=== PATIENT | male | born 1955 | race Caucasian/White ===

== ENCOUNTER 2019-08-28 19:52 | Inpatient (IN) | payer MEDICARE, SELFPAY ==
[2019-08-28 19:53] VITALS: BP 108/78; RESP 15; TEMP 35.4; O2SAT 97; BMI 15.0
--- NOTE | 2019-08-28 20:16 | CT_ITS ---
STUDY: CT BRAIN WITHOUT CONTRAST REASON FOR EXAM: Male, 64 years old. Confusion. Found on bathroom floor. History of lung and throat cancer. RADIATION DOSAGE (If Supplied By Facility): CTDIvol = ( 44.99 ) mGy, DLP = ( 846.73 ) mGycm TECHNIQUE: Transaxial CT imaging of the brain was performed without administration of intravenous contrast material. Individualized dose optimization techniques were used for this CT. COMPARISON: January 31, 2017. FINDINGS: Normal soft tissue structures. Normal calvarium. There is mild cerebral atrophy with widening of the extra-axial spaces and ventricular dilatation. Normal white matter tracts of the cerebral hemispheres. Normal basal ganglia and thalami. Normal brainstem. Normal cerebellum. There is no intracranial hemorrhage. There is increased density in the left MCA suggesting a dense MCA sign suggestive of impending infarct. Normal visualized paranasal sinuses. CT/Brain/Head without Contrast IMPRESSION: 1. Question left sided dense MCA sign. MRI is recommended. 2. No other major interval change from January 31, 2017. N.B. : The above information has been verbally conveyed by Jayy Rothman DO to Berry Rios MD, on 08/28/2019 21:21:38 (ET). Electronically Signed: Jayy Rothman DO at 21:22 EDT Tel [phone], Service support ,
--- NOTE | 2019-08-28 20:16 | EKG12_ITS ---
Test Reason : GENERAL ILLNESS Blood Pressure : / mmHG Vent. Rate : 099 BPM Atrial Rate : 099 BPM P-R Int : 120 ms QRS Dur : 068 ms QT Int : 376 ms P-R-T Axes : 068 079 124 degrees QTc Int : 482 ms Sinus rhythm with occasional Premature ventricular complexes Septal infarct , age undetermined Abnormal ECG Confirmed by ELENA GASPAR, DECLAN ([id number]), field map editor EDGARD JONES ([id number]) on 08/31/2019 3:17:08 PM Referred By: MENDEZ Confirmed By:DECLAN PARKER MD
--- NOTE | 2019-08-28 20:23 | ED.VISSUMM ---
- ER Visit Summary Date of Service: 08/28/19 Chief Complaint: Found down at home History of Present Illness: The patient is a 64 M 3 of the throat lung cancer. Patient is a limited informant and lives alone. Reportedly family and neighbors had not seen or talked him for several days. The police were called. They knocked several times he did not answer the door they broke into the home. Patient was found down in the bathroom. He denies complaints. But they state he was unable to stand on his own. They brought him in for evaluation. It is believed that he has been laying on the floor for some time. Per the community relations police lieutenant the home was very unkept. Physical Examination: Older male vital signs stable. Clinically looks dehydrated. He seems confused and is a poor informant. H EENT exam very dry mucous membranes. Poor dentition. No obvious facial or scalp trauma. No tenderness or hematomas. C-spine nontender. Lungs diminished breath sounds bilaterally. Heart regular rhythm no murmur. Chest wall nontender. No subcu air. Abdomen scaphoid. Thin. Nontender. Nondistended. No peritoneal signs. Pelvic girdle intact. No shortening or rotation. Both upper and lower extremities are very thin, cachectic and wasted. Neurologically is awake and alert. He does follow commands. But is confused. He is a very limited informant. There are no focal motor deficits. He is moving all 4 extremities. Test Results: Chest x-ray shows bilateral apical thickening which appears to be a chronic change. No obvious pneumonia. Portable 1 view film read both myself and the radiologist. CAT scan of the brain showed no obvious mass or bleed. There is a possible right middle cerebral artery sign which is questionable for possible stroke. This will need an MRI for further evaluation. Patient is not a TPA candidate. EKG shows a sinus rhythm rate of 99 with PVCs. There is artifact. His white count is 17,200. Hemoglobin 17. Hematocrit 56. His electrolytes are consistent with dehydration with a sodium of 157. Potassium of 3.4. Chloride of 116. BUN and creatinine are consistent with acute kidney injury and acute dehydration with a BUN of 73 and a creatinine of 1.76. Urinalysis is pending. We are unable to get urine nurses placed a coud? catheter but were still waiting for enough urine to send to the lab. Troponin is elevated 0.86. Emergency Department Course and Treatment: Older male with known cancer found down at home suspected lengthy downtime. Clinically appears dehydrated., Extensive work-up performed. He will need to be admitted. Patient is showing some improvement on repeat exam at 2300 p.m. He seems more alert with the first bag of IV fluids and a second is being hung. Blood cultures are pending. Treatment Plan: Spoke to the hospitalist about admission. Disposition: Admission Impression: Found down on the floor at his home Prolonged downtime Dehydration Acute confusion rule out CVA Electrolyte abnormalities. Acute kidney injury Acute on chronic hypothyroidism History of throat lung cancer This note was generated with [employer] dictation software. It may contain incorrect words, spelling, and punctuation that were not noted in review of the chart prior to signing ED Disposition - Plan for ED Patient: Referrals: Alexander Grover DO [Primary Care Provider] -
[2019-08-28] MEDS: 0.9% Normal Saline 1,000 ML 1000 ML IV (20:44)
[2019-08-28 21:02] LABS: Absolute Lymphocyte Count 0.91 X10^3/uL (0.83-4.51); Absolute Neutrophil Count 15.5 X10^3/uL (2.0-7.7); Basophil# 0.04 X10^3/uL; Basophil% 0.2 % (0-1); Hemoglobin 17.1 g/dL (13.0-16.5); Lymphocyte # 0.91 X10^3/ul (4.0); Lymphocyte % 5.3 % (19-41); Mean Corp Hgb Conc 30.4 g/dL (32-36); Mean Corpuscular Hgb 28.3 pg (27.0-32.0); Mean Corpuscular Volume 93.2 fL (80-94); Mean Platelet Vol. 10.1 fl (6.2-12.0); Monocyte# 0.66 X10^3/uL; Monocyte% 3.8 % (0-10); NRBC Flagged by Analyzer 0 % (0-5); Platelet Count 175 K/mm3 (150-450); RBC Distribution Width CV 14.2 % (11.6-14.6); RBC Distribution Width SD 46.7 fl (35.1-43.9); Red Blood Count 6.04 M/mm3 (4.6-6.2); White Blood Count 17.2 K/mm3 (4.4-11.0)
--- NOTE | 2019-08-28 21:07 | RAD_ITS ---
STUDY: X-RAY CHEST REASON FOR EXAM: Male, 64 years old. Found on floor. Confused and weak. History of lung cancer. TECHNIQUE: Single AP portable view of the chest. COMPARISON: February 01, 2017. FINDINGS: There is hyperinflation of the lungs consistent with chronic obstructive lung disease (COPD). There is no focal mass or infiltrate. There is scarring in the lung apices. This appears increased on the right. The lungs are otherwise clear. There is no demonstrated pleural abnormality. Normal size heart. Normal mediastinum and geeta. Normal visualized pulmonary arteries. Normal visualized aortic arch and descending thoracic aorta. The thoracic spine is obscured by the mediastinum. Normal visualized ribs, clavicles, and shoulders. There is no demonstrated abnormality of the visualized soft tissue structures of the upper abdomen. RAD/Chest 1 View (Portable) IMPRESSION: Bilateral apical thickening. This appears increased on the right and compared to prior study. Electronically Signed: Jayy Rothman DO at 21:26 EDT Tel [phone], Service support ,
[2019-08-28 21:26] LABS: ALB/GLOB Ratio 0.9 RATIO (0.9-2.4); AST(SGOT) 95 U/L (15-37); Alanine Aminotransfer ALT/SGPT 88 U/L (16-61); Albumin, Serum 3.3 g/dL (3.2-5.0); Alkaline Phosphatase 75 U/L (45-117); Anion Gap 14 (5-15); BUN 73 mg/dL (7-18); BUN/Creat Ratio 41.5 RATIO (10-20); Calcium,Total 9.7 mg/dL (8.5-10.1); Chloride 116 mmol/L (98-107); Creatinine, Serum 1.76 mg/dL (0.70-1.30); EST Glomerular Filtration Rate 41 mL/min (>60); Est Glom Filt Rate - Afr Amer 50 mL/min (>60); Globulin 3.8 g/dL (2.2-4.2); Glucose 143 mg/dL (74-106); Potassium 3.4 mmol/L (3.5-5.1); Protein, Total 7.1 g/dL (6.4-8.2); Sodium Level 157 mmol/L (136-145)
[2019-08-28 21:39] LABS: CPK Total, Creatine Kinase 621 U/L (39-308); Thyroid Stim Hormone (TSH) 8.07 uIU/mL (0.358-3.74)
[2019-08-28 22:10] VITALS: O2SAT 84
[2019-08-28 22:15] VITALS: BP 127/99; PULSE 109; RESP 16; TEMP 35.8; O2SAT 99
[2019-08-28 22:17] LABS: Bacteria 0 SEEN /hpf (None Seen); Mucous, Urine 0 SEEN /hpf (<or=2+); Red Blood Cells-Urine 0 SEEN /hpf (0-5); Squamous Epithelial Cells - UA 0 SEEN /hpf (0-5); White Blood Cells 0 SEEN /hpf (0-5)
[2019-08-28 22:38] LABS: Hematocrit 56.3 % (40-54)
[2019-08-28 22:54] LABS: Color, Urine Yellow (Yellow); Glucose, Dipstick Normal (Normal); Ketone-Dipstick 15 mg/dl (Negative); Leukocyte Esterase-Dipstick 25 /ul (Negative); Nitrite-Dipstick Negative (Negative); Occult Blood-Urine 10 /ul (Negative); Protein-Dipstick 30 mg/dl (Negative); Urine Bilirubin Dipstick Negative (Negative); Urine Clarity Clear (Clear); Urine Urobilinogen Normal (Normal)
[2019-08-28] MEDS: 0.9% Normal Saline 1,000 ML 999 ML IV (23:40)
--- NOTE | 2019-08-28 23:49 | PCM.HP.STD ---
Problem List (1) Confusion Status: Acute (2) Debility Status: Acute History of Present Illness Date of Admission: 08/28/19 Chief Complaint: confusion, found down at home, debility The patient is a 64 year old M who was seen in the emergency room at [facility] after being brought in by squad after being found down in his bathroom at home. It is unknown how long patient was on his bathroom floor, patient appeared mildly confused in the emergency room, he knew that he was in the hospital, he did not know what year it was, he did know his name. Patient denied any pain, he denied any shortness of breath. Review of systems was unreliable due to patient's mild confusion. The emergency room physician obtained medical information from the patient's sister-patient has a past history of lung and throat cancer, he lives alone. Patient had a CT of his brain performed, it showed a density in the left MCA that questioned an early infarction. Otherwise the CT of the brain was unremarkable. Patient's labs showed an elevated white blood cell count at 17.2, hemoglobin was 17.1, sodium was elevated at 157, potassium was 3.4, chloride was 116, and BUN was 73, creatinine was 1.76. Patient's troponin was elevated at point 866, CPK was elevated at 621, ALT was elevated at 88, and AST was elevated at 95. EKG showed a sinus rhythm with poor R wave progression. Patient was admitted to PCU for elevated troponins, dehydration, and possible CVA. Past Medical History Allergies No Known Allergies Allergy (Verified 01/31/17 16:57) Home Medications: Ambulatory Orders Medication Instructions Recorded Levothyroxine Sodium 25 mcg PO DAILY 01/31/17 Loratadine 10 mg PO DAILY 01/31/17 Losartan Potassium 25 mg PO DAILY 01/31/17 Multivitamin [Multiple Vitamins] 1 each PO DAILY 01/31/17 Tramadol HCl [Ultram] 50 mg PO Q8H PRN PRN 01/31/17 Surgical History: noncontributory Psychiatric History: - - Unknown Lives: Alone Smoking Status: Former smoker Tobacco Use: - - Unknown - *Family History Maternal History Items: No pertinent history Paternal History Items: No pertinent history Review of Systems Comment: Review of systems was unobtainable due to patient confusion, scant medical information was obtained from his sister by the emergency room physician. VTE Information - Inpt Only VTE Present on Admission: No VTE Mechan Device Prophylaxis: None VTE Pharm Prophylaxis ordered?: Yes Patient Problems: Active and Suspected Problems Confusion (Acute) Debility (Acute) - Physical Exam Vitals/I&O's: Vital Signs Temp Pulse Resp BP Pulse Ox 96.5 F L 109 H 16 127/99 H 99 08/28/19 22:15 08/28/19 22:15 08/28/19 22:15 08/28/19 22:15 08/28/19 22:15 Oxygen Flow Rate (L/min) 2 Oxygen Delivery Method Nasal Cannula Weight: 46.4 kg Body Mass Index (BMI) 15.0 Intake and Output for Last 24 Hours 08/26/19 08/27/19 08/28/19 23:59 23:59 23:59 Intake Total 1000 / 1000 Balance 1000 / 1000 General: Alert, Cooperative, No apparent distress, Confused, - - Patient has poor hygiene and appears cachectic and unwell HEENT: Atraumatic, PERRLA, EOMI, Normocephalic Oral: Dry Mucosa Neck: Supple, No JVD, Negative Carotid Bruits, Trachea Midline, Thyroid Normal Size and Texture Lungs: Clear to auscultation, Normal air movement, No rhonchi, No wheeze, No rales Cardiovascular: Regular rate, Regular Rhythm, Normal S1, Normal S2, No murmurs, PMI Normal, No rub noted, No Gallop Abdomen: Bowel Sounds Present, Soft, Non Tender, Non-Distended, No hernias noted Extremities: No clubbing, No cyanosis, No edema, Capillary Refill Less than 3 Seconds Skin: No rashes, No breakdown Musculoskeletal: No Tenderness to Palpation of Joints or Extremities, Cachexia, Muscle Wasting Neurological: Cranial nerves II-XII grossly intact, Neuro grossly intact, Sensory exam intact to light touch and pain Psych/Mental Status: - - Patient exhibits confusion, he is not agitated Laboratory Results 08/28/19 20:55: WBC 17.2 H, RBC 6.04, Hgb 17.1 H, Hct 56.3 H, MCV 93.2, MCH 28.3, MCHC 30.4 L, RDW Std Deviation 46.7 H, RDW Coeff of Abdullahi 14.2, Plt Count 175, MPV 10.1, Immature Gran % (Auto) 0.700, Neut % (Auto) 90.0 H, Lymph % (Auto) 5.3 L, [place] % (Auto) 3.8, Eos % (Auto) 0.0, Baso % (Auto) 0.2, Absolute Neuts (auto) 15.5 H, Absolute Lymphs (auto) 0.91, Nucleated RBC % 0 08/28/19 20:55: PT Cancelled, INR Cancelled 08/28/19 20:55: Sodium 157 H, Potassium 3.4 L, Chloride 116 H, Carbon Dioxide 27.0, Anion Gap 14, BUN 73 H, Creatinine 1.76 H, Estim Creat Clear Calc 27.10, Est GFR (MDRD) Af Amer 50 L, Est GFR (MDRD) Non-Af 41 L, BUN/Creatinine Ratio 41.5 H, Glucose 143 H, Calcium 9.7, Total Bilirubin 0.80, AST 95 H, ALT 88 H, Alkaline Phosphatase 75, Troponin I 0.866 H*, Total Protein 7.1, Albumin 3.3, Globulin 3.8, Albumin/Globulin Ratio 0.9 08/28/19 20:55: Total Creatine Kinase 621 H, TSH 8.07 H 08/28/19 22:05: Urine Color Yellow, Urine Clarity Clear, Urine pH 6.0, Ur Specific [place] 1.020, Urine Protein 30 H, Urine Glucose (UA) Normal, Urine Ketones 15 H, Urine Occult Blood 10 H, Urine Nitrite Negative, Urine Bilirubin Negative, Urine Urobilinogen Normal, Ur Leukocyte Esterase 25 H, Urine RBC 0 SEEN, Urine WBC 0 SEEN, Ur Squamous Epith Cells 0 SEEN, Urine Bacteria 0 SEEN, Urine Mucus 0 SEEN Current Medications Sodium Chloride () 1,000 mls @ 999 mls/hr IV .Q1H1M ONE Stop: 08/29/19 00:00 Assessment/Plan All Active Problems Confusion (Acute) Debility (Acute) #1 acute kidney injury with hypernatremia-etiology unknown, patient will be admitted to PCU, he will be given IV fluids, labs will be monitored. #2 encephalopathy-probably secondary to acute kidney injury, underlying cognitive impairment is not ruled out at this time #3 elevated troponin-etiology unclear, troponin will be cycled #4 leukocytosis-etiology unclear, CBC will be monitored #[address] of the brain indicating possible left-sided MCA early CVA-I do not believe patient will be able to undergo an MRI at this time, I will reorder the patient's CT tomorrow #6 [id number] will most probably need placement in a usp facility #7 severe protein and caloric malnutrition-patient will need to be seen by nutritional services #8 hypokalemia-this will be rechecked tomorrow with his BMP #9 hypothyroidism-I will order thyroid studies on the patient Inpatient E&M: [id number] Init Hosp L3
[2019-08-28 23:59] VITALS: BP 142/90; PULSE 85; RESP 18; TEMP 36.1; O2SAT 94
[2019-08-29] VITALS (14 sets, daily range): BP systolic 88–163; BP diastolic 49–114; PULSE 76–98; RESP 16–24; TEMP 36.3–37; O2SAT 92–97; BMI 14.3; BMI 14.4
[2019-08-29] MEDS: Dext 5%-0.45% NS 1,000 ML 125 ML IV ×2 (00:32→11:31)
[2019-08-29 03:50] LABS: Absolute Lymphocyte Count 0.82 X10^3/uL (0.83-4.51); Absolute Neutrophil Count 12.7 X10^3/uL (2.0-7.7); Basophil# 0.01 X10^3/uL; Basophil% 0.1 % (0-1); Hematocrit 49.1 % (40-54); Hemoglobin 15.1 g/dL (13.0-16.5); Lymphocyte # 0.82 X10^3/ul (4.0); Lymphocyte % 5.7 % (19-41); Mean Corp Hgb Conc 30.8 g/dL (32-36); Mean Corpuscular Hgb 28.7 pg (27.0-32.0); Mean Corpuscular Volume 93.3 fL (80-94); Mean Platelet Vol. 10.1 fl (6.2-12.0); Monocyte# 0.84 X10^3/uL; Monocyte% 5.8 % (0-10); NRBC Flagged by Analyzer 0 % (0-5); Neutrophil # 12.65 X10^3/uL (2.7-7.7); Neutrophil % 87.9 % (47-70); Platelet Count 137 K/mm3 (150-450); RBC Distribution Width CV 13.9 % (11.6-14.6); RBC Distribution Width SD 47.1 fl (35.1-43.9); Red Blood Count 5.26 M/mm3 (4.6-6.2); White Blood Count 14.4 K/mm3 (4.4-11.0)
[2019-08-29 04:21] LABS: Anion Gap 8 (5-15); BUN 79 mg/dL (7-18); BUN/Creat Ratio 46.5 RATIO (10-20); Calcium,Total 8.8 mg/dL (8.5-10.1); Chloride 120 mmol/L (98-107); EST Glomerular Filtration Rate 43 mL/min (>60); Est Glom Filt Rate - Afr Amer 52 mL/min (>60); Estimated Creatinine Clearance 26.66 ml/min; Free T3 1.4 pg/mL (2.18-3.98); Glucose 154 mg/dL (74-106); Potassium 3.3 mmol/L (3.5-5.1); Sodium Level 156 mmol/L (136-145); Thyroid Stim Hormone (TSH) 4.36 uIU/mL (0.358-3.74)
[2019-08-29] MEDS: Heparin Injection (Vial) 5,000 UNIT/ML VIAL 5000 UNIT SC (06:12)
--- NOTE | 2019-08-29 08:53 | ECHOD_ITS ---
Reason For Study: elevated troponins Procedure This was a 2D Doppler, Color Flow transthoracic echocardiogram. The study was technically difficult. Due to poor parasternal accoustic windows. Majority of imaging acquired from subcostal window. Exam performed portable in patient room. Left Ventricle Normal LV size. Large mass at the apex measuring 5.1 by 3.3 which appears to be pedunculated. The estimated ejection fraction is 45 %. [place] : Severely Hypokinetic. Mid-Lateral : Hypokinetic. Lateral [place] : Severely Hypokinetic. Right Ventricle Normal RV size. Normal systolic function. Atria Normal left atrium. Normal right atrium. Tricuspid Valve Normal tricuspid valve. Mild tricuspid valve insufficiency. Great Vessels Normal aortic root. The pulmonary artery is normal size. Pericardium/Pleural No pericardial effusion. MMode/2D Measurements & Calculations LVIDd: 3.7 cm IVSd: 0.75 cm LAV(MOD-sp4): 12.7 ml LVIDs: 3.2 cm LVPWd: 0.75 cm RVDd: 2.5 cm FS: 12.1 % LA A4 area: 7.1 cm2 Doppler Measurements & Calculations MV E max noni: 37.4 cm/sec Ao V2 max: 93.7 cm/sec LV V1 max: 61.5 cm/sec MV A max noni: 58.4 cm/sec Ao max P.5 mmHg LV V1 max P.5 mmHg MV E/A: 0.64 PA V2 max: 146.3 cm/sec TR max noni: 193.0 cm/sec TR max P.1 mmHg Interpretation Summary Large mass at the apex measuring 5.1 by 3.3 which appears to be pedunculated. Normal LV size. The estimated ejection fraction is 45 %. [place] : Severely Hypokinetic. Ordering Physician: Jessica Jones Referring Physician: Alexander Torres Performed By: Mariposa Díaz, MACIEJ, RVT
--- NOTE | 2019-08-29 10:27 | CT_ITS ---
STUDY: CTA CHEST REASON FOR EXAM: Male, 64 years old. r/o pe RADIATION DOSAGE (If Supplied By Facility): CTDIvol = ( 7.29 ) mGy, DLP = ( 157.39 ) mGycm TECHNIQUE: The examination was performed with the intravenous administration of 65 ml isovue 370. Post-processing of the angiographic images was performed, with multiplanar reformation and 3D reconstruction. Individualized dose optimization techniques were used for this CT. COMPARISON: None. FINDINGS: There is a small filling defect within the right proximal superior segment of the artery as seen on series 5 image 171 consistent with partially occlusive clot. Normal enhancement of the bilateral peripheral pulmonary arteries. There is no demonstrated pulmonary embolism. Normal thoracic aorta and visualized great vessels. There is no demonstrated aortic dissection. Normal heart and pericardium. Normal mediastinum. Normal hilar regions. Normal visualized trachea and bronchi. The lungs are well expanded. Right apical emphysematous and paraseptal bullous emphysematous changes are present with chronic interstitial thickening with underlying acute on chronic infectious etiology not excluded. Diffuse centrilobular emphysematous changes of the predominant upper lungs are present extending to the lung bases. There is an ill-defined pulmonary nodule overlying the right lower lobe posteriorly as seen on series 5 image 125 measuring 1 cm in diameter. Normal pleura. Normal chest wall structures. Normal osseous structures. Normal visualized upper abdomen. CT/CTA Chest W/WO Contrast IMPRESSION: 1. Findings consistent with partially obstructive pulmonary embolism within the right proximal pulmonary artery as seen on series 5 image 71. Otherwise no additional large pulmonary embolus. 2. Diffuse centrilobular emphysematous changes with right apical chronic changes and areas of interstitial prominence and mild pleural thickening with acute on chronic infectious etiology not completely excluded. 3. Right lower lung posterior segment ill-defined pulmonary nodule with differential including inflammatory nodule (series 5 image 125). Recommend follow-up imaging to document stability versus resolution at 3-4 months. Electronically Signed: Thien Barbour DO at 11:55 EDT , Service support ,
--- NOTE | 2019-08-29 10:41 | CASEMGMT ---
SW met w/pt in room to discuss prior level of care and discharge plan. Pt is still seems confused at present, though was able to answer some questions. PCP: Dr. Grover Insurance/prescription coverage: M[employer] Medicare Preferred Pharmacy: [facility] [place] Living Will/POA: Pt states he completed the forms in the past but they are not on file here. He does not remember who is POA. LNOK: PT has a sister Chastity who he states he does not get along with. Pt states has no other family. Living arrangements: Pt states lives alone, uses a cane. Pt is on O2 at present. SW inquired if pt is on O2 at home, states he uses it sometimes. Pt states does not drive. SW asked about getting to the store or to the doctor. Pt states he does not go to the store as he cannot eat. Pt denies that anybody helps him. Assessment: Though pt was able to answer some questions appropriately, he stated to SW he is at home, and thought it was September 08. SW did not complete PHQ-9 at present due to pt presenting with some confusion at present. SW did speak to pt about going somewhere for rehab, pt did say he would stay here. Pt's sister Chastity had called in and spoke w/the RN and wanted to speak w/SW. SW called sister Chastity. She is concerned about pt going back into the same situation, states she has peace of mind that pt is here. Pt's sister explained that she has not seen pt since May, but before that it was March. She states she does speak to him on the phone however and was unable to reach him. She called the police and APS. The police went to see him Saturday, he answered the door and said he was okay. APS said they would go out within 72 hours since they knew now it was not an emergency. Pt then did not answer the phone again and the police went to the pt's home on Saturday and found him down. She is concerned about him going back home. She states he has a history of throat cancer and he has said that if he gets cancer again he would just want to at home, so was worried about him when he did not answer the phone. Pt's sister explains that she and her daughter are pt's only family, she does have a paper from 1992 stating she and her daughter (pt's niece) can speak for pt. Pt's sister states pt is on disability, has a history of throat cancer, and only consumes [employer]. Pt's sister explains pt is normally very independent, and does not always let her know everything that is going on. She explained he lived with their mother until she in 2017. She states he had a breakdown and ended up in [facility], then came to her house for a week. After that he was managing on his own. Chastity also states she does not want pt to know she called the police as he will be upset with her. SW explained spoke w/pt and at present he is agreeable to go to TCU. SW explained a precert would be needed. SW explained that there is no guarantee that insurance will cover but that we can look into it. SW also explained if insurance does approve TCU or another facility, there will be a digital sales planner to assist when he is ready to leave--and see what is appropriate, possibly home health, intermediate placement, and/or a referral to [facility] to see what services he may need at home. LIUDMILA explained that pt still has the right, if he is alert and oriented, to refuse any referrals however. Sister Chastity states understanding, she states APS said the same thing. She states pt could come stay w/her also though does not think he would be agreeable. SW also mentioned palliative care as a possible option for pt, though pt is not quite alert and oriented enough to have this discussion at present. Pt's sister states understanding. Pt's sister asked to be updated as far as the plan for discharge from here, LIUDMILA explained will ask SW on PCU to follow up w/her, also let her know will call APS to let them know pt is here. Chastity thanked LIUDMILA for help and understanding. LIUDMILA called APS, left a message for Blanca letting her know pt is here and to follow up w/Breana on Saturday. Plan: LIUDMILA provided prison list to pt, pt is agreeable to go to TCU at discharge. SW called and left a message on TCU voicemail in regard to referral. SW to follow up Saturday in regard to referral, and in regard to PHQ-9 if necessary, and to speak w/pt about palliative care. LETICIA Samuel
--- NOTE | 2019-08-29 11:00 | CT_ITS ---
STUDY: CT BRAIN WITHOUT CONTRAST REASON FOR EXAM: Male, 64 years old. CVA? found on floor yesterday RADIATION DOSAGE (If Supplied By Facility): CTDIvol = ( 44.99 ) mGy, DLP = ( 829.85 ) mGycm TECHNIQUE: Transaxial CT imaging of the brain was performed without administration of intravenous contrast material. Individualized dose optimization techniques were used for this CT. COMPARISON: 31 January 2017 . FINDINGS: Normal soft tissue structures. Normal calvarium. Within the left occipital lobe is a region of cortical hypodensity as seen on series 2 image 20 concerning for acute versus subacute ischemia. There are areas of decreased attenuation within the white matter tracts of the supratentorial brain, consistent with microvascular disease changes. Normal basal ganglia and thalami. Normal brainstem. Normal cerebellum. There is no intracranial hemorrhage. There are no findings of an acute ischemic infarction. Normal visualized paranasal sinuses. CT/Brain/Head without Contrast IMPRESSION: 1. No evidence of large MCA territorial ischemia. No evidence of acute intracranial bleed. 2. Left occipital hypodensity (series 2 image 20) concerning for acute versus subacute ischemia, recommend MRI evaluation for further characterization. Electronically Signed: Thien Barbour DO at 11:43 EDT , Service support ,
--- NOTE | 2019-08-29 11:16 | PN_ITS ---
Patient Problems: Active and Suspected Problems Confusion (Acute) Debility (Acute) Subjective: Patient seen and examined. He was admitted with a complaint of weakness and mechanical fall. He was found down in his bathroom at home; it was unknown how long patient had been on the ground.It was noted that patient has a history of lung and throat cancer.CT of the brain showed left MCA density early infarction; CT of the brain was otherwise unremarkable and labs showed wbc of 7.2, with Hb of 7.1. initial troponin was 0.866, and CPK was 621. Liver enzymes were mildly elevated. Patient seen this morning. He is very lethargic; he tells me he has a history of lung cancer, and has been undergoing treatment at [facility]. He felt weak but denied any shortness of breath, palpitations, chest pain, abdominal pain, diarrhea or vomiting. He had what appeared to be coffee ground emesis coating his mouth and tongue, though he denied vomiting. Vitals/I&O's: Vital Signs Temp Pulse Resp BP Pulse Ox 97.3 F L 87 20 H 101/74 92 08/29/19 09:00 08/29/19 09:00 08/29/19 09:00 08/29/19 09:00 08/29/19 09:00 Oxygen Flow Rate (L/min) 4 Oxygen Delivery Method Nasal Cannula Weight: 97 lb 3.582 oz Body Mass Index (BMI) 14.3 Intake and Output for Last 24 Hours 08/27/19 08/28/19 08/29/19 23:59 23:59 23:59 Intake Total 1000 / 1000 1528.3 / 1528.3 Output Total 400 / 400 Balance 1000 / 1000 1128.3 / 1128.3 General: Alert, Cooperative, No apparent distress, Lethargic, - - very cachectic; BMI is 14 HEENT: Atraumatic, PERRLA, EOMI, Normocephalic Oral: Dry Mucosa, - - has coffee ground substance coating his tongue Neck: Supple, No JVD, Negative Carotid Bruits Lungs: - Cardiovascular: Regular rate, Regular Rhythm, Normal S1, Normal S2, No murmurs Abdomen: Bowel Sounds Present, Soft, Non Tender, Non-Distended, No Hepato- splenomegaly Extremities: No clubbing, No cyanosis, No edema, Capillary Refill Less than 3 Seconds Skin: No rashes, No breakdown Musculoskeletal: No Tenderness to Palpation of Joints or Extremities Lymphatic: No Cervical, Supraclavicular, or Inguinal Adenopathy Neurological: Cranial nerves II-XII grossly intact, Neuro grossly intact, Motor Exam 5/5 strength throughout Psych/Mental Status: Normal Affect, Appropriate Laboratory Results 08/28/19 20:55: WBC 17.2 H, RBC 6.04, Hgb 17.1 H, Hct 56.3 H, MCV 93.2, MCH 28.3, MCHC 30.4 L, RDW Std Deviation 46.7 H, RDW Coeff of Abdullahi 14.2, Plt Count 175, MPV 10.1, Immature Gran % (Auto) 0.700, Neut % (Auto) 90.0 H, Lymph % (Auto) 5.3 L, [place] % (Auto) 3.8, Eos % (Auto) 0.0, Baso % (Auto) 0.2, Absolute Neuts (auto) 15.5 H, Absolute Lymphs (auto) 0.91, Nucleated RBC % 0 08/28/19 20:55: PT Cancelled, INR Cancelled 08/28/19 20:55: Sodium 157 H, Potassium 3.4 L, Chloride 116 H, Carbon Dioxide 27.0, Anion Gap 14, BUN 73 H, Creatinine 1.76 H, Estim Creat Clear Calc 27.10, Est GFR (MDRD) Af Amer 50 L, Est GFR (MDRD) Non-Af 41 L, BUN/Creatinine Ratio 41.5 H, Glucose 143 H, Calcium 9.7, Total Bilirubin 0.80, AST 95 H, ALT 88 H, Alkaline Phosphatase 75, Troponin I 0.866 H*, Total Protein 7.1, Albumin 3.3, Globulin 3.8, Albumin/Globulin Ratio 0.9 08/28/19 20:55: Total Creatine Kinase 621 H, TSH 8.07 H 08/28/19 22:05: Urine Color Yellow, Urine Clarity Clear, Urine pH 6.0, Ur Specific [place] 1.020, Urine Protein 30 H, Urine Glucose (UA) Normal, Urine Ketones 15 H, Urine Occult Blood 10 H, Urine Nitrite Negative, Urine Bilirubin Negative, Urine Urobilinogen Normal, Ur Leukocyte Esterase 25 H, Urine RBC 0 SEEN, Urine WBC 0 SEEN, Ur Squamous Epith Cells 0 SEEN, Urine Bacteria 0 SEEN, Urine Mucus 0 SEEN 08/29/19 00:40: Troponin I 0.763 H* 08/29/19 03:40: WBC 14.4 H, RBC 5.26, Hgb 15.1, Hct 49.1, MCV 93.3, MCH 28.7, MCHC 30.8 L, RDW Std Deviation 47.1 H, RDW Coeff of Abdullahi 13.9, Plt Count 137 L, MPV 10.1, Immature Gran % (Auto) 0.500, Neut % (Auto) 87.9 H, Lymph % (Auto) 5.7 L, [place] % (Auto) 5.8, Eos % (Auto) 0.0, Baso % (Auto) 0.1, Absolute Neuts (auto) 12.7 H, Absolute Lymphs (auto) 0.82 L, Nucleated RBC % 0 08/29/19 03:40: Sodium 156 H, Potassium 3.3 L, Chloride 120 H, Carbon Dioxide 28.0, Anion Gap 8, BUN 79 H, Creatinine 1.70 H, Estim Creat Clear Calc 26.66, Est GFR (MDRD) Af Amer 52 L, Est GFR (MDRD) Non-Af 43 L, BUN/Creatinine Ratio 46.5 H, Glucose 154 H, Calcium 8.8, TSH 4.36 H, Thyroxine (T4) 6.0, Free T3 pg/dL 1.4 L 08/29/19 03:40: Troponin I 0.636 H* Diagnostic Data Chest X-Ray 08/28/19 21:07 IMPRESSION: Bilateral apical thickening. This appears increased on the right and compared to prior study. Electronically Signed: Jayy Rothman DO at 21:26 EDT Tel [phone], Service support , Brain CT 08/29/19 11:00 IMPRESSION: 1. No evidence of large MCA territorial ischemia. No evidence of acute intracranial bleed. 2. Left occipital hypodensity (series 2 image 20) concerning for acute versus subacute ischemia, recommend MRI evaluation for further characterization. Electronically Signed: Thien Barbour DO at 11:43 EDT , Service support , Current Medications Acetaminophen (Tylenol) 650 mg PO Q6H PRN PRN PRN Reason: Pain Score 1-10/Temp > 100.7 F Heparin Sodium (Porcine) (Heparin Na) 5,000 unit SC Q8 [facility] Last Admin: 08/29/19 06:12 Dose: 5,000 unit Documented by: Dextrose/Sodium Chloride () 1,000 mls @ 125 mls/hr IV .Q8H [facility] Last Infusion: 08/29/19 07:48 Dose: 125 mls/hr Documented by: Sodium Chloride () 250 mls @ 15 mls/hr IV .[id number] PRN PRN Reason: Saline Flush Sodium Chloride () 250 mls @ 15 mls/hr IV .[id number] PRN PRN Reason: Additional IVPB Infusion Nutritional Formula (Lactose Free) (Ensure Enlive) 120 ml PO 4X/DAY JUSTIN Ondansetron HCl (Zofran) 4 mg IV Q8H PRN PRN PRN Reason: NAUSEA/VOMITING Sodium Chloride () 10 - 40 ml IV UD PRN PRN Reason: SALINE FLUSH STROKE Vital Signs/Narrative: Vital Signs Temp Pulse Resp BP Pulse Ox 08/29/19 09:00 97.3 F L 87 20 H 101/74 92 08/29/19 07:28 95 Medical Necessity - Tobacco Use Smoking Status: Former smoker Tobacco Use: - - Unknown Assessment/Plan All Active Problems Confusion (Acute) Debility (Acute) 1. Hypernatremia * Likely due to dehydration. * being hydrated with IVF; NA is 156 this morning. * chloride level is also 120 * switch fluids to 1/2 normal saline * 2. Probable stroke * CT of the brain on admission showed possible left sided MCA vs early CVA * repeat CT brain showed no evidence of large MCA territorial ischemia, and left occipital hypodensity, concerning for acute vs subacute ischemia * will consult neurology * will do MRI 3. Pulmonary embolism * patient had mildly elevated troponins on admission. EKG showed no acute ST changes * CTA done of the chest showed findings consistent with partially obstructive pulmonary embolism within the right proximal pulmonary artery but no additional large PE and diffuse centrilobular emphysematous changes with right apical chronic changes and areas of interstitial prominence and right lower lung posterior segment ill-defined pulmonary nodule with differentials including inflammatory nodule. * 2D echo done: Large mass at the apex of the left ventricle measuring 5.1 x 3.3 cm which appears to be pedunculated, normal ventricular size and estimated EF of 45% with severely hypokinetic left ventricular apex * 4. Left apical mass: as per echo u nder 3. Discussed [facility] cardiology. Recommended patient being anticoagulated, which he is being o/a of PE. 5. DAFNE: Cr was 1.76 on admission, now 1.7 6. Hypokalemia: K is 3.3. Will replace per protocol and monitor 7. Failure to thrive: * likely due to cancer and poor nutrition * patient is unable to eat due to history of throat cancer and ?lung cancer * PT/OT on board * nutrition consulted * patient refused to consider PEG tube * 8. Severe protein calorie malnutrition * BMI is just 14. Patient is very cachectic. * likely due to throat cancer and ?lung cancer * nutrition consulted * Patient states he survives on [place] drink breakfast. He does not want to consider PEG tube. 9. Hypothyroidism: TSH is 4.36 and free T3 is 1.4. T4 level however was 6 we will continue to monitor. DVT Prophylaxis: On therapeutic Lovenox for PE. CODE STATUS: Full code * I had an extensive discussion with the patient about his CODE STATUS. Initially he told me that he did not want anything done and wanted to be left to . Later he however said that he would want everything done and would want every effort to be made for him. I counseled him that this was full code and in light of his history of throat cancer, intubation may be quite difficult. He did say that he had been through intubation before and it was a difficult process but he would want to try at this time again. To clarify patient's end-of-life wishes, I called his Sister Chastity Reynoso who is listed as his next contact. Sister stated that patient had always said he did not want any aggressive measures done especially after his mother in 2017. She was therefore surprised he was not seen he wanted everything done. Patient had a phone call with his sister which was witnessed by me on speaker phone in patient's room. Sister asked to clarify patient's end-of-life wishes and patient again stated that he would want everything done as he had stated area on. He was quite emphatic about this. CODE STATUS is therefore full code. * Total [id number] time- 25 minutes Inpatient E&M: 35467 Subs Hosp L3 Procedures: 01458 Advncd Care Plan 30 Min
--- NOTE | 2019-08-29 11:22 | EKG12_ITS ---
Test Reason : DYSPNEA Blood Pressure : / mmHG Vent. Rate : 082 BPM Atrial Rate : 082 BPM P-R Int : 140 ms QRS Dur : 072 ms QT Int : 380 ms P-R-T Axes : 082 080 224 degrees QTc Int : 443 ms Sinus rhythm with occasional Premature ventricular complexes Low voltage QRS T wave abnormality, consider inferior ischemia Abnormal ECG When compared with ECG of 01-FEB-2017 02:04, Significant changes have occurred Confirmed by ELENA GASPAR, DECLAN ([id number]), story editor EDGARD JONES ([id number]) on 09/02/2019 10:32:58 AM Referred By: NAILA Confirmed By:DECLAN PARKER MD
--- NOTE | 2019-08-29 11:22 | CASEMGMT ---
Pt confused at present so PHQ-9 not completed. LETICIA Samuel
--- NOTE | 2019-08-29 11:23 | CASEMGMT ---
Pt states has LW/POA, but does not remember who is his POA. Pt's sister states she has a paper at home stating she and pt's niece have permission to speak for pt, she is aware it is not on file here. LETICIA Samuel
[2019-08-29] MEDS: 0.9% Saline Lock 10 ML Syringe IV (11:32)
[2019-08-29] MEDS: Enoxaparin 30 MG/0.3 ML Syringe SC ×2 (13:21→22:55)
[2019-08-29] MEDS: 0.9% Normal Saline 1,000 ML 999 ML IV (13:35)
--- NOTE | 2019-08-29 14:56 | MRI_ITS ---
STUDY: MRA NECK WITH AND WITHOUT CONTRAST REASON FOR EXAM: Male, 64 years old. Found unresponsive, slurred speech TECHNIQUE: 3-D nldy-rk-thurhh (TOF) imaging was performed in an 1.5 T MRI scanner. 80 mL of IV DOTAREM was administered for the contrast enhanced images. COMPARISON: None. FINDINGS: RIGHT CAROTID ARTERIES: Normal right common carotid artery (CCA). Normal right internal carotid bulb. Normal origin of the right internal carotid (ICA) artery without a hemodynamically significant stenosis. Normal visualized cervical portion of the right internal carotid artery. Normal origin of the right external carotid artery (ECA). LEFT CAROTID ARTERIES: Normal left common carotid artery (CCA). Normal left internal carotid bulb. Normal origin of the left internal carotid (ICA) artery without a hemodynamically significant stenosis. Normal visualized cervical portion of the left internal carotid artery. Normal origin of the left external carotid artery (ECA). VERTEBRAL ARTERIES: Normal antegrade flow within the bilateral vertebral artery without a hemodynamically significant stenosis. AORTIC ARCH: Widely patent aortic arch and origins of the great vessels. MRI/MRA Neck WITH and W/O Contrast IMPRESSION: 1. Widely patent bilateral common carotid arteries, bilateral common carotid bifurcations, bilateral internal carotid arteries. 2. Widely patent aortic arch and origins of the great vessels. 3. Signal distortion artifacts across the common carotid arteries and across the of vertebral arteries. Electronically Signed: Taj Borjas MD at 16:08 EDT , Service support ,
--- NOTE | 2019-08-29 14:56 | MRI_ITS ---
STUDY: MRI BRAIN WITHOUT CONTRAST REASON FOR EXAM: Male, 64 years old. found unresponsive, slurred speech TECHNIQUE: Standardized multiplanar fat and water weighted pulse sequences were obtained. COMPARISON: September 09, 2019 CT head FINDINGS: Normal size of the ventricles and extra-axial spaces for the patient''s age. Normal white matter tracts of the supratentorial brain. There is a region of increased signal within the left occipital lobe corresponding to the hypodensity seen on previous CT scan consistent with acute to subacute infarct given high T2 signal on FLAIR and T2 imaging. Small punctate DWI signal is noted within the right mid posterior cerebellum consistent with focal acute infarct measuring 5 mm in diameter with bilobed appearance. Normal bilateral basal ganglia. Normal thalami. There is no extra-axial fluid accumulation. Normal flow voids within the major intracranial circulation suggesting patency by spin echo criteria. Normal sella turcica, pituitary gland, infundibular stalk, optic chiasm and hypothalamus. Normal tectal plate and pineal gland. Normal midbrain, cullen and medulla. Normal cerebellum. Normal basal cisterns. Normal bilateral temporal bones. Normal bilateral internal auditory canals. No demonstrated orbital abnormality, within the constraints of a routine brain study. Normal visualized paranasal sinuses. Normal calvarium and skull base. Normal visualized soft tissue structures. Normal visualized upper cervical spine. MRI/Brain without Contrast IMPRESSION: 1. Findings consistent with left occipital lobe acute to subacute infarct with no evidence of acute intracranial bleed. Mild senescent changes as above. 2. Focal acute infarct within the right mid cerebellum. Electronically Signed: Thien Barbour DO at 11:47 EDT , Service support ,
--- NOTE | 2019-08-29 14:56 | MRI_ITS ---
STUDY: MRA OF THE HEAD WITHOUT CONTRAST REASON FOR EXAM: Male, 64 years old. found unresponsive, slurred speech TECHNIQUE: 3-D iwgz-bz-comqac (TOF) imaging was performed with MIPs. The study was performed unenhanced. COMPARISON: None. FINDINGS: Normal bilateral petrous carotid arteries. Normal right cavernous carotid artery with a normal supraclinoid bifurcation. Normal left cavernous carotid artery with a normal supraclinoid bifurcation. There is non-visualization of the right A1 segment of the anterior cerebral arteries consistent with either aplastic development or an occlusion. Normal left A1 segments of the anterior cerebral artery. Normal intact anterior communicating artery (ACOM). Normal bilateral A2 segments of the anterior cerebral arteries. Normal right M1 and M2 segments of the middle cerebral arteries, with a normal M1 bifurcation. Normal left M1 and M2 segments of the middle cerebral arteries, with a normal M1 bifurcation. Normal right posterior communicating artery (PCOM). Normal left posterior communicating artery (PCOM). Diminutive appearance of the right V4 segment inspiration isn''t small appearance of the left V4 segment. Normal basilar artery with a normal basilar bifurcation. The visualized bilateral superior cerebellar (SCA) arteries are normal. Normal bilateral P1, P2 and visualized P3 segments of the posterior cerebral arteries. There is no demonstrated aneurysm of the [place]ark[place]. There is no major vessel occlusion or hemodynamically significant stenosis. There is no demonstrated abnormality of the visualized brain. MRI/MRA Head ONLY without Contrast IMPRESSION: 1. No evidence of significant steno-occlusive disease or aneurysm. 2. Diminutive right V4 segment and right A1 segment. Electronically Signed: Thien Barbour DO at 11:40 EDT , Service support ,
[2019-08-29] MEDS: 0.9% Normal Saline 1,000 ML 150 ML IV ×2 (14:58→21:34)
[2019-08-29] MEDS: Potassium Chloride 10mEq/100mL 10 MEQ/100 ML IV.SOLN. 100 MEQ IV BOLUS ×4 (16:00→22:11)
[2019-08-30] VITALS (14 sets, daily range): BP systolic 112–164; BP diastolic 55–110; PULSE 72–111; RESP 18–24; TEMP 36.6–37.3; O2SAT 86–97; BMI 14.3
[2019-08-30] MEDS: 0.9% Normal Saline 1,000 ML 150 ML IV (05:30)
[2019-08-30 06:31] LABS: Anion Gap 4 (5-15); BUN 54 mg/dL (7-18); BUN/Creat Ratio 66.2 RATIO (10-20); Calcium,Total 8.1 mg/dL (8.5-10.1); Chloride 127 mmol/L (98-107); Creatinine, Serum 0.82 mg/dL (0.70-1.30); EST Glomerular Filtration Rate 101 mL/min (>60); Est Glom Filt Rate - Afr Amer 122 mL/min (>60); Estimated Creatinine Clearance 55.27 ml/min; Glucose 93 mg/dL (74-106); Potassium 3.2 mmol/L (3.5-5.1); Sodium Level 158 mmol/L (136-145)
[2019-08-30] MEDS: Potassium Chloride 10mEq/100mL 10 MEQ/100 ML IV.SOLN. 100 MEQ IV BOLUS ×6 (08:51→23:35)
[2019-08-30] MEDS: Enoxaparin 30 MG/0.3 ML Syringe SC (08:53)
--- NOTE | 2019-08-30 09:10 | CON.PCM_ITS ---
Reason for Consult Date of Consultation: 08/30/19 Reason for Consultation: Evaluation of left ventricular mass History of Present Illness: The patient is a 64 year old M who was brought to the emergency room a few days ago after being found at home in his bathroom. He lives alone. He was mildly confused when he got to the emergency room. He denied any chest pain or shortness of breath or paroxysmal nocturnal dyspnea it looks like he had lost a fair amount of weight. According to the medical information he has recently been diagnosed with lung and throat cancer. He was evaluated in the emergency room was noted to have poor R wave progression on his EKG and minimally elevated troponins. CT of his brain demonstrated a possible infarct with no hemorrhage. His electrolytes were deranged with evidence of dehydration. His troponin was minimally elevated. He had an echocardiogram performed which demonstrated preserved left ventricular function with an nearly akinetic apex and a large thrombus measuring 5 x [address] scan of his chest was subsequently performed which also demonstrated evidence of a possible pulmonary embolism. Cardiology was called to give an opinion and assessment as to anticoagulation as well as management of the cardiac mass. [] Past Medical History Allergies/Adverse Reactions: Allergies No Known Allergies Allergy (Verified 01/31/17 16:57) Home Medications: Ambulatory Orders Medication Instructions Recorded Levothyroxine Sodium 25 mcg PO DAILY 01/31/17 Loratadine 10 mg PO DAILY 01/31/17 Losartan Potassium 25 mg PO DAILY 01/31/17 Multivitamin [Multiple Vitamins] 1 each PO DAILY 01/31/17 Tramadol HCl [Ultram] 50 mg PO Q8H PRN PRN 01/31/17 Surgical History: noncontributory Psychiatric History: - - Unknown - *Family History Maternal History Items: No pertinent history Paternal History Items: No pertinent history Lives: Alone Smoking Status: Former smoker Tobacco Use: - Alcohol: None Drugs: None Review of Systems - Review of Systems General: Reports: Fatigue, Weakness, Anorexia, Weight Loss. Denies: Fever, Night Sweats HEENT: Denies: Vision Change Cardiovascular: Denies: Chest Discomfort, Shortness of Breath, Orthopnea, PND, Peripheral Edema, Palpitations, Lightheadedness, Dizziness, Near Syncope, Syncope Respiratory: Denies: Cough, Sputum Production, Hemoptysis Gastrointestinal: Denies: Hematemesis, Hematochezia, Melena Genitourinary: Denies: Dysuria, Hematuria Muscoloskeletal: Reports: Muscle Weakness Skin: Denies: Rash Neurological: Reports: Weakness Psychiatric: Denies: Anxiety Endocrine: Denies: Excessive Sweating Hematologic/ Lymphatic: Reports: Anemia Subjectve: Cachectic man in no distress lying in bed Objective: Vital Signs Temp Pulse Resp BP Pulse Ox 97.8 F 72 18 119/82 H 95 08/30/19 05:46 08/30/19 07:00 08/30/19 05:46 08/30/19 05:46 08/30/19 07:37 Oxygen Flow Rate (L/min) 2 Oxygen Delivery Method Nasal Cannula Weight: 97 lb 3.582 oz Body Mass Index (BMI) 14.3 Intake and Output for Last 24 Hours 08/28/19 08/29/19 08/30/19 23:59 23:59 23:59 Intake Total 1000 / 1000 4765.8 / 4865.8 1130.0 / 1130.0 Output Total 900 / 900 200 / 200 Balance 1000 / 1000 3865.8 / 3965.8 930.0 / 930.0 General: Awake, Alert, Oriented x 3, Ill Appearing HEENT: PERRL, EOMI, Sclera Non Icteric Neck: Supple, Good ROM, No Lymph Node Enlargement Lungs: Clear to auscultation Cardiovascular: Regular Rhythm, Normal S1, Normal S2, No Murmurs, No Rubs, No Gallops Vascular: No Carotid Bruits, Normal Femoral Pulses, Normal Radial Pulses, Normal Dorsalis Pedal Pulse, Normal Posterior Tibial Pulses Abdomen: Bowel Sounds Present, Soft, Non Tender, No HSM, No Organomegaly Extremities: No Cyanosis, No Clubbing, No edema Musculoskeletal: No Erythema Skin: No Rashes Lymphatic: No Lymph Node Enlargement Neurological: No Focal Motor or Sensory Deficit 08/30/19 05:03: Sodium 158 H, Potassium 3.2 L, Chloride 127 H*, Carbon Dioxide 27.0, Anion Gap 4 L, BUN 54 H, Creatinine 0.82, Est GFR (MDRD) Af Amer 122, Est GFR (MDRD) Non-Af 101, BUN/Creatinine Ratio 66.2 H, Glucose 93, Calcium 8.1 L, Magnesium 2.0 Rhythm: EKG: Normal sinus rhythm with poor R wave progression ECHO: Low normal ejection fraction with evidence of nearly akinetic apex Assessment/Plan 1. Left ventricular mass * He does have evidence of poor R wave progression noted on his EKG and an echocardiogram with a nearly akinetic apical zone. This suggest that he likely has coronary artery disease with possible recent infarct. Though he has a history of lung carcinoma it is more likely that this is a thrombus versus a metastatic lung of throat lesion. * At this particular time he cannot take oral medication until fully assessed again by speech therapy. * Would recommend anticoagulation with Lovenox at this particular time 1 mg/kg twice daily * Afterwards will transition to 1 of the DOACs likely Eliquis. Though there are no randomized double blind controlled trials regarding the use of DOACS vrs warfarin, there is enough data to suggest the safety of use of these agents. The cardiology literature is replete with this information. In addition due to his malnourished state and his protein calorie malnutrition the use of Coumadin may be fraught with significant variations in his INR which may be more deleterious to his overall condition. * He also has evidence of pulmonary embolism and therefore likely needs to continue on anticoagulation long-term. 2. Left ventricular systolic dysfunction and abnormal cardiac enzymes * He likely has some underlying coronary artery disease however due to his other concomitant conditions I would not recommend further evaluation of the above at this particular time. * Will continue with supportive management. * Thank you for allowing me to participate in the care of this unfortunate gentleman.
--- NOTE | 2019-08-30 10:17 | PN_ITS ---
Patient Problems: Active and Suspected Problems Confusion (Acute) Debility (Acute) Subjective: Patient seen and examined. He complained of feeling cold. He has been made NPO o/a of risk of aspiration after being assessed by speech therapy. He is now agreeable to receiving a PEG tube o/a of risk of aspiration and for nutrition. Patient became hypotensive with BP going down to the 80s systolic. He had to receive Normal saline bolus, and was put on IV normal saline. BP is now in the 120s-140s. Labs and vitals reviewed. Sodium is up to 158, and sodium is 127. Potassium is 3.2. Patient is on 2L of oxygen and saturating well, but he says he feels like he needs more air. Oxygen was increased to 5L before patient said he was comfortable. Vitals/I&O's: Vital Signs Temp Pulse Resp BP Pulse Ox 97.8 F 87 18 127/96 H 97 08/30/19 09:45 08/30/19 09:45 08/30/19 09:45 08/30/19 09:45 08/30/19 09:45 Oxygen Flow Rate (L/min) 2 Oxygen Delivery Method Nasal Cannula Weight: 97 lb 3.582 oz Body Mass Index (BMI) 14.3 Intake and Output for Last 24 Hours 08/28/19 08/29/19 08/30/19 23:59 23:59 23:59 Intake Total 1000 / 1000 4765.8 / 4865.8 1457.08 / 1457.08 Output Total 900 / 900 200 / 200 Balance 1000 / 1000 3865.8 / 3965.8 1257.08 / 1257.08 General: Alert, Cooperative, No apparent distress, Lethargic, - - very cachectic; BMI is 14 HEENT: Atraumatic, PERRLA, EOMI, Normocephalic Oral: Dry Mucosa Neck: Supple, No JVD, Negative Carotid Bruits Lungs: -decreased breath sounds bibasally, on 2L of oxygen. Cardiovascular: Regular rate, Regular Rhythm, Normal S1, Normal S2, No murmurs Abdomen: Bowel Sounds Present, Soft, Non Tender, Non-Distended, No Hepato- splenomegaly Extremities: No clubbing, No cyanosis, No edema, Capillary Refill Less than 3 Seconds Skin: No rashes, No breakdown Musculoskeletal: No Tenderness to Palpation of Joints or Extremities Lymphatic: No Cervical, Supraclavicular, or Inguinal Adenopathy Neurological: Cranial nerves II-XII grossly intact, Neuro grossly intact, Motor Exam 5/5 strength throughout Psych/Mental Status: Normal Affect, Appropriate Laboratory Results 08/30/19 05:03: Sodium 158 H, Potassium 3.2 L, Chloride 127 H*, Carbon Dioxide 27.0, Anion Gap 4 L, BUN 54 H, Creatinine 0.82, Estim Creat Clear Calc 55.27, Est GFR (MDRD) Af Amer 122, Est GFR (MDRD) Non-Af 101, BUN/Creatinine Ratio 66.2 H, Glucose 93, Calcium 8.1 L, Magnesium 2.0 Diagnostic Data Chest X-Ray 08/28/19 21:07 IMPRESSION: Bilateral apical thickening. This appears increased on the right and compared to prior study. Electronically Signed: Jayy Rothman DO at 21:26 EDT Tel [phone], Service support , Chest CTA 08/29/19 10:27 IMPRESSION: 1. Findings consistent with partially obstructive pulmonary embolism within the right proximal pulmonary artery as seen on series 5 image 71. Otherwise no additional large pulmonary embolus. 2. Diffuse centrilobular emphysematous changes with right apical chronic changes and areas of interstitial prominence and mild pleural thickening with acute on chronic infectious etiology not completely excluded. 3. Right lower lung posterior segment ill-defined pulmonary nodule with differential including inflammatory nodule (series 5 image 125). Recommend follow-up imaging to document stability versus resolution at 3-4 months. Electronically Signed: Thien Barbour DO at 11:55 EDT , Service support , Brain CT 08/29/19 11:00 IMPRESSION: 1. No evidence of large MCA territorial ischemia. No evidence of acute intracranial bleed. 2. Left occipital hypodensity (series 2 image 20) concerning for acute versus subacute ischemia, recommend MRI evaluation for further characterization. Electronically Signed: Thien Barbour DO at 11:43 EDT , Service support , Current Medications Acetaminophen (Tylenol) 650 mg PO Q6H PRN PRN PRN Reason: Pain Score 1-10/Temp > 100.7 F Enoxaparin Sodium (Lovenox) 40 mg SC Q12@0600,1800 JUSTIN Sodium Chloride () 250 mls @ 15 mls/hr IV .[id number] PRN PRN Reason: Saline Flush Sodium Chloride () 250 mls @ 15 mls/hr IV .[id number] PRN PRN Reason: Additional IVPB Infusion Dextrose () 1,000 mls @ 125 mls/hr IV .Q8H JUSTIN Stop: 08/30/19 23:19 Last Infusion: 08/30/19 09:52 Dose: 0 mls/hr Documented by: Potassium Chloride () 10 meq in 100 mls @ 100 mls/hr IV BOLUS Q1H JUSTIN Stop: 08/30/19 11:59 Last Infusion: 08/30/19 09:52 Dose: Infused Documented by: Ondansetron HCl (Zofran) 4 mg IV Q8H PRN PRN PRN Reason: NAUSEA/VOMITING Sodium Chloride () 10 - 40 ml IV UD PRN PRN Reason: SALINE FLUSH Last Admin: 08/29/19 11:32 Dose: 10 ml Documented by: STROKE Vital Signs/Narrative: Vital Signs Temp Pulse Resp BP Pulse Ox 08/30/19 09:45 97.8 F 87 18 127/96 H 97 08/30/19 07:37 95 08/30/19 07:00 72 Medical Necessity - Tobacco Use Smoking Status: Former smoker Tobacco Use: - Assessment/Plan All Active Problems Confusion (Acute) Debility (Acute) 1. Hypernatremia * sodium is up to 158, with Cl of 127. * likely due to IVF normal saline administration. * will switch fluids to D5W * recheck BMP at 12 noon * 2. Left occipital stroke * CT of the brain on admission showed possible left sided MCA vs early CVA * repeat CT brain showed no evidence of large MCA territorial ischemia, and left occipital hypodensity, concerning for acute vs subacute ischemia * neurology on board: recommended anticoagulation. * MRI of brain and MRA of head and neck pending 3. Pulmonary embolism * patient had mildly elevated troponins on admission. EKG showed no acute ST changes * CTA done of the chest showed findings consistent with partially obstructive pulmonary embolism within the right proximal pulmonary artery but no additional large PE and diffuse centrilobular emphysematous changes with right apical chronic changes and areas of interstitial prominence and right lower lung posterior segment ill-defined pulmonary nodule with differentials including inflammatory nodule. 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 * 4. Left apical mass/thrombus: as per echo under 3. Cardiology on board. cu rrently on SC lovenox. 5. DAFNE: resolved. Cr is 0.82 6. Hypokalemia: K is 3.2. Will replace and monitor. 7. Failure to thrive: * likely due to cancer and poor nutrition * patient is unable to eat due to history of throat cancer and ?lung cancer * PT/OT on board * nutrition on board * patient now willing to have a PEG tube placed: general surgery consulted. WIll hold lovenox at 12 midnight, for PEG tube placement tomorrow. * 8. Severe protein calorie malnutrition * BMI is just 14. Patient is very cachectic. * likely due to throat cancer and ?lung cancer * nutrition on board * for PEG tube placement tomorrow * 9. Hypothyroidism: TSH is 4.36 and free T3 is 1.4. T4 level however was 6 we will continue to monitor. DVT Prophylaxis: On therapeutic Lovenox for PE. CODE STATUS: Full code * * Prognosis: * patient is very sick. * counseled about hospice or palliative care, but he refused and wants to be full code. * Patient counseled about severity of his sickness. Inpatient E&M: [id number] [facility] Hosp L3
[2019-08-30 15:57] LABS: Absolute Lymphocyte Count 0.59 X10^3/uL (0.83-4.51); Absolute Neutrophil Count 8.4 X10^3/uL (2.0-7.7); Basophil# 0.02 X10^3/uL; Basophil% 0.2 % (0-1); Hematocrit 41.1 % (40-54); Hemoglobin 12.5 g/dL (13.0-16.5); Lymphocyte # 0.59 X10^3/ul (4.0); Lymphocyte % 6.3 % (19-41); Mean Corp Hgb Conc 30.4 g/dL (32-36); Mean Corpuscular Hgb 28.7 pg (27.0-32.0); Mean Corpuscular Volume 94.5 fL (80-94); Mean Platelet Vol. 11.1 fl (6.2-12.0); Monocyte# 0.43 X10^3/uL; Monocyte% 4.6 % (0-10); NRBC Flagged by Analyzer 0 % (0-5); Neutrophil # 8.35 X10^3/uL (2.7-7.7); Neutrophil % 88.6 % (47-70); POSITIVE DIFFERENTIAL YES; POSITIVE MORPHOLOGY YES; Platelet Count 117 K/mm3 (150-450); RBC Distribution Width CV 14.2 % (11.6-14.6); RBC Distribution Width SD 48.2 fl (35.1-43.9); Red Blood Count 4.35 M/mm3 (4.6-6.2); White Blood Count 9.4 K/mm3 (4.4-11.0)
[2019-08-30 16:06] LABS: International Normalized Ratio 1.5; Prothrombin Time (Protime)PT. 17.3 SECONDS (11.7-14.9)
[2019-08-30 16:07] LABS: Partial Thromboplast Time 37.4 Seconds (24.1-36.2)
[2019-08-30 16:10] LABS: Differential Indicated SCAN CRITERIA MET
[2019-08-30 16:12] LABS: Anion Gap 6 (5-15); BUN 41 mg/dL (7-18); Calcium,Total 7.9 mg/dL (8.5-10.1); Chloride 125 mmol/L (98-107); Creatinine, Serum 0.84 mg/dL (0.70-1.30); EST Glomerular Filtration Rate 98 mL/min (>60); Est Glom Filt Rate - Afr Amer 118 mL/min (>60); Estimated Creatinine Clearance 53.96 ml/min; Glucose 146 mg/dL (74-106); Potassium 3.5 mmol/L (3.5-5.1); Sodium Level 157 mmol/L (136-145)
[2019-08-30 16:26] LABS: Differential Comment SCANNED
[2019-08-30] MEDS: Enoxaparin 40 MG/0.4 ML Syringe SC (17:32)
[2019-08-30 20:38] LABS: Anion Gap 4 (5-15); BUN 36 mg/dL (7-18); BUN/Creat Ratio 40.2 RATIO (10-20); Chloride 119 mmol/L (98-107); EST Glomerular Filtration Rate 90 mL/min (>60); Est Glom Filt Rate - Afr Amer 109 mL/min (>60); Estimated Creatinine Clearance 50.36 ml/min; Glucose 188 mg/dL (74-106); Potassium 3.1 mmol/L (3.5-5.1); Sodium Level 151 mmol/L (136-145)
[2019-08-31] VITALS (28 sets, daily range): BP systolic 89–153; BP diastolic 65–105; PULSE 84–133; RESP 16–93; TEMP 36.6–37.3; O2SAT 91–100; BMI 14.3; BMI 14.4
--- NOTE | 2019-08-31 01:28 | RAD_ITS ---
STUDY: X-RAY CHEST REASON FOR EXAM: Male, 64 years old. hypoxia TECHNIQUE: Single AP portable view of the chest. COMPARISON: 08/28/2019. FINDINGS: The lungs are well expanded with bilateral biapical scarring with pleural thickening. Sagittal and bilateral densities with groundglass pattern, more significant on the right compared to left suggestive pneumonia. Possible mild right perihilar bronchiectasis. There is no demonstrated pleural abnormality. Normal size heart. Normal mediastinum and geeta. Normal visualized pulmonary arteries. There is atherosclerotic calcification of the aortic arch with tortuosity. There are diffuse degenerative changes of the visualized thoracic spine. There is degenerative osteoarthritis of the bilateral shoulders. There is no demonstrated abnormality of the visualized soft tissue structures of the upper abdomen. RAD/Chest 1 View (Portable) IMPRESSION: Bilateral pneumonia more severe on the right compared to the left with possible mild right perihilar bronchiectasis. Scarring with pleural thickening at the lung apices as described and stable in the interval. Electronically Signed: Bree Wick MD at 1:44 EDT , Service support ,
[2019-08-31] MEDS: Potassium Chloride 10mEq/100mL 10 MEQ/100 ML IV.SOLN. 100 MEQ IV BOLUS ×6 (02:22→12:17)
--- NOTE | 2019-08-31 04:45 | PCM.HOSP.N ---
Hospitalist Note I received a call early this morning concerning the patient's increased O2 requirement, I ordered a chest x-ray on the patient which showed bilateral pneumonia more severe on the right compared to the left with possible med right perihilar bronchiectasis. I have decided to place the patient on Zosyn for possible aspiration pneumonia. Labs will be obtained this morning.
[2019-08-31 05:25] LABS: Absolute Lymphocyte Count 0.37 X10^3/uL (0.83-4.51); Absolute Neutrophil Count 5.6 X10^3/uL (2.0-7.7); Basophil# 0.03 X10^3/uL; Basophil% 0.5 % (0-1); Hematocrit 38.3 % (40-54); Hemoglobin 11.8 g/dL (13.0-16.5); Lymphocyte # 0.37 X10^3/ul (4.0); Lymphocyte % 5.8 % (19-41); Mean Corp Hgb Conc 30.8 g/dL (32-36); Mean Corpuscular Hgb 28.2 pg (27.0-32.0); Mean Corpuscular Volume 91.6 fL (80-94); Mean Platelet Vol. 11.2 fl (6.2-12.0); Monocyte# 0.29 X10^3/uL; Monocyte% 4.6 % (0-10); NRBC Flagged by Analyzer 0 % (0-5); Neutrophil # 5.61 X10^3/uL (2.7-7.7); Neutrophil % 88.5 % (47-70); POSITIVE DIFFERENTIAL YES; POSITIVE MORPHOLOGY YES; Platelet Count 110 K/mm3 (150-450); RBC Distribution Width CV 13.9 % (11.6-14.6); RBC Distribution Width SD 46.1 fl (35.1-43.9); Red Blood Count 4.18 M/mm3 (4.6-6.2); White Blood Count 6.3 K/mm3 (4.4-11.0)
[2019-08-31 05:28] LABS: Differential Indicated SCAN CRITERIA MET
[2019-08-31 05:37] LABS: Anion Gap 5 (5-15); BUN 27 mg/dL (7-18); BUN/Creat Ratio 35.2 RATIO (10-20); Calcium,Total 7.7 mg/dL (8.5-10.1); Chloride 113 mmol/L (98-107); Creatinine, Serum 0.77 mg/dL (0.70-1.30); EST Glomerular Filtration Rate 108 mL/min (>60); Est Glom Filt Rate - Afr Amer 131 mL/min (>60); Estimated Creatinine Clearance 45.33 ml/min; Glucose 126 mg/dL (74-106); Magnesium 1.7 mg/dL (1.6-2.6); Potassium 3.2 mmol/L (3.5-5.1); Sodium Level 145 mmol/L (136-145)
[2019-08-31 05:54] LABS: Differential Comment SCANNED
--- NOTE | 2019-08-31 09:06 | NURSING ---
REPORT CALLED TO [facility]
--- NOTE | 2019-08-31 09:52 | PN_ITS ---
Patient Problems: Active and Suspected Problems Confusion (Acute) Debility (Acute) Subjective: Patient seen and examined. He required increasing amounts of oxygen in the early hours of this morning requiring up to 4 to 5 L of oxygen. Chest x-ray done showed bilateral pneumonia worse on the right due to concerns of aspiration pneumonia, he was started on IV Zosyn. Patient complained of needing oxygen this morning. His nasal prongs were off but he refused to let me put it on. It was unclear whether patient was with flaring to the fine as keeps him complaining he feels hot and needs the fine which he also refers to as air and oxygen. Patient was not short of breath and was barely coughing. He denied any fever chills nausea vomiting or diarrhea. He is due to have PEG tube placement today. Vitals/I&O's: Vital Signs Temp Pulse Resp BP Pulse Ox 98.1 F 87 19 H 117/82 H 95 08/31/19 08:44 08/31/19 08:44 08/31/19 08:44 08/31/19 08:44 08/31/19 08:44 Oxygen Flow Rate (L/min) 2 Oxygen Delivery Method Nasal Cannula Weight: 97 lb 3.582 oz Body Mass Index (BMI) 14.3 Intake and Output for Last 24 Hours 08/29/19 08/30/19 08/31/19 23:59 23:59 23:59 Intake Total 4765.8 / 4865.8 3520.00 / 3520.00 1284.58 / 1284.58 Output Total 900 / 900 1150 / 1150 200 / 200 Balance 3865.8 / 3965.8 2370.00 / 2370.00 1084.58 / 1084.58 General: Alert, Cooperative, No apparent distress, Lethargic, - - very cachectic; BMI is 14 HEENT: Atraumatic, PERRLA, EOMI, Normocephalic Oral: Dry Mucosa Neck: Supple, No JVD, Negative Carotid Bruits Lungs: -decreased breath sounds bibasally, on 5L of oxygen, though prongs were out of his nostrils Cardiovascular: Regular rate, Regular Rhythm, Normal S1, Normal S2, No murmurs Abdomen: Bowel Sounds Present, Soft, Non Tender, Non-Distended, No Hepato- splenomegaly Extremities: No clubbing, No cyanosis, No edema, Capillary Refill Less than 3 Seconds Skin: No rashes, No breakdown Musculoskeletal: No Tenderness to Palpation of Joints or Extremities Lymphatic: No Cervical, Supraclavicular, or Inguinal Adenopathy Neurological: Cranial nerves II-XII grossly intact, Neuro grossly intact, Motor Exam 5/5 strength throughout Psych/Mental Status: lethargic Microbiology Past 72 Hours 08/28/19 23:00 Blood Culture (Wb) - Anticubital Right Blood Culture - Preliminary No growth in 48 hours. 08/28/19 20:55 Blood Culture (Wb) - Left Forearm Blood Culture - Preliminary No growth in 48 hours. Laboratory Results 08/30/19 15:38: Sodium 157 H, Potassium 3.5, Chloride 125 H, Carbon Dioxide 26.0, Anion Gap 6, BUN 41 H, Creatinine 0.84, Estim Creat Clear Calc 53.96, Est GFR (MDRD) Af Amer 118, Est GFR (MDRD) Non-Af 98, BUN/Creatinine Ratio 49.0 H, Glucose 146 H, Calcium 7.9 L 08/30/19 15:38: PT 17.3 H, INR 1.5, APTT 37.4 H 08/30/19 15:38: WBC 9.4, RBC 4.35 L, Hgb 12.5 L, Hct 41.1, MCV 94.5 H, MCH 28.7, MCHC 30.4 L, RDW Std Deviation 48.2 H, RDW Coeff of Abdullahi 14.2, Plt Count 117 L, MPV 11.1, Immature Gran % (Auto) 0.300, Neut % (Auto) 88.6 H, Lymph % (Auto) 6.3 L, Gordon % (Auto) 4.6, Eos % (Auto) 0.0, Baso % (Auto) 0.2, Absolute Neuts (auto) 8.4 H, Absolute Lymphs (auto) 0.59 L, Nucleated RBC % 0, Differential Comment SCANNED 08/30/19 20:13: Sodium 151 H, Potassium 3.1 L, Chloride 119 H, Carbon Dioxide 28.0, Anion Gap 4 L, BUN 36 H, Creatinine 0.90, Estim Creat Clear Calc 50.36, Est GFR (MDRD) Af Amer 109, Est GFR (MDRD) Non-Af 90, BUN/Creatinine Ratio 40.2 H, Glucose 188 H, Calcium 8.0 L 08/31/19 05:04: WBC 6.3, RBC 4.18 L, Hgb 11.8 L, Hct 38.3 L, MCV 91.6, MCH 28.2, MCHC 30.8 L, RDW Std Deviation 46.1 H, RDW Coeff of Abdullahi 13.9, Plt Count 110 L, MPV 11.2, Immature Gran % (Auto) 0.600, Neut % (Auto) 88.5 H, Lymph % (Auto) 5.8 L, Gordon % (Auto) 4.6, Eos % (Auto) 0.0, Baso % (Auto) 0.5, Absolute Neuts (auto) 5.6, Absolute Lymphs (auto) 0.37 L, Nucleated RBC % 0, Differential Comment SCANNED 08/31/19 05:04: Sodium 145, Potassium 3.2 L, Chloride 113 H, Carbon Dioxide 27 .0, Anion Gap 5, BUN 27 H, Creatinine 0.77, Estim Creat Clear Calc 45.33, Est GFR (MDRD) Af Amer 131, Est GFR (MDRD) Non-Af 108, BUN/Creatinine Ratio 35.2 H, Glucose 126 H, Calcium 7.7 L, Magnesium 1.7 Diagnostic Data Chest CTA 08/29/19 10:27 IMPRESSION: 1. Findings consistent with partially obstructive pulmonary embolism within the right proximal pulmonary artery as seen on series 5 image 71. Otherwise no additional large pulmonary embolus. 2. Diffuse centrilobular emphysematous changes with right apical chronic changes and areas of interstitial prominence and mild pleural thickening with acute on chronic infectious etiology not completely excluded. 3. Right lower lung posterior segment ill-defined pulmonary nodule with differential including inflammatory nodule (series 5 image 125). Recommend follow-up imaging to document stability versus resolution at 3-4 months. Electronically Signed: Thien Barbour DO at 11:55 EDT , Service support , Brain CT 08/29/19 11:00 IMPRESSION: 1. No evidence of large MCA territorial ischemia. No evidence of acute intracranial bleed. 2. Left occipital hypodensity (series 2 image 20) concerning for acute versus subacute ischemia, recommend MRI evaluation for further characterization. Electronically Signed: Thien Barbour DO at 11:43 EDT , Service support , Brain MRI 08/29/19 14:56 IMPRESSION: 1. Findings consistent with left occipital lobe acute to subacute infarct with no evidence of acute intracranial bleed. Mild senescent changes as above. 2. Focal acute infarct within the right mid cerebellum. Electronically Signed: Thien Barbour DO at 11:47 EDT , Service support , Head MRA 08/29/19 14:56 IMPRESSION: 1. No evidence of significant steno-occlusive disease or aneurysm. 2. Diminutive right V4 segment and right A1 segment. Electronically Signed: Thien Barbour DO at 11:40 EDT , Service support , Neck MRA 08/29/19 14:56 IMPRESSION: 1. Widely patent bilateral common carotid arteries, bilateral common carotid bifurcations, bilateral internal carotid arteries. 2. Widely patent aortic arch and origins of the great vessels. 3. Signal distortion artifacts across the common carotid arteries and across the of vertebral arteries. Electronically Signed: Taj Borjas MD at 16:08 EDT , Service support , Chest X-Ray 08/31/19 01:28 IMPRESSION: Bilateral pneumonia more severe on the right compared to the left with possible mild right perihilar bronchiectasis. Scarring with pleural thickening at the lung apices as described and stable in the interval. Electronically Signed: Bree Wick MD at 1:44 EDT , Service support , Current Medications Acetaminophen (Tylenol) 650 mg PO Q6H PRN PRN PRN Reason: Pain Score 1-10/Temp > 100.7 F Enoxaparin Sodium (Lovenox) 40 mg SC Q12@0600,1800 [facility] Last Admin: 08/30/19 18:55 Dose: Not Given Documented by: Sodium Chloride () 250 mls @ 15 mls/hr IV .[id number] PRN PRN Reason: Saline Flush Last Infusion: 08/31/19 02:45 Dose: 0 mls/hr Documented by: Sodium Chloride () 250 mls @ 15 mls/hr IV .[id number] PRN PRN Reason: Additional IVPB Infusion Dextrose () 1,000 mls @ 100 mls/hr IV .Q10H [facility] Last Infusion: 08/31/19 08:38 Dose: 15 mls/hr Documented by: Piperacillin Sod/Tazobactam (Sod 3.375 gm/ Sodium Chloride) 50 mls @ 12.5 mls/hr IV Q8 [facility] Last Infusion: 08/31/19 06:35 Dose: Infused Documented by: Potassium Chloride () 10 meq in 100 mls @ 100 mls/hr IV BOLUS Q1H [facility] Stop: 08/31/19 11:59 Last Admin: 08/31/19 09:35 Dose: 100 mls/hr Documented by: Ondansetron HCl (Zofran) 4 mg IV Q8H PRN PRN PRN Reason: NAUSEA/VOMITING Sodium Chloride () 10 - 40 ml IV UD PRN PRN Reason: SALINE FLUSH Last Admin: 08/29/19 11:32 Dose: 10 ml Documented by: STROKE Vital Signs/Narrative: Vital Signs Temp Pulse Resp BP Pulse Ox 08/31/19 08:44 98.1 F 87 19 H 117/82 H 95 08/31/19 08:40 98 F 87 19 H 97/66 95 08/31/19 07:46 88 08/31/19 07:05 97 08/31/19 06:26 98.5 F 92 24 H 94/68 93 Medical Necessity - Tobacco Use Smoking Status: Former smoker Tobacco Use: - Assessment/Plan All Active Problems Confusion (Acute) Debility (Acute) 1. Hypernatremia * sodium is down to 145 today * on IV D5W at 100cc/hr * * 2. Left occipital stroke * CT of the brain on admission showed possible left sided MCA vs early CVA * repeat CT brain showed no evidence of large MCA territorial ischemia, and left occipital hypodensity, concerning for acute vs subacute ischemia * neurology on board: recommended anticoagulation. Pateint currently on SC lovenox 40mg bid o/a of patient being NPO * MRI showed left occipital lobe acute to subacute infarct with no evidence of acute intracranial bleed and focal infarct in the right mid cerebellum * on lovenox, per neurology, as thinking is it may be an embolic stroke from left ventricular mass/thrombus * 3. Acute hypoxic respiratory insufficiency due to aspiration pneumonia. * Patient had increasing oxygen requirements this parminder, requiring up to 5L of oxygen * was not on oxygen this morning as nasal prongs had fallen out of his nostrils; he was however comfortable and not short of breath. * CXR this morning showed bilateral pneumonia more secvere on the right than left * on IV zosyn; will continue * titrate oxygen to maintain sats >90%. * breathing treatments with duonebs. 3. Pulmonary embolism * CTA done of the chest showed findings consistent with partially obstructive pulmonary embolism within the right proximal pulmonary artery but no additional large PE and diffuse centrilobular emphysematous changes with right apical chronic changes and areas of interstitial prominence and right lower lung posterior segment ill-defined pulmonary nodule with differentials including inflammatory nodule. * 2D echo done: Large mass/ thrombus at the apex of the left ventricle measuring 5.1 x 3.3 cm which appears to be pedunculated, normal ventricular size and estimated EF of 45% with severely hypokinetic left ventricular apex * on SC lovenox 40mg bid; patient unable to take PO o/a of aspiration concerns. * 4. Left apical mass/thrombus: as per echo under 3. Cardiology on board. currently on SC lovenox. Will switch to eliquis once PEG tube is inserted 5. DAFNE: resolved. 6. Hypokalemia: K is 3.2. Will replace and monitor. 7. Failure to thrive: * likely due to cancer and poor nutrition * patient is unable to eat due to history of throat cancer and ?lung cancer * PT/OT on board * nutrition on board * for PEG tube placement today * 8. Severe protein calorie malnutrition * BMI is just 14. Patient is very cachectic. * likely due to throat cancer and ?lung cancer * nutrition on board * for PEG tube placement today * 9. Hypothyroidism: TSH is 4.36 and free T3 is 1.4. T4 level however was 6 we will continue to monitor. DVT Prophylaxis: On therapeutic Lovenox for PE. CODE STATUS: Full code * * Prognosis: * patient is very sick. * counseled about hospice or palliative care, but he refused and wants to be full code. * Patient counseled about severity of his sickness. Inpatient E&M: 19599 [facility]s Hosp L3
[2019-08-31] MEDS: Lactated Ringers 1,000 ML 100 ML IV (09:54)
--- NOTE | 2019-08-31 10:34 | OP.EGD_ITS ---
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 Refer to note in patient chart for documentation of history and physical. Complications: No immediate complications. Procedure: Pre-Anesthesia Assessment: - Prior to the procedure, a History and Physical was performed, and patient medications and allergies were reviewed. The patient's tolerance of previous anesthesia was also reviewed. The risks and benefits of the procedure and the sedation options and risks were discussed with the patient. All questions were answered, and informed consent was obtained. Prior Anticoagulants: The patient has taken Lovenox (enoxaparin), last dose was day of procedure. ASA Grade Assessment: IV - A patient with severe systemic disease that is a constant threat to life. After reviewing the risks and benefits, the patient was deemed in satisfactory condition to undergo the procedure. After obtaining informed consent, the endoscope was passed under direct vision. Throughout the procedure, the patient's blood pressure, pulse, and oxygen saturations were monitored continuously. The gastroscope was introduced through the mouth, and advanced to the duodenal bulb. The upper GI endoscopy was accomplished without difficulty. The patient tolerated the procedure well. Scope In: 10:22:51 AM Scope Out: 10:28:15 AM Total Procedure Duration Time 0 hours 5 minutes 24 seconds Findings: The examined esophagus was normal. The entire examined stomach was normal. Placement of an externally removable PEG with 1 T-fastener was successfully completed. The external bumper was at the 1.5 cm marking on the tube. Estimated blood loss was minimal. The duodenal bulb was normal. No biopsies or other specimens were collected for this exam. Impression: - Normal esophagus. - Normal stomach. - Normal duodenal bulb. No specimens collected. - An externally removable PEG placement was successfully completed. Recommendation: - Return patient to [facility] for [facility] care. - Resume previous diet. - Continue present medications. - Repeat upper endoscopy (date not yet determined) for surveillance. 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 All rights reserved. The codes documented in this report are preliminary and upon shoe packer review may be revised to meet current compliance requirements. MD Nicanor Cha MD 08/31/2019 10:33:45 AM This report has been signed electronically. Number of Addenda: 0 Note Initiated On: 08/31/2019 10:00 AM
--- NOTE | 2019-08-31 10:34 | OP.CCLET_ITS ---
08/31/2019 Alexander Grover [address] [id number] Re : Upper GI endoscopy procedure for Konrad Maki Dear Dr. Grover This procedure was performed on Saturday, August 31, 2019. My impressions and recommendations are as follows: Impressions : - Normal esophagus. - Normal stomach. - Normal duodenal bulb. No specimens collected. - An externally removable PEG placement was successfully completed. Recommendations : - [facility]. - Resume previous diet. - Continue present medications. - Repeat upper endoscopy (date not yet determined) for surveillance. My findings are described in the full procedure note, which is enclosed. If I can be of further assistance, please feel free to contact me at Doctor phone number(s): , Fax: [phone], Work: . Sincerely, MD Nicanor Cha MD 08/31/2019 10:33:45 AM This report has been signed electronically.
--- NOTE | 2019-08-31 10:53 | CASEMGMT ---
SW received a call from Courtney at [facility]. SW let her know SW has not talked with him yet today as he has been in surgery. SW told her that he was in agreement with TCU. SW told her SW will let the TCU SW know to notify her when patient is ready to leave TCU. Breana JOHNSON MSW
--- NOTE | 2019-08-31 11:13 | PCM.NTREPORT ---
Nutrition Therapy Report - History Nutrition Services has been consulted to:: Manage enteral nutrition Current diet / nutrition support order:: NPO - peg being placed today - Anthropometric Measurements Height:: 5 ft 9 in Weight:: 44.1 kg Body Mass Index (BMI):: 14.3 - Relevant Labs Relevant Labs:: WBC 14.4 K/mm3 (4.4-11.0) H 08/29/19 03:40 RBC 4.18 M/mm3 (4.6-6.2) L 08/31/19 05:04 Hgb 11.8 g/dL (13.0-16.5) L 08/31/19 05:04 Hct 38.3 % (40-54) L 08/31/19 05:04 MCV 94.5 fL (80-94) H 08/30/19 15:38 MCHC 30.8 g/dL (32-36) L 08/31/19 05:04 RDW Std Deviation 46.1 fl (35.1-43.9) H 08/31/19 05:04 Plt Count 110 K/mm3 (150-450) L 08/31/19 05:04 Neut % (Auto) 88.5 % (47-70) H 08/31/19 05:04 Lymph % (Auto) 5.8 % (19-41) L 08/31/19 05:04 Absolute Neuts (auto) 8.4 X10^3/uL (2.0-7.7) H 08/30/19 15:38 Absolute Lymphs (auto) 0.37 X10^3/uL (0.83-4.51) L 08/31/19 05:04 PT 17.3 SECONDS (11.7-14.9) H 08/30/19 15:38 APTT 37.4 Seconds (24.1-36.2) H 08/30/19 15:38 Sodium 151 mmol/L (136-145) H 08/30/19 20:13 Potassium 3.2 mmol/L (3.5-5.1) L 08/31/19 05:04 Chloride 113 mmol/L (98-107) H 08/31/19 05:04 Anion Gap 4 (5-15) L 08/30/19 20:13 BUN 27 mg/dL (7-18) H 08/31/19 05:04 Creatinine 1.70 mg/dL (0.70-1.30) H 08/29/19 03:40 Est GFR (MDRD) Af Amer 52 mL/min (>60) L 08/29/19 03:40 Est GFR (MDRD) Non-Af 43 mL/min (>60) L 08/29/19 03:40 BUN/Creatinine Ratio 35.2 RATIO (10-20) H 08/31/19 05:04 Glucose 126 mg/dL (74-106) H 08/31/19 05:04 Calcium 7.7 mg/dL (8.5-10.1) L 08/31/19 05:04 AST 95 U/L (15-37) H 08/28/19 20:55 ALT 88 U/L (16-61) H 08/28/19 20:55 Total Creatine Kinase 621 U/L (39-308) H 08/28/19 20:55 Troponin I 0.636 ng/mL (<0.045) H* 08/29/19 03:40 TSH 4.36 uIU/mL (0.358-3.74) H 08/29/19 03:40 Free T3 pg/dL 1.4 pg/mL (2.18-3.98) L 08/29/19 03:40 - Assessment Food / Nutrition-Related History:: Pt w/ s/s of malnutrition from self neglect. Currently NPO w/ PEG placement today. - Nutrition Diagnosis Problem / Etiology / Signs & Symptoms (PES):: Pt with inadequate po intake r/t s/s of malnutrition AEB need for more aggressive nutrition support - PEG being placed today. [ End ] Evidence of Malnutrition Exists:: Yes Severe PCM:: Chronic Illness - Nutrition Intervention Nutrition Prescription:: [id number] americo / 45-50 gm pro /day - Food / Nutrient Delivery Interventions Summary of nutrition intervention:: When medically able to use PEG, rec Jevity 1.5 at goal rate 45 cc/hr with 130 cc H2O flush every 4 hours to provide ~ 1620 americo / 69 gm pro/ 1580 cc total free water. Would start tf at 15 cc/hr and increase by 15 cc every 8-12 hrs as pt tolerates until goal rate achieved. D/t s/s of malnutrition - would monitor for refeeding syndrome. [ End ] Nutrition support ordered as / adjusted to:: When medically able to use PEG, rec Jevity 1.5 at goal rate 45 cc/hr with 130 cc H2O flush every 4 hours to provide ~ 1620 americo / 69 gm pro/ 1580 cc total free water. Would start tf at 15 cc/hr and increase by 15 cc every 8-12 hrs as pt tolerates until goal rate achieved. Nutrition education provided?: No - MNT Monitoring Further MNT monitoring and evaluation required?: Yes MNT Follow-up in:: 1-2 days - if questions please call RD/LD at ext [phone]
--- NOTE | 2019-08-31 13:23 | CASEMGMT ---
LIUDMILA spoke with [facility] and TCU would have availability for patient. LIUDMILA faxed information to [employer] requesting permission to proceed with obtaining insurance authorization for TCU. LIUDMILA went to talk with patient to complete PHQ9 however he was sleeping. LIUDMILA will check back later. Breana JOHNSON MSW
--- NOTE | 2019-08-31 14:59 | CASEMGMT ---
LIUDMILA received a call from Chastity with [facility] and she agrees with SNF for patient at d/c. She said TCU can submit for pre-cert. This approval is good until Saturday and if patient is not discharged by then, then updates therapy notes will need to be reviewed. LIUDMILA will ask [facility] to start pre-cert tomorrow. Breana JOHNSON MSW
--- NOTE | 2019-08-31 18:16 | PN.CARD_ITS ---
Subjectve: Patient seen and evaluated. Appears to be stable. Objective: Vital Signs Temp Pulse Resp BP Pulse Ox 99.2 F H 98 18 153/105 H 100 08/31/19 17:24 08/31/19 17:24 08/31/19 17:24 08/31/19 17:24 08/31/19 17:24 Oxygen Flow Rate (L/min) 4 Oxygen Delivery Method Nasal Cannula Weight: 97 lb 3.582 oz Body Mass Index (BMI) 14.3 Intake and Output for Last 24 Hours 08/29/19 08/30/19 08/31/19 23:59 23:59 23:59 Intake Total 4765.8 / 4865.8 3520.00 / 3520.00 2359.75 / 2359.75 Output Total 900 / 900 1150 / 1150 450 / 450 Balance 3865.8 / 3965.8 2370.00 / 2370.00 1909.75 / 1909.75 General: Awake, Alert, Ill Appearing HEENT: PERRL, EOMI, Sclera Non Icteric Neck: Supple, Good ROM, No Lymph Node Enlargement Lungs: Clear to auscultation Cardiovascular: Regular Rhythm, Normal S1, Normal S2, No Murmurs, No Rubs, No Gallops Vascular: No Carotid Bruits, Normal Femoral Pulses, Normal Radial Pulses, Normal Dorsalis Pedal Pulse, Normal Posterior Tibial Pulses Abdomen: Bowel Sounds Present, Soft, Non Tender, No HSM, No Organomegaly Extremities: No Cyanosis, No Clubbing, No edema Musculoskeletal: No Erythema Skin: No Rashes Neurological: No Focal Motor or Sensory Deficit 08/30/19 20:13: Sodium 151 H, Potassium 3.1 L, Chloride 119 H, Carbon Dioxide 28.0, Anion Gap 4 L, BUN 36 H, Creatinine 0.90, Est GFR (MDRD) Af Amer 109, Est GFR (MDRD) Non-Af 90, BUN/Creatinine Ratio 40.2 H, Glucose 188 H, Calcium 8.0 L 08/31/19 05:04: WBC 6.3, RBC 4.18 L, Hgb 11.8 L, Hct 38.3 L, MCV 91.6, MCH 28.2, MCHC 30.8 L, Plt Count 110 L, MPV 11.2, Immature Gran % (Auto) 0.600, Neut % (Auto) 88.5 H, Lymph % (Auto) 5.8 L, Clark % (Auto) 4.6, Eos % (Auto) 0.0, Baso % (Auto) 0.5, Absolute Neuts (auto) 5.6, Nucleated RBC % 0 08/31/19 05:04: Sodium 145, Potassium 3.2 L, Chloride 113 H, Carbon Dioxide 27.0, Anion Gap 5, BUN 27 H, Creatinine 0.77, Est GFR (MDRD) Af Amer 131, Est GFR (MDRD) Non-Af 108, BUN/Creatinine Ratio 35.2 H, Glucose 126 H, Calcium 7.7 L , Magnesium 1.7 Rhythm: EKG: ECHO: Stress Test: Cardiac Cath: PCI: CT Surgery: Holter monitor: EPS: PPM: CXR: Chest CT Scan: Medical Necessity - Tobacco Use Smoking Status: Former smoker Tobacco Use: - Assessment/Plan 1. Left ventricular mass * He does have evidence of poor R wave progression noted on his EKG and an echocardiogram with a nearly akinetic apical zone. This suggest that he likely has coronary artery disease with possible recent infarct. Though he has a history of lung carcinoma it is more likely that this is a thrombus versus a metastatic lung of throat lesion. * At this particular time he cannot take oral medication, and a PEG tube has been placed and he will receive his anticoagulation through this tube. * He also has evidence of pulmonary embolism and therefore likely needs to continue on anticoagulation long-term. 2. Left ventricular systolic dysfunction and abnormal cardiac enzymes * He likely has some underlying coronary artery disease however due to his other concomitant conditions I would not recommend further evaluation of the above at this particular time. * Will continue with supportive management. * Thank you for allowing me to participate in the care of this unfortunate gentleman.
[2019-08-31] MEDS: Jevity 1.5 1,000 ML 15 ML GT (19:01)
[2019-08-31] MEDS: APIXABAN 5 MG TABLET 10 MG GT (21:21)
[2019-09-01] VITALS (16 sets, daily range): BP systolic 98–149; BP diastolic 62–106; PULSE 83–109; RESP 17–24; TEMP 36.1–37.1; O2SAT 90–100; BMI 14.4; BMI 14.3
[2019-09-01] MEDS: 0.9% Saline Lock 10 ML Syringe IV ×2 (05:31→23:31)
[2019-09-01 07:29] LABS: Absolute Lymphocyte Count 0.45 X10^3/uL (0.83-4.51); Absolute Neutrophil Count 7.9 X10^3/uL (2.0-7.7); Basophil# 0.03 X10^3/uL; Basophil% 0.3 % (0-1); Eosinophil# 0.02 X10^3/uL; Eosinophils% 0.2 % (0-5); Hematocrit 36.7 % (40-54); Hemoglobin 11.7 g/dL (13.0-16.5); Lymphocyte # 0.45 X10^3/ul (4.0); Lymphocyte % 5.2 % (19-41); Mean Corp Hgb Conc 31.9 g/dL (32-36); Mean Corpuscular Hgb 28.7 pg (27.0-32.0); Mean Platelet Vol. 11.6 fl (6.2-12.0); Monocyte# 0.21 X10^3/uL; Monocyte% 2.4 % (0-10); NRBC Flagged by Analyzer 0 % (0-5); Neutrophil % 91.6 % (47-70); POSITIVE DIFFERENTIAL YES; POSITIVE MORPHOLOGY YES; Platelet Count 115 K/mm3 (150-450); RBC Distribution Width CV 13.8 % (11.6-14.6); RBC Distribution Width SD 44.2 fl (35.1-43.9); Red Blood Count 4.08 M/mm3 (4.6-6.2); White Blood Count 8.6 K/mm3 (4.4-11.0)
[2019-09-01 07:32] LABS: Differential Indicated SCAN CRITERIA MET
[2019-09-01 07:48] LABS: Differential Comment SCANNED; Hypochromasia RARE; Platelet Estimate SLT DEC (ADEQ)
[2019-09-01 07:50] LABS: Anion Gap 7 (5-15); BUN 20 mg/dL (7-18); BUN/Creat Ratio 24.5 RATIO (10-20); Calcium,Total 7.8 mg/dL (8.5-10.1); Chloride 103 mmol/L (98-107); Creatinine, Serum 0.82 mg/dL (0.70-1.30); EST Glomerular Filtration Rate 101 mL/min (>60); Est Glom Filt Rate - Afr Amer 122 mL/min (>60); Estimated Creatinine Clearance 55.27 ml/min; Glucose 175 mg/dL (74-106); Potassium 2.8 mmol/L (3.5-5.1); Sodium Level 138 mmol/L (136-145)
[2019-09-01 09:15] LABS: Magnesium 1.5 mg/dL (1.6-2.6); Phosphorus 1.1 mg/dL (2.5-4.9)
[2019-09-01] MEDS: Potassium Chloride 10mEq/100mL 10 MEQ/100 ML IV.SOLN. 100 MEQ IV BOLUS ×4 (09:23→13:10)
--- NOTE | 2019-09-01 09:30 | PN.SURG_ITS ---
Patient Problems: Active and Suspected Problems Confusion (Acute) Debility (Acute) Subjective: Patient tolerating PEG tube feeds at this time. Dressing is dry Objective: Skin is dry abdomen is soft apparently tolerating the tube feeds at this time. - Physical Exam Vitals/I&O's: Vital Signs Temp Pulse Resp BP Pulse Ox 97.8 F 99 17 99/62 92 09/01/19 08:36 09/01/19 08:36 09/01/19 08:36 09/01/19 08:36 09/01/19 08:36 Oxygen Flow Rate (L/min) 4 Oxygen Delivery Method Nasal Cannula Weight: 97 lb 3.582 oz Body Mass Index (BMI) 14.3 Intake and Output for Last 24 Hours 08/30/19 08/31/19 09/01/19 23:59 23:59 23:59 Intake Total 3520.00 / 3520.00 3424.21 / 3424.21 1273.96 / 1273.96 Output Total 1150 / 1150 925 / 925 200 / 200 Balance 2370.00 / 2370.00 2499.21 / 2499.21 1073.96 / 1073.96 Microbiology Past 72 Hours 08/28/19 23:00 Blood Culture (Wb) - Anticubital Right Blood Culture - Preliminary No growth in 48 hours. 08/28/19 20:55 Blood Culture (Wb) - Left Forearm Blood Culture - Preliminary No growth in 48 hours. Laboratory Results 09/01/19 07:04: WBC 8.6, RBC 4.08 L, Hgb 11.7 L, Hct 36.7 L, MCV 90.0, MCH 28.7, MCHC 31.9 L, RDW Std Deviation 44.2 H, RDW Coeff of Abdullahi 13.8, Plt Count 115 L, MPV 11.6, Immature Gran % (Auto) 0.300, Neut % (Auto) 91.6 H, Lymph % (Auto) 5.2 L, [place] % (Auto) 2.4, Eos % (Auto) 0.2, Baso % (Auto) 0.3, Absolute Neuts (auto) 7.9 H, Absolute Lymphs (auto) 0.45 L, Nucleated RBC % 0, Differential Comment SCANNED, Platelet Estimate SLT DEC, Hypochromasia RARE 09/01/19 07:04: Sodium 138, Potassium 2.8 L, Chloride 103, Carbon Dioxide 28.0, Anion Gap 7, BUN 20 H, Creatinine 0.82, Estim Creat Clear Calc 55.27, Est GFR (MDRD) Af Amer 122, Est GFR (MDRD) Non-Af 101, BUN/Creatinine Ratio 24.5 H, Glucose 175 H, Calcium 7.8 L 09/01/19 07:04: Phosphorus 1.1 L*, Magnesium 1.5 L Current Medications Acetaminophen (Tylenol) 650 mg PO Q6H PRN PRN PRN Reason: Pain Score 1-10/Temp > 100.7 F Apixaban (Eliquis) 10 mg GT BID [facility] Last Admin: 08/31/19 21:21 Dose: 10 mg Documented by: Sodium Chloride () 250 mls @ 15 mls/hr IV .[id number] PRN PRN Reason: Saline Flush Last Infusion: 09/01/19 05:40 Dose: 0 mls/hr Documented by: Sodium Chloride () 250 mls @ 15 mls/hr IV .[id number] PRN PRN Reason: Additional IVPB Infusion Piperacillin Sod/Tazobactam (Sod 3.375 gm/ Sodium Chloride) 50 mls @ 12.5 mls/hr IV Q8 [facility] Last Admin: 09/01/19 05:29 Dose: 12.5 mls/hr Documented by: Enteral Nutritional Formula (Jevity 1.5) 1,000 mls @ 15 mls/hr GT .Q48H [facility] Last Admin: 08/31/19 19:01 Dose: 15 mls/hr Documented by: Potassium Chloride () 10 meq in 100 mls @ 100 mls/hr IV BOLUS Q1H [facility] Stop: 09/01/19 12:59 Last Admin: 09/01/19 09:23 Dose: 100 mls/hr Documented by: Magnesium Sulfate () 4 gm in 100 mls @ 25 mls/hr IV X1 ONE Stop: 09/01/19 13:44 Ondansetron HCl (Zofran) 4 mg IV Q8H PRN PRN PRN Reason: NAUSEA/VOMITING Potassium Phos/Sodium Phos (Neutra-Phos Packet) 1 packet GT 4X/DAY [facility] Sodium Chloride () 10 - 40 ml IV UD PRN PRN Reason: SALINE FLUSH Last Admin: 09/01/19 05:31 Dose: 10 ml Documented by: Medical Necessity - Tobacco Use Smoking Status: Former smoker Tobacco Use: - Assessment/Plan All Active Problems Confusion (Acute) Debility (Acute) Okay to start anticoagulate. Advance tube feeds per nutritional notes
--- NOTE | 2019-09-01 09:40 | CASEMGMT ---
Patient will require COVID19 testing before he can go to TCU. Physician was notified. He qualifies for in house testing. SW also spoke with [facility] and asked her to please start the pre-cert. SW attempted to see patient for PHQ9, but he again was sleeping. SW to follow up. Breana JOHNSON MSW
[2019-09-01] MEDS: APIXABAN 5 MG TABLET 10 MG GT ×2 (09:57→22:52)
[2019-09-01] MEDS: Magnesium Sulfate 4gm/100mL 4 GM/100 ML IV.SOLN. IV (09:57)
[2019-09-01] MEDS: Na Biphos/Potassium Phosphate PACKET 1 PACKET GT ×4 (09:57→22:53)
[2019-09-01 10:40] LABS: Vitamin B12 1459 pg/mL (211-911)
--- NOTE | 2019-09-01 10:56 | PN_ITS ---
Patient Problems: Active and Suspected Problems Confusion (Acute) Debility (Acute) Subjective: Patient seen and examined. He has no new complaints today and states he feels the same as previously. He is on 4 L of oxygen. He denies any cough or shortness of breath, any chest pain, any nausea vomiting or diarrhea. He had PEG tube put in yesterday and he was started on tube feeding. He is now up to 20 cc/h of Jevity 1.5. Labs and vitals reviewed. He has remained hemodynamically stable. Sodium is 138 but potassium is 2.8 today. Phosphorus is 1.1 and magnesium is 1.5. Cell count is 8.6 and hemoglobin is 11.7 with platelets down to 115. Vitals/I&O's: Vital Signs Temp Pulse Resp BP Pulse Ox 97.8 F 98 18 100/69 98 09/01/19 09:45 09/01/19 09:45 09/01/19 09:45 09/01/19 09:45 09/01/19 09:45 Oxygen Flow Rate (L/min) 4 Oxygen Delivery Method Nasal Cannula Weight: 97 lb 3.582 oz Body Mass Index (BMI) 14.3 Intake and Output for Last 24 Hours 08/30/19 08/31/19 09/01/19 23:59 23:59 23:59 Intake Total 3520.00 / 3520.00 3424.21 / 3424.21 1423.96 / 1423.96 Output Total 1150 / 1150 925 / 925 200 / 200 Balance 2370.00 / 2370.00 2499.21 / 2499.21 1223.96 / 1223.96 General: Alert, Cooperative, No apparent distress, Lethargic, - - very cachectic; HEENT: Atraumatic, PERRLA, EOMI, Normocephalic Oral: Dry Mucosa Neck: Supple, No JVD, Negative Carotid Bruits Lungs: -decreased breath sounds bibasally, on 4L of oxygen Cardiovascular: Regular rate, Regular Rhythm, Normal S1, Normal S2, No murmurs Abdomen: Bowel Sounds Present, Soft, Non Tender, Non-Distended, No Hepato- splenomegaly Extremities: No clubbing, No cyanosis, No edema, Capillary Refill Less than 3 Seconds Skin: No rashes, No breakdown Musculoskeletal: No Tenderness to Palpation of Joints or Extremities Lymphatic: No Cervical, Supraclavicular, or Inguinal Adenopathy Neurological: Cranial nerves II-XII grossly intact, Neuro grossly intact, Motor Exam 5/5 strength throughout Psych/Mental Status: lethargic Microbiology Past 72 Hours 08/28/19 23:00 Blood Culture (Wb) - Anticubital Right Blood Culture - Preliminary No growth in 48 hours. 08/28/19 20:55 Blood Culture (Wb) - Left Forearm Blood Culture - Preliminary No growth in 48 hours. Laboratory Results 09/01/19 07:04: WBC 8.6, RBC 4.08 L, Hgb 11.7 L, Hct 36.7 L, MCV 90.0, MCH 28.7, MCHC 31.9 L, RDW Std Deviation 44.2 H, RDW Coeff of Abdullahi 13.8, Plt Count 115 L, MPV 11.6, Immature Gran % (Auto) 0.300, Neut % (Auto) 91.6 H, Lymph % (Auto) 5.2 L, [place] % (Auto) 2.4, Eos % (Auto) 0.2, Baso % (Auto) 0.3, Absolute Neuts (auto) 7.9 H, Absolute Lymphs (auto) 0.45 L, Nucleated RBC % 0, Differential Comment SCANNED, Platelet Estimate SLT DEC, Hypochromasia RARE 09/01/19 07:04: Sodium 138, Potassium 2.8 L, Chloride 103, Carbon Dioxide 28.0, Anion Gap 7, BUN 20 H, Creatinine 0.82, Estim Creat Clear Calc 55.27, Est GFR (MDRD) Af Amer 122, Est GFR (MDRD) Non-Af 101, BUN/Creatinine Ratio 24.5 H, Glucose 175 H, Calcium 7.8 L 09/01/19 07:04: Phosphorus 1.1 L*, Magnesium 1.5 L 09/01/19 09:55: Vitamin B12 1459 H 09/01/19 09:55: Whole Bld Vitamin B1 Pending Current Medications Acetaminophen (Tylenol) 650 mg PO Q6H PRN PRN PRN Reason: Pain Score 1-10/Temp > 100.7 F Apixaban (Eliquis) 10 mg GT BID [facility] Last Admin: 09/01/19 09:57 Dose: 10 mg Documented by: Sodium Chloride () 250 mls @ 15 mls/hr IV .[id number] PRN PRN Reason: Saline Flush Last Infusion: 09/01/19 05:40 Dose: 0 mls/hr Documented by: Sodium Chloride () 250 mls @ 15 mls/hr IV .[id number] PRN PRN Reason: Additional IVPB Infusion Piperacillin Sod/Tazobactam (Sod 3.375 gm/ Sodium Chloride) 50 mls @ 12.5 mls/hr IV Q8 [facility] Last Infusion: 09/01/19 09:30 Dose: Infused Documented by: Enteral Nutritional Formula (Jevity 1.5) 1,000 mls @ 15 mls/hr GT .Q48H [facility] Last Admin: 08/31/19 19:01 Dose: 15 mls/hr Documented by: Potassium Chloride () 10 meq in 100 mls @ 100 mls/hr IV BOLUS Q1H [facility] Stop: 09/01/19 12:59 Last Admin: 09/01/19 10:32 Dose: 100 mls/hr Documented by: Magnesium Sulfate () 4 gm in 100 mls @ 25 mls/hr IV X1 ONE Stop: 09/01/19 13:44 Last Admin: 09/01/19 09:57 Dose: 25 mls/hr Documented by: Ondansetron HCl (Zofran) 4 mg IV Q8H PRN PRN PRN Reason: NAUSEA/VOMITING Potassium Phos/Sodium Phos (Neutra-Phos Packet) 1 packet GT 4X/DAY [facility] Last Admin: 09/01/19 09:57 Dose: 1 packet Documented by: Sodium Chloride () 10 - 40 ml IV UD PRN PRN Reason: SALINE FLUSH Last Admin: 09/01/19 05:31 Dose: 10 ml Documented by: STROKE Vital Signs/Narrative: Vital Signs Temp Pulse Resp BP Pulse Ox 09/01/19 09:45 97.8 F 98 18 100/69 98 09/01/19 08:36 97.8 F 99 17 99/62 92 09/01/19 08:00 90 09/01/19 07:04 100 Medical Necessity - Tobacco Use Smoking Status: Former smoker Tobacco Use: - Assessment/Plan All Active Problems Confusion (Acute) Debility (Acute) 1. Hypernatremia * resolved. * 2. Left occipital stroke * CT of the brain on admission showed possible left sided MCA vs early CVA * repeat CT brain showed no evidence of large MCA territorial ischemia, and left occipital hypodensity, concerning for acute vs subacute ischemia * neurology on board: could be an embolic stroke from LV mass/ thrombus * MRI showed left occipital lobe acute to subacute infarct with no evidence of acute intracranial bleed and focal infarct in the right mid cerebellum * on eliquis 10mg bid * 3. Acute hypoxic respiratory insufficiency due to aspiration pneumonia. * now on 4L of oxygen * on IV zosyn; * titrate oxygen to maintain sats >90%. * breathing treatments with duonebs. 3. Pulmonary embolism * CTA done of the chest showed findings consistent with partially obstructive pulmonary embolism within the right proximal pulmonary artery but no additional large PE and diffuse centrilobular emphysematous changes with right apical chronic changes and areas of interstitial prominence and right lower lung posterior segment ill-defined pulmonary nodule with differentials including inflammatory nodule. * 2D echo: Large mass/ thrombus at the apex of the left ventricle measuring 5.1 x 3.3 cm which appears to be pedunculated, normal ventricular size and estimated EF of 45% with severely hypokinetic left ventricular apex * now eliquis 10mg bid via the PEG tube * 4. Left apical mass/thrombus: as per echo under 3. Cardiology on board. on eliquis via PG tube 5. Electrolyte abnormalities * Patient is hypokalemic, hypomagnesemic and has hypophosphatemia as well. This could all be due to refeeding syndrome. * Potassium is 2.8 with phosphorus of 1.1 and magnesium of 1.5. Phosphorus be replaced aggressively as well as magnesium and potassium. * We will continue to monitor. 6. Failure to thrive: * likely due to cancer and poor nutrition * patient is unable to eat due to history of throat cancer and ?lung cancer * PT/OT on board * nutrition on board * on enteral feed via PEG tube; on Jevity 1.5, currently on 20cc/hr. goal is 45cc/hr * 7. Severe protein calorie malnutrition * as under 6. * 8. Hypothyroidism: TSH is 4.36 and free T3 is 1.4. T4 level however was 6 . stable. Will monitor DVT Prophylaxis: on eliquis CODE STATUS: Full code * * Prognosis: * poor. * patient is very frail and sick. He refuses to consider hospice or palliative care, and he has been counseled about the severity of his sickness and prognosis. Position: Plan is to go to a intermediate when stable. Will need negative COVID test before he can be discharged to the intermediate. COVID test ordered. Inpatient E&M: [id number] [facility]
--- NOTE | 2019-09-01 11:05 | NT.THERAPY_ITS ---
Nutrition Therapy Report - History Nutrition Services has been consulted to:: Manage enteral nutrition Current diet / nutrition support order:: NPO; PEG TF support - Anthropometric Measurements Height:: 5 ft 9 in Weight:: 44.1 kg Body Mass Index (BMI):: 14.3 - Relevant Labs Relevant Labs:: WBC 14.4 K/mm3 (4.4-11.0) H 08/29/19 03:40 RBC 4.08 M/mm3 (4.6-6.2) L 09/01/19 07:04 Hgb 11.7 g/dL (13.0-16.5) L 09/01/19 07:04 Hct 36.7 % (40-54) L 09/01/19 07:04 MCV 94.5 fL (80-94) H 08/30/19 15:38 MCHC 31.9 g/dL (32-36) L 09/01/19 07:04 RDW Std Deviation 44.2 fl (35.1-43.9) H 09/01/19 07:04 Plt Count 115 K/mm3 (150-450) L 09/01/19 07:04 Neut % (Auto) 91.6 % (47-70) H 09/01/19 07:04 Lymph % (Auto) 5.2 % (19-41) L 09/01/19 07:04 Absolute Neuts (auto) 7.9 X10^3/uL (2.0-7.7) H 09/01/19 07:04 Absolute Lymphs (auto) 0.45 X10^3/uL (0.83-4.51) L 09/01/19 07:04 PT 17.3 SECONDS (11.7-14.9) H 08/30/19 15:38 APTT 37.4 Seconds (24.1-36.2) H 08/30/19 15:38 Sodium 151 mmol/L (136-145) H 08/30/19 20:13 Potassium 2.8 mmol/L (3.5-5.1) L 09/01/19 07:04 Chloride 113 mmol/L (98-107) H 08/31/19 05:04 Anion Gap 4 (5-15) L 08/30/19 20:13 BUN 20 mg/dL (7-18) H 09/01/19 07:04 Creatinine 1.70 mg/dL (0.70-1.30) H 08/29/19 03:40 Est GFR (MDRD) Af Amer 52 mL/min (>60) L 08/29/19 03:40 Est GFR (MDRD) Non-Af 43 mL/min (>60) L 08/29/19 03:40 BUN/Creatinine Ratio 24.5 RATIO (10-20) H 09/01/19 07:04 Glucose 175 mg/dL (74-106) H 09/01/19 07:04 Calcium 7.8 mg/dL (8.5-10.1) L 09/01/19 07:04 Phosphorus 1.1 mg/dL (2.5-4.9) L* 09/01/19 07:04 Magnesium 1.5 mg/dL (1.6-2.6) L 09/01/19 07:04 AST 95 U/L (15-37) H 08/28/19 20:55 ALT 88 U/L (16-61) H 08/28/19 20:55 Total Creatine Kinase 621 U/L (39-308) H 08/28/19 20:55 Troponin I 0.636 ng/mL (<0.045) H* 08/29/19 03:40 Vitamin B12 1459 pg/mL (211-911) H 09/01/19 09:55 TSH 4.36 uIU/mL (0.358-3.74) H 08/29/19 03:40 Free T3 pg/dL 1.4 pg/mL (2.18-3.98) L 08/29/19 03:40 - Assessment Food / Nutrition-Related History:: Pt with signs/sx of severe malnutrition rel ated to chronic disease; NPO & TF support to meet ~100% estimated nutrition needs. - Nutrition Diagnosis Problem / Etiology / Signs & Symptoms (PES):: Severe pro-americo malnutrition related to chronic disease; dysphagia as evidenced by BMI 14.4, NPO/PEG placement and severe muscle/fat wasting/+NFPE. Evidence of Malnutrition Exists:: Yes Severe PCM:: Chronic Illness - Nutrition Intervention Nutrition Prescription:: When medically able to use PEG, rec Jevity 1.5 at goal rate 45 cc/hr with 130 cc H2O flush every 4 hours to provide ~ 1620 americo / 69 gm pro/ 1580 cc total free water. Would start tf at 15 cc/hr and increase by 15 cc every 8-12 hrs as pt tolerates until goal rate achieved. D/t s/s of malnutrition - would monitor for refeeding syndrome. Ordered daily weights. Estimated nutrition needsd~5643-6590 kcal & ~50-60 gm protein/day - Food / Nutrient Delivery Interventions Summary of nutrition intervention:: TF of Jevity 1.5 to goal rate 45 cc/hr with 130 cc H2O flush every 4 hours to provide ~ 1620 americo / 69 gm pro/ 1580 cc total free water. D/t s/s of malnutrition - would monitor for refeeding syndrome. Daily Weights. Nutrition support ordered as / adjusted to:: Continue same---NPO and PEG, rec Jevity 1.5 at goal rate 45 cc/hr with 130 cc H2O flush every 4 hours to provide ~ 1620 americo / 69 gm pro/ 1580 cc total free water. Would start tf at 15 cc/hr and increase by 15 cc every 8-12 hrs as pt tolerates until goal rate achieved. Nutrition education provided?: No - MNT Monitoring Further MNT monitoring and evaluation required?: Yes MNT Follow-up in:: 3-5 days
--- NOTE | 2019-09-01 13:17 | CASEMGMT ---
SW spoke with patient to verify he is in agreement with TCU. He was upset about something, but SW could not understand what he was saying. He would then get agitated because SW could not understand him. SW did introduce self and that the SW spoke with him on Saturday about staying at [facility] for his rehab and he agreed. He did remember this and agrees. Awaiting pre-cert and COVID test. Breana JOHNSON MSW
[2019-09-02] VITALS (7 sets, daily range): BP systolic 103–130; BP diastolic 70–97; PULSE 85–95; RESP 18; TEMP 36.2–37.1; O2SAT 95–98; BMI 14.3
[2019-09-02] MEDS: 0.9% Saline Lock 10 ML Syringe IV (05:15)
[2019-09-02 05:52] LABS: Absolute Lymphocyte Count 0.35 X10^3/uL (0.83-4.51); Absolute Neutrophil Count 6.8 X10^3/uL (2.0-7.7); Basophil# 0.01 X10^3/uL; Basophil% 0.1 % (0-1); Eosinophil# 0.11 X10^3/uL; Eosinophils% 1.5 % (0-5); Hematocrit 34.8 % (40-54); Hemoglobin 11.2 g/dL (13.0-16.5); Lymphocyte # 0.35 X10^3/ul (4.0); Lymphocyte % 4.7 % (19-41); Mean Corp Hgb Conc 32.2 g/dL (32-36); Mean Corpuscular Hgb 28.5 pg (27.0-32.0); Mean Corpuscular Volume 88.5 fL (80-94); Monocyte# 0.24 X10^3/uL; Monocyte% 3.2 % (0-10); NRBC Flagged by Analyzer 0 % (0-5); Neutrophil # 6.76 X10^3/uL (2.7-7.7); Neutrophil % 90.1 % (47-70); POSITIVE DIFFERENTIAL YES; POSITIVE MORPHOLOGY YES; Platelet Count 119 K/mm3 (150-450); RBC Distribution Width CV 13.7 % (11.6-14.6); RBC Distribution Width SD 43.7 fl (35.1-43.9); Red Blood Count 3.93 M/mm3 (4.6-6.2); White Blood Count 7.5 K/mm3 (4.4-11.0)
[2019-09-02 05:55] LABS: Differential Indicated SCAN CRITERIA MET
[2019-09-02 06:23] LABS: Anion Gap 5 (5-15); BUN 19 mg/dL (7-18); BUN/Creat Ratio 27.2 RATIO (10-20); Calcium,Total 7.5 mg/dL (8.5-10.1); Chloride 106 mmol/L (98-107); EST Glomerular Filtration Rate 120 mL/min (>60); Est Glom Filt Rate - Afr Amer 146 mL/min (>60); Estimated Creatinine Clearance 56.53 ml/min; Glucose 145 mg/dL (74-106); Magnesium 1.9 mg/dL (1.6-2.6); Phosphorus 3.4 mg/dL (2.5-4.9); Potassium 4.1 mmol/L (3.5-5.1); Sodium Level 139 mmol/L (136-145)
[2019-09-02] MEDS: Jevity 1.5 1,000 ML 15 ML GT (07:10)
[2019-09-02] MEDS: APIXABAN 5 MG TABLET 10 MG GT (09:19)
[2019-09-02] MEDS: Na Biphos/Potassium Phosphate PACKET 1 PACKET GT (09:19)
--- NOTE | 2019-09-02 09:20 | CASEMGMT ---
LIUDMILA received a call from [facility] and patient was approved to go to TCU. Patient also had his COVID test and it was negative. LIUDMILA will notify physician. Plan: [facility] T[facility] Breana RODRÍGUEZ
--- NOTE | 2019-09-02 12:56 | PCM.TXEXTCAR ---
- Diet 08/29/19 12:27 NPO [Diet: Nothing Per Oral] Is pt able to select menu?: No - Routine Orders/Code Status Enema Type: Fleetz Enema Frequency: Daily PRN Suppository Type: Dulcolax 10mg Suppository Frequency: Daily PRN O2 Frequency: PRN Keep PO Greater than or Equal to (%): 90 Routine Lab Work: BMP - and magnesium to follow up on electrolyte levels (potassium, magnesium and phosphorous) - Wound(s) abd Wound Type: Puncture - Therapies Weight Bearing: Weight bearing as tolerated Physical Therapy: Eval and Treat Occupational Therapy: Eval and Treat Speech Therapy: Eval and Treat - Allergies/Procedures Done in Hospital Allergies/Adverse Reactions: Allergies No Known Allergies Allergy (Verified 01/31/17 16:57) Procedures: 2-D Echocardiogram, Peg tube placement - Type of Care/Length of Stay Estimated LOS: Convalescent Care Less Than 30 days Type of Care Needed: Skilled Rehab Potential: Poor Prognosis: Poor - Additional Orders/Day of Discharge Day of Discharge: 09/02/19 - Dietary and Speech Recommendations Dietitian Recommendations/Changes: Continue Jevity 1.5 @ 30 ml/hr until able to advance to goal rate 45 cc/hr with 130 cc H2O flush every 4 hours to provide ~ 1620 americo / 69 gm pro/ 1580 cc total free water. Would start TF @ 15 cc/hr and increase by 15 cc every 8-12 hrs as pt tolerates until goal rate achieved. Daily weights--plans for TCU tomorrow. D/t s/s of malnutrition - would monitor for refeeding syndrome. Speech Linguistic Eval Summary: Pt oriented to name, , and location. Pt stated I'm not repeating myself when asked about why he presented to [facility]. Pt able to follow single step directions with encouragement. Pt able to recall 2/3 words with 5 minute delay. Pt's speech difficult to understand. Pt edentulous with slurred, imprecise articulation. Very limited ROM of oral musculature. - Follow Up Care Primary Care Physician: Alexander Grover DO [Primary Care Provider] - Please follow up with your Primary Care Physician in: 1-2 weeks Please Follow Up With: Ramon Quan MD When: 1-2 weeks Please Follow Up With: Nicanor Mackay MD When: 1-2 weeks
--- NOTE | 2019-09-02 13:08 | CASEMGMT ---
Patient is ready for discharge to TCU. Orders copied. SW called patient's sister and let her know patient is going to TCU today. Breana JOHNSON MSW
--- NOTE | 2019-09-02 13:18 | NURSING ---
This RN called report to KARLA Rushing on TCU.
--- NOTE | 2019-09-02 16:01 | PCM.DC.SUM ---
Discharge Date and Diagnosis Date of Admission: 08/28/19 Date of Discharge: 09/02/19 - Primary Discharge Diagnosis hypernatremia left occipital stroke acute hypoxic respiratory insufficiency pulmonary embolism left apical thrombus hypokalemia hypomagnesemia hypophosphatemia failure to thrive severe protein calorie malnutrition Hospital Course and Treatment Imaging Results: Diagnostic Data Chest CTA 08/29/19 10:27 IMPRESSION: 1. Findings consistent with partially obstructive pulmonary embolism within the right proximal pulmonary artery as seen on series 5 image 71. Otherwise no additional large pulmonary embolus. 2. Diffuse centrilobular emphysematous changes with right apical chronic changes and areas of interstitial prominence and mild pleural thickening with acute on chronic infectious etiology not completely excluded. 3. Right lower lung posterior segment ill-defined pulmonary nodule with differential including inflammatory nodule (series 5 image 125). Recommend follow-up imaging to document stability versus resolution at 3-4 months. Electronically Signed: Thien Barbour DO at 11:55 EDT , Service support , Brain CT 08/29/19 11:00 IMPRESSION: 1. No evidence of large MCA territorial ischemia. No evidence of acute intracranial bleed. 2. Left occipital hypodensity (series 2 image 20) concerning for acute versus subacute ischemia, recommend MRI evaluation for further characterization. Electronically Signed: Thien Barbour DO at 11:43 EDT , Service support , Brain MRI 08/29/19 14:56 IMPRESSION: 1. Findings consistent with left occipital lobe acute to subacute infarct with no evidence of acute intracranial bleed. Mild senescent changes as above. 2. Focal acute infarct within the right mid cerebellum. Electronically Signed: Thien Barbour DO at 11:47 EDT , Service support , Head MRA 08/29/19 14:56 IMPRESSION: 1. No evidence of significant steno-occlusive disease or aneurysm. 2. Diminutive right V4 segment and right A1 segment. Electronically Signed: Thien Barbour DO at 11:40 EDT , Service support , Neck MRA 08/29/19 14:56 IMPRESSION: 1. Widely patent bilateral common carotid arteries, bilateral common carotid bifurcations, bilateral internal carotid arteries. 2. Widely patent aortic arch and origins of the great vessels. 3. Signal distortion artifacts across the common carotid arteries and across the of vertebral arteries. Electronically Signed: Taj Borjas MD at 16:08 EDT , Service support , Chest X-Ray 08/31/19 01:28 IMPRESSION: Bilateral pneumonia more severe on the right compared to the left with possible mild right perihilar bronchiectasis. Scarring with pleural thickening at the lung apices as described and stable in the interval. Electronically Signed: Bree Wick MD at 1:44 EDT , Service support , neurology- SOC teleneurology cardiology- Dr Quan [facility] surgery- Dr Mackay Operations: None Procedures: 2-D Echocardiogram, Peg tube placement Summary of Care Provided: The patient is a 64 year old M with a PMH which includes a history of throat cancer who was admitted via the ED on 08/28/2019 with a complaint of mechanical fall. Patient was found by the squad whilst on the floor at home. It was not known how long he had been on the bathroom floor. On admission he appeared to be mildly confused and so complete review of systems was not done. Medical information obtained from patient's sister so that patient had a history of lung and throat cancer and lived alone. CT of the brain done in the ED on admission showed a possible early infarct in the left MCA region. Labs showed white cell count of 17.2 with hemoglobin of 17.1 and sodium of 157 with potassium of 3.4 and BUN of 73 as well as creatinine of 1.76. Initial troponin was 0.866 and CPK was elevated at 61. EKG showed sinus rhythm with poor R wave progression. He was admitted and managed for possible CVA with dehydration and hyponatremia as well as elevated troponins and acute kidney injury as well as acute metabolic encephalopathy likely due to DAFNE and underlying medical conditions. Patient was started on IV fluids for hydration. Troponins were cycled. He also had hypokalemia and this was replaced. Was also noted to have severe protein calorie malnutrition and nutrition was consulted. Repeat CT of the brain done showed no evidence of large MCA territorial ischemia,a nd left occipital hypodensity, concerning for acute vs subacute ischemia. 2D echo done showed EF of 45%, with severely hypokinetic left ventricular apex, and left ventricular mass/thrombus measuring 5.1 x 3.3 cm which appears to be pedunculated. CT of the chest done showed partially obstructive PE in the right proximal pulmonary artery. Patient was therefore started on Lovenox therapeutic dose. Patient was evaluated by nutrition and was made n.p.o. due to concerns of aspiration. Cardiology was also consulted on account of left apical mass. Patient was noted to be very cachectic with BMI of just 14 and he said he had not been eating well at home and just taking [place] fluids. CODE STATUS was extensively discussed with patient and his sister and patient wanted his code statuts to be full code. Patient was hydrated with IV fluids on account of hypernatremia and fluids were later switched to D5 water. Hyponatremia subsequently trended down and normalized. DAFNE also resolved with IV fluid administration. Patient eventually consented to PEG tube placement for administration of medication as well as tube feeding. Patient had a PEG tube placed on 08/31/2019. He was subsequently switched to Eliquis for treatment of the PE and also the left ventricular thrombus. He was started on tube feeding. Patient became short of breath requiring oxygen and was also managed for acute hypoxic respiratory insufficiency. Chest x-ray done showed evidence of bilateral pneumonia and due to concerns of aspiration, he was treated for aspiration pneumonia and started on IV Zosyn. Patient subsequently improved and did not require oxygen and was transitioned off of oxygen onto room air on day of discharge. Stay was further complicated by hypomagnesemia, hypokalemia and hypophosphatemia which were all replaced and normalized. Patient was evaluated by physical therapy. He was skilled for long-term facility and was discharged to the transitional care unit on 09/02/2019. He was discharged with a prescription for Augmentin 875/125 mg twice daily via PEG tube for 7 days to treat for aspiration pneumonia. He was also discharged with Eliquis via PEG tube, to take 10mg bid till , and to continue with 5mg bid on 09/07/2019 to treat for PE. He is to follow up with his PCP, cardiology and general surgery. Patient seen and examined prior to discharge. He still remains very frail and weak and cachectic. However he had no complaints. Review of systems otherwise negative. Labs and vitals reviewed. Home medication reviewed and reconciled. o/e: Vital Signs Temp Pulse Resp BP Pulse Ox 97.1 F L 89 18 130/97 H 95 09/02/19 13:09 09/02/19 13:09/02/19 13:09/02/19 13:09/02/19 13:09 General: Alert, Cooperative, No apparent distress, - - very cachectic; HEENT: Atraumatic, PERRLA, EOMI, Normocephalic Oral: Dry Mucosa Neck: Supple, No JVD, Negative Carotid Bruits Lungs: -decreased breath sounds bibasally, on 4L of oxygen Cardiovascular: Regular rate, Regular Rhythm, Normal S1, Normal S2, No murmurs Abdomen: Bowel Sounds Present, Soft, Non Tender, Non-Distended, No Hepato-splenomegaly Extremities: No clubbing, No cyanosis, No edema, Capillary Refill Less than 3 Seconds Skin: No rashes, No breakdown Musculoskeletal: No Tenderness to Palpation of Joints or Extremities Lymphatic: No Cervical, Supraclavicular, or Inguinal Adenopathy Neurological: Cranial nerves II-XII grossly intact, Neuro grossly intact, Motor Exam 5/5 strength throughout Psych/Mental Status: lethargic Plan is for dc to TCU today. - Physical Exam Vitals/I&O's: Vital Signs Temp Pulse Resp BP Pulse Ox 97.1 F L 89 18 130/97 H 95 09/02/19 13:09/02/19 13:09/02/19 13:09/02/19 13:09/02/19 13:09 Oxygen Flow Rate (L/min) 2 Oxygen Delivery Method Nasal Cannula Weight: 121 lb 4.068 oz Body Mass Index (BMI) 14.3 Intake and Output for Last 24 Hours 08/31/19 09/01/19 09/02/19 23:59 23:59 23:59 Intake Total 3424.21 / 3424.21 3377.92 / 3377.92 1195.7033 / 1195.7033 Output Total 925 / 925 775 / 775 275 / 275 Balance 2499.21 / 2499.21 2602.92 / 2602.92 920.7033 / 920.7033 Microbiology Past 72 Hours 09/01/19 13:35 Mucosa - Nasopharyngeal Coronavirus COVID-19 PCR - Final 08/28/19 23:00 Blood Culture (Wb) - Anticubital Right Blood Culture - Preliminary No growth in 48 hours. 08/28/19 20:55 Blood Culture (Wb) - Left Forearm Blood Culture - Preliminary No growth in 48 hours. Laboratory Results 09/02/19 05:30: WBC 7.5, RBC 3.93 L, Hgb 11.2 L, Hct 34.8 L, MCV 88.5, MCH 28.5, MCHC 32.2, RDW Std Deviation 43.7, RDW Coeff of Abdullahi 13.7, Plt Count 119 L, MPV 12.0, Immature Gran % (Auto) 0.400, Neut % (Auto) 90.1 H, Lymph % (Auto) 4.7 L, Kerr % (Auto) 3.2, Eos % (Auto) 1.5, Baso % (Auto) 0.1, Absolute Neuts (auto) 6.8, Absolute Lymphs (auto) 0.35 L, Nucleated RBC % 0, Differential Comment COMMENT 09/02/19 05:30: Sodium 139, Potassium 4.1, Chloride 106, Carbon Dioxide 28.0, Anion Gap 5, BUN 19 H, Creatinine 0.70, Estim Creat Clear Calc 56.53, Est GFR (MDRD) Af Amer 146, Est GFR (MDRD) Non-Af 120, BUN/Creatinine Ratio 27.2 H, Glucose 145 H, Calcium 7.5 L, Phosphorus 3.4, Magnesium 1.9 Discharge Diet: - - tube feeding via PEG tube Home Medications: Medications to take at Discharge Levothyroxine Sodium 75 mcg PO DAILY 01/31/17 Loratadine 10 mg PO DAILY 01/31/17 Losartan Potassium 25 mg PO DAILY 01/31/17 Multivitamin [Multiple Vitamins] 1 each PO DAILY 01/31/17 Mirtazapine [Remeron] 15 mg PO QHS 08/30/19 Olanzapine [Zyprexa] 1 tab PO QHS 08/30/19 Amoxicillin/Potassium Clav [Augmentin 875-125 Tablet] 1 ea GT BID 09/02/19 Apixaban [Eliquis] 5 mg GT UD 09/02/19 Jevity 1.5 1 bottle GT UD 09/02/19 Na Biphos/Potassium Phosphate [Neutra-Phos Packet] 1 packet GT 4X/DAY 09/02/19 Primary Care Physician: Alexander Grover DO [Primary Care Provider] - Please follow up with your Primary Care Physician in: 1-2 weeks Please Follow Up With: Ramon Quan MD When: 1-2 weeks Please Follow Up With: Nicanor Mackay MD When: 1-2 weeks Disposition: Jail facility Minutes spent on discharge:: 50 Patient Condition:: Poor Medical Necessity - Tobacco Use Smoking Status: Former smoker Tobacco Use: - Meaningful Use Info Meaningful Use Diagnoses (Choose all that apply): Ischemic CVA, VTE - CVA Therapy Assessed for PT,OT and/or ST?: Yes - Ischemic Stroke Antithrombotic order at d/c?: No Reason antithrombotic not ordered: Treatment not Indicated Dx of Atrial fib/flutter?: No Anticoagulant at discharge?: Yes Statins at discharge?: No Reason Statin not ordered: Treatment not Indicated Primary Dx Acute Ischemic CVA?: Yes IV tPA ordered during stay?: No Reason IV t-PA not ordered: Treatment not Indicated - VTE Anticoag overlap given w/in hospital stay or rx'd at dc?: Yes Pt receive overlap for 5 days?: No Reason overlap not ordered, prescribed, or given for 5 days: Treatment Not Indicated Inpatient E&M: 17906 Disch Hosp
--- OUTSIDE RECORDS SUMMARY | 2020-02-02 07:55 | XMS RPT_ITS | CCD ---
:1955 External Reference #:[id number] Author Organization [facility] Care Team Providers Name Role Phone Unavailable Unavailable Unavailable Results Result Name Value Range Unit Interpretation Flag Date Location [facility] on 2019-09-15 [facility] (F[facility]) Normal 09-15-2019 [facility] [facility] BETTY RICHARD ([id number]) 1955 [facility] Time Provider Department ([id number]) 09/15/19 ALEXANDER HERNANDEZ FAMWS During your visit today, we recorded the following informati on about you: Navya Barbour RN 09/15/2019 8:19 AM Signed Anne from [facility] called, verified pt by name and birthdate. Pt at his home on 09-14-2019 at 1:01am. Navya Hernandez DO 09/15/2019 8:22 AM Signed Noted, condolences to the family Alexander Hernandez DO Allergies As of Date: 09/15/2019 (No Known Allergies) Date Reviewed: 04/03/2019 Reviewed by: Sona Rios LPN - Fully Assessed Reason for Visit: [Other] Prescriptions as of 09/15/2019 Sig: MIRTAZAPINE 15 MG DISINTEGRAT* Take 1 tablet by mouth daily * OLANZAPINE 2.5 MG TABLET Take 1 tablet by mouth daily * LEVOTHYROXINE 75 MCG TABLET Take 1 tablet by mouth once d* LORATADINE 10 MG TABLET Take 1 tablet by mouth once d* LOSARTAN 25 MG TABLET Take 1 tablet by mouth once d* CHILDREN'S MULTI VITAMINS ORAL Take 2 tablets by mouth once * Problem List As Of Date 09/15/2019 Noted Resolved Elevated Blood Pressure [QDI9169] 02/21/2009 10/04/2009 Weight Loss [R63.4] 02/21/2009 06/10/2009 COPD (Chronic Obstructive Pulmonary Disease) [J*02/21/2009 Smoker [F17.200] 02/21/2009 Hyperlipidemia [E78.5] 06/10/2009 Contact dermatitis due to poison filiberto [L23.7] 10/04/200902/20 HBP (High Blood Pressure) [I10] 10/04/2009 Eczema [L30.9] 03/08/2010 Chronic left shoulder pain [M25.512, G89.29] 04/10/2011 Malignant neoplasm of oropharynx, unspecified s*05/17/2011 0 05/31/2014 Hypomagnesemia [E83.42] 08/31/2011 History of malignant neoplasm of oropharynx [Z8*03/18/2012 Controlled substance agreement signed [Z79.899] 01/15/2014 Chronic pain [G89.29] 02/21/2015 Chronic obstructive pulmonary disease (HCC) [J4*02/21/2015 Mixed hyperlipidemia [E78.2] 02/21/2015 Essential hypertension [I10] 02/21/2015 Hypothyroidism [E03.9] 09/13/2015 COPD with chronic bronchitis (HCC) [J44.9] 06/21/2017 Chronic seasonal allergic rhinitis due to polle*06/21/2017 Severe single current episode of major depressi*06/21/2017 RALEIGH (generalized anxiety disorder) [F41.1] 06/21/2017 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.9] 06/21/2017 Hypothyroidism, acquired [E03.9] 06/21/2017 Screening for colon cancer [Z12.11] 03/26/2018 Finger laceration, initial encounter [S61.219A] 09/16/2018 Encounter Status:Closed by KRISTIE ESPAÑA LPN on 09/15/19 obsolete on 2019-07 OBSOLETE Refill (FAMPWS) Normal 08-14-2019 [facility] BETTY RICHARD ([id number]) 1955 [facility] Date Time Provider Department ([id number]) 08/14/19 ALEXANDER HERNANDEZ During your visit today, we recorded the following informati on about you: Mell Bach Pss 08/14/2019 10:09 AM Signed Patient has been identified by name and date of : Yes Last office visit in this department: 04/03/2019 RX INSTRUCTIONS: Patient aware RX will be sent to pharmacy. No need to notify patient. Patient phones requesting refills as follows: Pending Prescriptions Disp Refills MIRTAZAPINE 15 MG DISINTEGRATING TABLET 90 tablet 1 Sig: Take 1 tablet by mouth daily at bedtime. GOLDY: No OLANZAPINE 2.5 MG TABLET 90 tablet 1 Sig: Take 1 tablet by mouth daily at bedtime. GOLDY: No Please review and advise. Mell Bach Pss Allergies As of Date: 08/14/2019 (No Known Allergies) Date Reviewed: 04/03/2019 Reviewed by: Sona Rios LPN - Fully Assessed Reason for Visit: Refill Request [94] Visit Diagnoses:Severe single current episode of major dep ressive disorder, without psychotic features (HCC) [F32.2] RALEIGH (generalized anxiety disorder) [F41.1] Order(s):mirtazapine orally disintegrating (REMERON SOLTAB) 15 mg disintegrating tabletTake 1 tablet by mouth daily at bedtime .Disp: 90 tabletRfl: 0 OLANZapine (ZYPREXA) 2.5 mg tabletTake 1 tablet by mouth ebenezer ly at bedtime.Disp: 90 tabletRfl: 0 Prescriptions as of 08/14/2019 Sig: MIRTAZAPINE 15 MG DISINTEGRAT* Take 1 tablet by mouth daily * OLANZAPINE 2.5 MG TABLET Take 1 tablet by mouth daily * LEVOTHYROXINE 75 MCG TABLET Take 1 tablet by mouth once d* LORATADINE 10 MG TABLET Take 1 tablet by mouth once d* LOSARTAN 25 MG TABLET Take 1 tablet by mouth once d* CHILDREN'S MULTI VITAMINS ORAL Take 2 tablets by mouth once * Problem List As Of Date 08/14/2019 Noted Resolved Elevated Blood Pressure [ILI6675] 02/21/2009 10/04/2009 Weight Loss [R63.4] 02/21/2009 06/10/2009 COPD (Chronic Obstructive Pulmonary Disease) [J*02/21/2009 Smoker [F17.200] 02/21/2009 Hyperlipidemia [E78.5] 06/10/2009 Contact dermatitis due to poison filiberto [L23.7] 10/04/200902/20 HBP (High Blood Pressure) [I10] 10/04/2009 Eczema [L30.9] 03/08/2010 Chronic left shoulder pain [M25.512, G89.29] 04/10/2011 Malignant neoplasm of oropharynx, unspecified s*05/17/2011 0 05/31/2014 Hypomagnesemia [E83.42] 08/31/2011 History of malignant neoplasm of oropharynx [Z8*03/18/2012 Controlled substance agreement signed [Z79.899] 01/15/2014 Chronic pain [G89.29] 02/21/2015 Chronic obstructive pulmonary disease (HCC) [J4*02/21/2015 Mixed hyperlipidemia [E78.2] 02/21/2015 Essential hypertension [I10] 02/21/2015 Hypothyroidism [E03.9] 09/13/2015 COPD with chronic bronchitis (HCC) [J44.9] 06/21/2017 Chronic seasonal allergic rhinitis due to polle*06/21/2017 Severe single current episode of major depressi*06/21/2017 RALEIGH (generalized anxiety disorder) [F41.1] 06/21/2017 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.9] 06/21/2017 Hypothyroidism, acquired [E03.9] 06/21/2017 Screening for colon cancer [Z12.11] 03/26/2018 Finger laceration, initial encounter [S61.219A] 09/16/2018 Prescriptions ordered this encounter Disp Refills Start End MIRTAZAPINE 15 MG DISINTEGRATING TAB* 90 t* 0 08/14/2019 Route: ORAL Sig: Take 1 tablet by mouth daily at bedtime. OLANZAPINE 2.5 MG TABLET 90 t* 0 08/14/2019 Route: ORAL Sig: Take 1 tablet by mouth daily at bedtime. Medications Discontinued During This Encounter mirtazapine orally disintegrating (R* 90 t* 1 02/09/201907/22 Route: ORAL Sig: Take 1 tablet by mouth daily at bedtime. Disc: Reason for discontinue is not on file. OLANZapine (ZYPREXA) 2.5 mg tablet 90 t* 1 02/09/2019 020 Route: ORAL Sig: Take 1 tablet by mouth daily at bedtime. Disc: Reason for discontinue is not on file. Encounter Status:Closed by ROGELIO CRUZ MD on 0 xr chest 2v frontal/lat on 2019-06-29 XR CHEST 2V * * *Final Report* * * Normal 06-28 [facility] FRONTAL/LAT DATE OF EXAM: Jun 29 2019 2:11PM [place] WRX [id number] - XR CHEST 2V FRONTAL/LAT / ([id number]) PROCEDURE REASON: History of malignant neoplasm of oropharyn x * * * * Physician Interpretation * * * * EXAMINATION: CHEST RADIOGRAPH (2 VIEW FRONTAL and LATERAL) CLINICAL HISTORY: History of malignant neoplasm of oropharyn x MQ: XC2_6 EXAM DATE/TIME: 06/29/2019 2:11 PM COMPARISON: Chest x-ray on 07/07/2018. RESULT: Lines, tubes, and devices: None. Lungs and pleura: The lungs are somewhat overexpanded. There are right greater than left bilateral upper lung fibrotic changes with questionable traction bronchiectasis and biapical capping; overall findin gs similar to prior study. No mass lesion seen. No pleural effusions or pn eumothorax. Cardiomediastinal silhouette: Stable cardiac silhouette and mediastinal contour, with upward traction of the right hilum. Bones and soft tissues: There are degenerative changes in th e spine. IMPRESSION: Overall findings unchanged. Computer System Validation Specialist: MOLLY Transcribe Date/Time: Jun 29 2019 2:19P Dictated by : ERICA AHMADI MD This examination was interpreted and the report reviewed and electronically signed by: ERICA AHMADI MD on Jun 29 2019 2:22PM EST [id number] progress on 2019-06 PROGRESS HNO ID: [id number] Normal 06-29-2019 [facility] Author: Janet Dan (Rt) Galina Borrero [place] ([id number]) Service: ? Author Type: Route Sales Driver Type: Progress Notes Filed: 06/29/2019 2:11 PM Note Text: Radiology Service Progress Note PATIENT NAME: Betty Richard DATE OF SERVICE: June 29, 2019 TIME: 2:03 PM PATIENT IDENTITY VERIFICATION COMPLETED USING TWO (2) IDENTI FIERS: Name and Date of confirmed by patient verbally. PATIENT GENDER DATA: Male PATIENT RELEVANT IMPLANT DATA REVIEWED: Not Applicable RADIOLOGY DEPARTMENT: General X-ray: Exam(s) Completed: Ches t X-Ray PERIPHERAL IV DATA: Not applicable SIGNED BY: RT Francesca June 29, 2019 2:03 PM darvinn on 2019-06-29 DARVINN Telephone (PRESLEY) Normal 06-29-2019 [place] [facility] BETTY RICHARD ([id number]) 1955 [facility] Time Provider Department () 06/29/19 TANYA RODRÍGUEZ During your visit today, we recorded the following informati on about you: Lesa Machado Pss 06/29/2019 10:47 AM Signed Patient called and said he n ormally gets an x-ray same day as he yearly OV with Tanya and is asking if this will change or when he is to hav e this done. Tanya Rodríguez APRN.CNP 06/29/2019 12:46 PM Signed CXR order in. It was on the AVS. THAD Parisi Pss 06/29/2019 12:57 PM Signed Patient notified. Allergies As of Date: 06/29/2019 (No Known Allergies) Date Reviewed: 04/03/2019 Reviewed by: Sona Rios LPN - Fully Assessed Reason for Visit: chest x-ray order [Other] Primary Visit Diagnosis:History of malignant jenny plasm of oropharynx [Z85.819] Order(s):XR CHEST 2V FRONTAL/LAT [[id number]] Order #: [id number] FUTURE Prescriptions as of 06/29/2019 Sig: LEVOTHYROXINE 75 MCG TABLET Take 1 tablet by mouth once d* MIRTAZAPINE 15 MG DISINTEGRAT* Take 1 tablet by mouth daily * OLANZAPINE 2.5 MG TABLET Take 1 tablet by mouth daily * LORATADINE 10 MG TABLET Take 1 tablet by mouth once d* LOSARTAN 25 MG TABLET Take 1 tablet by mouth once d* CHILDREN'S MULTI VITAMINS ORAL Take 2 tablets by mouth once * Problem List As Of Date 06/29/2019 Noted Resolved Elevated Blood Pressure [STI0708] 02/21/2009 10/04/2009 Weight Loss [R63.4] 02/21/2009 06/10/2009 COPD (Chronic Obstructive Pulmonary Disease) [J*02/21/2009 Smoker [F17.200] 02/21/2009 Hyperlipidemia [E78.5] 06/10/2009 Contact dermatitis due to poison filiberto [L23.7] 10/04/200902/20 HBP (High Blood Pressure) [I10] 10/04/2009 Eczema [L30.9] 03/08/2010 Chronic left shoulder pain [M25.512, G89.29] 04/10/2011 Malignant neoplasm of oropharynx, unspecified s*05/17/2011 0 05/31/2014 Hypomagnesemia [E83.42] 08/31/2011 History of malignant neoplasm of oropharynx [Z8*03/18/2012 Controlled substance agreement signed [Z79.899] 01/15/2014 Chronic pain [G89.29] 02/21/2015 Chronic obstructive pulmonary disease (HCC) [J4*02/21/2015 Mixed hyperlipidemia [E78.2] 02/21/2015 Essential hypertension [I10] 02/21/2015 Hypothyroidism [E03.9] 09/13/2015 COPD with chronic bronchitis (HCC) [J44.9] 06/21/2017 Chronic seasonal allergic rhinitis due to polle*06/21/2017 Severe single current episode of major depressi*06/21/2017 RALEIGH (generalized anxiety disorder) [F41.1] 06/21/2017 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.9] 06/21/2017 Hypothyroidism, acquired [E03.9] 06/21/2017 Screening for colon cancer [Z12.11] 03/26/2018 Finger laceration, initial encounter [S61.219A] 09/16/2018 Encounter Status:Closed by BENCHOFF SUKHJINDER NOVAK on 06/29/19 MARLON Telephone (PRESLEY) Normal 06-29-2019 [place] [facility] BETTY RICHARD ([id number]) 1955 M [place] Date Time Provider Department ([id number]) 06/29/19 TANYA RODRÍGUEZ During your visit today, we recorded the following informati on about you: Tanya Rodríguez APRN.DARVIN 06/29/2019 2:58 PM Signed Please inform pt. that his CXR looks good. Follow up as scheduled. THAD Parisi LPN, LPN 06/29/2019 3:04 PM Signed Pt. Notified of x-ray results, voiced understanding. Jeannie Vieyra LPN Allergies As of Date: 06/29/2019 (No Known Allergies) Date Reviewed: 04/03/2019 Reviewed by: Sona Rios LPN - Fully Assessed Reason for Visit: Results [95] Prescriptions as of 06/29/2019 Sig: LEVOTHYROXINE 75 MCG TABLET Take 1 tablet by mouth once d* MIRTAZAPINE 15 MG DISINTEGRAT* Take 1 tablet by mouth daily * OLANZAPINE 2.5 MG TABLET Take 1 tablet by mouth daily * LORATADINE 10 MG TABLET Take 1 tablet by mouth once d* LOSARTAN 25 MG TABLET Take 1 tablet by mouth once d* CHILDREN'S MULTI VITAMINS ORAL Take 2 tablets by mouth once * Problem List As Of Date 06/29/2019 Noted Resolved Elevated Blood Pressure [TUL6821] 02/21/2009 10/04/2009 Weight Loss [R63.4] 02/21/2009 06/10/2009 COPD (Chronic Obstructive Pulmonary Disease) [J*02/21/2009 Smoker [F17.200] 02/21/2009 Hyperlipidemia [E78.5] 06/10/2009 Contact dermatitis due to poison filiberto [L23.7] 10/04/200902/20 HBP (High Blood Pressure) [I10] 10/04/2009 Eczema [L30.9] 03/08/2010 Chronic left shoulder pain [M25.512, G89.29] 04/10/2011 Malignant neoplasm of oropharynx, unspecified s*05/17/2011 0 05/31/2014 Hypomagnesemia [E83.42] 08/31/2011 History of malignant neoplasm of oropharynx [Z8*03/18/2012 Controlled substance agreement signed [Z79.899] 01/15/2014 Chronic pain [G89.29] 02/21/2015 Chronic obstructive pulmonary disease (HCC) [J4*02/21/2015 Mixed hyperlipidemia [E78.2] 02/21/2015 Essential hypertension [I10] 02/21/2015 Hypothyroidism [E03.9] 09/13/2015 COPD with chronic bronchitis (HCC) [J44.9] 06/21/2017 Chronic seasonal allergic rhinitis due to polle*06/21/2017 Severe single current episode of major depressi*06/21/2017 RALEIGH (generalized anxiety disorder) [F41.1] 06/21/2017 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.9] 06/21/2017 Hypothyroidism, acquired [E03.9] 06/21/2017 Screening for colon cancer [Z12.11] 03/26/2018 Finger laceration, initial encounter [S61.219A] 09/16/2018 Encounter Status:Closed by JEANNIE VIEYRA on 06/29/19 cnco on 2019-04-06 CNCO Letter Text Normal 04-06-2019 [facility] ([id number]) progress on 2019-03 PROGRESS HNO ID: [id number] Normal 04-03-2019 [facility] Author: Alexander Hernandez [place] ([id number]) Service: ? Author Type: Physician Type: Progress Notes Filed: 04/03/2019 11:28 AM Note Text: CC: Betty Richard is a 63 year old male who presents to the office for 6 months follow up HPI: HPL, diet controlled Cholesterol, Total Date Value Ref Range Status 03/30/2019 159 <200 mg/dL Final Comment: <200 mg/dL, Desirable 200-239 mg/dL, Borderline high >239 mg/dL, High HDL Cholesterol Date Value Ref Range Status 03/30/2019 53 >39 mg/dL Final Comment: 40-59 mg/dL, Acceptable >59 mg/dL, High: Negative risk factor for coronary heart dis ease <40 mg/dL, Low: Positive risk factor for coronary heart dise ase LDL Cholesterol Date Value Ref Range Status 03/30/2019 93 <100 mg/dL Final Comment: <100 mg/dL, Optimal 100-129 mg/dL, Near optimal/above optimal 130-159 mg/dL, Borderline high 160-189 mg/dL, High >189 mg/dL, Very high Secondary prevention optimal LDL Cholesterol levels are bong mmended to be < 70 mg/dL Triglyceride Date Value Ref Range Status 03/30/2019 65 <150 mg/dL Final Comment: <150 mg/dL, Normal 150-199 mg/dL, Borderline high 200-499 mg/dL, High >499 mg/dL, Very high Glucose (mg/dL) Date Value 03/30/2019 70 Potassium (mmol/L) Date Value 03/30/2019 4.8 Sodium (mmol/L) Date Value 03/30/2019 124 Chloride (mmol/L) Date Value 03/30/2019 87 CO2 (mmol/L) Date Value 03/30/2019 24 Creatinine (mg/dL) Date Value 03/30/2019 0.71 BUN (mg/dL) Date Value 03/30/2019 18 Anion Gap (mmol/L) Date Value 03/30/2019 13 Calcium (mg/dL) Date Value 03/30/2019 9.6 Protein, Total (g/dL) Date Value 03/20/2017 7.7 Albumin (g/dL) Date Value 03/20/2017 3.9 Bilirubin, Total (mg/dL) Date Value 03/20/2017 <0.2 Alkaline Phosphatase (U/L) Date Value 03/20/2017 65 AST (U/L) Date Value 03/20/2017 24 ALT (U/L) Date Value 03/20/2017 13 Hx of oral cancer and radiation and chronic pain, only use o f tylenol liquid as needed, Only able to tolerate [place] instant br eakfast, no other foods/supplements. Hypothyroidism, taking levothyroxine 75 mcg daily TSH Date Value Ref Range Status 03/30/2019 1.470 0.270 - 4.200 uU/mL Final PAST MEDICAL HISTORY Diagnosis Date - Cigar smoker in past - COPD (chronic obstructive pulmonary disease) (HCC) 02/22/[address] 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 Moeller Oncology, Dr. Deidre shahid ENT, Dr. Butts Radiation - Shoulder pain, bilateral 1993 PAST SURGICAL HISTORY Procedure Laterality Date - PAST SURGICAL HISTORY OF 05/25/11 Peg tube placement, removed 02/26/2012 - [place] ANEST[facility],NOSE,SINUS SURGERY - RADIATION THERAPY Pharyngeal cancer Current Outpatient Medications Medication Sig - levothyroxine (SYNTHROID) 75 mcg tablet Take 1 tablet by m outh once daily. Take on empty stomach. For Thyroid - mirtazapine orally disintegrating (REMERON SOLTAB) 15 mg d isintegrating tablet Take 1 tablet by mouth daily at bedtime. - OLANZapine (ZYPREXA) 2.5 mg tablet Take 1 tablet by mouth daily at bedtime. - loratadine (CLARITIN) 10 mg tablet Take 1 tablet by mouth once daily. - losartan (COZAAR) 25 mg tablet Take 1 tablet by mouth once daily. - CHILDREN'S MULTI VITAMINS ORAL Take 2 tablets by mouth onc e daily. No current facility-administered medications for this visit. ALLERGIES No Known Allergies Social History Tobacco Use - Smoking status: Former Smoker Packs/day: 3.00 Years: 40.00 Pack years: 120.00 Types: Cigarettes, Cigars Last attempt to quit: 06/26/2011 Years since quittin.7 - Smokeless tobacco: Never Used Substance Use Topics - Alcohol use: No - Drug use: No ROS: See HPI PE: BP 130/80 Pulse 84 Temp (Src) 98 (Right Tympanic) Resp 20 Wt 131 lb (59.4kg) Gen: AANDOX3, NAD, non-toxic appearing, cooperative, pleasan t, HEENT: PERRLA, EOMs intact b/l, wearing glasses, nares witho ut drainage, pharynx without erythema, exudate, lesions, or drainage. Uvu la midline. MMM, edentulous, EAC and TM normal Neck: No LAD, no thyromegaly, no meningismus. Sclerosus and tightening of all the skin post radiation CV: RRR, no murmur, normal s1s2? Lungs: scattered end expiratory intermittent wheezing, no di stress or cough No edema, normal pulses Skin: No rashes, lesions, or wounds on exposed skin. ?tardive dyskinesia of tongue which is mild ? ASSESSMENT/PLAN: 1. Essential hypertension - ICD9: 401.9, ICD10: I10 (primary diagnosis) - good control - Continue current medication(s) - Encouraged dietary sodium restriction/DASH diet - Recommended regular aerobic exercise. - Recommend home blood pressure monitoring, to bring results in on next visit - Goal of BP <130/80 - ECG COMPLETE 3. Screening for colon cancer - ICD9: V76.51, ICD10: Z12.11 - FECAL OCCULT BLOOD TEST 4. Medication monitoring encounter - ICD9: V58.83, ICD10: Z5 1.81 - ECG COMPLETE 5. Mixed hyperlipidemia - ICD9: 272.2, ICD10: E78.2 - good control - Encouraged following a low fat, low cholesterol diet. 6. Hypothyroidism, acquired - ICD9: 244.9, ICD10: E03.9 - Instructed patient on importance of taking on an empty sto mach either first thing in the morning or at bedtime. Stable - Continue current medications 7. 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 Follow up with Alexander Hernandez DO. To ER if develops chest pain, shortness of breath Discussed risks, benefits, alternatives, and potential side effects of medications. Patient/Guardian expressed understanding and agreed with the plan. See patient instructions. Alexander Hernandez DO [address] [place] [address] fecal occult bld tst on 2019-04-03 Immuno FOB Negative Negative Normal 04-03-2019 Senia solis [facility] ([id number]) Comment: Result Comment: This test wa s developed and its performance characteristics determined by [facility]'s [facility] [place] ( [place]). It has not been cleared or a pproved by the FDA. [facility] is regulated under CLIA as qualified to perform high complexity testing. This test is used for clinic al purposes. It should not be regarded as investigational or for research. Performed By: #### IFOBT ### #[facility] [id number] [place], [place] [phone] [email or web address] on 2019-04-03 EKG1 NAME : CHANTELBETTY TREVINO Normal 2018 [facility] PID : [id number] Gerry ceballos ([id number]) : 1955 Gender : Male Race : ORD : Procedure Date : Apr 03 2019 10:54:29 Edit Date : Apr 30 2019 14:16:22 Diagnosis:NORMAL SINUS RHYTHM POSSIBLE LEFT ATRIAL ENLARGEMENT BORDERLINE ECG Confirmed by FAMILIA BATES D.O. ([id number]) on 04/30/2019 2:16 :20 PM Ventricular Rate : 87 BPM Atrial Rate : 87 BPM P-R Interval : 160 ms QRS Duration : 80 ms Q-T Interval : 348 ms QTC Calculation(Bazett) : 418 ms P [place] : 81 degrees R [place] : 65 degrees T [place] : 75 degrees Test Reason : Location : 185 : [facility] Overread By : FAMILIA BATES D.O. Edited By : FAMILIA BATES D.O. Referred By : ALEXANDER HERNANDEZ Acquired by : lorenzo DOSS on 2019-04-03 CNOV Office Visit (FAMPWS) Normal 04-03-20 19 [place] [facility] BESSBETTY Manley ([id number]) 1955 [facility] Time Provider Department ([id number]) 04/03/19 10:20 AM ALEXANDER HERNANDEZ FAMPWS During your visit today, we recorded the following informati on about you: Temperature Pulse Respiration Blood pressure 98 degrees 84/minute 20/minute 130/80 Weight 59.4 kg Alexander Dan HernandezDO 04/03/2019 10:46 AM Signed Sat - Saturday lab hours- 730 am until 530 pm Saturday lab hours 730 am until 12 noon Closed sundays Alexander Hao DO [place] 04/03/2019 11:28 AM Signed CC: Betty Richard is a 63 year old male who presents to the office for 6 months follow up HPI: HPL, diet controlled Cholesterol, Total Date Value Ref Range Status 03/30/2019 159 <200 mg/dL Final Comment: <200 mg/dL, Desirable 200-239 mg/dL, Borderline high >239 mg/dL, High HDL Cholesterol Date Value Ref Range Status 03/30/2019 53 >39 mg/dL Final Comment: 40-59 mg/dL, Acceptable >59 mg/dL, High: Negative risk factor for coronary heart dis ease <40 mg/dL, Low: Positive risk factor for coronary heart dise ase LDL Cholesterol Date Value Ref Range Status 03/30/2019 93 <100 mg/dL Final Comment: <100 mg/dL, Optimal 100-129 mg/dL, Near optimal/above optimal 130-159 mg/dL, Borderline high 160-189 mg/dL, High >189 mg/dL, Very high Secondary prevention optimal LDL Cholest romel levels are recommended to be < 70 mg/dL Triglyceride Date Value Ref Range Status 03/30/2019 65 <150 mg/dL Final Comment: <150 mg/dL, Normal 150-199 mg/dL, Borderline high 200-499 mg/dL, High >499 mg/dL, Very high Glucose (mg/dL) Date Value 03/30/2019 70 Potassium (mmol/L) Date Value 03/30/2019 4.8 Sodium (mmol/L) Date Value 03/30/2019 124 Chloride (mmol/L) Date Value 03/30/2019 87 CO2 (mmol/L) Date Value 03/30/2019 24 Creatinine (mg/dL) Date Value 03/30/2019 0.71 BUN (mg/dL) Date Value 03/30/2019 18 Anion Gap (mmol/L) Date Value 03/30/2019 13 Calcium (mg/dL) Date Value 03/30/2019 9.6 Protein, Total (g/dL) Date Value 03/20/2017 7.7 Albumin (g/dL) Date Value 03/20/2017 3.9 Bilirubin, Total (mg/dL) Date Value 03/20/2017 <0.2 Alkaline Phosphatase (U/L) Date Value 03/20/2017 65 AST (U/L) Date Value 03/20/2017 24 ALT (U/L) Date Value 03/20/2017 13 Hx of oral cancer and radiat ion and chronic pain, only use of tylenol liquid as needed, Only able to tolerate [place] instant breakfast, n o other foods/supplements. Hypothyroidism, taking levothyroxine 75 mcg daily TSH Date Value Ref Range Status 03/30/2019 1.470 0.270 - 4.200 uU/mL Final PAST MEDICAL HISTORY Diagnosis Date - Cigar smoker in past - COPD (chronic obstructive pulmonary disease) (HCC) 02/22/[address] 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 Moeller Oncology, Dr. Gasca ENT, Dr. Butts Radiation - Shoulder pain, bilateral 1993 PAST SURGICAL HISTORY Procedure Laterality Date - PAST SURGICAL HISTORY OF 05/25/11 Peg tube placement, removed 02/26/2012 - [place] ANESTH,NOSE,SINUS SURGERY - RADIATION THERAPY Pharyngeal cancer Current Outpatient Medications Medication Sig - levothyroxine (SYNTHROID) 75 mcg tablet Take 1 table t by mouth once daily. Take on empty stomach. For Thyroid - mirtazapine orally disintegrating (REMERON SOLTAB) 15 mg d isintegrating tablet Take 1 tablet by mouth daily at bedtime. - OLANZapine (ZYPREXA) 2.5 mg tablet Take 1 tabl et by mouth daily at bedtime. - loratadine (CLARITIN) 10 mg tablet Take 1 tablet by mouth once daily. - losartan (COZAAR) 25 mg tablet Take 1 tablet by mouth once daily. - CHILDREN'S MULTI VITAMINS ORAL Take 2 tablets by mouth onc e daily. No current facility-administered medications for this visit. ALLERGIES No Known Allergies Social History Tobacco Use - Smoking status: Former Smoker Packs/day: 3.00 Years: 40.00 Pack years: 120.00 Types: Cigarettes, Cigars Last attempt to quit: 06/26/2011 Years since quittin.7 - Smokeless tobacco: Never Used Substance Use Topics - Alcohol use: No - Drug use: No ROS: See HPI PE: BP 130/80 Pulse 84 Temp (Src) 98 (Right Tympanic) Re sp 20 Wt 131 lb (59.4kg) Gen: AANDOX3, NAD, non-toxic appearing, cooperative, pleasan t, HEENT: PERRLA, EOMs intact b/l, wearing glasses, nares witho ut drainage, pharynx without erythema, exudate, lesions, or drainag e. Uvula midline. MMM, edentulous, EAC and TM normal Neck: No LAD, no thyromegaly, no meningismus. Sc lerosus and tightening of all the skin post radiation CV: RRR, no murmur, normal s1s2? Lungs: scattered end expiratory intermittent wheezing, no distress or cough No edema, normal pulses Skin: No rashes, lesions, or wounds on exposed skin. ?tardive dyskinesia of tongue which is mild ? ASSESSMENT/PLAN: 1. Essential hypertension - ICD9: 401.9, ICD10: I10 (primary diagnosis) - good control - Continue current medication(s) - Encouraged dietary sodium restriction/DASH diet - Recommended regular aerobic exercise. - Recommend home blood pressure monitoring, to b ring results in on next visit - Goal of BP <130/80 - ECG COMPLETE 3. Screening for colon cancer - ICD9: V76.51, ICD10: Z12.11 - FECAL OCCULT BLOOD TEST 4. Medication monitoring encounter - ICD9: V58.83, ICD10: Z5 1.81 - ECG COMPLETE 5. Mixed hyperlipidemia - ICD9: 272.2, ICD10: E78.2 - good control - Encouraged following a low fat, low cholesterol diet. 6. Hypothyroidism, acquired - ICD9: 244.9, ICD10: E03.9 - Instructed patient on importance of taking on an empty stomach either first thing in the morning or at bedtime. Stable - Continue current medications 7. 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 Follow up with Alexander Hernandez DO. To ER if develops chest pain, shortness of breath Discussed risks, benefits, alternatives, and potential side effects of medications. Patient/Guardian expressed understanding and agreed with the plan. See patient instructions. Alexander Hernandez DO [address] [facility] [place] [address] Referring Provider: SELF [200] Allergies As of Date: 04/03/2019 (No Known Allergies) Date Reviewed: 04/03/2019 Reviewed by: Sona Rios LPN - Fully Assessed Reason for Visit: Follow Up [171] Cmt: 6 months Primary Visit Diagnosis:Essential hypertension [I10] Other Visit Diagnoses:Screening for colon cancer [Z12.11] Medication monitoring encounter [Z51.81] Mixed hyperlipidemia [E78.2] Hypothyroidism, acquired [E03.9] Severe single current episode of major depressive disorder, without psychotic features (HCC) [F32.2] Order(s):FECAL OCCULT BLOOD TEST [SQIFOBT] Order #: [id number] FUTURE ECG COMPLETE [ECG01] Order #: [id number] FUTURE Prescriptions as of 04/03/2019 Sig: LEVOTHYROXINE 75 MCG TABLET Take 1 tablet by mouth once d* MIRTAZAPINE 15 MG DISINTEGRAT* Take 1 tablet by mouth daily * OLANZAPINE 2.5 MG TABLET Take 1 tablet by mouth daily * LORATADINE 10 MG TABLET Take 1 tablet by mouth once d* LOSARTAN 25 MG TABLET Take 1 tablet by mouth once d* CHILDREN'S MULTI VITAMINS ORAL Take 2 tablets by mouth once * Problem List As Of Date 04/03/2019 Noted Resolved Elevated Blood Pressure [R03.0] 02/21/2009 10/04/2009 Weight Loss [R63.4] 02/21/2009 06/10/2009 COPD (Chronic Obstructive Pulmonary Disease) [J*02/21/2009 Smoker [F17.200] 02/21/2009 Hyperlipidemia [E78.5] 06/10/2009 Contact dermatitis due to poison filiberto [L23.7] 10/04/200902/20 HBP (High Blood Pressure) [I10] 10/04/2009 Eczema [L30.9] 03/08/2010 Chronic left shoulder pain [M25.512, G89.29] 04/10/2011 Malignant neoplasm of oropharynx, unspecified s*05/17/2011 0 05/31/2014 Hypomagnesemia [E83.42] 08/31/2011 History of malignant neoplasm of oropharynx [Z8*03/18/2012 Controlled substance agreement signed [Z79.899] 01/15/2014 Chronic pain [G89.29] 02/21/2015 Chronic obstructive pulmonary disease (HCC) [J4*02/21/2015 Mixed hyperlipidemia [E78.2] 02/21/2015 Essential hypertension [I10] 02/21/2015 Hypothyroidism [E03.9] 09/13/2015 COPD with chronic bronchitis (HCC) [J44.9] 06/21/2017 Chronic seasonal allergic rhinitis due to polle*06/21/2017 Severe single current episode of major depressi*06/21/2017 RALEIGH (generalized anxiety disorder) [F41.1] 06/21/2017 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.9] 06/21/2017 Hypothyroidism, acquired [E03.9] 06/21/2017 Screening for colon cancer [Z12.11] 03/26/2018 Finger laceration, initial encounter [S61.219A] 09/16/2018 Other instructions from your clinician: Sat - Saturday lab hours- 730 am until 530 pm Saturday lab hours 730 am until 12 noon Closed sundays Encounter Status:Closed by ALEXANDER HERNANDEZ DO on 04/03/19 tsh on 2019-03-30 TSH Qn 1.470 0.270-4.200 uU/mL Normal 03-30-2019 [facility] ([id number]) Comment: Performed By: #### BMP, LIPB , TSH ####[facility] [address] [place] [address] [phone] lipid panel, basic on 2019-03-30 Cholesterol [Mass/Vol] 159 <200 mg/dL Normal 019 [facility] ([address]) Comment: Result Comment: <200 mg/dL, Desirable 200-239 mg/dL, Borderline hi gh >239 mg/dL, High Performed By: #### BMP, LIPB , TSH ####[facility] [address] [phone] Cholesterol in HDL 53 >39 mg/dL Normal 03-30-2019 [facility] [Mass/Vol] ([address]) Comment: Result Comment: 40-59 mg/dL, Acceptable >59 mg/dL, High: Negative ri sk factor for coronary heart disease <40 mg/dL, Low: Positive ris k factor for coronary heart disease Performed By: #### BMP, LIPB , TSH ####[place] [address] [place] [address] [phone] Cholesterol in LDL 93 <100 mg/dL Normal 03-30-2019 [facility] [Mass/Vol] [place] ([address]) Comment: Result Comment: <100 mg/dL, Optimal 100-129 mg/dL, Near optimal/ above optimal 130-159 mg/dL, Borderline hi gh 160-189 mg/dL, High >189 mg/dL, Very high Secondary prevention optimal LDL Cholesterol levels are recommended to be < 70 mg/dL Performed By: #### BMP, LIPB , TSH ####[address] [place] [address] [phone] Fasting Time 5 hrs Normal 03-30-2019 [facility] ([address]) Comment: Performed By: #### BMP, LIPB , TSH ####[address] [place] [address] [phone] LDL:HDL Ratio 1.75 <2.54 Normal 03-30-2019 [facility] ([address]) Comment: Result Comment: Reference: 1. National Cholesterol Educ ation Program ATP III Guideline At-A-Glance Quick Desk Reference: National Heart, Lung, and Blood [place]. National Institutes of Health. 2001: NIH Publication No. 01-3305. 2. An International Atherosc lerosis Society position paper: global recommendations for the management of dyslipidemia: executive summary, Atherosclerosis. 2014: 232(2):410-413. Performed By: #### BMP, LIPB , TSH ####[place] [id number] [place] [address] [phone] Non HDL Cholesterol 106 <130 mg/dL Normal 03-30-2019 [facility] ([address]) Comment: Result Comment: <130 mg/dL, Optimal 130-159 mg/dL, Near optimal/ above optimal 160-189 mg/dL, Borderline hi gh 190-219 mg/dL, High >219 mg/dL, Very high Secondary prevention optimal non HDL Cholesterol levels are recommended to be < 100 mg/dL Performed By: #### BMP, LIPB , TSH ####[place] [address] [phone] TC:HDL Ratio 3.00 <5.10 Normal 03-30-2019 [facility] ([address]) Comment: Performed By: #### BMP, LIPB , TSH ####[place] [address] [phone] Triglyceride [Mass/Vol] 65 <150 mg/dL Normal 2018 [facility] ([address]) Comment: Result Comment: <150 mg/dL, Normal 150-199 mg/dL, Borderline hi gh 200-499 mg/dL, High >499 mg/dL, Very high Performed By: #### BMP, LIPB , TSH ####[place] [address] [phone] VLDL Cholesterol 13 <30 mg/dL Normal 03-30-2019 [facility] ([address]) Comment: Performed By: #### BMP, LIPB , TSH ####[place] [address] [phone] basic metabolic panl on 2019-03-30 Anion gap [Moles/Vol] 13 9-18 mmol/L Normal 03-30-20 19 [facility] ([address]) Comment: Performed By: #### BMP, LIPB , TSH ####[place] [address] [phone] Calcium [Mass/Vol] 9.6 8.5-10.2 mg/dL Normal 03-30-2019 [facility] ([address]) Comment: Performed By: #### BMP, LIPB , TSH ####[facility] [address] [place] [address] [phone] Chloride [Moles/Vol] 87 97-105 mmol/L Low 9 [facility] ([address]) Comment: Performed By: #### BMP, LIPB , TSH ####[facility] [place] [address] [phone] CO2 [Moles/Vol] 24 22-30 mmol/L Normal 03-30-2019 [facility] ([address]) Comment: Performed By: #### BMP, LIPB , TSH ####[facility] [place] [address] [phone] Creatinine [Mass/Vol] 0.71 0.73-1.22 mg/dL Low 03-30-20 19 [facility] ([address]) Comment: Performed By: #### BMP, LIPB , TSH ####[facility] [place] [address] [phone] eGFR- Amer. >60 Normal 03-30-2019 [facility] ([address]) Comment: Performed By: #### BMP, LIPB , TSH ####[facility] [place] [address] [phone] GFR/1.73 sq M predicted >60 mL/min/{1.73_m2} Normal 03-30-2019 [facility] among non-blacks MDRD [place] ([address]) (S/P/Bld) [Vol rate/Area] Comment: Result Comment: eGFR (Estima darleen GFR) Units of measure: mL/min/1.73 meters squared eGFR is derived from the ree xpressed MDRD Study equation using the following parameters: serum creatinine, age, gender and race. The creatinine assay has been calibrated to be traceable to IDMS. An eGFR <60 mL/min/1.73m2 fo r >3 months is consistent with chronic kidney disease. Refer to KDOQI guidelines for clinical interpretation. In patients with unstable re nal function, e.g. those with acute kidney injury, the eGFR may not accurately reflect actual GFR. Performed By: #### ABBE ROCA TSH ####[facility] [place] [address] [phone] Glucose [Mass/Vol] 70 74-99 mg/dL Low 03-30-2019 [facility] ([address]) Comment: Result Comment: The [place] Diabetes Association (ADA) provides guidance for cutoff values for fasting glucose and random glucose. The ADA defines fasting as no caloric intake for at least 8 hours. Fas ting plasma glucose results between 100 to 125 mg/dL indicate increased risk for diabetes (prediabetes). Fasting plasma glucose resul ts greater than or equal to 126 mg/dL meet the criteria for diagnosis of diabetes. In the absence of unequivocal hyperglycemia, results should be confirmed by repeat testing. In a patient with classic s ymptoms of hyperglycemia or hyperglycemic crisis, random plasma glucose results greater than or equal to 200 mg/dL meet the criteria for diagnosis of diabetes. Reference: Standards of [facility] Care in Diabetes 2016, [place] Diabetes Association. Diabetes Care. 2016.39(Suppl 1). Performed By: #### ABBE ROCA TSH ####[facility] [place] [address] [phone] Potassium [Moles/Vol] 4.8 3.7-5.1 mmol/L Normal 03-30-20 [facility] ([address]) Comment: Performed By: #### ABBE ROCA , TSH ####[facility] [place] [address] [phone] Sodium [Moles/Vol] 124 136-144 mmol/L Low 03-30-2019 [facility] (32[address]) Comment: Performed By: #### ABBE ROCA , TSH ####[facility] [place] [address] [phone] Urea nitrogen [Mass/Vol] 18 9-24 mg/dL Normal 03-30 [facility] ([address]) Comment: Performed By: #### BMP, LIPB , TSH ####[facility] [address] [place] [address] [phone] cnptoutreach on 201 12-31-25 CNPTOUTREACH Patient Outreach (FAMPST) Normal 1 05-17-2018 [place] [facility] BETTY RICHARD ([id number]) 1955 [facility] Date Time Provider Department (09593) 03/17/19 ALEXANDER HERNANDEZ FAMPST During your visit today, we recorded the following informati on about you: Allergies As of Date: 03/17/2019 (No Known Allergies) Date Reviewed: 10/29/2018 Reviewed by: Lary Murdock Ma - Fully Assessed Visit Diagnoses:Essential hypertension [I10] Mixed hyperlipidemia [E78.2] Hypothyroidism, acquired [E03.9] Order(s):BASIC METABOLIC PNL [SQBMP] Order #: [id number] FUT URE LIPID PANEL BASIC [SQLIPB] Order #: [id number] FUTURE TSH BLD [SQTSH] Order #: [id number] FUTURE Prescriptions as of 03/17/2019 Sig: LEVOTHYROXINE 75 MCG TABLET Take 1 tablet by mouth once d* MIRTAZAPINE 15 MG DISINTEGRAT* Take 1 tablet by mouth daily * OLANZAPINE 2.5 MG TABLET Take 1 tablet by mouth daily * LORATADINE 10 MG TABLET Take 1 tablet by mouth once d* LOSARTAN 25 MG TABLET Take 1 tablet by mouth once d* CHILDREN'S MULTI VITAMINS ORAL Take 2 tablets by mouth once * Problem List As Of Date 03/17/2019 Noted Resolved Elevated Blood Pressure [R03.0] 02/21/2009 10/04/2009 Weight Loss [R63.4] 02/21/2009 06/10/2009 COPD (Chronic Obstructive Pulmonary Disease) [J*02/21/2009 Smoker [F17.200] 02/21/2009 Hyperlipidemia [E78.5] 06/10/2009 Contact dermatitis due to poison filiberto [L23.7] 10/04/200902/20 HBP (High Blood Pressure) [I10] 10/04/2009 Eczema [L30.9] 03/08/2010 Chronic left shoulder pain [M25.512, G89.29] 04/10/2011 Malignant neoplasm of oropharynx, unspecified s*05/17/2011 0 05/31/2014 Hypomagnesemia [E83.42] 08/31/2011 History of malignant neoplasm of oropharynx [Z8*03/18/2012 Controlled substance agreement signed [Z79.899] 01/15/2014 Chronic pain [G89.29] 02/21/2015 Chronic obstructive pulmonary disease (HCC) [J4*02/21/2015 Mixed hyperlipidemia [E78.2] 02/21/2015 Essential hypertension [I10] 02/21/2015 Hypothyroidism [E03.9] 09/13/2015 COPD with chronic bronchitis (HCC) [J44.9] 06/21/2017 Chronic seasonal allergic rhinitis due to polle*06/21/2017 Severe single current episode of major depressi*06/21/2017 RALEIGH (generalized anxiety disorder) [F41.1] 06/21/2017 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.9] 06/21/2017 Hypothyroidism, acquired [E03.9] 06/21/2017 Screening for colon cancer [Z12.11] 03/26/2018 Finger laceration, initial encounter [S61.219A] 09/16/2018 Encounter Status:Closed by DESTINI, PRODUSER on 04/01/19 obsolete on 2019-02 OBSOLETE Refill (FAMPWS) Normal 03-05-2019 Kyle allen BETTY Vincent ([id number]) 1955 [facility] Date Time Provider Department ([id number]) 03/05/19 ALEXANDER HERNANDEZ During your visit today, we recorded the following informati on about you: Isabel Jenkinse 03/05/2019 9:35 AM Signed Patient has been identified by name and date of : Yes Pending Prescriptions Disp Refills LEVOTHYROXINE 75 MCG TABLET 90 tablet 3 Sig: Take 1 tablet by mouth once daily. Take on empty stomac h. For Thyroid GOLDY: No RX INSTRUCTIONS: Patient aware RX will be sent to pharmacy. No need to notify patient. Isabel Herrmann Columba Hanna LPN 03/05/2019 9:47 AM Signed Patient has been identified by name and date of : Yes Patient phones for refill(s): Pending Prescriptions Disp Refills LEVOTHYROXINE 75 MCG TABLET 90 tablet 3 Sig: Take 1 tablet by mouth once daily. Take on empty stomac h. For Thyroid GOLDY: No Date of last office visit in primary care: 09/23/18 [address] 1 06/04/18 Last 2 Encounter Wt Readings: Date: Wt: 10/01/2018 61.2 kg (135 lb) 09/24/2018 61.1 kg (134 lb 11.2 oz) Previous labs/tests for medication: Thyroid: TSH (uU/mL) Date Value 03/24/2018 6.910 Please advise. Thank you. Columba Mendoza APRN.CNP 03/05/2019 3:51 PM Signed Script sent. Jessica Mendoza APRN.CNP Allergies As of Date: 03/05/2019 (No Known Allergies) Date Reviewed: 10/29/2018 Reviewed by: Lary Murdock Ma - Fully Assessed Reason for Visit: Refill Request [94] Visit Diagnosis:Hypothyroidism, unspecified type [E03.9] Order(s):levothyroxine (SYNTHROID) 75 mcg tabletTake 1 tab let by mouth once daily. Take on empty stomach. For ThyroidDisp: 90 tabletRfl: 3 Prescriptions as of 03/05/2019 Sig: LEVOTHYROXINE 75 MCG TABLET Take 1 tablet by mouth once d* MIRTAZAPINE 15 MG DISINTEGRAT* Take 1 tablet by mouth daily * OLANZAPINE 2.5 MG TABLET Take 1 tablet by mouth daily * LORATADINE 10 MG TABLET Take 1 tablet by mouth once d* LOSARTAN 25 MG TABLET Take 1 tablet by mouth once d* CHILDREN'S MULTI VITAMINS ORAL Take 2 tablets by mouth once * Problem List As Of Date 03/05/2019 Noted Resolved Elevated Blood Pressure [R03.0] 02/21/2009 10/04/2009 Weight Loss [R63.4] 02/21/2009 06/10/2009 COPD (Chronic Obstructive Pulmonary Disease) [J*02/21/2009 Smoker [F17.200] 02/21/2009 Hyperlipidemia [E78.5] 06/10/2009 Contact dermatitis due to poison filiberto [L23.7] 10/04/200902/20 HBP (High Blood Pressure) [I10] 10/04/2009 Eczema [L30.9] 03/08/2010 Chronic left shoulder pain [M25.512, G89.29] 04/10/2011 Malignant neoplasm of oropharynx, unspecified s*05/17/2011 0 05/31/2014 Hypomagnesemia [E83.42] 08/31/2011 History of malignant neoplasm of oropharynx [Z8*03/18/2012 Controlled substance agreement signed [Z79.899] 01/15/2014 Chronic pain [G89.29] 02/21/2015 Chronic obstructive pulmonary disease (HCC) [J4*02/21/2015 Mixed hyperlipidemia [E78.2] 02/21/2015 Essential hypertension [I10] 02/21/2015 Hypothyroidism [E03.9] 09/13/2015 COPD with chronic bronchitis (HCC) [J44.9] 06/21/2017 Chronic seasonal allergic rhinitis due to polle*06/21/2017 Severe single current episode of major depressi*06/21/2017 RALEIGH (generalized anxiety disorder) [F41.1] 06/21/2017 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.9] 06/21/2017 Hypothyroidism, acquired [E03.9] 06/21/2017 Screening for colon cancer [Z12.11] 03/26/2018 Finger laceration, initial encounter [S61.219A] 09/16/2018 Prescriptions ordered this encounter Disp Refills Start End LEVOTHYROXINE 75 MCG TABLET 90 t* 3 03/05/2019 Route: ORAL Sig: Take 1 tablet by mouth once daily. Take on empty stomac h. For Thyroid Medications Discontinued During This Encounter levothyroxine (SYNTHROID) 75 mcg tab* 90 t* 3 03/26/201802/20 Class: Print RX Route: ORAL Sig: Take 1 tablet by mouth once daily. Take on empty stomac h. For Thyroid Disc: Reason for discontinue is not on file. Encounter Status:Closed by JESSICA MENDOZA CNP on 03/05/19 obsolete on 2019-01 OBSOLETE Refill (FAMPWS) Normal 02-09-2019 [facility] BETTY RICHARD ([id number]) 1955 [facility] Time Provider Department ([address]651) 02/09/19 ALEXANDER HERNANDEZ FAMPWS During your visit today, we recorded the following informati on about you: Isabel Novak 02/09/2019 9:15 AM Signed Patient has been identified by name and date of : Yes Pending Prescriptions Disp Refills OLANZAPINE 2.5 MG TABLET 90 tablet 1 Sig: Take 1 tablet by mouth daily at bedtime. GOLDY: No RX INSTRUCTIONS: Patient aware RX will be sent to pharmacy. No need to notify patient. Isabel Mendoza APRN.CNP 02/09/2019 4:40 PM Signed Script sent. Jessica Mendoza APRN.CNP Allergies As of Date: 02/09/2019 (No Known Allergies) Date Reviewed: 10/29/2018 Reviewed by: Lary Murdock Ma - Fully Assessed Reason for Visit: Refill Request [94] Visit Diagnoses:Severe single current episode of major dep ressive disorder, without psychotic features (HCC) [F32.2] RALEIGH (generalized anxiety disorder) [F41.1] Order(s):OLANZapine (ZYPREXA) 2.5 mg tabletTake 1 tablet by mouth daily at bedtime.Disp: 90 tabletRfl: 1 Prescriptions as of 02/09/2019 Sig: MIRTAZAPINE 15 MG DISINTEGRAT* Take 1 tablet by mouth daily * OLANZAPINE 2.5 MG TABLET Take 1 tablet by mouth daily * LORATADINE 10 MG TABLET Take 1 tablet by mouth once d* LOSARTAN 25 MG TABLET Take 1 tablet by mouth once d* X MIRTAZAPINE 15 MG DISINTEGRAT* Take 1 tablet by mouth roger y * LEVOTHYROXINE 75 MCG TABLET Take 1 tablet by mouth once d* CHILDREN'S MULTI VITAMINS ORAL Take 2 tablets by mouth once * Problem List As Of Date 02/09/2019 Noted Resolved Elevated Blood Pressure [R03.0] INVALID FOR*10/04/2009 Weight Loss [R63.4] INVALID FOR*06/10/2009 COPD (Chronic Obstructive Pulmonary Disease) [J*INVALID FOR* Smoker [F17.200] INVALID FOR* Hyperlipidemia [E78.5] INVALID FOR* Contact dermatitis due to poison filiberto [L23.7] INVALID FOR* HBP (High Blood Pressure) [I10] INVALID FOR* Eczema [L30.9] INVALID FOR* Chronic left shoulder pain [M25.512, G89.29] INVALID FOR* Malignant neoplasm of oropharynx, unspecified s*INVALID FOR* 05/31/2014 Hypomagnesemia [E83.42] INVALID FOR* History of malignant neoplasm of oropharynx [Z8*INVALID FOR* Controlled substance agreement signed [Z79.899] INVALID FOR* Chronic pain [G89.29] INVALID FOR* Chronic obstructive pulmonary disease (HCC) [J4*INVALID FOR* Mixed hyperlipidemia [E78.2] INVALID FOR* Essential hypertension [I10] INVALID FOR* Hypothyroidism [E03.9] INVALID FOR* COPD with chronic bronchitis (HCC) [J44.9] INVALID FOR* Chronic seasonal allergic rhinitis due to polle*INVALID FOR* Severe single current episode of major depressi*INVALID FOR* RALEIGH (generalized anxiety disorder) [F41.1] INVALID FOR* 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.9] INVALID FOR* Hypothyroidism, acquired [E03.9] INVALID FOR* Screening for colon cancer [Z12.11] INVALID FOR* Finger laceration, initial encounter [Y62.399P] INVALID FOR* Prescriptions ordered this encounter Disp Refills Start End OLANZAPINE 2.5 MG TABLET 90 t* 1 02/09/2019 Route: ORAL Sig: Take 1 tablet by mouth daily at bedtime. Medications Discontinued During This Encounter OLANZapine (ZYPREXA) 2.5 mg tablet 90 t* 1 08/15/2018 019 Route: ORAL Sig: Take 1 tablet by mouth daily at bedtime. Disc: Reason for discontinue is not on file. Encounter Status:Closed by JESSICA MENDOZA CNP on 02/09/19 obsolete on 2019-01 OBSOLETE Refill (FAMPWS) Normal 02-06-2019 [facility] BETTY RICHARD ([id number]) 1955 [facility] Time Provider Department ([id number]) 02/06/19 ALEXANDER HERNANDEZ FAMPWS During your visit today, we recorded the following informati on about you: Sona Novak 02/06/2019 4:49 PM Signed Patient has been identified by name and date of : Yes Pending Prescriptions Disp Refills MIRTAZAPINE 15 MG DISINTEGRATING TABLET 90 tablet 1 Sig: Take 1 tablet by mouth daily at bedtime. GOLDY: No RX INSTRUCTIONS: Patient aware RX will be sent to pharmacy. No need to notify patient. Sona España LPN 02/09/2019 10:21 AM Signed Patient phones requesting refills as follows: Pending Prescriptions Disp Refills MIRTAZAPINE 15 MG DISINTEGRATING TABLET 90 tablet 1 Sig: Take 1 tablet by mouth daily at bedtime. GOLDY: No Please review and advise. Kristie Mendoza APRN.CNP 02/09/2019 4:39 PM Signed Script sent. Jessica Mendoza APRN.CNP Allergies As of Date: 02/06/2019 (No Known Allergies) Date Reviewed: 10/29/2018 Reviewed by: Lary Murdock Ma - Fully Assessed Reason for Visit: Refill Request [94] Visit Diagnoses:Severe single current episode of major dep ressive disorder, without psychotic features (HCC) [F32.2] RALEIGH (generalized anxiety disorder) [F41.1] Order(s):mirtazapine orally disintegrating (REMERON SOLTAB) 15 mg disintegrating tabletTake 1 tablet by mouth daily at bedtime .Disp: 90 tabletRfl: 1 Prescriptions as of 02/06/2019 Sig: MIRTAZAPINE 15 MG DISINTEGRAT* Take 1 tablet by mouth daily * LORATADINE 10 MG TABLET Take 1 tablet by mouth once d* LOSARTAN 25 MG TABLET Take 1 tablet by mouth once d* OLANZAPINE 2.5 MG TABLET Take 1 tablet by mouth daily * LEVOTHYROXINE 75 MCG TABLET Take 1 tablet by mouth once d* CHILDREN'S MULTI VITAMINS ORAL Take 2 tablets by mouth once * Problem List As Of Date 02/06/2019 Noted Resolved Elevated Blood Pressure [R03.0] INVALID FOR*10/04/2009 Weight Loss [R63.4] INVALID FOR*06/10/2009 COPD (Chronic Obstructive Pulmonary Disease) [J*INVALID FOR* Smoker [F17.200] INVALID FOR* Hyperlipidemia [E78.5] INVALID FOR* Contact dermatitis due to poison filiberto [L23.7] INVALID FOR* HBP (High Blood Pressure) [I10] INVALID FOR* Eczema [L30.9] INVALID FOR* Chronic left shoulder pain [M25.512, G89.29] INVALID FOR* Malignant neoplasm of oropharynx, unspecified s*INVALID FOR* 05/31/2014 Hypomagnesemia [E83.42] INVALID FOR* History of malignant neoplasm of oropharynx [Z8*INVALID FOR* Controlled substance agreement signed [Z79.899] INVALID FOR* Chronic pain [G89.29] INVALID FOR* Chronic obstructive pulmonary disease (HCC) [J4*INVALID FOR* Mixed hyperlipidemia [E78.2] INVALID FOR* Essential hypertension [I10] INVALID FOR* Hypothyroidism [E03.9] INVALID FOR* COPD with chronic bronchitis (HCC) [J44.9] INVALID FOR* Chronic seasonal allergic rhinitis due to polle*INVALID FOR* Severe single current episode of major depressi*INVALID FOR* RALEIGH (generalized anxiety disorder) [F41.1] INVALID FOR* 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.9] INVALID FOR* Hypothyroidism, acquired [E03.9] INVALID FOR* Screening for colon cancer [Z12.11] INVALID FOR* Finger laceration, initial encounter [S61.219A] INVALID FOR* Prescriptions ordered this encounter Disp Refills Start End MIRTAZAPINE 15 MG DISINTEGRATING TAB* 90 t* 1 02/09/2019 Route: ORAL Sig: Take 1 tablet by mouth daily at bedtime. Medications Discontinued During This Encounter mirtazapine orally disintegrating (R* 90 t* 1 09/05/201801/21 Route: ORAL Sig: Take 1 tablet by mouth daily at bedtime. Disc: Reason for discontinue is not on file. Encounter Status:Closed by JESSICA MENDOZA CNP on 02/09/19 progress on 2018-11 PROGRESS HNO ID: [id number] Normal 11-21-2018 [facility] Author: Beverly Flynn ([id number]) Service: ? Author Type: Pig Machine Crane Operator Type: Progress Notes Filed: 11/21/2018 11:46 AM Note Text: [facility] ELECTRONIC WARFARE TECHNICIAN QUICKNOTE Provider Action/FYI: Bp was 100/80 on 09-23-18. No nurse visit needed. Patient identified by name and . Beverly Flynn MA progress on 2018-10 PROGRESS HNO ID: [id number] Normal 11-14-2018 [facility] Author: Beverly Flynn Farias ([id number]) Service: ? Author Type: Pig Machine Crane Operator Type: Progress Notes Filed: 11/21/2018 11:46 AM Note Text: PHMA TEAMLET DOCUMENTATION Provider Action/FYI: Nurse visit PSR Action/FYI: schedule nurse Teamlet has identified patient by name and date of . Team: Alexander Hernandez DO, ELADIO Gilman, RACHANA Gomez LPN Kathy Schlabach, PHMA ? Last Office Visit:10/01/2018 ? Next Office Visit: 04/03/2019 ? Last BP/Labs: Blood Pressure: Last 3 Encounter BP Readings: Date: BP: 10/17/2018 146/99 10/01/2018 99/68 09/24/2018 113/81 Lipids: Cholesterol, Total (mg/dL) Date Value 03/24/2018 193 08/21/2016 189 HDL Cholesterol (mg/dL) Date Value 03/24/2018 54 08/21/2016 65 LDL Cholesterol (mg/dL) Date Value 03/24/2018 124 08/21/2016 112 Triglyceride (mg/dL) Date Value 03/24/2018 77 08/21/2016 58 HGB A1C: No results found for: HBA1C TSH: TSH (uU/mL) Date Value 03/24/2018 6.910 03/20/2017 4.770 ) Care Gap: HTN - Last BP NOT under 140/90 Plan: ? Confirm PCP / Status ? Type of appointment needed: Nurse BP ? Consultation Appointments: No patient outreach needed at t his time ? Labs, HM and Immunization: Beverly Flynn MA [email or web address] on 201 12-27-25 CNPTOUTREACH Patient Outreach (FAMPWS) Normal 0 11-14-2018 [place] [facility] BETTY RICHARD ([id number]) 1955 [facility] Time Provider Department ([id number]) 11/14/18 BEVERLY FLYNN (GURU) FAMPWS During your visit today, we recorded the following informati on about you: Beverly Flynn MA 11/21/2018 11:46 AM Signed PHMA TEAMLET DOCUMENTATION Provider Action/FYI: Nurse visit PSR Action/FYI: schedule nurse Teamlet has identified patient by name and date of . Team: Alexander Hernandez DO, ELADIO Gilman, RACHANA Gomez LPN Kathy Schlabach, PHMA ? Last Office Visit:10/01/2018 ? Next Office Visit: 04/03/2019 ? Last BP/Labs: Blood Pressure: Last 3 Encounter BP Readings: Date: BP: 10/17/2018 146/99 10/01/2018 99/68 09/24/2018 113/81 Lipids: Cholesterol, Total (mg/dL) Date Value 03/24/2018 193 08/21/2016 189 HDL Cholesterol (mg/dL) Date Value 03/24/2018 54 08/21/2016 65 LDL Cholesterol (mg/dL) Date Value 03/24/2018 124 08/21/2016 112 Triglyceride (mg/dL) Date Value 03/24/2018 77 08/21/2016 58 HGB A1C: No results found for: HBA1C TSH: TSH (uU/mL) Date Value 03/24/2018 6.910 03/20/2017 4.770 ) Care Gap: HTN - Last BP NOT under 140/90 Plan: ? Confirm PCP / Status ? Type of appointment needed: Nurse BP ? Consultation Appointments: No patient outreach needed at t his time ? Labs, HM and Immunization: GURU Salazar MA 11/21/2018 11:46 AM Signed [facility] ELECTRONIC WARFARE TECHNICIAN QUICKNOTE Provider Action/FYI: Bp was 100/80 on 09-23-18. No nurse visit needed. Patient identified by name and . Beverly Flynn MA Allergies As of Date: 11/14/2018 (No Known Allergies) Date Reviewed: 10/29/2018 Reviewed by: Lary Murdock Ma - Fully Assessed Reason for Visit: PHMA/Care Gap Outreach [[id number]] Prescriptions as of 11/14/2018 Sig: LORATADINE 10 MG TABLET Take 1 tablet by mouth once d* LOSARTAN 25 MG TABLET Take 1 tablet by mouth once d* MIRTAZAPINE 15 MG DISINTEGRAT* Take 1 tablet by mouth daily * OLANZAPINE 2.5 MG TABLET Take 1 tablet by mouth daily * LEVOTHYROXINE 75 MCG TABLET Take 1 tablet by mouth once d* CHILDREN'S MULTI VITAMINS ORAL Take 2 tablets by mouth once * Problem List As Of Date 11/14/2018 Noted Resolved Elevated Blood Pressure [R03.0] INVALID FOR*10/04/2009 Weight Loss [R63.4] INVALID FOR*06/10/2009 COPD (Chronic Obstructive Pulmonary Disease) [J*INVALID FOR* Smoker [F17.200] INVALID FOR* Hyperlipidemia [E78.5] INVALID FOR* Contact dermatitis due to poison filiberto [L23.7] INVALID FOR* HBP (High Blood Pressure) [I10] INVALID FOR* Eczema [L30.9] INVALID FOR* Chronic left shoulder pain [M25.512, G89.29] INVALID FOR* Malignant neoplasm of oropharynx, unspecified s*INVALID FOR* 05/31/2014 Hypomagnesemia [E83.42] INVALID FOR* History of malignant neoplasm of oropharynx [Z8*INVALID FOR* Controlled substance agreement signed [Z79.899] INVALID FOR* Chronic pain [G89.29] INVALID FOR* Chronic obstructive pulmonary disease (HCC) [J4*INVALID FOR* Mixed hyperlipidemia [E78.2] INVALID FOR* Essential hypertension [I10] INVALID FOR* Hypothyroidism [E03.9] INVALID FOR* COPD with chronic bronchitis (HCC) [J44.9] INVALID FOR* Chronic seasonal allergic rhinitis due to polle*INVALID FOR* Severe single current episode of major depressi*INVALID FOR* RALEIGH (generalized anxiety disorder) [F41.1] INVALID FOR* 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.9] INVALID FOR* Hypothyroidism, acquired [E03.9] INVALID FOR* Screening for colon cancer [Z12.11] INVALID FOR* Finger laceration, initial encounter [S61.219A] INVALID FOR* Encounter Status:Closed by BEVERLY FLYNN on 11/21/18 progress on 2018-10 PROGRESS HNO ID: [id number] Normal 10-29-2018 [place] Author: Taisha Whitman [facility] Service: ? [place] Author Type: Nurse Practitioner ([id number]) Type: Progress Notes Filed: 11/04/2018 7:25 AM Note Text: VASCULAR SURGERY WOUND OSTOMY CONTINENCE CONSULTATION CHIEF COMPLAINT: Wound check and evaluation HISTORY OF PRESENT ILLNESS: right 4th finger PAST MEDICAL HISTORY Diagnosis Date - Cigar smoker in past - COPD (chronic obstructive pulmonary disease) (HCC) 02/22/20 Dr. 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 Moeller Oncology, Dr. Deidre shahid ENT, Dr. Butts Radiation - Shoulder pain, bilateral 1993 PAST SURGICAL HISTORY Procedure Laterality Date - PAST SURGICAL HISTORY OF 05/25/11 Peg tube placement, removed 02/26/2012 - [place] ANESTH,NOSE,SINUS SURGERY - RADIATION THERAPY Pharyngeal cancer ALLERGIES No Known Allergies Social History Tobacco Use - Smoking status: Former Smoker Packs/day: 3.00 Years: 40.00 Pack years: 120.00 Types: Cigarettes, Cigars Last attempt to quit: 06/26/2011 Years since quittin.3 - Smokeless tobacco: Never Used Substance Use Topics - Alcohol use: No - Drug use: No FAMILY HISTORY Problem Relation Age of Onset - Cancer Paternal Grandfather type? - Hypertension Mother - Diabetes Mother MEDICATIONS: loratadine (CLARITIN) 10 mg tablet Take 1 tablet by mouth on ce daily. losartan (COZAAR) 25 mg tablet Take 1 tablet by mouth once d aily. mirtazapine orally disintegrating (REMERON SOLTAB) 15 mg dis integrating tablet Take 1 tablet by mouth daily at bedtime. OLANZapine (ZYPREXA) 2.5 mg tablet Take 1 tablet by mouth da nancy at bedtime. levothyroxine (SYNTHROID) 75 mcg tablet Take 1 tablet by laura th once daily. Take on empty stomach. For Thyroid CHILDREN'S MULTI VITAMINS ORAL Take 2 tablets by mouth once daily. REVIEW OF SYSTEMS 12 organ system review was performed with these findings: No change from prior assessment Exceptions: Integumentary: See below Nutritional Status Appetite: good Diet: Regular Albumin/Prealbumin levels: Lab Results Component Value Date ALB 3.9 03/20/2017 PHYSICAL EXAMINATION Constitutional: Appears about stated age, no weight loss, no fevers and no chills. Psych: Alert and oriented to person, place and time. Intact memory. Normal limit affect, judgement and insight. Respiratory: Symmetrical expansion and effort. No cough, no shortness of breath. Cardiovascular: No chest pain. Neuro: Normal limit cranial nerves. Musculoskeletal: Normal limit gait. Normal limit symmetry. N ormal limit range of motion. Normal limit muscle strength. Normal limit tone of all extremities. Integumentary: Normal skin color, texture and turgor. No dry , scaly or cracked skin. No ecchymotic areas. No friable skin. No rash, lesions, excoriations or gonzales. No diaphoresis. No jaundice, no ruddi ness, no skin pallor. Eyes: Pupils are equal, round and reactive to light. Ears: Hearing aids. Nose/Mouth/Throat: Not assessed. Neck: Normal limit appearance and movements. Trachea midline . Breast: Not assessed. Lymphatic: Not assessed. Abdominal: Not assessed. WOUND PAIN: No pain or discomfort DATA REVIEWED: Chart reviewed. WOUND ASSESSMENT Type of wound: Traumatic: Full thickness Location: Right and 4th Site: Finger Present on admission: Yes Healed ? loose dry scab lifted ? 100% scar tissue Loose nail trimmed with scissors to a smooth edge ASSESSMENT/PLAN/TREATMENT RECOMMENDATIONS No dressing needed; may cover with gauze and tape for protec tion when working in the yard. Education provided Treatment demonstrated Questions answered I have spent 15 minutes with the patient for physical and wo und assessment, wound cleaning, dressing demonstration and answe ring questions. More than 50% of the time spent with the patient included education/counselling/coordination of care. Taisha Whitman, PhD, WOCN, DIRECTOR GLOBAL DEVELOPMENT cnov on 2018-10-29 CNOV Office Visit (VASSWS) Normal 10-30-19 [place] [facility] BETTY RICHARD ([id number]) 1955 M [facility] Time Provider Department ([id number]) 10/29/18 2:30 PM TAISHA WHITMAN VASSWS During your visit today, we recorded the following informati on about you: Taisha Whitman, PhD, CRYSTAL CUTTER.DIRECTOR GLOBAL DEVELOPMENT 11/04/2018 7:25 AM Signed VASCULAR SURGERY WOUND OSTOMY CONTINENCE CONSULTATION CHIEF COMPLAINT: Wound check and evaluation HISTORY OF PRESENT ILLNESS: right 4th finger PAST MEDICAL HISTORY Diagnosis Date - Cigar smoker in past - COPD (chronic obstructive pulmonary disease) ([facility]) 02/22/[address] 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 Moeller Oncology, Dr. Gasca ENT, Dr. Butts Radiation - Shoulder pain, bilateral 1993 PAST SURGICAL HISTORY Procedure Laterality Date - PAST SURGICAL HISTORY OF 05/25/11 Peg tube placement, removed 02/26/2012 - [place] ANESTH,NOSE,SINUS SURGERY - RADIATION THERAPY Pharyngeal cancer ALLERGIES No Known Allergies Social History Tobacco Use - Smoking status: Former Smoker Packs/day: 3.00 Years: 40.00 Pack years: 120.00 Types: Cigarettes, Cigars Last attempt to quit: 06/26/2011 Years since quittin.3 - Smokeless tobacco: Never Used Substance Use Topics - Alcohol use: No - Drug use: No FAMILY HISTORY Problem Relation Age of Onset - Cancer Paternal Grandfather type? - Hypertension Mother - Diabetes Mother MEDICATIONS: loratadine (CLARITIN) 10 mg tablet Take 1 tablet by mouth on ce daily. losartan (COZAAR) 25 mg tablet Take 1 tablet by mouth once d aily. mirtazapine orally disintegrating (REMER ON SOLTAB) 15 mg disintegrating tablet Take 1 tablet by mouth daily at bedtime. OLANZapine (ZYPREXA) 2.5 mg tablet Take 1 tablet by mouth daily at bedtime. levothyroxine (SYNTHROID) 75 mcg tablet Take 1 tablet by mouth once daily. Take on empty stomach. For Thyroid CHILDREN'S MULTI VITAMINS ORAL Take 2 tablets by mouth once daily. REVIEW OF SYSTEMS 12 organ system review was performed with these findings: No change from prior assessment Exceptions: Integumentary: See below Nutritional Status Appetite: good Diet: Regular Albumin/Prealbumin levels: Lab Results Component Value Date ALB 3.9 03/20/2017 PHYSICAL EXAMINATION Constitutional: Appears about stated age, no weight loss, no fevers and no chills. Psych: Alert and oriented to person, place and time. Intact memory. Normal limit affect, judgement and insight. Respiratory: Symmetrical exp ansion and effort. No cough, no shortness of breath. Cardiovascular: No chest pain. Neuro: Normal limit cranial nerves. Musculoskeletal: Normal limit gait. Normal limit symmetry. Normal limit range of motion. Normal limit muscle strength. Normal limit tone of all extremities. Integumentary: Normal skin color, textur e and turgor. No dry, scaly or cracked skin. No ecchymotic areas. No friable skin. No r bebe, lesions, excoriations or gonzales. No diaphoresis. No jaundice, no ruddiness, no skin pa llor. Eyes: Pupils are equal, round and reactive to light. Ears: Hearing aids. Nose/Mouth/Throat: Not assessed. Neck: Normal limit appearance and movements. Trachea midline . Breast: Not assessed. Lymphatic: Not assessed. Abdominal: Not assessed. WOUND PAIN: No pain or discomfort DATA REVIEWED: Chart reviewed. WOUND ASSESSMENT Type of wound: Traumatic: Full thickness Location: Right and 4th Site: Finger Present on admission: Yes Healed ? loose dry scab lifted ? 100% scar tissue Loose nail trimmed with scissors to a smooth edge ASSESSMENT/PLAN/TREATMENT RECOMMENDATIONS No dressing needed; may cover with gauze and tap e for protection when working in the yard. Education provided Treatment demonstrated Questions answered I have spent 15 minutes with the patient for physical and wound assessment, wound cleaning, dressing demonstration and answe ring questions. More than 50% of the time spent with the patient inclu ded education/counselling/coordination of care. Taisha Whitman, PhD, WOCN, DIRECTOR GLOBAL DEVELOPMENT Referring Provider: ALEXANDER HERNANDEZ [[id number]] Allergies As of Date: 10/29/2018 (No Known Allergies) Date Reviewed: 10/29/2018 Reviewed by: Lary Murdock Ma - Fully Assessed Reason for Visit: Follow Up [171] Primary Visit Diagnosis:Avul anthony of finger tip, subsequent encounter [S60.174D] Prescriptions as of 10/29/2018 Sig: LORATADINE 10 MG TABLET Take 1 tablet by mouth once d* LOSARTAN 25 MG TABLET Take 1 tablet by mouth once d* MIRTAZAPINE 15 MG DISINTEGRAT* Take 1 tablet by mouth daily * OLANZAPINE 2.5 MG TABLET Take 1 tablet by mouth daily * LEVOTHYROXINE 75 MCG TABLET Take 1 tablet by mouth once d* CHILDREN'S MULTI VITAMINS ORAL Take 2 tablets by mouth once * Problem List As Of Date 10/29/2018 Noted Resolved Elevated Blood Pressure [R03.0] INVALID FOR*10/04/2009 Weight Loss [R63.4] INVALID FOR*06/10/2009 COPD (Chronic Obstructive Pulmonary Disease) [J*INVALID FOR* Smoker [F17.200] INVALID FOR* Hyperlipidemia [E78.5] INVALID FOR* Contact dermatitis due to poison filiberto [L23.7] INVALID FOR* HBP (High Blood Pressure) [I10] INVALID FOR* Eczema [L30.9] INVALID FOR* Chronic left shoulder pain [M25.512, G89.29] INVALID FOR* Malignant neoplasm of oropharynx, unspecified s*INVALID FOR* 05/31/2014 Hypomagnesemia [E83.42] INVALID FOR* History of malignant neoplasm of oropharynx [Z8*INVALID FOR* Controlled substance agreement signed [Z79.899] INVALID FOR* Chronic pain [G89.29] INVALID FOR* Chronic obstructive pulmonary disease (HCC) [J4*INVALID FOR* Mixed hyperlipidemia [E78.2] INVALID FOR* Essential hypertension [I10] INVALID FOR* Hypothyroidism [E03.9] INVALID FOR* COPD with chronic bronchitis (HCC) [J44.9] INVALID FOR* Chronic seasonal allergic rhinitis due to polle*INVALID FOR* Severe single current episode of major depressi*INVALID FOR* RALEIGH (generalized anxiety disorder) [F41.1] INVALID FOR* 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.9] INVALID FOR* Hypothyroidism, acquired [E03.9] INVALID FOR* Screening for colon cancer [Z12.11] INVALID FOR* Finger laceration, initial encounter [S61.219A] INVALID FOR* Encounter Status:Closed by TAISHA WHITMAN CNP on 11/04/18 obsolete on 2018-10 OBSOLETE Refill (FAMPWS) Normal 10-24-2018 [facility] BETTY RICHARD ([id number]) 1955 [facility] Date Time Provider Department ([id number]) 10/24/18 ALEXANDER HERNANDEZ FAMPWS During your visit today, we recorded the following informati on about you: Mckenna Julien, RN, RN 10/24/2018 3:48 PM Signed Patient has been identified by name and date of : Yes Patient phones for refill(s): Pending Prescriptions Disp Refills LORATADINE 10 MG TABLET 90 tablet 3 Sig: Take 1 tablet by mouth once daily. GOLDY: No Date of last office visit in primary care: 09/23/18 DIRECTOR GLOBAL DEVELOPMENT, PCP, next 04/03/19 Last 2 Encounter Wt Readings: Date: Wt: 10/01/2018 61.2 kg (135 lb) 09/24/2018 61.1 kg (134 lb 11.2 oz) Previous labs/tests for medication: Not applicable Please advise. Thank you. Mckenna Julien RN Allergies As of Date: 10/24/2018 (No Known Allergies) Date Reviewed: 10/17/2018 Reviewed by: Sandeep Weaver) Rosalind - Fully Assessed Reason for Visit: Refill Request [94] Visit Diagnosis:Chronic seasonal allergic rhinitis due to po llen [J30.1] Order(s):loratadine (CLARITIN) 10 mg tabletTake 1 tablet by mouth once daily.Disp: 90 tabletRfl: 3 Prescriptions as of 10/24/2018 Sig: LORATADINE 10 MG TABLET Take 1 tablet by mouth once d* LOSARTAN 25 MG TABLET Take 1 tablet by mouth once d* MIRTAZAPINE 15 MG DISINTEGRAT* Take 1 tablet by mouth daily * OLANZAPINE 2.5 MG TABLET Take 1 tablet by mouth daily * LEVOTHYROXINE 75 MCG TABLET Take 1 tablet by mouth once d* CHILDREN'S MULTI VITAMINS ORAL Take 2 tablets by mouth once * Problem List As Of Date 10/24/2018 Noted Resolved Elevated Blood Pressure [R03.0] INVALID FOR*10/04/2009 Weight Loss [R63.4] INVALID FOR*06/10/2009 COPD (Chronic Obstructive Pulmonary Disease) [J*INVALID FOR* Smoker [F17.200] INVALID FOR* Hyperlipidemia [E78.5] INVALID FOR* Contact dermatitis due to poison filiberto [L23.7] INVALID FOR* HBP (High Blood Pressure) [I10] INVALID FOR* Eczema [L30.9] INVALID FOR* Chronic left shoulder pain [M25.512, G89.29] INVALID FOR* Malignant neoplasm of oropharynx, unspecified s*INVALID FOR* 05/31/2014 Hypomagnesemia [E83.42] INVALID FOR* History of malignant neoplasm of oropharynx [Z8*INVALID FOR* Controlled substance agreement signed [Z79.899] INVALID FOR* Chronic pain [G89.29] INVALID FOR* Chronic obstructive pulmonary disease (HCC) [J4*INVALID FOR* Mixed hyperlipidemia [E78.2] INVALID FOR* Essential hypertension [I10] INVALID FOR* Hypothyroidism [E03.9] INVALID FOR* COPD with chronic bronchitis (HCC) [J44.9] INVALID FOR* Chronic seasonal allergic rhinitis due to polle*INVALID FOR* Severe single current episode of major depressi*INVALID FOR* RALEIGH (generalized anxiety disorder) [F41.1] INVALID FOR* 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.9] INVALID FOR* Hypothyroidism, acquired [E03.9] INVALID FOR* Screening for colon cancer [Z12.11] INVALID FOR* Finger laceration, initial encounter [S61.219A] INVALID FOR* Prescriptions ordered this encounter Disp Refills Start End LORATADINE 10 MG TABLET 90 t* 3 10/24/2018 Route: ORAL Sig: Take 1 tablet by mouth once daily. Medications Discontinued During This Encounter loratadine (CLARITIN) 10 mg tablet 90 t* 1 05/07/2018 9 Route: ORAL Sig: Take 1 tablet by mouth once daily. Disc: Reason for discontinue is not on file. Encounter Status:Closed by ALEXANDER HERNANDEZ DO on 10/24/18 progress on 2018-09 PROGRESS HNO ID: [id number] Normal 10-17-2018 [place] Author: Taisha Whitman [facility] Service: ? [place] Author Type: Nurse Practitioner ([id number]) Type: Progress Notes Filed: 10/26/2018 9:27 PM Note Text: VASCULAR SURGERY WOUND OSTOMY CONTINENCE CONSULTATION CHIEF COMPLAINT: Wound check and evaluation HISTORY OF PRESENT ILLNESS: right 4th finger wound PAST MEDICAL HISTORY Diagnosis Date - Cigar smoker in past - COPD (chronic obstructive pulmonary disease) (HCC) 02/22/20 Dr. 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 Moeller Oncology, Dr. Deidre shahid ENT, Dr. Butts Radiation - Shoulder pain, bilateral 1993 PAST SURGICAL HISTORY Procedure Laterality Date - PAST SURGICAL HISTORY OF 05/25/11 Peg tube placement, removed 02/26/2012 - [place] ANESTH,NOSE,SINUS SURGERY - RADIATION THERAPY Pharyngeal cancer ALLERGIES No Known Allergies Social History Tobacco Use - Smoking status: Former Smoker Packs/day: 3.00 Years: 40.00 Pack years: 120.00 Types: Cigarettes, Cigars Last attempt to quit: 06/26/2011 Years since quittin.3 - Smokeless tobacco: Never Used Substance Use Topics - Alcohol use: No - Drug use: No FAMILY HISTORY Problem Relation Age of Onset - Cancer Paternal Grandfather type? - Hypertension Mother - Diabetes Mother MEDICATIONS: losartan (COZAAR) 25 mg tablet Take 1 tablet by mouth once d aily. mirtazapine orally disintegrating (REMERON SOLTAB) 15 mg dis integrating tablet Take 1 tablet by mouth daily at bedtime. OLANZapine (ZYPREXA) 2.5 mg tablet Take 1 tablet by mouth da nancy at bedtime. levothyroxine (SYNTHROID) 75 mcg tablet Take 1 tablet by laura th once daily. Take on empty stomach. For Thyroid CHILDREN'S MULTI VITAMINS ORAL Take 2 tablets by mouth once daily. loratadine (CLARITIN) 10 mg tablet Take 1 tablet by mouth on ce daily. REVIEW OF SYSTEMS 12 organ system review was performed with these findings: No change from prior assessment Exceptions: Integumentary: See below Nutritional Status Appetite: good Diet: Regular Albumin/Prealbumin levels: Lab Results Component Value Date ALB 3.9 03/20/2017 PHYSICAL EXAMINATION Constitutional: Appears about stated age, no weight loss, no fevers and no chills. Psych: Alert and oriented to person, place and time. Intact memory. Normal limit affect, judgement and insight. Respiratory: Symmetrical expansion and effort. No cough, no shortness of breath. Cardiovascular: No chest pain. Neuro: Normal limit cranial nerves. Musculoskeletal: Normal limit gait. Normal limit symmetry. N ormal limit range of motion. Normal limit muscle strength. Normal limit tone of all extremities. Integumentary: Normal skin color, texture and turgor. No dry , scaly or cracked skin. No ecchymotic areas. No friable skin. No rash, lesions, excoriations or gonzales. No diaphoresis. No jaundice, no ruddi ness, no skin pallor. Eyes: Pupils are equal, round and reactive to light. Ears: Hearing aids. Nose/Mouth/Throat: Not assessed. Neck: Normal limit appearance and movements. Trachea midline . Breast: Not assessed. Lymphatic: Not assessed. Abdominal: Not assessed. WOUND PAIN: No pain or discomfort DATA REVIEWED: Chart reviewed. WOUND ASSESSMENT Type of wound: Traumatic: Full thickness Location: Right and 4th Site: Finger Present on admission: Yes Wound margins: no tunneling present and no undermining prese nt Edges: pink Odor: none Edema: none Exudate: none Tissue color: red Tissue type: red granulation and 75% pink scar tissue Tatyana wound tissue: no induration, erythema, warmth or macera tion Tatyana wound tissue color: pink ASSESSMENT/PLAN/TREATMENT RECOMMENDATIONS Apply ABX ointment to wound base. Cover with gauze 2x2. Secu re with fredy one inch and paper tape. Change daily and as needed for soil age or dislodgement Education provided Treatment demonstrated Questions answered I have spent 15 minutes with the patient for physical and wo und assessment, wound cleaning, dressing demonstration and answe ring questions. More than 50% of the time spent with the patient included education/counselling/coordination of care. Taisha Whitman, PhD, WOCN, DIRECTOR GLOBAL DEVELOPMENT cnov on 2018-10-17 CNOV Office Visit (VASSWS) Normal 10-18-19 [place] [facility] BETTY RICHARD ([id number]) 1955 M [place] Date Time Provider Department ([id number]) 10/17/18 11:30 AM TAISHA WHITMAN VASSWS During your visit today, we recorded the following informati on about you: Temperature Blood pressure 98.3 degrees 146/99 Taisha Whitman, PhD, CRYSTAL CUTTER.DIRECTOR GLOBAL DEVELOPMENT 10/26/2018 9:27 PM Signed VASCULAR SURGERY WOUND OSTOMY CONTINENCE CONSULTATION CHIEF COMPLAINT: Wound check and evaluation HISTORY OF PRESENT ILLNESS: right 4th finger wound 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 Moeller Oncology, Dr. Gasca ENT, Dr. Butts Radiation - Shoulder pain, bilateral 1993 PAST SURGICAL HISTORY Procedure Laterality Date - PAST SURGICAL HISTORY OF 05/25/11 Peg tube placement, removed 02/26/2012 - [place]EST[place],NOSE,SINUS SURGERY - RADIATION THERAPY Pharyngeal cancer ALLERGIES No Known Allergies Social History Tobacco Use - Smoking status: Former Smoker Packs/day: 3.00 Years: 40.00 Pack years: 120.00 Types: Cigarettes, Cigars Last attempt to quit: 06/26/2011 Years since quittin.3 - Smokeless tobacco: Never Used Substance Use Topics - Alcohol use: No - Drug use: No FAMILY HISTORY Problem Relation Age of Onset - Cancer Paternal Grandfather type? - Hypertension Mother - Diabetes Mother MEDICATIONS: losartan (COZAAR) 25 mg tablet Take 1 tablet by mouth once d aily. mirtazapine orally disintegrating (REMER ON SOLTAB) 15 mg disintegrating tablet Take 1 tablet by mouth daily at bedtime. OLANZapine (ZYPREXA) 2.5 mg tablet Take 1 tablet by mouth daily at bedtime. levothyroxine (SYNTHROID) 75 mcg tablet Take 1 tablet by mouth once daily. Take on empty stomach. For Thyroid CHILDREN'S MULTI VITAMINS ORAL Take 2 tablets by mouth once daily. loratadine (CLARITIN) 10 mg tablet Take 1 tablet by mouth on ce daily. REVIEW OF SYSTEMS 12 organ system review was performed with these findings: No change from prior assessment Exceptions: Integumentary: See below Nutritional Status Appetite: good Diet: Regular Albumin/Prealbumin levels: Lab Results Component Value Date ALB 3.9 03/20/2017 PHYSICAL EXAMINATION Constitutional: Appears about stated age, no weight loss, no fevers and no chills. Psych: Alert and oriented to person, place and time. Intact memory. Normal limit affect, judgement and insight. Respiratory: Symmetrical exp ansion and effort. No cough, no shortness of breath. Cardiovascular: No chest pain. Neuro: Normal limit cranial nerves. Musculoskeletal: Normal limit gait. Normal limit symmetry. Normal limit range of motion. Normal limit muscle strength. Normal limit tone of all extremities. Integumentary: Normal skin color, textur e and turgor. No dry, scaly or cracked skin. No ecchymotic areas. No friable skin. No r bebe, lesions, excoriations or gonzales. No diaphoresis. No jaundice, no ruddiness, no skin pa llor. Eyes: Pupils are equal, round and reactive to light. Ears: Hearing aids. Nose/Mouth/Throat: Not assessed. Neck: Normal limit appearance and movements. Trachea midline . Breast: Not assessed. Lymphatic: Not assessed. Abdominal: Not assessed. WOUND PAIN: No pain or discomfort DATA REVIEWED: Chart reviewed. WOUND ASSESSMENT Type of wound: Traumatic: Full thickness Location: Right and 4th Site: Finger Present on admission: Yes Wound margins: no tunneling present and no undermining prese nt Edges: pink Odor: none Edema: none Exudate: none Tissue color: red Tissue type: red granulation and 75% pink scar tissue Tatyana wound tissue: no induration, erythema, warmth or macera tion Tatyana wound tissue color: pink ASSESSMENT/PLAN/TREATMENT RECOMMENDATIONS Apply ABX ointment to wound base. Cover with gau ze 2x2. Secure with fredy one inch and paper tape. Change daily and as needed for soilag e or dislodgement Education provided Treatment demonstrated Questions answered I have spent 15 minutes with the patient for physical and wound assessment, wound cleaning, dressing demonstration and answe ring questions. More than 50% of the time spent with the patient inclu ded education/counselling/coordination of care. Taisha Whitman, PhD, WOCN, DIRECTOR GLOBAL DEVELOPMENT Referring Provider: ALEXANDER HERNANDEZ [[id number]] Allergies As of Date: 10/17/2018 (No Known Allergies) Date Reviewed: 10/17/2018 Reviewed by: Sandeep (Rn) Rosalind - Fully Assessed Reason for Visit: Established Patient [175] Cmt: follow-up right 4th finger Primary Visit Diagnosis:Avul anthony of finger tip, subsequent encounter [S68.209D] Prescriptions as of 10/17/2018 Sig: LOSARTAN 25 MG TABLET Take 1 tablet by mouth once d* MIRTAZAPINE 15 MG DISINTEGRAT* Take 1 tablet by mouth daily * OLANZAPINE 2.5 MG TABLET Take 1 tablet by mouth daily * X LORATADINE 10 MG TABLET Take 1 tablet by mouth once d* LEVOTHYROXINE 75 MCG TABLET Take 1 tablet by mouth once d* CHILDREN'S MULTI VITAMINS ORAL Take 2 tablets by mouth once * Problem List As Of Date 10/17/2018 Noted Resolved Elevated Blood Pressure [R03.0] INVALID FOR*10/04/2009 Weight Loss [R63.4] INVALID FOR*06/10/2009 COPD (Chronic Obstructive Pulmonary Disease) [J*INVALID FOR* Smoker [F17.200] INVALID FOR* Hyperlipidemia [E78.5] INVALID FOR* Contact dermatitis due to poison filiberto [L23.7] INVALID FOR* HBP (High Blood Pressure) [I10] INVALID FOR* Eczema [L30.9] INVALID FOR* Chronic left shoulder pain [M25.512, G89.29] INVALID FOR* Malignant neoplasm of oropharynx, unspecified s*INVALID FOR* 05/31/2014 Hypomagnesemia [E83.42] INVALID FOR* History of malignant neoplasm of oropharynx [Z8*INVALID FOR* Controlled substance agreement signed [Z79.899] INVALID FOR* Chronic pain [G89.29] INVALID FOR* Chronic obstructive pulmonary disease (HCC) [J4*INVALID FOR* Mixed hyperlipidemia [E78.2] INVALID FOR* Essential hypertension [I10] INVALID FOR* Hypothyroidism [E03.9] INVALID FOR* COPD with chronic bronchitis (HCC) [J44.9] INVALID FOR* Chronic seasonal allergic rhinitis due to polle*INVALID FOR* Severe single current episode of major depressi*INVALID FOR* RALEIGH (generalized anxiety disorder) [F41.1] INVALID FOR* 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.9] INVALID FOR* Hypothyroidism, acquired [E03.9] INVALID FOR* Screening for colon cancer [Z12.11] INVALID FOR* Finger laceration, initial encounter [S69.219A] INVALID FOR* Encounter Status:Closed by TAISHA WHITMAN CNP on 10/26/18 obsolete on 2018-09 OBSOLETE Refill (FAMPWS) Normal 10-15-2018 [place] BETTY Vincent ([id number]) 1955 [facility] Date Time Provider Department ([id number]) 10/15/18 ALEXANDER HERNANDEZ During your visit today, we recorded the following informati on about you: Isabel Houserchrissie Novak 10/15/2018 4:14 PM Signed Patient has been identified by name and date of : Yes Pending Prescriptions Disp Refills LOSARTAN 25 MG TABLET 90 tablet 3 Sig: Take 1 tablet by mouth once daily. GOLDY: No RX INSTRUCTIONS: Patient aware RX will be sent to pharmacy. No need to notify patient. Isabel Houserchrissie Acevedo MA 10/15/2018 4:20 PM Signed Patient has been identified by name and date of : Yes Pending Prescriptions Disp Refills LOSARTAN 25 MG TABLET 90 tablet 3 Sig: Take 1 tablet by mouth once daily. GOLDY: No RX INSTRUCTIONS: Patient aware RX will be sent to pharmacy. No need to notify patient. ION: 09/23/2018 NOV: 04/03/2019 Last Refill: 11/13/2017 90 tabs with 3 refills Mahi Mendoza APRN.CNP 10/15/2018 5:00 PM Signed Script sent. Jessica Mendoza APRN.CNP Allergies As of Date: 10/15/2018 (No Known Allergies) Date Reviewed: 10/10/2018 Reviewed by: Lary Murdock Ma - Fully Assessed Reason for Visit: Refill Request [94] Visit Diagnosis:Essential hypertension [I10] Order(s):losartan (COZAAR) 25 mg tabletTake 1 tablet by mout h once daily.Disp: 90 tabletRfl: 3 Prescriptions as of 10/15/2018 Sig: LOSARTAN 25 MG TABLET Take 1 tablet by mouth once d* MIRTAZAPINE 15 MG DISINTEGRAT* Take 1 tablet by mouth daily * OLANZAPINE 2.5 MG TABLET Take 1 tablet by mouth daily * LORATADINE 10 MG TABLET Take 1 tablet by mouth once d* LEVOTHYROXINE 75 MCG TABLET Take 1 tablet by mouth once d* CHILDREN'S MULTI VITAMINS ORAL Take 2 tablets by mouth once * Problem List As Of Date 10/15/2018 Noted Resolved Elevated Blood Pressure [R03.0] INVALID FOR*10/04/2009 Weight Loss [R63.4] INVALID FOR*06/10/2009 COPD (Chronic Obstructive Pulmonary Disease) [J*INVALID FOR* Smoker [F17.200] INVALID FOR* Hyperlipidemia [E78.5] INVALID FOR* Contact dermatitis due to poison filiberto [L23.7] INVALID FOR* HBP (High Blood Pressure) [I10] INVALID FOR* Eczema [L30.9] INVALID FOR* Chronic left shoulder pain [M25.512, G89.29] INVALID FOR* Malignant neoplasm of oropharynx, unspecified s*INVALID FOR* 05/31/2014 Hypomagnesemia [E83.42] INVALID FOR* History of malignant neoplasm of oropharynx [Z8*INVALID FOR* Controlled substance agreement signed [Z79.899] INVALID FOR* Chronic pain [G89.29] INVALID FOR* Chronic obstructive pulmonary disease (HCC) [J4*INVALID FOR* Mixed hyperlipidemia [E78.2] INVALID FOR* Essential hypertension [I10] INVALID FOR* Hypothyroidism [E03.9] INVALID FOR* COPD with chronic bronchitis (HCC) [J44.9] INVALID FOR* Chronic seasonal allergic rhinitis due to polle*INVALID FOR* Severe single current episode of major depressi*INVALID FOR* RALEIGH (generalized anxiety disorder) [F41.1] INVALID FOR* 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.9] INVALID FOR* Hypothyroidism, acquired [E03.9] INVALID FOR* Screening for colon cancer [Z12.11] INVALID FOR* Finger laceration, initial encounter [K78.109A] INVALID FOR* Prescriptions ordered this encounter Disp Refills Start End LOSARTAN 25 MG TABLET 90 t* 3 10/15/2018 Route: ORAL Sig: Take 1 tablet by mouth once daily. Medications Discontinued During This Encounter losartan (COZAAR) 25 mg tablet 90 t* 3 11/13/2017 10/15/2018 Route: ORAL Sig: Take 1 tablet by mouth once daily. Disc: Reason for discontinue is not on file. Encounter Status:Closed by JESSICA MENDOZA CNP on 10/15/18 progress on 2018-09 PROGRESS HNO ID: [id number] Normal 10-10-2018 [place] Author: Taisha Whitman [facility] Service: ? [place] Author Type: Nurse Practitioner ([id number]) Type: Progress Notes Filed: 10/12/2018 5:55 PM Note Text: VASCULAR SURGERY WOUND OSTOMY CONTINENCE CONSULTATION CHIEF COMPLAINT: Wound check and evaluation HISTORY OF PRESENT ILLNESS: right 4th finger injury PAST MEDICAL HISTORY Diagnosis Date - Cigar smoker in past - COPD (chronic obstructive pulmonary disease) (FORM[facility]LY [facility] [place]) 02/22/[address] 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 Moeller Oncology, Dr. Deidre shahid ENT, Dr. Butts Radiation - Shoulder pain, bilateral 1993 PAST SURGICAL HISTORY Procedure Laterality Date - PAST SURGICAL HISTORY OF 05/25/11 Peg tube placement, removed 02/26/2012 - [place]EST[facility],NOSE,SINUS SURGERY - RADIATION THERAPY Pharyngeal cancer ALLERGIES No Known Allergies Social History Tobacco Use - Smoking status: Former Smoker Packs/day: 3.00 Years: 40.00 Pack years: 120.00 Types: Cigarettes, Cigars Last attempt to quit: 06/26/2011 Years since quittin.3 - Smokeless tobacco: Never Used Substance Use Topics - Alcohol use: No - Drug use: No FAMILY HISTORY Problem Relation Age of Onset - Cancer Paternal Grandfather type? - Hypertension Mother - Diabetes Mother MEDICATIONS: mirtazapine orally disintegrating (REMERON SOLTAB) 15 mg dis integrating tablet Take 1 tablet by mouth daily at bedtime. OLANZapine (ZYPREXA) 2.5 mg tablet Take 1 tablet by mouth da nancy at bedtime. loratadine (CLARITIN) 10 mg tablet Take 1 tablet by mouth on ce daily. levothyroxine (SYNTHROID) 75 mcg tablet Take 1 tablet by laura th once daily. Take on empty stomach. For Thyroid losartan (COZAAR) 25 mg tablet Take 1 tablet by mouth once d aily. CHILDREN'S MULTI VITAMINS ORAL Take 2 tablets by mouth once daily. REVIEW OF SYSTEMS 12 organ system review was performed with these findings: No change from prior assessment Exceptions: Integumentary: See below Nutritional Status Appetite: good Diet: Regular Albumin/Prealbumin levels: Lab Results Component Value Date ALB 3.9 03/20/2017 PHYSICAL EXAMINATION Constitutional: Appears about stated age, no weight loss, no fevers and no chills. Psych: Alert and oriented to person, place and time. Intact memory. Normal limit affect, judgement and insight. Respiratory: Symmetrical expansion and effort. No cough, no shortness of breath. Cardiovascular: No chest pain. Neuro: Normal limit cranial nerves. Musculoskeletal: Normal limit gait. Normal limit symmetry. N ormal limit range of motion. Normal limit muscle strength. Normal limit tone of all extremities. Integumentary: Normal skin color, texture and turgor. No dry , scaly or cracked skin. No ecchymotic areas. No friable skin. No rash, lesions, excoriations or gonzales. No diaphoresis. No jaundice, no ruddi ness, no skin pallor. Eyes: Pupils are equal, round and reactive to light. Ears: Hearing aids. Nose/Mouth/Throat: Not assessed. Neck: Normal limit appearance and movements. Trachea midline . Breast: Not assessed. Lymphatic: Not assessed. Abdominal: Not assessed. WOUND PAIN: No pain or discomfort DATA REVIEWED: Chart reviewed. WOUND ASSESSMENT Type of wound: Traumatic: Full thickness Location: Right and 4th Site: Finger Present on admission: Yes Wound margins: no tunneling present and no undermining prese nt Edges: pink Odor: none Edema: none Exudate: none Tissue color: red Tissue type: red healthy tissue Tatyana wound tissue: no induration, erythema or warmth; macera darleen ? dressing was wet and he did not change it ? left dressing off in offi ce to allow tissue to dry then dressing placed Tatyana wound tissue color: pink ASSESSMENT/PLAN/TREATMENT RECOMMENDATIONS Apply ABX ointment to wound base. Cover with gauze 2x2. Secu re with fredy one inch and paper tape. Change daily and as needed for soil age or dislodgement Education provided Treatment demonstrated Questions answered I have spent 15 minutes with the patient for physical and wo und assessment, wound cleaning, dressing demonstration and answe ring questions. More than 50% of the time spent with the patient included education/counselling/coordination of care. Taisha Whitman, PhD, WOCN, DIRECTOR GLOBAL DEVELOPMENT cnov on 2018-10-10 CNOV Office Visit (VASSWS) Normal 10-11-19 19 [place] BETTY Vincent ([id number]) 1955 M [place] Date Time Provider Department ([id number]) 10/10/18 10:30 AM TAISHA WHITMAN During your visit today, we recorded the following informati on about you: Taisha Whitman, PhD, CRYSTAL CUTTER.DIRECTOR GLOBAL DEVELOPMENT 10/12/2018 5:55 PM Signed VASCULAR SURGERY WOUND OSTOMY CONTINENCE CONSULTATION CHIEF COMPLAINT: Wound check and evaluation HISTORY OF PRESENT ILLNESS: right 4th finger injury PAST MEDICAL HISTORY Diagnosis Date - Cigar smoker in past - COPD (chronic obstructive pulmonary disease) (HCC) 02/22/[address] 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 Moeller Oncology, Dr. Gasca ENT, Dr. Butts Radiation - Shoulder pain, bilateral 1993 PAST SURGICAL HISTORY Procedure Laterality Date - PAST SURGICAL HISTORY OF 05/25/11 Peg tube placement, removed 02/26/2012 - [place]EST[facility],NOSE,SINUS SURGERY - RADIATION THERAPY Pharyngeal cancer ALLERGIES No Known Allergies Social History Tobacco Use - Smoking status: Former Smoker Packs/day: 3.00 Years: 40.00 Pack years: 120.00 Types: Cigarettes, Cigars Last attempt to quit: 06/26/2011 Years since quittin.3 - Smokeless tobacco: Never Used Substance Use Topics - Alcohol use: No - Drug use: No FAMILY HISTORY Problem Relation Age of Onset - Cancer Paternal Grandfather type? - Hypertension Mother - Diabetes Mother MEDICATIONS: mirtazapine orally disintegrating (REMER ON SOLTAB) 15 mg disintegrating tablet Take 1 tablet by mouth daily at bedtime. OLANZapine (ZYPREXA) 2.5 mg tablet Take 1 tablet by mouth daily at bedtime. loratadine (CLARITIN) 10 mg tablet Take 1 tablet by mouth on ce daily. levothyroxine (SYNTHROID) 75 mcg tablet Take 1 tablet by mouth once daily. Take on empty stomach. For Thyroid losartan (COZAAR) 25 mg tablet Take 1 tablet by mouth once d aily. CHILDREN'S MULTI VITAMINS ORAL Take 2 tablets by mouth once daily. REVIEW OF SYSTEMS 12 organ system review was performed with these findings: No change from prior assessment Exceptions: Integumentary: See below Nutritional Status Appetite: good Diet: Regular Albumin/Prealbumin levels: Lab Results Component Value Date ALB 3.9 03/20/2017 PHYSICAL EXAMINATION Constitutional: Appears about stated age, no weight loss, no fevers and no chills. Psych: Alert and oriented to person, place and time. Intact memory. Normal limit affect, judgement and insight. Respiratory: Symmetrical exp ansion and effort. No cough, no shortness of breath. Cardiovascular: No chest pain. Neuro: Normal limit cranial nerves. Musculoskeletal: Normal limit gait. Normal limit symmetry. Normal limit range of motion. Normal limit muscle strength. Normal limit tone of all extremities. Integumentary: Normal skin color, textur e and turgor. No dry, scaly or cracked skin. No ecchymotic areas. No friable skin. No r bebe, lesions, excoriations or gonzales. No diaphoresis. No jaundice, no ruddiness, no skin pa llor. Eyes: Pupils are equal, round and reactive to light. Ears: Hearing aids. Nose/Mouth/Throat: Not assessed. Neck: Normal limit appearance and movements. Trachea midline . Breast: Not assessed. Lymphatic: Not assessed. Abdominal: Not assessed. WOUND PAIN: No pain or discomfort DATA REVIEWED: Chart reviewed. WOUND ASSESSMENT Type of wound: Traumatic: Full thickness Location: Right and 4th Site: Finger Present on admission: Yes Wound margins: no tunneling present and no undermining prese nt Edges: pink Odor: none Edema: none Exudate: none Tissue color: red Tissue type: red healthy tissue Tatyana wound tissue: no induration, erythe ma or warmth; macerated ? dressing was wet and he did not change it ? left dressing off in office to allow tissue to dry then dressing placed Tatyana wound tissue color: pink ASSESSMENT/PLAN/TREATMENT RECOMMENDATIONS Apply ABX ointment to wound base. Cover with gau ze 2x2. Secure with fredy one inch and paper tape. Change daily and as needed for soilag e or dislodgement Education provided Treatment demonstrated Questions answered I have spent 15 minutes with the patient for physical and wound assessment, wound cleaning, dressing demonstration and answe ring questions. More than 50% of the time spent with the patient inclu ded education/counselling/coordination of care. Taisha Whitman, PhD, WOCN, DIRECTOR GLOBAL DEVELOPMENT Referring Provider: ALEXANDER HERNANDEZ [[id number]] Allergies As of Date: 10/10/2018 (No Known Allergies) Date Reviewed: 10/10/2018 Reviewed by: Lary Murdock Ma - Fully Assessed Reason for Visit: Wound Care [485] Primary Visit Diagnosis:Avulsion of finger tip, nikhil dan encounter [O86.500O] Prescriptions as of 10/10/2018 Sig: MIRTAZAPINE 15 MG DISINTEGRAT* Take 1 tablet by mouth daily * OLANZAPINE 2.5 MG TABLET Take 1 tablet by mouth daily * LORATADINE 10 MG TABLET Take 1 tablet by mouth once d* LEVOTHYROXINE 75 MCG TABLET Take 1 tablet by mouth once d* LOSARTAN 25 MG TABLET Take 1 tablet by mouth once d* CHILDREN'S MULTI VITAMINS ORAL Take 2 tablets by mouth once * Problem List As Of Date 10/10/2018 Noted Resolved Elevated Blood Pressure [R03.0] INVALID FOR*10/04/2009 Weight Loss [R63.4] INVALID FOR*06/10/2009 COPD (Chronic Obstructive Pulmonary Disease) [J*INVALID FOR* Smoker [F17.200] INVALID FOR* Hyperlipidemia [E78.5] INVALID FOR* Contact dermatitis due to poison filiberto [L23.7] INVALID FOR* HBP (High Blood Pressure) [I10] INVALID FOR* Eczema [L30.9] INVALID FOR* Chronic left shoulder pain [M25.512, G89.29] INVALID FOR* Malignant neoplasm of oropharynx, unspecified s*INVALID FOR* 05/31/2014 Hypomagnesemia [E83.42] INVALID FOR* History of malignant neoplasm of oropharynx [Z8*INVALID FOR* Controlled substance agreement signed [Z79.899] INVALID FOR* Chronic pain [G89.29] INVALID FOR* Chronic obstructive pulmonary disease (HCC) [J4*INVALID FOR* Mixed hyperlipidemia [E78.2] INVALID FOR* Essential hypertension [I10] INVALID FOR* Hypothyroidism [E03.9] INVALID FOR* COPD with chronic bronchitis (HCC) [J44.9] INVALID FOR* Chronic seasonal allergic rhinitis due to polle*INVALID FOR* Severe single current episode of major depressi*INVALID FOR* RALEIGH (generalized anxiety disorder) [F41.1] INVALID FOR* 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 [place] Author Type: Nurse Practitioner ([id number]) Type: Progress Notes Filed: 10/05/2018 4:52 PM Note Text: VASCULAR SURGERY WOUND OSTOMY CONTINENCE CONSULTATION CHIEF COMPLAINT: Wound check and evaluation HISTORY OF PRESENT ILLNESS: right 4th finger evulsion 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 Moeller Oncology, Dr. Deidre shahid ENT, Dr. Butts Radiation - Shoulder pain, bilateral 1993 PAST SURGICAL HISTORY Procedure Laterality Date - PAST SURGICAL HISTORY OF 05/25/11 Peg tube placement, removed 02/26/2012 - [place]EST[place],NOSE,SINUS SURGERY - RADIATION THERAPY Pharyngeal cancer ALLERGIES No Known Allergies Social History Tobacco Use - Smoking status: Former Smoker Packs/day: 3.00 Years: 40.00 Pack years: 120.00 Types: Cigarettes, Cigars Last attempt to quit: 06/26/2011 Years since quittin.2 - Smokeless tobacco: Never Used Substance Use Topics - Alcohol use: No - Drug use: No FAMILY HISTORY Problem Relation Age of Onset - Cancer Paternal Grandfather type? - Hypertension Mother - Diabetes Mother MEDICATIONS: mirtazapine orally disintegrating (REMERON SOLTAB) 15 mg dis integrating tablet Take 1 tablet by mouth daily at bedtime. OLANZapine (ZYPREXA) 2.5 mg tablet Take 1 tablet by mouth da nancy at bedtime. loratadine (CLARITIN) 10 mg tablet Take 1 tablet by mouth on ce daily. levothyroxine (SYNTHROID) 75 mcg tablet Take 1 tablet by laura th once daily. Take on empty stomach. For Thyroid losartan (COZAAR) 25 mg tablet Take 1 tablet by mouth once d aily. CHILDREN'S MULTI VITAMINS ORAL Take 2 tablets by mouth once daily. REVIEW OF SYSTEMS 12 organ system review was performed with these findings: No change from prior assessment Exceptions: Integumentary: See below Nutritional Status Appetite: good Diet: Regular Albumin/Prealbumin levels: Lab Results Component Value Date ALB 3.9 03/20/2017 PHYSICAL EXAMINATION Constitutional: Appears about stated age, no weight loss, no fevers and no chills. Psych: Alert and oriented to person, place and time. Intact memory. Normal limit affect, judgement and insight. Respiratory: Symmetrical expansion and effort. No cough, no shortness of breath. Cardiovascular: No chest pain. Neuro: Normal limit cranial nerves. Musculoskeletal: Normal limit gait. Normal limit symmetry. N ormal limit range of motion. Normal limit muscle strength. Normal limit tone of all extremities. Integumentary: Normal skin color, texture and turgor. No dry , scaly or cracked skin. No ecchymotic areas. No friable skin. No rash, lesions, excoriations or gonzales. No diaphoresis. No jaundice, no ruddi ness, no skin pallor. Eyes: Pupils are equal, round and reactive to light. Ears: Hearing aids. Nose/Mouth/Throat: Not assessed. Neck: Normal limit appearance and movements. Trachea midline . Breast: Not assessed. Lymphatic: Not assessed. Abdominal: Not assessed. WOUND PAIN: No pain or discomfort DATA REVIEWED: Chart reviewed. WOUND ASSESSMENT Type of wound: Traumatic: Full thickness Location: Right and 4th Site: Finger Present on admission: Yes Wound margins: no tunneling present and no undermining prese nt Edges: pink Odor: none Edema: none Exudate: none Tissue color: [place] Tissue type: dry old blood washed off ? pink tissue noted; n o bone present Tatyana wound tissue: no indurated or macerated tissue, erythem a or warmth; scar tissue present Tatyana wound tissue color: pink ASSESSMENT/PLAN/TREATMENT RECOMMENDATIONS Apply Venelex ointment to wound base. Cover with gauze 2x2. Secure with fredy one inch and paper tape. Change daily and as needed fo r soilage or dislodgement Education provided Treatment demonstrated Questions answered I have spent 15 minutes with the patient for physical and wo und assessment, wound cleaning, dressing demonstration and answe ring questions. More than 50% of the time spent with the patient included education/counselling/coordination of care. Taisha Whitman, PhD, WOCN, DIRECTOR GLOBAL DEVELOPMENT cnov on 2018-10-01 CNOV Office Visit (VASSWS) Normal 10-02-19 [place] [facility] AMINTAANGELICABETTY Manley ([id number]) 1955 [place] Date Time Provider Department ([id number]) 10/01/18 3:30 PM TAISHA WHITMAN VASSWS During your visit today, we recorded the following informati on about you: Temperature Pulse Blood pressure Weight 98.6 degrees 61/minute 99/68 61.2 kg Taisha Whitman, PhD, CRYSTAL CUTTER.DIRECTOR GLOBAL DEVELOPMENT 10/05/2018 4:52 PM Signed VASCULAR SURGERY WOUND OSTOMY CONTINENCE CONSULTATION CHIEF COMPLAINT: Wound check and evaluation HISTORY OF PRESENT ILLNESS: right 4th finger evulsion PAST MEDICAL HISTORY Diagnosis Date - Cigar smoker in past - COPD (chronic obstructive pulmonary disease) (FORMERLY [facility] [place]) 02/22/20 Dr. 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 Moeller Oncology, Dr. Gasca ENT, Dr. Butts Radiation - Shoulder pain, bilateral 1993 PAST SURGICAL HISTORY Procedure Laterality Date - PAST SURGICAL HISTORY OF 05/25/11 Peg tube placement, removed 02/26/2012 - [place] ANEST[facility],NOSE,SINUS SURGERY - RADIATION THERAPY Pharyngeal cancer ALLERGIES No Known Allergies Social History Tobacco Use - Smoking status: Former Smoker Packs/day: 3.00 Years: 40.00 Pack years: 120.00 Types: Cigarettes, Cigars Last attempt to quit: 06/26/2011 Years since quittin.2 - Smokeless tobacco: Never Used Substance Use Topics - Alcohol use: No - Drug use: No FAMILY HISTORY Problem Relation Age of Onset - Cancer Paternal Grandfather type? - Hypertension Mother - Diabetes Mother MEDICATIONS: mirtazapine orally disintegrating (REMER ON SOLTAB) 15 mg disintegrating tablet Take 1 tablet by mouth daily at bedtime. OLANZapine (ZYPREXA) 2.5 mg tablet Take 1 tablet by mouth daily at bedtime. loratadine (CLARITIN) 10 mg tablet Take 1 tablet by mouth on ce daily. levothyroxine (SYNTHROID) 75 mcg tablet Take 1 tablet by mouth once daily. Take on empty stomach. For Thyroid losartan (COZAAR) 25 mg tablet Take 1 tablet by mouth once d aily. CHILDREN'S MULTI VITAMINS ORAL Take 2 tablets by mouth once daily. REVIEW OF SYSTEMS 12 organ system review was performed with these findings: No change from prior assessment Exceptions: Integumentary: See below Nutritional Status Appetite: good Diet: Regular Albumin/Prealbumin levels: Lab Results Component Value Date ALB 3.9 03/20/2017 PHYSICAL EXAMINATION Constitutional: Appears about stated age, no weight loss, no fevers and no chills. Psych: Alert and oriented to person, place and time. Intact memory. Normal limit affect, judgement and insight. Respiratory: Symmetrical exp ansion and effort. No cough, no shortness of breath. Cardiovascular: No chest pain. Neuro: Normal limit cranial nerves. Musculoskeletal: Normal limit gait. Normal limit symmetry. Normal limit range of motion. Normal limit muscle strength. Normal limit tone of all extremities. Integumentary: Normal skin color, textur e and turgor. No dry, scaly or cracked skin. No ecchymotic areas. No friable skin. No r bebe, lesions, excoriations or gonzales. No diaphoresis. No jaundice, no ruddiness, no skin pa llor. Eyes: Pupils are equal, round and reactive to light. Ears: Hearing aids. Nose/Mouth/Throat: Not assessed. Neck: Normal limit appearance and movements. Trachea midline . Breast: Not assessed. Lymphatic: Not assessed. Abdominal: Not assessed. WOUND PAIN: No pain or discomfort DATA REVIEWED: Chart reviewed. WOUND ASSESSMENT Type of wound: Traumatic: Full thickness Location: Right and 4th Site: Finger Present on admission: Yes Wound margins: no tunneling present and no undermining prese nt Edges: pink Odor: none Edema: none Exudate: none Tissue color: [place] Tissue type: dry old blood washed off ? pink tissue noted; n o bone present Tatyana wound tissue: no indurated or macerated tis cheryl, erythema or warmth; scar tissue present Tatyana wound tissue color: pink ASSESSMENT/PLAN/TREATMENT RECOMMENDATIONS Apply Venelex ointment to wound base. Cover with gauze 2x2. Secure with fredy one inch and paper tape. Sully nge daily and as needed for soilage or dislodgement Education provided Treatment demonstrated Questions answered I have spent 15 minutes with the patient for physical and wound assessment, wound cleaning, dressing demonstration and answe ring questions. More than 50% of the time spent with the patient inclu ded education/counselling/coordination of care. Taisha Whitman, PhD, WOCN, DIRECTOR GLOBAL DEVELOPMENT Referring Provider: TAISHA WHITMAN [[id number]] Allergies As of Date: 10/01/2018 (No Known Allergies) Date Reviewed: 10/01/2018 Reviewed by: Lary Murdock Ma - Fully Assessed Reason for Visit: Follow Up [171] Primary Visit Diagnosis:Avulsion of finger tip, initia l encounter [Y83.157C] Prescriptions as of 10/01/2018 Sig: MIRTAZAPINE 15 MG DISINTEGRAT* Take 1 tablet by mouth daily * OLANZAPINE 2.5 MG TABLET Take 1 tablet by mouth daily * LORATADINE 10 MG TABLET Take 1 tablet by mouth once d* LEVOTHYROXINE 75 MCG TABLET Take 1 tablet by mouth once d* LOSARTAN 25 MG TABLET Take 1 tablet by mouth once d* CHILDREN'S MULTI VITAMINS ORAL Take 2 tablets by mouth once * Problem List As Of Date 10/01/2018 Noted Resolved Elevated Blood Pressure [R03.0] INVALID FOR*10/04/2009 Weight Loss [R63.4] INVALID FOR*06/10/2009 COPD (Chronic Obstructive Pulmonary Disease) [J*INVALID FOR* Smoker [F17.200] INVALID FOR* Hyperlipidemia [E78.5] INVALID FOR* Contact dermatitis due to poison filiberto [L23.7] INVALID FOR* HBP (High Blood Pressure) [I10] INVALID FOR* Eczema [L30.9] INVALID FOR* Chronic left shoulder pain [M25.512, G89.29] INVALID FOR* Malignant neoplasm of oropharynx, unspecified s*INVALID FOR* 05/31/2014 Hypomagnesemia [E83.42] INVALID FOR* History of malignant neoplasm of oropharynx [Z8*INVALID FOR* Controlled substance agreement signed [Z79.899] INVALID FOR* Chronic pain [G89.29] INVALID FOR* Chronic obstructive pulmonary disease (HCC) [J4*INVALID FOR* Mixed hyperlipidemia [E78.2] INVALID FOR* Essential hypertension [I10] INVALID FOR* Hypothyroidism [E03.9] INVALID FOR* COPD with chronic bronchitis (HCC) [J44.9] INVALID FOR* Chronic seasonal allergic rhinitis due to polle*INVALID FOR* Severe single current episode of major depressi*INVALID FOR* RALEIGH (generalized anxiety disorder) [F41.1] INVALID FOR* 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.9] INVALID FOR* Hypothyroidism, acquired [E03.9] INVALID FOR* Screening for colon cancer [Z12.11] INVALID FOR* Finger laceration, initial encounter [S61.219A] INVALID FOR* Encounter Status:Closed by TAISHA WHITMAN CNP on 10/05/18 progress on 2018-09 PROGRESS HNO ID: [id number] Normal 09-24-2018 [place] Author: Taisha (Phd) ([employer]) [facility] Service: ? [place] Author Type: Nurse Practitioner ([id number]) Type: Progress Notes Filed: 09/28/2018 3:50 PM Note Text: VASCULAR SURGERY WOUND OSTOMY CONTINENCE CONSULTATION CHIEF COMPLAINT: Wound check and evaluation HISTORY OF PRESENT ILLNESS: right 4th finger traumatic injur y by a mower blade on 09/15/2018. On PO ABX as per PCP PAST MEDICAL HISTORY Diagnosis Date - Cigar smoker in past - COPD (chronic obstructive pulmonary disease) (HCC) 02/22/[address] 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 Moeller Oncology, Dr. Deidre shahid ENT, Dr. Butts Radiation - Shoulder pain, bilateral 1993 PAST SURGICAL HISTORY Procedure Laterality Date - PAST SURGICAL HISTORY OF 05/25/11 Peg tube placement, removed 02/26/2012 - [place]EST[facility],NOSE,SINUS SURGERY - RADIATION THERAPY Pharyngeal cancer ALLERGIES No Known Allergies Social History Tobacco Use - Smoking status: Former Smoker Packs/day: 3.00 Years: 40.00 Pack years: 120.00 Types: Cigarettes, Cigars Last attempt to quit: 06/26/2011 Years since quittin.2 - Smokeless tobacco: Never Used Substance Use Topics - Alcohol use: No - Drug use: No FAMILY HISTORY Problem Relation Age of Onset - Cancer Paternal Grandfather type? - Hypertension Mother - Diabetes Mother MEDICATIONS: mirtazapine orally disintegrating (REMERON SOLTAB) 15 mg dis integrating tablet Take 1 tablet by mouth daily at bedtime. OLANZapine (ZYPREXA) 2.5 mg tablet Take 1 tablet by mouth da nancy at bedtime. loratadine (CLARITIN) 10 mg tablet Take 1 tablet by mouth on ce daily. levothyroxine (SYNTHROID) 75 mcg tablet Take 1 tablet by laura th once daily. Take on empty stomach. For Thyroid losartan (COZAAR) 25 mg tablet Take 1 tablet by mouth once d aily. CHILDREN'S MULTI VITAMINS ORAL Take 2 tablets by mouth once daily. REVIEW OF SYSTEMS 12 organ system review was performed with these findings: Constitutional: Within Normal Limits Eyes: Within Normal Limits Ears/Nose/Mouth/Throat: H/O oral Ca Respiratory: Within Normal Limits Cardiovascular: Within Normal Limits Gastrointestinal: Within Normal Limits Genitourinary: Within Normal Limits Musculoskeletal: Within Normal Limits Neurologic: Within Normal Limits Psychiatric: Within Normal Limits Endocrinological: Within Normal Limits Hematologic: Within Normal Limits Immunologic: Within Normal Limits Integumentary: See below Nutritional Status Appetite: good Diet: Regular Albumin/Prealbumin levels: Lab Results Component Value Date ALB 3.9 03/20/2017 PHYSICAL EXAMINATION Constitutional: Appears about stated age, no weight loss, no fevers and no chills. Psych: Alert and oriented to person, place and time. Intact memory. Normal limit affect, judgement and insight. Respiratory: Symmetrical expansion and effort. No cough, no shortness of breath. Cardiovascular: No chest pain. Neuro: Normal limit cranial nerves. Musculoskeletal: Normal limit gait. Normal limit symmetry. N ormal limit range of motion. Normal limit muscle strength. Normal limit tone of all extremities. Integumentary: Normal skin color, texture and turgor. No dry , scaly or cracked skin. No ecchymotic areas. No friable skin. No rash, lesions, excoriations or gonzales. No diaphoresis. No jaundice, no ruddi ness, no skin pallor. Eyes: Pupils are equal, round and reactive to light. Ears: Hearing aids. Nose/Mouth/Throat: Not assessed. Neck: Normal limit appearance and movements. Trachea midline . Breast: Not assessed. Lymphatic: Not assessed. Abdominal: Not assessed. WOUND PAIN: No pain or discomfort with wound assessment DATA REVIEWED: Chart reviewed. WOUND ASSESSMENT Type of wound: Traumatic: Full thickness Location: Right and 4th Site: Finger Present on admission: Yes Wound margins: no tunneling present and no undermining prese nt Edges: pink Odor: none Edema: present of finger distal end Exudate: none Tissue color: Black, dark Red and [place] Tissue type: muscle and necrotic v dry old blood Tatyana wound tissue: indurated Tatyana wound tissue color: darker skin tone ASSESSMENT/PLAN/TREATMENT RECOMMENDATIONS Apply Xeroform gauze to wound base. Cover with gauze 4x4. Se cure with paper tape. Change daily and as needed for soilage or dislod gement Education provided Treatment demonstrated Questions answered I have spent 30 minutes with the patient for physical and wo und assessment, wound cleaning, dressing demonstration and answe ring questions. More than 50% of the time spent with the patient included education/counselling/coordination of care. Taisha Whitman, PhD, WOCN, DIRECTOR GLOBAL DEVELOPMENT cnov on 2018-09-24 CNOV Office Visit (VASSWS) Normal 09-25-19 19 [place] [facility] BETTY RICHARD ([id number]) 1955 [facility] Date Time Provider Department ([id number]) 09/24/18 2:30 PM TAISHA WHITMAN (PHD) (DIRECTOR GLOBAL DEVELOPMENT) VASSWS During your visit today, we recorded the following informati on about you: Temperature Pulse Respiration Blood pressure 99.3 degrees 95/minute 16/minute 113/81 Weight Height 61.1 kg 1.727 m Taisha Whitman, PhD, CRYSTAL CUTTER.DIRECTOR GLOBAL DEVELOPMENT 09/28/2018 3:50 PM Signed VASCULAR SURGERY WOUND OSTOMY CONTINENCE CONSULTATION CHIEF COMPLAINT: Wound check and evaluation HISTORY OF PRESENT ILLNESS: right 4th fi nger traumatic injury by a mower blade on 09/15/2018. On PO ABX as per PCP 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 Moeller Oncology, Dr. Gasca ENT, Dr. Butts Radiation - Shoulder pain, bilateral 1993 PAST SURGICAL HISTORY Procedure Laterality Date - PAST SURGICAL HISTORY OF 05/25/11 Peg tube placement, removed 02/26/2012 - [place]EST[facility],NOSE,SINUS SURGERY - RADIATION THERAPY Pharyngeal cancer ALLERGIES No Known Allergies Social History Tobacco Use - Smoking status: Former Smoker Packs/day: 3.00 Years: 40.00 Pack years: 120.00 Types: Cigarettes, Cigars Last attempt to quit: 06/26/2011 Years since quittin.2 - Smokeless tobacco: Never Used Substance Use Topics - Alcohol use: No - Drug use: No FAMILY HISTORY Problem Relation Age of Onset - Cancer Paternal Grandfather type? - Hypertension Mother - Diabetes Mother MEDICATIONS: mirtazapine orally disintegrating (REMER ON SOLTAB) 15 mg disintegrating tablet Take 1 tablet by mouth daily at bedtime. OLANZapine (ZYPREXA) 2.5 mg tablet Take 1 tablet by mouth daily at bedtime. loratadine (CLARITIN) 10 mg tablet Take 1 tablet by mouth on ce daily. levothyroxine (SYNTHROID) 75 mcg tablet Take 1 tablet by mouth once daily. Take on empty stomach. For Thyroid losartan (COZAAR) 25 mg tablet Take 1 tablet by mouth once d aily. CHILDREN'S MULTI VITAMINS ORAL Take 2 tablets by mouth once daily. REVIEW OF SYSTEMS 12 organ system review was performed with these findings: Constitutional: Within Normal Limits Eyes: Within Normal Limits Ears/Nose/Mouth/Throat: H/O oral Ca Respiratory: Within Normal Limits Cardiovascular: Within Normal Limits Gastrointestinal: Within Normal Limits Genitourinary: Within Normal Limits Musculoskeletal: Within Normal Limits Neurologic: Within Normal Limits Psychiatric: Within Normal Limits Endocrinological: Within Normal Limits Hematologic: Within Normal Limits Immunologic: Within Normal Limits Integumentary: See below Nutritional Status Appetite: good Diet: Regular Albumin/Prealbumin levels: Lab Results Component Value Date ALB 3.9 03/20/2017 PHYSICAL EXAMINATION Constitutional: Appears about stated age, no weight loss, no fevers and no chills. Psych: Alert and oriented to person, place and time. Intact memory. Normal limit affect, judgement and insight. Respiratory: Symmetrical exp ansion and effort. No cough, no shortness of breath. Cardiovascular: No chest pain. Neuro: Normal limit cranial nerves. Musculoskeletal: Normal limit gait. Normal limit symmetry. Normal limit range of motion. Normal limit muscle strength. Normal limit tone of all extremities. Integumentary: Normal skin color, textur e and turgor. No dry, scaly or cracked skin. No ecchymotic areas. No friable skin. No r bebe, lesions, excoriations or gonzales. No diaphoresis. No jaundice, no ruddiness, no skin pa llor. Eyes: Pupils are equal, round and reactive to light. Ears: Hearing aids. Nose/Mouth/Throat: Not assessed. Neck: Normal limit appearance and movements. Trachea midline . Breast: Not assessed. Lymphatic: Not assessed. Abdominal: Not assessed. WOUND PAIN: No pain or discomfort with wound assessment DATA REVIEWED: Chart reviewed. WOUND ASSESSMENT Type of wound: Traumatic: Full thickness Location: Right and 4th Site: Finger Present on admission: Yes Wound margins: no tunneling present and no undermining prese nt Edges: pink Odor: none Edema: present of finger distal end Exudate: none Tissue color: Black, dark Red and [place] Tissue type: muscle and necrotic v dry old blood Tatyana wound tissue: indurated Tatyana wound tissue color: darker skin tone ASSESSMENT/PLAN/TREATMENT RECOMMENDATIONS Apply Xeroform gauze to wound base. Cover with gauze 4x4. Secure with paper tape. Change daily and as needed for soilage or dislodgement Education provided Treatment demonstrated Questions answered I have spent 30 minutes with the patient for physical and wound assessment, wound cleaning, dressing demonstration and answe ring questions. More than 50% of the time spent with the patient inclu ded education/counselling/coordination of care. Taisha Whitman, PhD, WOCN, DIRECTOR GLOBAL DEVELOPMENT Referring Provider: JESSICA MENDOZA ([facility]) [[id number]] Allergies As of Date: 09/24/2018 (No Known Allergies) Date Reviewed: 09/24/2018 Reviewed by: Lary Murdock Ma - Fully Assessed Reason for Visit: Laceration [[id number]] Primary Visit Diagnosis:Avulsion of finger tip, initia l encounter [S61.209A] Prescriptions as of 09/24/2018 Sig: CEPHALEXIN 500 MG CAPSULE Take 1 capsule by mouth four * CEPHALEXIN 250 MG/5 ML ORAL S* Take 10 mL by mouth four time * MIRTAZAPINE 15 MG DISINTEGRAT* Take 1 tablet by mouth daily * OLANZAPINE 2.5 MG TABLET Take 1 tablet by mouth daily * LORATADINE 10 MG TABLET Take 1 tablet by mouth once d* LEVOTHYROXINE 75 MCG TABLET Take 1 tablet by mouth once d* LOSARTAN 25 MG TABLET Take 1 tablet by mouth once d* CHILDREN'S MULTI VITAMINS ORAL Take 2 tablets by mouth once * Problem List As Of Date 09/24/2018 Noted Resolved Elevated Blood Pressure [R03.0] INVALID FOR*10/04/2009 Weight Loss [R63.4] INVALID FOR*06/10/2009 COPD (Chronic Obstructive Pulmonary Disease) [J*INVALID FOR* Smoker [F17.200] INVALID FOR* Hyperlipidemia [E78.5] INVALID FOR* Contact dermatitis due to poison filiberto [L23.7] INVALID FOR* HBP (High Blood Pressure) [I10] INVALID FOR* Eczema [L30.9] INVALID FOR* Chronic left shoulder pain [M25.512, G89.29] INVALID FOR* Malignant neoplasm of oropharynx, unspecified s*INVALID FOR* 05/31/2014 Hypomagnesemia [E83.42] INVALID FOR* History of malignant neoplasm of oropharynx [Z8*INVALID FOR* Controlled substance agreement signed [Z79.899] INVALID FOR* Chronic pain [G89.29] INVALID FOR* Chronic obstructive pulmonary disease (HCC) [J4*INVALID FOR* Mixed hyperlipidemia [E78.2] INVALID FOR* Essential hypertension [I10] INVALID FOR* Hypothyroidism [E03.9] INVALID FOR* COPD with chronic bronchitis (HCC) [J44.9] INVALID FOR* Chronic seasonal allergic rhinitis due to polle*INVALID FOR* Severe single current episode of major depressi*INVALID FOR* RALEIGH (generalized anxiety disorder) [F41.1] INVALID FOR* 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.9] INVALID FOR* Hypothyroidism, acquired [E03.9] INVALID FOR* Screening for colon cancer [Z12.11] INVALID FOR* Finger laceration, initial encounter [S61.219A] INVALID FOR* Encounter Status:Closed by TAISHA WHITMAN CNP on 09/28/18 progress on 2018-09 PROGRESS HNO ID: [id number] Normal 09-23-2018 [facility] Author: Jessica Camarillo) Reji Farias ([id number]) Service: ? Author Type: Nurse Practitioner Type: Progress Notes Filed: 09/23/2018 2:48 PM Note Text: This is a 63 year old male who presents today with: Patient presents with: Recheck HISTORY OF PRESENT ILLNESS: Betty Richard is a 63 year old male. Patient presents w ith: Recheck Recheck of the right finger wound. Feels okay, unless he bumps it. Throbs once and awhile. Applying a new dressing daily. Still taking the antibiotic. PAST MEDICAL HISTORY: PAST MEDICAL HISTORY Diagnosis Date - Cigar smoker in past - COPD (chronic obstructive pulmonary disease) ([facility] [place]) 02/22/20 Dr. 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 Moeller Oncology, Dr. Deidre shahid ENT, Dr. Butts Radiation - Shoulder pain, bilateral 1993 PAST SURGICAL HISTORY Procedure Laterality Date - PAST SURGICAL HISTORY OF 05/25/11 Peg tube placement, removed 02/26/2012 - [place],NOSE,SINUS SURGERY - RADIATION THERAPY Pharyngeal cancer ALLERGIES Patient has no known allergies. MEDICATIONS Current Outpatient Medications: cephALEXin (KEFLEX) 500 mg capsule Take 1 capsule by mouth f our times daily for 10 days. cephALEXin (KEFLEX) 250 mg/5 mL suspension Take 10 mL by laura th four times daily for 10 days. mirtazapine orally disintegrating (REMERON SOLTAB) 15 mg dis integrating tablet Take 1 tablet by mouth daily at bedtime. OLANZapine (ZYPREXA) 2.5 mg tablet Take 1 tablet by mouth da nancy at bedtime. loratadine (CLARITIN) 10 mg tablet Take 1 tablet by mouth on ce daily. levothyroxine (SYNTHROID) 75 mcg tablet Take 1 tablet by laura th once daily. Take on empty stomach. For Thyroid losartan (COZAAR) 25 mg tablet Take 1 tablet by mouth once d aily. CHILDREN'S MULTI VITAMINS ORAL Take 2 tablets by mouth once daily. No current facility-administered medications for this visit. FAMILY HISTORY Problem Relation Age of Onset - Cancer Paternal Grandfather type? - Hypertension Mother - Diabetes Mother Social History Socioeconomic History Marital status: Spouse name: Not on file Number of children: Not on file Years of education: Not on file Highest education level: Not on file Social Needs Financial resource strain: Not on file Food insecurity - worry: Not on file Food insecurity - inability: Not on file Transportation needs - medical: Not on file Transportation needs - non-medical: Not on file Occupational History Not on file Tobacco Use Smoking status: Former Smoker Packs/day: 3.00 Years: 40.00 Pack years: 120 Types: Cigarettes, Cigars Quit date: 06/26/2011 Years since quittin.2 Smokeless tobacco: Never Used Substance and Sexual Activity Alcohol use: No Drug use: No Sexual activity: Not on file Other Topics Concerns: Service: No Blood Transfusions: No Caffeine Concern: No Occupational Exposure: No Hobby Hazards: No Sleep Concern: Yes Stress Concern: No Weight Concern: No Special Diet: No Back Care: No Exercise: No Bike Helmet: No Seat Belt: Yes Self-Exams: No Social History Narrative Not on file EXAM: BP 100/80 Pulse 92 Temp 37.2 ?C (99 ?F) (Temporal) Res p 20 PHYSICAL EXAM: General Appearance: Well appearing, alert, in no acute distr ess, well-hydrated, well nourished.. Skin: Skin color, texture, turgor normal, no suspicious rash es or lesions. Mostly healthy tissue. Does have appx 0.7cm area of eschar t issue on the tip of the finger. Head: Normocephalic, no masses, lesions, tenderness or abnor malities. Eyes: Anicteric sclera. Extraocular movements are intact. . Neurologic: Gait normal. ASSESSMENT/PLAN: 1. Avulsion of finger tip, subsequent encounter - ICD9: V58. 89, 883.0, ICD10: S61.209D Finger cleansed, aquaphor and dry dressing applied. Update tdap, as last one was 2009. Consult wound -- appt scheduled for tomorrow. Will have pt back in 2 weeks for recheck, unless wound care would like us to see him back sooner, will certainly accommodate. - TDAP VACCINE AGE 7+ IM - CONSULT TO SKIN CARE TEAM Discussed treatment plan and patient voices understanding. Patient's questions answered appropriately. Medications and potential side effects were discussed and eladio neff voices understanding. Return to the office as scheduled or as needed for worsening /no improvement. THAD Gilman on 2018-09-23 CNOV Office Visit (FAMPWS) Normal 09-24-19 [place] [facility] BETTY RICHARD ([id number]) 1955 [place] Date Time Provider Department ([id number]) 09/23/18 1:40 PM JESSICA MENDOZA (DARVIN) [facility] During your visit today, we recorded the following informati on about you: Temperature Pulse Respiration Blood pressure 99 degrees 92/minute 20/minute 100/80 Jessica Mendoza APRN.CNP 09/23/2018 2:48 PM Signed This is a 63 year old male who presents today with: Patient presents with: Recheck HISTORY OF PRESENT ILLNESS: Betty Richard is a 63 year old male. Patient presents w ith: Recheck Recheck of the right finger wound. Feels okay, unless he bumps it. Throbs once and awhile. Applying a new dressing daily. Still taking the antibiotic. PAST MEDICAL HISTORY: PAST MEDICAL HISTORY Diagnosis Date - Cigar smoker in past - COPD (chronic obstructive pulmonary disease) ([facility]LY [facility] [place]) 02/22/[address] 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 Moeller Oncology, Dr. Gasca ENT, Dr. Butts Radiation - Shoulder pain, bilateral 1993 PAST SURGICAL HISTORY Procedure Laterality Date - PAST SURGICAL HISTORY OF 05/25/11 Peg tube placement, removed 02/26/2012 - [place] ANESTH,NOSE,SINUS SURGERY - RADIATION THERAPY Pharyngeal cancer ALLERGIES Patient has no known allergies. MEDICATIONS Current Outpatient Medications: cephALEXin (KEFLEX) 500 mg c apsule Take 1 capsule by mouth four times daily for 10 days. cephALEXin (KEFLEX) 250 mg/5 mL suspension Take 10 mL by mouth four times daily for 10 days. mirtazapine orally disintegrating (REMER ON SOLTAB) 15 mg disintegrating tablet Take 1 tablet by mouth daily at bedtime. OLANZapine (ZYPREXA) 2.5 mg tablet Take 1 tablet by mouth daily at bedtime. loratadine (CLARITIN) 10 mg tablet Take 1 tablet by mouth on ce daily. levothyroxine (SYNTHROID) 75 mcg tablet Take 1 tablet by mouth once daily. Take on empty stomach. For Thyroid losartan (COZAAR) 25 mg tablet Take 1 tablet by mouth once d aily. CHILDREN'S MULTI VITAMINS ORAL Take 2 tablets by mouth once daily. No current facility-administered medications for this visit. FAMILY HISTORY Problem Relation Age of Onset - Cancer Paternal Grandfather type? - Hypertension Mother - Diabetes Mother Social History Socioeconomic History Marital status: Spouse name: Not on file Number of children: Not on file Years of education: Not on file Highest education level: Not on file Social Needs Financial resource strain: Not on file Food insecurity - worry: Not on file Food insecurity - inability: Not on file Transportation needs - medical: Not on file Transportation needs - non-medical: Not on file Occupational History Not on file Tobacco Use Smoking status: Former Smoker Packs/day: 3.00 Years: 40.00 Pack years: 120 Types: Cigarettes, Cigars Quit date: 06/26/2011 Years since quittin.2 Smokeless tobacco: Never Used Substance and Sexual Activity Alcohol use: No Drug use: No Sexual activity: Not on file Other Topics Concerns: Service: No Blood Transfusions: No Caffeine Concern: No Occupational Exposure: No Hobby Hazards: No Sleep Concern: Yes Stress Concern: No Weight Concern: No Special Diet: No Back Care: No Exercise: No Bike Helmet: No Seat Belt: Yes Self-Exams: No Social History Narrative Not on file EXAM: BP 100/80 Pulse 92 Temp 37.2 ?C (99 ?F) (Temporal) Res p 20 PHYSICAL EXAM: General Appearance: Well richie earing, alert, in no acute distress, well-hydrated, well nourished.. Skin: Skin color, texture, turgor normal, no suspicious rash es or lesions. Mostly healthy tissue. Does have appx 0.7cm area of eschar tissue on the tip of the finger. Head: Normocephalic, no masses, lesions, tenderness or abnor malities. Eyes: Anicteric sclera. Extraocular movements are intact. . Neurologic: Gait normal. ASSESSMENT/PLAN: 1. Avulsion of finger tip, subsequent encounter - ICD9: V58.89, 883.0, ICD10: S61.209D Finger cleansed, aquaphor and dry dressing applied. Update tdap, as last one was 2009. Consult wound -- appt scheduled for tomorrow. Will have pt back in 2 weeks for recheck, unless wound care would like us to see him back sooner, will certainly accommodate. - TDAP VACCINE AGE 7+ IM - CONSULT TO SKIN CARE TEAM Discussed treatment plan and patient voices understanding. Patient's questions answered appropriately. Medications and potential side effects were discussed and pa tient voices understanding. Return to the office as scheduled or as needed for wor sening/no improvement. Jessica Mendoza APRN.DARVIN Mendoza APRN.DARVIN 09/23/2018 2:21 PM Addendum 1. Please see wound care tomorrow. 2. Recheck here in 2 weeks. Referring Provider: SELF [[id number]] Allergies As of Date: 09/23/2018 (No Known Allergies) Date Reviewed: 09/23/2018 Reviewed by: Rebekah Holt LPN - Fully Assessed Reason for Visit: Recheck [92] Primary Visit Diagnosis:Avul anthony of finger tip, subsequent encounter [S61.209D] Order(s):TDAP VACCINE AGE 7+ IM [[id number]] Order #: [id number] CONSULT TO SKIN CARE TEAM [[id number]] Order #: [id number]: 1 Prescriptions as of 09/23/2018 Sig: CEPHALEXIN 500 MG CAPSULE Take 1 capsule by mouth four * CEPHALEXIN 250 MG/5 ML ORAL S* Take 10 mL by mouth four time * MIRTAZAPINE 15 MG DISINTEGRAT* Take 1 tablet by mouth daily * OLANZAPINE 2.5 MG TABLET Take 1 tablet by mouth daily * LORATADINE 10 MG TABLET Take 1 tablet by mouth once d* LEVOTHYROXINE 75 MCG TABLET Take 1 tablet by mouth once d* LOSARTAN 25 MG TABLET Take 1 tablet by mouth once d* CHILDREN'S MULTI VITAMINS ORAL Take 2 tablets by mouth once * Problem List As Of Date 09/23/2018 Noted Resolved Elevated Blood Pressure [R03.0] INVALID FOR*10/04/2009 Weight Loss [R63.4] INVALID FOR*06/10/2009 COPD (Chronic Obstructive Pulmonary Disease) [J*INVALID FOR* Smoker [F17.200] INVALID FOR* Hyperlipidemia [E78.5] INVALID FOR* Contact dermatitis due to poison filiberto [L23.7] INVALID FOR* HBP (High Blood Pressure) [I10] INVALID FOR* Eczema [L30.9] INVALID FOR* Chronic left shoulder pain [M25.512, G89.29] INVALID FOR* Malignant neoplasm of oropharynx, unspecified s*INVALID FOR* 05/31/2014 Hypomagnesemia [E83.42] INVALID FOR* History of malignant neoplasm of oropharynx [Z8*INVALID FOR* Controlled substance agreement signed [Z79.899] INVALID FOR* Chronic pain [G89.29] INVALID FOR* Chronic obstructive pulmonary disease (HCC) [J4*INVALID FOR* Mixed hyperlipidemia [E78.2] INVALID FOR* Essential hypertension [I10] INVALID FOR* Hypothyroidism [E03.9] INVALID FOR* COPD with chronic bronchitis (HCC) [J44.9] INVALID FOR* Chronic seasonal allergic rhinitis due to polle*INVALID FOR* Severe single current episode of major depressi*INVALID FOR* RALEIGH (generalized anxiety disorder) [F41.1] INVALID FOR* 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.9] INVALID FOR* Hypothyroidism, acquired [E03.9] INVALID FOR* Screening for colon cancer [Z12.11] INVALID FOR* Finger laceration, initial encounter [S68.758A] INVALID FOR* Other instructions from your clinician: 1. Please see wound care tomorrow. 2. Recheck here in 2 weeks. Encounter Status:Closed by JESSICA MENDOZA CNP on 09/23/18 progress on 2018-08 PROGRESS HNO ID: [id number] Normal 09-19-2018 [facility] Author: Jessica (Darvin) Reji Farias ([id number]) Service: ? Author Type: Nurse Practitioner Type: Progress Notes Filed: 09/19/2018 2:01 PM Note Text: This is a 63 year old male who presents today with: Patient presents with: Recheck: follow up finger laceration HISTORY OF PRESENT ILLNESS: Betty Richard is a 63 year old male. Patient presents w ith: Recheck: follow up finger laceration Pt presents today for recheck of finger laceration/avulsion. Pt was in on 09/16 for initial evaluation. He had an avulsion/laceration affecting the tip of the 4th f abi of the right hand after coming into contact with manager specialty blade. The area was dressed. Pt was started on keflex. He has been changing dressings daily. He reports that he hasn't needed anything for pain. Sometime s throbs, but tolerable. PAST MEDICAL HISTORY: PAST MEDICAL HISTORY Diagnosis Date - Cigar smoker in past - COPD (chronic obstructive pulmonary disease) ([facility] [place]) 02/22/20 Dr. 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 Moeller Oncology, Dr. Deidre shahid ENT, Dr. Butts Radiation - Shoulder pain, bilateral 1993 PAST SURGICAL HISTORY Procedure Laterality Date - PAST SURGICAL HISTORY OF 05/25/11 Peg tube placement, removed 02/26/2012 - [place]EST[facility],NOSE,SINUS SURGERY - RADIATION THERAPY Pharyngeal cancer ALLERGIES Patient has no known allergies. MEDICATIONS Current Outpatient Medications: cephALEXin (KEFLEX) 500 mg capsule Take 1 capsule by mouth f our times daily for 10 days. cephALEXin (KEFLEX) 250 mg/5 mL suspension Take 10 mL by laura th four times daily for 10 days. mirtazapine orally disintegrating (REMERON SOLTAB) 15 mg dis integrating tablet Take 1 tablet by mouth daily at bedtime. OLANZapine (ZYPREXA) 2.5 mg tablet Take 1 tablet by mouth da nancy at bedtime. loratadine (CLARITIN) 10 mg tablet Take 1 tablet by mouth on ce daily. levothyroxine (SYNTHROID) 75 mcg tablet Take 1 tablet by laura th once daily. Take on empty stomach. For Thyroid losartan (COZAAR) 25 mg tablet Take 1 tablet by mouth once d aily. CHILDREN'S MULTI VITAMINS ORAL Take 2 tablets by mouth once daily. No current facility-administered medications for this visit. FAMILY HISTORY Problem Relation Age of Onset - Cancer Paternal Grandfather type? - Hypertension Mother - Diabetes Mother Social History Socioeconomic History Marital status: Spouse name: Not on file Number of children: Not on file Years of education: Not on file Highest education level: Not on file Social Needs Financial resource strain: Not on file Food insecurity - worry: Not on file Food insecurity - inability: Not on file Transportation needs - medical: Not on file Transportation needs - non-medical: Not on file Occupational History Not on file Tobacco Use Smoking status: Former Smoker Packs/day: 3.00 Years: 40.00 Pack years: 120 Types: Cigarettes, Cigars Quit date: 06/26/2011 Years since quittin.2 Smokeless tobacco: Never Used Substance and Sexual Activity Alcohol use: No Drug use: No Sexual activity: Not on file Other Topics Concerns: Service: No Blood Transfusions: No Caffeine Concern: No Occupational Exposure: No Hobby Hazards: No Sleep Concern: Yes Stress Concern: No Weight Concern: No Special Diet: No Back Care: No Exercise: No Bike Helmet: No Seat Belt: Yes Self-Exams: No Social History Narrative Not on file EXAM: BP 174/108 Pulse 116 Resp 14 Wt 61.2 kg (135 lb) BMI 19.94 kg/m? PHYSICAL EXAM: General Appearance: Well appearing, alert, in no acute distr ess, well-hydrated, well nourished.. Skin: Skin color, texture, turgor normal, no suspicious rash es or lesions. Avulsion injury involving the tip of right 4th finger. Tissu e appears healthy. No s/s of infection. Head: Normocephalic, no masses, lesions, tenderness or abnor malities. Eyes: Anicteric sclera. Extraocular movements are intact. . Lungs: lungs clear to auscultation. No wheezing, rhonchi, ra les. Heart: RRR without murmur, gallop, or rubs. No ectopy. Neurologic: Gait normal. ASSESSMENT/PLAN: 1. Avulsion of finger, subsequent encounter - ICD9: V58.89, 883.0, ICD10: S61.209D (primary diagnosis) Tissue appear healthy without s/s of infection. Aquaphor, telpha, and dry sterile dressing applied after kyle ansing. Continue antibiotic therapy. Recheck early next week. 2. Essential hypertension - ICD9: 401.9, ICD10: I10 BP up today, however, usually at goal. Recheck early next week. Discussed treatment plan and patient voices understanding. Patient's questions answered appropriately. Medications and potential side effects were discussed and pa tawanda voices understanding. Return to the office as scheduled or as needed for worsening /no improvement. THAD Gilman on 2018-09-19 CNOV Office Visit (FAMPWS) Normal 09-20-19 [place] [facility] BETTY RICHARD ([id number]) 1955 [facility] Date Time Provider Department ([id number]) 09/19/18 10:20 AM JESSICA MENDOZA (DARVIN) [facility] During your visit today, we recorded the following informati on about you: Pulse Respiration Blood pressure Weight 116/minute 14/minute 174/108 61.2 kg Jessica Mendoza APRN.CNP 09/19/2018 2:01 PM Signed This is a 63 year old male who presents today with: Patient presents with: Recheck: follow up finger laceration HISTORY OF PRESENT ILLNESS: Betty Richard is a 63 year old male. Patient presents w ith: Recheck: follow up finger laceration Pt presents today for recheck of finger laceration/avulsion. Pt was in on 09/16 for initial evaluation. He had an avulsion/laceration affecting the tip of the 4th finger of the right hand after coming into contact with manager specialty blade. The area was dressed. Pt was started on keflex. He has been changing dressings daily. He reports that he hasn't needed anything for pain. Sometime s throbs, but tolerable. PAST MEDICAL HISTORY: PAST MEDICAL HISTORY Diagnosis Date - Cigar smoker in past - COPD (chronic obstructive pulmonary disease) ([facility] [place]) 02/22/20 Dr. 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 Moeller Oncology, Dr. Gasca ENT, Dr. Butts Radiation - Shoulder pain, bilateral 1993 PAST SURGICAL HISTORY Procedure Laterality Date - PAST SURGICAL HISTORY OF 05/25/11 Peg tube placement, removed 02/26/2012 - [place]ESTH,NOSE,SINUS SURGERY - RADIATION THERAPY Pharyngeal cancer ALLERGIES Patient has no known allergies. MEDICATIONS Current Outpatient Medications: cephALEXin (KEFLEX) 500 mg c apsule Take 1 capsule by mouth four times daily for 10 days. cephALEXin (KEFLEX) 250 mg/5 mL suspension Take 10 mL by mouth four times daily for 10 days. mirtazapine orally disintegrating (REMER ON SOLTAB) 15 mg disintegrating tablet Take 1 tablet by mouth daily at bedtime. OLANZapine (ZYPREXA) 2.5 mg tablet Take 1 tablet by mouth daily at bedtime. loratadine (CLARITIN) 10 mg tablet Take 1 tablet by mouth on ce daily. levothyroxine (SYNTHROID) 75 mcg tablet Take 1 tablet by mouth once daily. Take on empty stomach. For Thyroid losartan (COZAAR) 25 mg tablet Take 1 tablet by mouth once d aily. CHILDREN'S MULTI VITAMINS ORAL Take 2 tablets by mouth once daily. No current facility-administered medications for this visit. FAMILY HISTORY Problem Relation Age of Onset - Cancer Paternal Grandfather type? - Hypertension Mother - Diabetes Mother Social History Socioeconomic History Marital status: Spouse name: Not on file Number of children: Not on file Years of education: Not on file Highest education level: Not on file Social Needs Financial resource strain: Not on file Food insecurity - worry: Not on file Food insecurity - inability: Not on file Transportation needs - medical: Not on file Transportation needs - non-medical: Not on file Occupational History Not on file Tobacco Use Smoking status: Former Smoker Packs/day: 3.00 Years: 40.00 Pack years: 120 Types: Cigarettes, Cigars Quit date: 06/26/2011 Years since quittin.2 Smokeless tobacco: Never Used Substance and Sexual Activity Alcohol use: No Drug use: No Sexual activity: Not on file Other Topics Concerns: Service: No Blood Transfusions: No Caffeine Concern: No Occupational Exposure: No Hobby Hazards: No Sleep Concern: Yes Stress Concern: No Weight Concern: No Special Diet: No Back Care: No Exercise: No Bike Helmet: No Seat Belt: Yes Self-Exams: No Social History Narrative Not on file EXAM: BP 174/108 Pulse 116 Resp 14 Wt 61.2 kg (135 lb) BMI 19.94 kg/m? PHYSICAL EXAM: General Appearance: Well richie earing, alert, in no acute distress, well-hydrated, well nourished.. Skin: Skin color, texture, turgor normal, no suspicious rash es or lesions. Avulsion injury involving the tip of rig ht 4th finger. Tissue appears healthy. No s/s of infection. Head: Normocephalic, no masses, lesions, tenderness or abnor malities. Eyes: Anicteric sclera. Extraocular movements are intact. . Lungs: lungs clear to auscultation. No wheezing, rhonchi, ra les. Heart: RRR without murmur, gallop, or rubs. No ectopy. Neurologic: Gait normal. ASSESSMENT/PLAN: 1. Avulsion of finger, subsequent encounter - ICD9: V58.89, 883.0, ICD10: S61.209D (primary diagnosis) Tissue appear healthy without s/s of infection. Aquaphor, telpha, and dry sterile dressing applied after kyle ansing. Continue antibiotic therapy. Recheck early next week. 2. Essential hypertension - ICD9: 401.9, ICD10: I10 BP up today, however, usually at goal. Recheck early next week. Discussed treatment plan and patient voices understanding. Patient's questions answered appropriately. Medications and potential side effects were discussed and pa tient voices understanding. Return to the office as scheduled or as needed for wor sening/no improvement. Jessica Mendoza APRN.DIRECTOR GLOBAL DEVELOPMENT Referring Provider: ALEXANDER HERNANDEZ [[id number]] Allergies As of Date: 09/19/2018 (No Known Allergies) Date Reviewed: 09/19/2018 Reviewed by: Kristie España LPN - Fully Assessed Reason for Visit: Recheck [92] Cmt: follow up finger laceration Primary Visit Diagnosis:Avulsion of finger, subsequent enc ounter [S61.209D] Other Visit Diagnosis:Essential hypertension [I10] Prescriptions as of 09/19/2018 Sig: CEPHALEXIN 500 MG CAPSULE Take 1 capsule by mouth four * CEPHALEXIN 250 MG/5 ML ORAL S* Take 10 mL by mouth four time * MIRTAZAPINE 15 MG DISINTEGRAT* Take 1 tablet by mouth daily * OLANZAPINE 2.5 MG TABLET Take 1 tablet by mouth daily * LORATADINE 10 MG TABLET Take 1 tablet by mouth once d* LEVOTHYROXINE 75 MCG TABLET Take 1 tablet by mouth once d* LOSARTAN 25 MG TABLET Take 1 tablet by mouth once d* CHILDREN'S MULTI VITAMINS ORAL Take 2 tablets by mouth once * Problem List As Of Date 09/19/2018 Noted Resolved Elevated Blood Pressure [R03.0] INVALID FOR*10/04/2009 Weight Loss [R63.4] INVALID FOR*06/10/2009 COPD (Chronic Obstructive Pulmonary Disease) [J*INVALID FOR* Smoker [F17.200] INVALID FOR* Hyperlipidemia [E78.5] INVALID FOR* Contact dermatitis due to poison filiberto [L23.7] INVALID FOR* HBP (High Blood Pressure) [I10] INVALID FOR* Eczema [L30.9] INVALID FOR* Chronic left shoulder pain [M25.512, G89.29] INVALID FOR* Malignant neoplasm of oropharynx, unspecified s*INVALID FOR* 05/31/2014 Hypomagnesemia [E83.42] INVALID FOR* History of malignant neoplasm of oropharynx [Z8*INVALID FOR* Controlled substance agreement signed [Z79.899] INVALID FOR* Chronic pain [G89.29] INVALID FOR* Chronic obstructive pulmonary disease (HCC) [J4*INVALID FOR* Mixed hyperlipidemia [E78.2] INVALID FOR* Essential hypertension [I10] INVALID FOR* Hypothyroidism [E03.9] INVALID FOR* COPD with chronic bronchitis (HCC) [J44.9] INVALID FOR* Chronic seasonal allergic rhinitis due to polle*INVALID FOR* Severe single current episode of major depressi*INVALID FOR* RALEIGH (generalized anxiety disorder) [F41.1] INVALID FOR* 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.9] INVALID FOR* Hypothyroidism, acquired [E03.9] INVALID FOR* Screening for colon cancer [Z12.11] INVALID FOR* Finger laceration, initial encounter [S67.219A] INVALID FOR* Encounter Status:Closed by JESSICA MENDOZA CNP on 09/19/18 progress on 2018-08 PROGRESS HNO ID: [id number] Normal 09-16-2018 [facility] Author: Alexander Hernandez Farias ([id number]) Service: ? Author Type: Physician Type: Progress Notes Filed: 09/16/2018 5:23 PM Note Text: CC: Betty Richard is a 63 year old male who presents to the office for finger injury HPI: Finger injury, occurred about 24 hours ago, was mowing lawn with push mower, The grass was slightly wet, the mower slid down a sma ll hill into the fence and the 1 tire was stuck under the fence. Instead of turning the mower off 1st, he went to go look to see what was stuck and slid on the small hill and landed against right arm/shoulder and fin timbo hit the blade of the mower under the blade deck, opened up the end o f the 4th finger on right hand and cut part of the nail off, Bled for a while, didn't seek emergency room care, bleeding controlled and fin timbo bandaged up with neosporin and gauze per patient. No other symptoms, hasn't changed the dressing yet. PAST MEDICAL HISTORY Diagnosis Date - Cigar smoker in past - COPD (chronic obstructive pulmonary disease) (HCC) 02/22/20 Dr. 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 Moeller Oncology, Dr. Deidre shahid ENT, Dr. Butts Radiation - Shoulder pain, bilateral 1993 PAST SURGICAL HISTORY Procedure Laterality Date - PAST SURGICAL HISTORY OF 05/25/11 Peg tube placement, removed 02/26/2012 - [place]ESTH,NOSE,SINUS SURGERY - RADIATION THERAPY Pharyngeal cancer Current Outpatient Medications: mirtazapine orally disintegrating (REMERON SOLTAB) 15 mg dis integrating tablet Take 1 tablet by mouth daily at bedtime. OLANZapine (ZYPREXA) 2.5 mg tablet Take 1 tablet by mouth da nancy at bedtime. loratadine (CLARITIN) 10 mg tablet Take 1 tablet by mouth on ce daily. levothyroxine (SYNTHROID) 75 mcg tablet Take 1 tablet by laura th once daily. Take on empty stomach. For Thyroid losartan (COZAAR) 25 mg tablet Take 1 tablet by mouth once d aily. CHILDREN'S MULTI VITAMINS ORAL Take 2 tablets by mouth once daily. cephALEXin (KEFLEX) 500 mg capsule Take 1 capsule by mouth f our times daily for 10 days. cephALEXin (KEFLEX) 250 mg/5 mL suspension Take 10 mL by laura th four times daily for 10 days. No current facility-administered medications for this visit. ALLERGIES No Known Allergies .soc ROS: Gen: Negative fevers or chills. HEENT: Negative for rhinorrhea, eye drainage, sore throat, e ar pain, cough, Headache. CV: Negative for chest pain or edema of LEs. Lungs: Negative for SOB, wheezing, cough. Skin: Negative for lesions, rashes, wounds Neuro: Negative for numbness or tingling, change in vision. PE: BP 138/82 Pulse 80 Temp (Src) 96.3 (Left Tympanic) Res p 20 Wt 134 lb (60.8kg) Gen: AANDOX3, NAD, non-toxic appearing Skin: avulsion of distal soft tissue area of right hand 4th finger without any ligaments/bone or tendons exposed, part of distal nailbe d exposed/injured as well, no signs of infection, no active bl eeding ASSESSMENT/PLAN: 1. Finger laceration, initial encounter - ICD9: 883.0, ICD10 : S61.219A - finger was cleaned, dressed with ointment / gauze and band age, rx as below sent into pharmacy to start today, No ability to repai r/stitch due to >24 hours since injury, referral to orthopedics or wound care if not healing appropriately, will follow up in office in 2-3 days. - CEPHALEXIN 500 MG CAPSULE Alexander Hernandez DO Return if no improvement. Follow up with Alexander Hernandez DO. To ER if develops chest pain, shortness of breath. Discussed risks, benefits, alternatives, and potential side effects of medications. Patient/Guardian expressed understanding and agreed with the plan. See patient instructions. Alexander Hernandez DO [address] [place] [address] cnov on 2018-09-16 CNOV Office Visit (FAMPWS) Normal 09-17-19 [place] [facility] BETTY RICHARD ([id number]) 1955 [facility] Date Time Provider Department ([id number]) 09/16/18 2:20 PM ALEXANDER HERNANDEZ [facility] During your visit today, we recorded the following informati on about you: Temperature Pulse Respiration Blood pressure 96.3 degrees 80/minute 20/minute 138/82 Weight 60.8 kg Alexander Hernandez DO 09/16/2018 5:23 PM Signed CC: Betty Richard is a 63 year old male who presents to the office for finger injury HPI: Finger injury, occurred about 24 hours ago, was mowing lawn with push mower, The grass was slightly wet, the mower slid down a small hill into the fence and the 1 tire was stuck under the fence. In stead of turning the mower off 1st, he went to go look to see what was stuck and slid on the smal l hill and landed against right arm/shoulder and finger hit the blade of the m ower under the blade deck, opened up the end of the 4th finger on right hand and cut part of the nail off, Bled for a while, didn't seek emergency room c are, bleeding controlled and finger bandaged up with neosporin and gauze p er patient. No other symptoms, hasn't changed the dressing yet. 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 Moeller Oncology, Dr. Gasca ENT, Dr. Butts Radiation - Shoulder pain, bilateral 1994 PAST SURGICAL HISTORY Procedure Laterality Date - PAST SURGICAL HISTORY OF 05/25/11 Peg tube placement, removed 02/26/2012 - [place] [facility],NOSE,SINUS SURGERY - RADIATION THERAPY Pharyngeal cancer Current Outpatient Medications: mirtazapine orally disintegrating (REMER ON SOLTAB) 15 mg disintegrating tablet Take 1 tablet by mouth daily at bedtime. OLANZapine (ZYPREXA) 2.5 mg tablet Take 1 tablet by mouth daily at bedtime. loratadine (CLARITIN) 10 mg tablet Take 1 tablet by mouth on ce daily. levothyroxine (SYNTHROID) 75 mcg tablet Take 1 tablet by mouth once daily. Take on empty stomach. For Thyroid losartan (COZAAR) 25 mg tablet Take 1 tablet by mouth once d aily. CHILDREN'S MULTI VITAMINS ORAL Take 2 tablets by mouth once daily. cephALEXin (KEFLEX) 500 mg c apsule Take 1 capsule by mouth four times daily for 10 days. cephALEXin (KEFLEX) 250 mg/5 mL suspension Take 10 mL by mouth four times daily for 10 days. No current facility-administered medications for this visit. ALLERGIES No Known Allergies .soc ROS: Gen: Negative fevers or chills. HEENT: Negative for rhinorrhea, eye drainage, sore throat, ear pain, cough, Headache. CV: Negative for chest pain or edema of LEs. Lungs: Negative for SOB, wheezing, cough. Skin: Negative for lesions, rashes, wounds Neuro: Negative for numbness or tingling, change in vision. PE: BP 138/82 Pulse 80 Temp (Src) 96.3 (Left Tympanic) Resp 20 Wt 134 lb (60.8kg) Gen: AANDOX3, NAD, non-toxic appearing Skin: avulsion of distal soft tissue are a of right hand 4th finger without any ligaments/bone or tendons exposed, part of distal nail bed exposed/injured as well, no signs of infection, no active bleeding ASSESSMENT/PLAN: 1. Finger laceration, initial encounter - ICD9: 883.0, ICD10 : S61.219A - finger was cleaned, dressed with ointment / gauze an d bandage, rx as below sent into pharmacy to start today, No ability to repair/stit ch due to >24 hours since injury, referral to orthopedics or wound care if not healing appropriately, will follow up in office in 2-3 days. - CEPHALEXIN 500 MG CAPSULE Alexander Hernandez DO Return if no improvement. Follow up with Alexander Hernandez DO. To ER if develops chest pain, shortness of breath. Discussed risks, benefits, alternatives, and potential side effects of medications. Patient/Guardian expressed understanding and agreed with the plan. See patient instructions. Alexander Hernandez DO [address] [place] [address] Referring Provider: SELF [[id number]] Allergies As of Date: 09/16/2018 (No Known Allergies) Date Reviewed: 09/16/2018 Reviewed by: Sona Rios LPN - Fully Assessed Reason for Visit: Laceration [611] Cmt: right ring finger lacerat ion from manager specialty yesterday Primary Visit Diagnosis:Finger laceration, initial encounter [S61.219A] Order(s):cephALEXin (KEFLEX) 500 mg capsuleTake 1 capsule by mouth four times daily for 10 days.Disp: 40 capsuleRfl: 0 cephALEXin (KEFLEX) 250 mg/5 mL suspensionTake 10 mL by mout h four times daily for 10 days.Disp: 400 mLRfl: 0 Prescriptions as of 09/16/2018 Sig: MIRTAZAPINE 15 MG DISINTEGRAT* Take 1 tablet by mouth daily * OLANZAPINE 2.5 MG TABLET Take 1 tablet by mouth daily * LORATADINE 10 MG TABLET Take 1 tablet by mouth once d* LEVOTHYROXINE 75 MCG TABLET Take 1 tablet by mouth once d* LOSARTAN 25 MG TABLET Take 1 tablet by mouth once d* CHILDREN'S MULTI VITAMINS ORAL Take 2 tablets by mouth once * CEPHALEXIN 500 MG CAPSULE Take 1 capsule by mouth four * CEPHALEXIN 250 MG/5 ML ORAL S* Take 10 mL by mouth four time * Problem List As Of Date 09/16/2018 Noted Resolved Elevated Blood Pressure [R03.0] INVALID FOR*10/04/2009 Weight Loss [R63.4] INVALID FOR*06/10/2009 COPD (Chronic Obstructive Pulmonary Disease) [J*INVALID FOR* Smoker [F17.200] INVALID FOR* Hyperlipidemia [E78.5] INVALID FOR* Contact dermatitis due to poison filiberto [L23.7] INVALID FOR* HBP (High Blood Pressure) [I10] INVALID FOR* Eczema [L30.9] INVALID FOR* Chronic left shoulder pain [M25.512, G89.29] INVALID FOR* Malignant neoplasm of oropharynx, unspecified s*INVALID FOR* 05/31/2014 Hypomagnesemia [E83.42] INVALID FOR* History of malignant neoplasm of oropharynx [Z8*INVALID FOR* Controlled substance agreement signed [Z79.899] INVALID FOR* Chronic pain [G89.29] INVALID FOR* Chronic obstructive pulmonary disease (HCC) [J4*INVALID FOR* Mixed hyperlipidemia [E78.2] INVALID FOR* Essential hypertension [I10] INVALID FOR* Hypothyroidism [E03.9] INVALID FOR* COPD with chronic bronchitis (HCC) [J44.9] INVALID FOR* Chronic seasonal allergic rhinitis due to polle*INVALID FOR* Severe single current episode of major depressi*INVALID FOR* [place] (generalized anxiety disorder) [F41.1] INVALID FOR* 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 CEPHALEXIN 250 MG/5 ML ORAL SUSPENSI* 400 * 0 09/16/201810/2018 Class: Print RX Route: ORAL Sig: Take 10 mL by mouth four times daily for 10 days. Encounter Status:Closed by ALEXANDER HERNANDEZ DO on 09/16/18 Summary Purpose Family History No Family History Records Found Advance Directives No Advanced Directives Records Found Additional Source Comments FOR RECORDS PERTAINING TO PATIENTS WHO ARE OR HAVE BEEN ENROLLED IN A CHEMICAL DEPENDENCY/SUBSTANCE ABUSE PROGRAM, SOME INFORMATION MAY BE OMITTED. This clinical summary was aggregated from multiple sources. Caution should be exercised in using it in the provision of clinical care. This summary normalizes information from multiple sources, and as a consequence, information in this document may materially changethe coding, format and clinical context of patient data. In addition, data may be omittedin some cases. CLINICAL DECISIONS SHOULD BE BASED ON THE PRIMARY CLINICAL RECORDS. [employer] provides no warranty or guarantee of the accuracy or completeness of information in this document. UNRECOGNIZED CONTENT PROVIDED BELOW FOR UNRECOGNIZED SECTION No Status Records Found UNRECOGNIZED CONTENT PROVIDED BELOW FOR UNRECOGNIZED SECTION INFORMATION SOURCE DATE CREATED AUTHOR AUTHOR'S ORGANIZATIO N 09/15/[address] [facility]
--- OUTSIDE RECORDS SUMMARY | 2020-02-02 07:55 | XMS RPT_ITS | CCD ---
:1955 External Reference #:[id number] Author Organization [facility] Care Team Providers Name Role Phone Unavailable Unavailable Unavailable Results Result Name Value Range Unit Interpretation Flag Date [facility]) Normal 09-15-2019 [facility] BETTY RICHARD ([id number]) 1955 [facility] Time Provider Department ([id number]) 09/15/19 ALEXANDER HERNANDEZ FAMWS During your visit [...] Date 09/15/2019 Noted Resolved Elevated Blood Pressure [[id number]] 02/21/2009 10/04/2009 Weight Loss [R63.4] 02/21/2009 06/10/2009 [...] OBSOLETE Refill (FAMPWS) Normal 08-14-2019 Kyle allen [facility] BETTY RICHARD ([id number]) 1955 [facility] Date Time Provider Department ([id number]) 08/14/19 ALEXANDER HERNANDEZ During your visit today, [...] Date 08/14/2019 Noted Resolved Elevated Blood Pressure [[id number]] 02/21/2009 10/04/2009 Weight Loss [R63.4] 02/21/2009 06/10/2009 [...] * *Final Report* * * Normal 06-28 [facility] FRONTAL/LAT DATE OF EXAM: Jun 29 2019 2:11PM [facility] WRX 5291 - XR CHEST 2V FRONTAL/LAT / (84213) PROCEDURE REASON: History of malignant neoplasm of [...] th e spine. IMPRESSION: Overall findings unchanged. [employer]: MOLLY Transcribe Date/Time: Jun 29 2019 2:19P Dictated by : ERICA AHMADI MD This examination was interpreted and the report reviewed and electronically signed by: ERICA AHMADI MD on Jun 29 2019 2:22PM EST [id number] progress on 2019-06 PROGRESS HNO ID: [id number] Normal 06-29-2019 [facility] Author: Janet Dan (Rt) Galina Borrero [facility] ([id number]) Service: ? Author Type: Turkey Pinner Type: Progress Notes Filed: 06/29/2019 2:11 PM [...] on 2019-06-29 DARVINN Telephone (PRESLEY) Normal 06-29-2019 [facility] BETTY RICHARD ([id number]) 1955 [facility] Time Provider Department () 06/29/19 TANYA [...] of oropharynx [Z85.819] Order(s):XR CHEST 2V FRONTAL/LAT [[id number]] Order #: [id number] FUTURE Prescriptions as of 06/29/2019 Sig: [...] Date 06/29/2019 Noted Resolved Elevated Blood Pressure [XXL5168] 02/21/2009 10/04/2009 Weight Loss [R63.4] 02/21/2009 06/10/2009 [...] on 06/29/19 MARLON Telephone (PRESLEY) Normal 06-29-2019 [facility] BETTY RICHARD ([id number]) 1955 M [facility] Date Time Provider Department ([id number]) 06/29/19 TANYA RODRÍGUEZ During your visit today, [...] Date 06/29/2019 Noted Resolved Elevated Blood Pressure [ELH4703] 02/21/2009 10/04/2009 Weight Loss [R63.4] 02/21/2009 06/10/2009 [...] on 2019-04-06 CNCO Letter Text Normal 04-06-2019 [facility] ([id number]) progress on 2019-03 PROGRESS HNO ID: [id number] Normal 04-03-2019 [facility] Author: Alexander Hernandez [facility] ([id number]) Service: ? Author Type: Physician Type: Progress [...] liquid as needed, Only able to tolerate Hope instant br eakfast, no other foods/supplements. Hypothyroidism, taking levothyroxine 75 mcg daily TSH Date Value Ref Range Status 03/30/2019 1.470 0.270 - 4.200 uU/mL Final PAST MEDICAL HISTORY Diagnosis Date - Cigar smoker in past - COPD (chronic obstructive pulmonary disease) (HCC) 02/22/[address] 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 Moeller Oncology, Dr. Deidre shahid ENT, Dr. Butts Radiation - Shoulder pain, bilateral 1993 PAST SURGICAL HISTORY Procedure Laterality Date - PAST SURGICAL HISTORY OF 05/25/11 Peg tube placement, removed 02/26/2012 - [place] ANESTH,NOSE,SINUS SURGERY - RADIATION THERAPY Pharyngeal cancer [...] See patient instructions. Alexander Hernandez DO [address] [place] [address] fecal occult bld tst on 2019-04-03 Immuno FOB Negative Negative Normal 04-03-2019 Senia solis [facility] ([id number]) Comment: Result Comment: This test wa s developed and its performance characteristics determined by [facility]'s [facility] [place] ( PLOR). It has not been cleared or a pproved by the FDA. [facility] is regulated under CLIA as qualified to perform high complexity testing. This test is used for clinic al purposes. It should not be regarded as investigational or for research. Performed By: #### IFOBT ### #[facility] [address] [place], [place] [phone] ekg1 on 2019-04-03 EKG1 NAME : CHANTELBETTY TREVINO Normal 2018 [facility] PID : [id number] Gerry ceballos ([id number]) : 1955 Gender : Male Race : [...] ms QTC Calculation(Bazett) : 418 ms P [place] : 81 degrees R [place] : 65 degrees T [place] : 75 degrees Test Reason : Location : 185 : [facility] Overread By : FAMILIA BATES D.O. Edited By : FAMILIA BATES D.O. Referred By : ALEXANDER HERNANDEZ Acquired by : lorenzo DOSS on 2019-04-03 CNOV Office Visit (FAMPWS) Normal 04-03-20 19 [facility] BESSBETTY Manley ([id number]) 1955 [facility] Time Provider Department ([id number]) 04/03/19 10:20 AM ALEXANDER HERNANDEZ FAMPWS During [...] liquid as needed, Only able to tolerate Hope instant breakfast, n o other foods/supplements. Hypothyroidism, taking levothyroxine 75 mcg daily TSH Date Value Ref Range Status 03/30/2019 1.470 0.270 - 4.200 uU/mL Final PAST MEDICAL HISTORY Diagnosis Date - Cigar smoker in past - COPD (chronic obstructive pulmonary disease) (HCC) 02/22/[address] 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 Moeller Oncology, Dr. Gasca ENT, Dr. Butts Radiation - Shoulder pain, bilateral 1993 PAST SURGICAL HISTORY Procedure Laterality Date - PAST SURGICAL HISTORY OF 05/25/11 Peg tube placement, removed 02/26/2012 - [place] ANESTH,NOSE,SINUS SURGERY - RADIATION THERAPY Pharyngeal cancer [...] plan. See patient instructions. Alexander Hernandez DO [address] [facility] [place] [address] Referring Provider: SELF [200] Allergies As of [...] Order(s):FECAL OCCULT BLOOD TEST [SQIFOBT] Order #: [id number] FUTURE ECG COMPLETE [ECG01] Order #: [id number] FUTURE Prescriptions as of 04/03/2019 Sig: LEVOTHYROXINE [...] TSH Qn 1.470 0.270-4.200 uU/mL Normal 03-30-2019 [facility] ([id number]) Comment: Performed By: #### BMP, LIPB , TSH ####[facility] [address] [place] [address] [phone] lipid panel, basic on 2019-03-30 Cholesterol [Mass/Vol] 159 <200 mg/dL Normal 019 [facility] (24105) Comment: Result Comment: <200 mg/dL, Desirable 200-239 mg/dL, Borderline hi gh >239 mg/dL, High Performed By: #### BMP, LIPB , TSH ####[facility] [place] [address] [phone] Cholesterol in HDL 53 >39 mg/dL Normal 03-30-2019 [facility] [Mass/Vol] (31646) Comment: Result Comment: 40-59 mg/dL, Acceptable >59 mg/dL, High: Negative ri sk factor for coronary heart disease <40 mg/dL, Low: Positive ris k factor for coronary heart disease Performed By: #### BMP, LIPB , TSH ####[place] [address] [address] [place] [address] [phone] Cholesterol in LDL 93 <100 mg/dL Normal 03-30-2019 [facility] [Mass/Vol] [facility] ([id number]) Comment: Result Comment: <100 mg/dL, Optimal 100-129 mg/dL, Near optimal/ above optimal 130-159 mg/dL, Borderline hi gh 160-189 mg/dL, High >189 mg/dL, Very high Secondary prevention optimal LDL Cholesterol levels are recommended to be < 70 mg/dL Performed By: #### BMP, LIPB , TSH ####[address] [address] [phone] Fasting Time 5 hrs Normal 03-30-2019 [facility] (89956) Comment: Performed By: #### BMP, LIPB , TSH ####[address] [place] [address] [phone] LDL:HDL Ratio 1.75 <2.54 Normal 03-30-2019 [facility] (92886) Comment: Result Comment: Reference: 1. National Cholesterol Educ ation Program ATP III Guideline At-A-Glance Quick Desk Reference: National Heart, Lung, and Blood [place]. National Institutes of Health. 2001: NIH Publication No. 01-3305. 2. An International Atherosc lerosis Society position paper: global recommendations for the management of dyslipidemia: executive summary, Atherosclerosis. 2014: 232(2):410-413. Performed By: #### BMP, LIPB , TSH ####[place] [id number] [place] [address] [phone] Non HDL Cholesterol 106 <130 mg/dL Normal 03-30-2019 [facility] (43381) Comment: Result Comment: <130 mg/dL, Optimal 130-159 mg/dL, Near optimal/ above optimal 160-189 mg/dL, Borderline hi gh 190-219 mg/dL, High >219 mg/dL, Very high Secondary prevention optimal non HDL Cholesterol levels are recommended to be < 100 mg/dL Performed By: #### BMP, LIPB , TSH ####[place] [address] [phone] TC:HDL Ratio 3.00 <5.10 Normal 03-30-2019 [facility] (81544) Comment: Performed By: #### BMP, LIPB , TSH ####[place] [address] [phone] Triglyceride [Mass/Vol] 65 <150 mg/dL Normal 2018 [facility] (79009) Comment: Result Comment: <150 mg/dL, Normal 150-199 mg/dL, Borderline hi gh 200-499 mg/dL, High >499 mg/dL, Very high Performed By: #### BMP, LIPB , TSH ####[place] [address] [phone] VLDL Cholesterol 13 <30 mg/dL Normal 03-30-2019 [facility] (13638) Comment: Performed By: #### BMP, LIPB , TSH ####[place] [address] [phone] basic metabolic panl on 2019-03-30 Anion gap [Moles/Vol] 13 9-18 mmol/L Normal 03-30-20 19 [facility] (42234) Comment: Performed By: #### BMP, LIPB , TSH ####[place] [address] [phone] Calcium [Mass/Vol] 9.6 8.5-10.2 mg/dL Normal 03-30-2019 [facility] (83855) Comment: Performed By: #### BMP, LIPB , TSH ####[facility] [address] [place] [address] [phone] Chloride [Moles/Vol] 87 97-105 mmol/L Low 9 [facility] (09926) Comment: Performed By: #### BMP, LIPB , TSH ####[facility] [place] [address] [phone] CO2 [Moles/Vol] 24 22-30 mmol/L Normal 03-30-2019 [facility] (92229) Comment: Performed By: #### BMP, LIPB , TSH ####[facility] [place] [address] [phone] Creatinine [Mass/Vol] 0.71 0.73-1.22 mg/dL Low 03-30-20 19 [facility] (09123) Comment: Performed By: #### BMP, LIPB , TSH ####[facility] [place] [address] [phone] eGFR- Amer. >60 Normal 03-30-2019 [facility] (41096) Comment: Performed By: #### BMP, LIPB , TSH ####[facility] [place] [address] [phone] GFR/1.73 sq M predicted >60 mL/min/{1.73_m2} Normal 03-30-2019 [facility] among non-blacks MDRD [facility] (84510) (S/P/Bld) [Vol rate/Area] Comment: Result Comment: eGFR [...] GFR. Performed By: #### ABBE ROCA TSH ####[facility] [place] [address] [phone] Glucose [Mass/Vol] 70 74-99 mg/dL Low 03-30-2019 [facility] (68296) Comment: Result Comment: The [place] Diabetes Association (ADA) provides guidance for cutoff [...] diabetes. Reference: Standards of [facility] Care in Diabetes 2016, [place] Diabetes Association. Diabetes Care. 2016.39(Suppl 1). Performed By: #### ABBE ROCA TSH ####[facility] [place] [address] [phone] Potassium [Moles/Vol] 4.8 3.7-5.1 mmol/L Normal 03-30-20 [facility] (49401) Comment: Performed By: #### ABBE ROCA , TSH ####[facility] [place] [address] [phone] Sodium [Moles/Vol] 124 136-144 mmol/L Low 03-30-2019 [facility] (35389) Comment: Performed By: #### ABBE ROCA , TSH ####[facility] [place] [address] [phone] Urea nitrogen [Mass/Vol] 18 9-24 mg/dL Normal 03-30 [facility] (97509) Comment: Performed By: #### BMP, LIPB , TSH ####[facility] [address] [place] [address] [phone] cnptoutreach on 201 12-31-25 CNPTOUTREACH Patient Outreach (FAMPST) Normal 1 05-17-2018 [facility] BETTY RICHARD ([id number]) 1955 [facility] Date Time Provider Department ([id number]) 03/17/19 ALEXANDER HERNANDEZ FAMPST During your visit today, we recorded the following informati on about you: Allergies As of Date: 03/17/2019 (No Known Allergies) Date Reviewed: 10/29/2018 Reviewed by: Lary Murdock Ma - Fully Assessed Visit Diagnoses:Essential hypertension [I10] Mixed hyperlipidemia [E78.2] Hypothyroidism, acquired [E03.9] Order(s):BASIC METABOLIC PNL [SQBMP] Order #: [id number] FUT URE LIPID PANEL BASIC [SQLIPB] Order #: [id number] FUTURE TSH BLD [SQTSH] Order #: [id number] FUTURE Prescriptions as of 03/17/2019 Sig: LEVOTHYROXINE [...] (FAMPWS) Normal 03-05-2019 Kyle allen BETTY Vincent ([id number]) 1955 [facility] Date Time Provider Department ([id number]) 03/05/19 ALEXANDER HERNANDEZ During your visit today, [...] on 2019-01 OBSOLETE Refill (FAMPWS) Normal 02-09-2019 [facility] BETTY RICHARD ([id number]) 1955 [facility] Time Provider Department ([id number]) 02/09/19 ALEXANDER HERNANDEZ FAMPWS During your visit [...] [Z12.11] INVALID FOR* Finger laceration, initial encounter [E91.787D] INVALID FOR* Prescriptions ordered this encounter Disp [...] on 2019-01 OBSOLETE Refill (FAMPWS) Normal 02-06-2019 [facility] BETTY RICHARD ([id number]) 1955 [facility] Time Provider Department ([id number]) 02/06/19 ALEXANDER HERNANDEZ FAMPWS During your visit [...] 02/09/19 progress on 2018-11 PROGRESS HNO ID: [id number] Normal 11-21-2018 [facility] Author: Beverly Flynn ([id number]) Service: ? Author Type: Chief Sustainability Officer Type: Progress Notes Filed: 11/21/2018 11:46 AM Note Text: [facility] [employer] WORKER QUICKNOTE Provider Action/FYI: Bp was 100/80 on 09-23-18. No nurse visit needed. Patient identified by name and . Beverly Flynn MA progress on 2018-10 PROGRESS HNO ID: [id number] Normal 11-14-2018 [facility] Author: Beverly Flynn [facility] ([id number]) Service: ? Author Type: Chief Sustainability Officer Type: Progress Notes Filed: 11/21/2018 11:46 AM Note Text: PHMA TEAMLET DOCUMENTATION Provider Action/FYI: Nurse visit PSR Action/FYI: schedule nurse Teamlet has identified patient by name and date of . Team: Alexander Hernandze DO, ELADIO Gilman, RACHANA Gomez LPN Kathy [...] CNPTOUTREACH Patient Outreach (FAMPWS) Normal 0 11-14-2018 [facility] BETTY RICHARD ([id number]) 1955 [facility] Time Provider Department ([id number]) 11/14/18 [facility] FLYNN (GURU) FAMPWS During your [...] GURU Salazar MA 11/21/2018 11:46 AM Signed [facility] [place] [employer] WORKER QUICKNOTE Provider Action/FYI: Bp was 100/80 on [...] 11/21/18 progress on 2018-10 PROGRESS HNO ID: [id number] Normal 10-29-2018 [facility] Author: Taisha Whitman [facility] Service: ? [facility] Author Type: Nurse Practitioner ([id number]) Type: Progress Notes Filed: 11/04/2018 7:25 AM Note Text: VASCULAR SURGERY WOUND OSTOMY CONTINENCE CONSULTATION CHIEF COMPLAINT: Wound check and evaluation HISTORY OF PRESENT ILLNESS: right 4th finger PAST MEDICAL HISTORY Diagnosis Date - Cigar smoker in past - COPD (chronic obstructive pulmonary disease) (HCC) 02/22/20 Dr. 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 Moeller Oncology, Dr. Deidre shahid ENT, Dr. Butts Radiation - Shoulder pain, bilateral 1993 PAST SURGICAL HISTORY Procedure Laterality Date - PAST SURGICAL HISTORY OF 05/25/11 Peg tube placement, removed 02/26/2012 - [place] ANESTH,NOSE,SINUS SURGERY - RADIATION THERAPY Pharyngeal cancer [...] education/counselling/coordination of care. Taisha Whitman, PhD, WOCN, CASER UP cnov on 2018-10-29 CNOV Office Visit (VASSWS) Normal 10-30-19 [facility] BETTY RICHARD ([id number]) 1955 M [facility] Time Provider Department ([id number]) 10/29/18 2:30 PM TAISHA WHITMAN VASSWS During your visit today, we recorded the following informati on about you: Taisha Whitman, PhD, BRANCH CUSTOMER SERVICE REPRESENTATIVE.CASER UP 11/04/2018 7:25 AM Signed VASCULAR SURGERY WOUND OSTOMY CONTINENCE CONSULTATION CHIEF COMPLAINT: Wound check and evaluation HISTORY OF PRESENT ILLNESS: right 4th finger PAST MEDICAL HISTORY Diagnosis Date - Cigar smoker in past - COPD (chronic obstructive pulmonary disease) ([facility]) 02/22/[address] 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 Moeller Oncology, Dr. Gasca ENT, Dr. Butts Radiation - Shoulder pain, bilateral 1993 PAST SURGICAL HISTORY Procedure Laterality Date - PAST SURGICAL HISTORY OF 05/25/11 Peg tube placement, removed 02/26/2012 - [place] ANESTH,NOSE,SINUS SURGERY - RADIATION THERAPY Pharyngeal cancer [...] education/counselling/coordination of care. Taisha Whitman, PhD, WOCN, CASER UP Referring Provider: ALEXANDER HERNANDEZ [[id number]] Allergies As of Date: 10/29/2018 (No Known Allergies) Date Reviewed: 10/29/2018 Reviewed by: Lary Murdock Ma - Fully Assessed Reason for Visit: Follow Up [171] Primary Visit Diagnosis:Avul anthony of finger tip, subsequent encounter [S64.738D] Prescriptions as of 10/29/2018 Sig: LORATADINE 10 [...] on 2018-10 OBSOLETE Refill (FAMPWS) Normal 10-24-2018 [facility] BETTY RICHARD ([id number]) 1955 [facility] Date Time Provider Department ([id number]) 10/24/18 ALEXANDER HERNANDEZ FAMPWS During your visit [...] last office visit in primary care: 09/23/18 CASER UP, PCP, next 04/03/19 Last 2 Encounter Wt [...] 10/24/18 progress on 2018-09 PROGRESS HNO ID: [id number] Normal 10-17-2018 [facility] Author: Taisha Whitman [facility] Service: ? [facility] Author Type: Nurse Practitioner ([id number]) Type: Progress Notes Filed: 10/26/2018 9:27 PM Note Text: VASCULAR SURGERY WOUND OSTOMY CONTINENCE CONSULTATION CHIEF COMPLAINT: Wound check and evaluation HISTORY OF PRESENT ILLNESS: right 4th finger wound PAST MEDICAL HISTORY Diagnosis Date - Cigar smoker in past - COPD (chronic obstructive pulmonary disease) (HCC) 02/22/20 Dr. 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 Moeller Oncology, Dr. Deidre shahid ENT, Dr. Butts Radiation - Shoulder pain, bilateral 1993 PAST SURGICAL HISTORY Procedure Laterality Date - PAST SURGICAL HISTORY OF 05/25/11 Peg tube placement, removed 02/26/2012 - [place] ANESTH,NOSE,SINUS SURGERY - RADIATION THERAPY Pharyngeal cancer [...] education/counselling/coordination of care. Taisha Whitman, PhD, WOCN, CASER UP cnov on 2018-10-17 CNOV Office Visit (VASSWS) Normal 10-18-19 [facility] BETTY RICHARD ([id number]) 1955 M [facility] Date Time Provider Department ([id number]) 10/17/18 11:30 AM TAISHA WHITMAN VASSWS During your visit today, we recorded the following informati on about you: Temperature Blood pressure 98.3 degrees 146/99 Taisha Whitman, PhD, BRANCH CUSTOMER SERVICE REPRESENTATIVE.CASER UP 10/26/2018 9:27 PM Signed VASCULAR SURGERY WOUND OSTOMY CONTINENCE CONSULTATION CHIEF COMPLAINT: Wound check and evaluation HISTORY OF PRESENT ILLNESS: right 4th finger wound PAST MEDICAL HISTORY Diagnosis Date - Cigar smoker in past - COPD (chronic obstructive pulmonary disease) (HCC) 02/22/20 Dr. 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 Moeller Oncology, Dr. Gasca ENT, Dr. Butts Radiation - Shoulder pain, bilateral 1993 PAST SURGICAL HISTORY Procedure Laterality Date - PAST SURGICAL HISTORY OF 05/25/11 Peg tube placement, removed 02/26/2012 - [place] ANESTH,NOSE,SINUS SURGERY - RADIATION THERAPY Pharyngeal cancer [...] education/counselling/coordination of care. Taisha Whitman, PhD, WOCN, CASER UP Referring Provider: ALEXANDER HERNANDEZ [[id number]] Allergies As of Date: 10/17/2018 (No Known [...] [Z12.11] INVALID FOR* Finger laceration, initial encounter [S68.219A] INVALID FOR* Encounter Status:Closed by TAISHA WHITMAN CNP on 10/26/18 obsolete on 2018-09 OBSOLETE Refill (FAMPWS) Normal 10-15-2018 Kyle allen BETTY Vincent ([id number]) 1955 [facility] Date Time Provider Department ([id number]) 10/15/18 ALEXANDER HERNANDEZ During your visit today, [...] [Z12.11] INVALID FOR* Finger laceration, initial encounter [V43.452A] INVALID FOR* Prescriptions ordered this encounter Disp [...] 10/15/18 progress on 2018-09 PROGRESS HNO ID: [id number] Normal 10-10-2018 [facility] Author: Taisha Whitman [facility] Service: ? [facility] Author Type: Nurse Practitioner ([id number]) Type: Progress Notes Filed: 10/12/2018 5:55 PM Note Text: VASCULAR SURGERY WOUND OSTOMY CONTINENCE CONSULTATION CHIEF COMPLAINT: Wound check and evaluation HISTORY OF PRESENT ILLNESS: right 4th finger injury PAST MEDICAL HISTORY Diagnosis Date - Cigar smoker in past - COPD (chronic obstructive pulmonary disease) ([facility]) 02/22/[address] 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 Moeller Oncology, Dr. Deidre shahid ENT, Dr. Butts Radiation - Shoulder pain, bilateral 1993 PAST SURGICAL HISTORY Procedure Laterality Date - PAST SURGICAL HISTORY OF 05/25/11 Peg tube placement, removed 02/26/2012 - [place] ANESTH,NOSE,SINUS SURGERY - RADIATION THERAPY Pharyngeal cancer [...] education/counselling/coordination of care. Taisha Whitman, PhD, WOCN, CASER UP cnov on 2018-10-10 CNOV Office Visit (VASSWS) Normal 10-11-19 19 [facility] BETTY Vincent ([id number]) 1955 M [facility] Date Time Provider Department ([id number]) 10/10/18 10:30 AM TAISHA WHITMAN During your visit today, we recorded the following informati on about you: Taisha Whitman, PhD, BRANCH CUSTOMER SERVICE REPRESENTATIVE.CASER UP 10/12/2018 5:55 PM Signed VASCULAR SURGERY WOUND OSTOMY CONTINENCE CONSULTATION CHIEF COMPLAINT: Wound check and evaluation HISTORY OF PRESENT ILLNESS: right 4th finger injury PAST MEDICAL HISTORY Diagnosis Date - Cigar smoker in past - COPD (chronic obstructive pulmonary disease) (HCC) 02/22/[address] 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 Moeller Oncology, Dr. Gasca ENT, Dr. Butts Radiation - Shoulder pain, bilateral 1993 PAST SURGICAL HISTORY Procedure Laterality Date - PAST SURGICAL HISTORY OF 05/25/11 Peg tube placement, removed 02/26/2012 - [place] ANESTH,NOSE,SINUS SURGERY - RADIATION THERAPY Pharyngeal cancer [...] education/counselling/coordination of care. Taisha Whitman, PhD, WOCN, CASER UP Referring Provider: ALEXANDER HERNANDEZ [[id number]] Allergies As of Date: 10/10/2018 (No Known Allergies) Date Reviewed: 10/10/2018 Reviewed by: Lary Murdock Ma - Fully Assessed Reason for Visit: Wound Care [485] Primary Visit Diagnosis:Avulsion of finger tip, nikhil dan encounter [X70.491Q] Prescriptions as of 10/10/2018 Sig: MIRTAZAPINE 15 [...] 10/12/18 progress on 2018-09 PROGRESS HNO ID: [id number] Normal 10-01-2018 [place] Author: Taisha Whitman [facility] Service: ? [place] Author Type: Nurse Practitioner ([id number]) Type: Progress Notes Filed: 10/05/2018 4:52 PM Note Text: VASCULAR SURGERY WOUND OSTOMY CONTINENCE CONSULTATION CHIEF COMPLAINT: Wound check and evaluation HISTORY OF PRESENT ILLNESS: right 4th finger evulsion PAST MEDICAL HISTORY Diagnosis Date - Cigar smoker in past - COPD (chronic obstructive pulmonary disease) (HCC) 02/22/20 Dr. 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 Moeller Oncology, Dr. Deidre shahid ENT, Dr. Butts Radiation - Shoulder pain, bilateral 1993 PAST SURGICAL HISTORY Procedure Laterality Date - PAST SURGICAL HISTORY OF 05/25/11 Peg tube placement, removed 02/26/2012 - [place] ANESTH,NOSE,SINUS SURGERY - RADIATION THERAPY Pharyngeal cancer [...] none Edema: none Exudate: none Tissue color: [place] Tissue type: dry old blood washed off [...] education/counselling/coordination of care. Taisha Whitman, PhD, WOCN, CASER UP cnov on 2018-10-01 CNOV Office Visit (VASSWS) Normal 10-02-19 [place] [facility] AMINTAANGELICABETTY Manley ([id number]) 1955 M [place] Date Time Provider Department ([id number]) 10/01/18 3:30 PM TAISHA WHITMAN VASSWS During your visit today, we recorded the following informati on about you: Temperature Pulse Blood pressure Weight 98.6 degrees 61/minute 99/68 61.2 kg Taisha Whitman, PhD, BRANCH CUSTOMER SERVICE REPRESENTATIVE.CASER UP 10/05/2018 4:52 PM Signed VASCULAR SURGERY WOUND OSTOMY CONTINENCE CONSULTATION CHIEF COMPLAINT: Wound check and evaluation HISTORY OF PRESENT ILLNESS: right 4th finger evulsion PAST MEDICAL HISTORY Diagnosis Date - Cigar smoker in past - COPD (chronic obstructive pulmonary disease) ([facility]) 02/22/20 Dr. 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 Moeller Oncology, Dr. Gasca ENT, Dr. Butts Radiation - Shoulder pain, bilateral 1993 PAST SURGICAL HISTORY Procedure Laterality Date - PAST SURGICAL HISTORY OF 05/25/11 Peg tube placement, removed 02/26/2012 - [place] ANESTH,NOSE,SINUS SURGERY - RADIATION THERAPY Pharyngeal cancer [...] none Edema: none Exudate: none Tissue color: [place] Tissue type: dry old blood washed off [...] education/counselling/coordination of care. Taisha Whitman, PhD, WOCN, CASER UP Referring Provider: TAISHA WHITMAN [[id number]] Allergies As of Date: 10/01/2018 (No Known Allergies) Date Reviewed: 10/01/2018 Reviewed by: Lary Murdock Ma - Fully Assessed Reason for Visit: Follow Up [171] Primary Visit Diagnosis:Avulsion of finger tip, initia l encounter [E07.496B] Prescriptions as of 10/01/2018 Sig: MIRTAZAPINE 15 [...] 10/05/18 progress on 2018-09 PROGRESS HNO ID: [id number] Normal 09-24-2018 [place] Author: Taisha (Phd) (Senior Solutions Consultant) [facility] Service: ? [place] Author Type: Nurse Practitioner ([id number]) Type: Progress Notes Filed: 09/28/2018 3:50 PM [...] pulmonary disease) (HCC) 02/22/[address] 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 Moeller Oncology, Dr. Deidre shahid ENT, Dr. Butts Radiation - Shoulder pain, bilateral 1993 PAST SURGICAL HISTORY Procedure Laterality Date - PAST SURGICAL HISTORY OF 05/25/11 Peg tube placement, removed 02/26/2012 - [place] ANESTH,NOSE,SINUS SURGERY - RADIATION THERAPY Pharyngeal cancer [...] none Tissue color: Black, dark Red and [place] Tissue type: muscle and necrotic v dry [...] education/counselling/coordination of care. Taisha Whitman, PhD, WOCN, CASER UP cnov on 2018-09-24 CNOV Office Visit (VASSWS) Normal 09-25-19 19 [place] [facility] BETTY RICHARD ([id number]) 1955 [facility] Date Time Provider Department ([id number]) 09/24/18 2:30 PM TAISHA WHITMAN (PHD) (CASER UP) VASSWS During your visit today, we recorded the following informati on about you: Temperature Pulse Respiration Blood pressure 99.3 degrees 95/minute 16/minute 113/81 Weight Height 61.1 kg 1.727 m Taisha Whitman, PhD, BRANCH CUSTOMER SERVICE REPRESENTATIVE.CASER UP 09/28/2018 3:50 PM Signed VASCULAR SURGERY WOUND OSTOMY CONTINENCE CONSULTATION CHIEF COMPLAINT: Wound check and evaluation HISTORY OF PRESENT ILLNESS: right 4th fi nger traumatic injury by a mower blade on 09/15/2018. On PO ABX as per PCP PAST MEDICAL HISTORY Diagnosis Date - Cigar smoker in past - COPD (chronic obstructive pulmonary disease) (HCC) 02/22/20 Dr. 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 Moeller Oncology, Dr. Gasca ENT, Dr. Butts Radiation - Shoulder pain, bilateral 1993 PAST SURGICAL HISTORY Procedure Laterality Date - PAST SURGICAL HISTORY OF 05/25/11 Peg tube placement, removed 02/26/2012 - [place] ANESTH,NOSE,SINUS SURGERY - RADIATION THERAPY Pharyngeal cancer [...] none Tissue color: Black, dark Red and [place] Tissue type: muscle and necrotic v dry [...] education/counselling/coordination of care. Taisha Whitman, PhD, WOCN, CASER UP Referring Provider: JESSICA MENDOZA ([facility]) [[id number]] Allergies As of Date: 09/24/2018 (No Known [...] 09/28/18 progress on 2018-09 PROGRESS HNO ID: [id number] Normal 09-23-2018 [facility] Author: Jessica Camarillo) eRji Farias ([id number]) Service: ? Author Type: Nurse Practitioner Type: [...] past - COPD (chronic obstructive pulmonary disease) ([facility]) 02/22/20 Dr. 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 Moeller Oncology, Dr. Deidre shahid ENT, Dr. Butts Radiation - Shoulder pain, bilateral 1993 PAST SURGICAL HISTORY Procedure Laterality Date - PAST SURGICAL HISTORY OF 05/25/11 Peg tube placement, removed 02/26/2012 - [place] ANESTH,NOSE,SINUS SURGERY - RADIATION THERAPY Pharyngeal cancer [...] 2018-09-23 CNOV Office Visit (FAMPWS) Normal 09-24-19 [place] [facility] BETTY RICHARD ([id number]) 1955 M [place] Date Time Provider Department ([id number]) 09/23/18 1:40 PM [facility] your visit today, we recorded the [...] past - COPD (chronic obstructive pulmonary disease) ([facility]) 02/22/[address] 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 Moeller Oncology, Dr. Gasca ENT, Dr. Butts Radiation - Shoulder pain, bilateral 1993 PAST SURGICAL HISTORY Procedure Laterality Date - PAST SURGICAL HISTORY OF 05/25/11 Peg tube placement, removed 02/26/2012 - [place] ANESTH,NOSE,SINUS SURGERY - RADIATION THERAPY Pharyngeal cancer [...] encounter [S61.209D] Order(s):TDAP VACCINE AGE 7+ IM [[id number]] Order #: [id number] CONSULT TO SKIN CARE TEAM [[id number]] Order #: [id number]: 1 Prescriptions as of 09/23/2018 Sig: CEPHALEXIN [...] [Z12.11] INVALID FOR* Finger laceration, initial encounter [S63.366A] INVALID FOR* Other instructions from your clinician: 1. Please see wound care tomorrow. 2. Recheck here in 2 weeks. Encounter Status:Closed by JESSICA MENDOZA CNP on 09/23/18 progress on 2018-08 PROGRESS HNO ID: [id number] Normal 09-19-2018 [facility] Author: Jessica (Darvin) Reji Farias ([id number]) Service: ? Author Type: Nurse Practitioner Type: [...] right hand after coming into contact with icing mixer blade. The area was dressed. Pt was started on keflex. He has been changing dressings daily. He reports that he hasn't needed anything for pain. Sometime s throbs, but tolerable. PAST MEDICAL HISTORY: PAST MEDICAL HISTORY Diagnosis Date - Cigar smoker in past - COPD (chronic obstructive pulmonary disease) ([facility]) 02/22/20 Dr. 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 Moeller Oncology, Dr. Deidre shahid ENT, Dr. Butts Radiation - Shoulder pain, bilateral 1993 PAST SURGICAL HISTORY Procedure Laterality Date - PAST SURGICAL HISTORY OF 05/25/11 Peg tube placement, removed 02/26/2012 - [place] ANESTH,NOSE,SINUS SURGERY - RADIATION THERAPY Pharyngeal cancer [...] 2018-09-19 CNOV Office Visit (FAMPWS) Normal 09-20-19 [facility] BETTY RICHARD ([id number]) 1955 [facility] Date Time Provider Department ([id number]) 09/19/18 10:20 AM [facility] During your visit today, we recorded the [...] right hand after coming into contact with icing mixer blade. The area was dressed. Pt was started on keflex. He has been changing dressings daily. He reports that he hasn't needed anything for pain. Sometime s throbs, but tolerable. PAST MEDICAL HISTORY: PAST MEDICAL HISTORY Diagnosis Date - Cigar smoker in past - COPD (chronic obstructive pulmonary disease) ([facility]) 02/22/20 Dr. 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 Moeller Oncology, Dr. Gasca ENT, Dr. Butts Radiation - Shoulder pain, bilateral 1993 PAST SURGICAL HISTORY Procedure Laterality Date - PAST SURGICAL HISTORY OF 05/25/11 Peg tube placement, removed 02/26/2012 - [place] ANESTH,NOSE,SINUS SURGERY - RADIATION THERAPY Pharyngeal cancer [...] telpha, and dry sterile dressing applied after ykle ansing. Continue antibiotic therapy. Recheck early next [...] needed for wor sening/no improvement. Jessica Mendoza APRN.CASER UP Referring Provider: ALEXANDER HERNANDEZ [[id number]] Allergies As of Date: 09/19/2018 (No Known [...] encounter [S69.219A] INVALID FOR* Encounter Status:Closed by JESSICA MENDOZA CNP on 09/19/18 progress on 2018-08 PROGRESS HNO ID: [id number] Normal 09-16-2018 [facility] Author: Alexander Hernandez Farias ([id number]) Service: ? Author Type: Physician Type: Progress [...] obstructive pulmonary disease) (HCC) 02/22/20 Dr. 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 Moeller Oncology, Dr. Deidre shahid ENT, Dr. Butts Radiation - Shoulder pain, bilateral 1993 PAST SURGICAL HISTORY Procedure Laterality Date - PAST SURGICAL HISTORY OF 05/25/11 Peg tube placement, removed 02/26/2012 - [place] ANESTH,NOSE,SINUS SURGERY - RADIATION THERAPY Pharyngeal cancer [...] plan. See patient instructions. Alexander Hernandez DO [address] [place] [address] cnov on 2018-09-16 CNOV Office Visit (FAMPWS) Normal 09-17-19 [place] [facility] BETTY RICHARD ([id number]) 1955 [facility] Date Time Provider Department ([id number]) 09/16/18 2:20 PM [facility] visit today, we recorded the [...] obstructive pulmonary disease) (HCC) 02/22/20 Dr. 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 Moeller Oncology, Dr. Gasca ENT, Dr. Butts Radiation - Shoulder pain, bilateral 1994 PAST SURGICAL HISTORY Procedure Laterality Date - PAST SURGICAL HISTORY OF 05/25/11 Peg tube placement, removed 02/26/2012 - [place] ANESTH,NOSE,SINUS SURGERY - RADIATION THERAPY Pharyngeal cancer [...] See patient instructions. Alexander Hernandez DO [address] [place] [address] Referring Provider: SELF [[id number]] Allergies As of Date: 09/16/2018 (No Known Allergies) Date Reviewed: 09/16/2018 Reviewed by: Sona Rios LPN - Fully Assessed Reason for Visit: Laceration [249] Cmt: right ring finger lacerat ion from icing mixer yesterday Primary Visit Diagnosis:Finger laceration, initial encounter [...] INVALID FOR* Contact dermatitis due to poison fliiberto [L23.7] INVALID FOR* HBP (High Blood Pressure) [...] Finger laceration, initial encounter [S67.219A] INVALID FOR* Prescriptions ordered this encounter Disp [...] DATE CREATED AUTHOR AUTHOR'S ORGANIZATIO N 09/15/2019 [facility]
--- OUTSIDE RECORDS SUMMARY | 2020-02-02 07:56 | XMS RPT_ITS | CCD ---
:1955 External Reference #:[id number] Author Organization [facility] Care Team Providers Name Role Phone Unavailable Unavailable Unavailable Results Result Name Value Range Unit Interpretation Flag Date Location banner [facility] on 2019-09-15 [facility] Telephone (FAMPWS) Normal 09-15-2019 [place] [facility] BETTY RICHARD ([id number]) 1955 [facility] Time Provider Department ([id number]) 09/15/19 ALEXANDER HERNANDEZ FAMWS During your visit today, we recorded the following informati on about you: Navya Brabour RN 09/15/2019 8:19 AM Signed Anne from [facility] called, verified pt by name and birthdate. Pt at his home on 09-14-2019 at 1:01am. Navya Hernandez DO 09/15/2019 8:22 AM Signed Noted, condolences to the family Alexander Hernandez DO Allergies As of Date: 09/15/2019 (No Known Allergies) Date Reviewed: 04/03/2019 Reviewed by: Soan Rios LPN - Fully Assessed Reason for [...] Date 09/15/2019 Noted Resolved Elevated Blood Pressure [SUL5614] 02/21/2009 10/04/2009 Weight Loss [R63.4] 02/21/2009 06/10/2009 [...] OBSOLETE Refill (FAMPWS) Normal 08-14-2019 Kyle allen [facility] BETTY RICHARD ([id number]) 1955 [facility] Date Time Provider Department ([id number]) 08/14/19 ALEXANDER HERNANDEZ During your visit today, [...] Date 08/14/2019 Noted Resolved Elevated Blood Pressure [[id number]] 02/21/2009 10/04/2009 Weight Loss [R63.4] 02/21/2009 06/10/2009 [...] * *Final Report* * * Normal 06-28 [facility] FRONTAL/LAT DATE OF EXAM: Jun 29 2019 2:11PM [place] WRX 5291 - XR CHEST 2V FRONTAL/LAT / ([id number]) PROCEDURE REASON: History of malignant neoplasm of [...] th e spine. IMPRESSION: Overall findings unchanged. [employer] Internship: MOLLY Transcribe Date/Time: Jun 29 2019 2:19P Dictated by : ERICA AHMADI MD This examination was interpreted and the report reviewed and electronically signed by: ERICA AHMADI MD on Jun 29 2019 2:22PM EST [id number] progress on 2019-06 PROGRESS HNO ID: [id number] Normal 06-29-2019 [facility] Author: Janet Dan (Rt) Galina Borrero [place] ([id number]) Service: ? Author Type: Hand Splitter Type: Progress Notes Filed: 06/29/2019 2:11 PM [...] on 2019-06-29 DARVINN Telephone (PRESLEY) Normal 06-29-2019 [place] [facility] BETTY RICHARD ([id number]) 1955 [facility] Time Provider Department () 06/29/19 TANYA RODRÍGUEZ [...] of oropharynx [Z85.819] Order(s):XR CHEST 2V FRONTAL/LAT [[id number]] Order #: [id number] FUTURE Prescriptions as of 06/29/2019 Sig: [...] Date 06/29/2019 Noted Resolved Elevated Blood Pressure [BNI7014] 02/21/2009 10/04/2009 Weight Loss [R63.4] 02/21/2009 06/10/2009 [...] on 06/29/19 MARLON Telephone (PRESLEY) Normal 06-29-2019 [place] [facility] BETTY RICHARD ([id number]) 1955 M [place] Date Time Provider Department ([id number]) 06/29/19 TANYA RODRÍGUEZ During your visit today, [...] Date 06/29/2019 Noted Resolved Elevated Blood Pressure [QVY7077] 02/21/2009 10/04/2009 Weight Loss [R63.4] 02/21/2009 06/10/2009 [...] on 2019-04-06 CNCO Letter Text Normal 04-06-2019 [facility] ([id number]) progress on 2019-03 PROGRESS HNO ID: [id number] Normal 04-03-2019 [facility] Author: Alexander Hernandez [place] ([id number]) Service: ? Author Type: Physician Type: Progress [...] liquid as needed, Only able to tolerate [place] instant br eakfast, no other foods/supplements. Hypothyroidism, taking levothyroxine 75 mcg daily TSH Date Value Ref Range Status 03/30/2019 1.470 0.270 - 4.200 uU/mL Final PAST MEDICAL HISTORY Diagnosis Date - Cigar smoker in past - COPD (chronic obstructive pulmonary disease) (HCC) 02/22/[address] Farrell Haulpak Driver - Eczema 03/08/2010 - Hx of primary hypertension resolved, no longer on medications - Hypothyroidism 08/2015 - Oral cancer (HCC) Apr 2011 Pharyngeal; feeding tube (05/2011), Dr. Moeller Oncology, Dr. Deidre shahid ENT, Dr. Butts Radiation - Shoulder pain, bilateral 1993 PAST SURGICAL HISTORY Procedure Laterality Date - PAST SURGICAL HISTORY OF 05/25/11 Peg tube placement, removed 02/26/2012 - [place] ANESTH,NOSE,SINUS SURGERY - RADIATION THERAPY Pharyngeal cancer [...] See patient instructions. Alexander Hernandez DO [address] [place] [address] fecal occult bld tst on 2019-04-03 Immuno FOB Negative Negative Normal 04-03-2019 [facility] Pending Sale To [facility] ([id number]) Comment: Result Comment: This test wa s developed and its performance characteristics determined by [facility]'s [facility] [place] ( PL[facility]). It has not been cleared or a pproved by the FDA. [facility] is regulated under CLIA as qualified to perform high complexity testing. This test is used for clinic al purposes. It should not be regarded as investigational or for research. Performed By: #### IFOBT ### #[facility] [address] [place], [place] [phone] ekg1 on 2019-04-03 EKG1 NAME : CHANTELBETTY TREVINO Normal 2018 [facility] PID : [id number] Gerry ceballos ([id number]) : 1955 Gender : Male Race : [...] ms QTC Calculation(Bazett) : 418 ms P [place] : 81 degrees R [place] : 65 degrees T [place] : 75 degrees Test Reason : Location : 185 : [place] Overread By : FAMILIA BATES D.O. Edited By : FAMILIA BATES D.O. Referred By : ALEXANDER HERNANDEZ Acquired by : lorenzo DOSS on 2019-04-03 CNOV Office Visit (FAMPWS) Normal 04-03-20 19 [place] [facility] BESSBETTY Manley ([id number]) 1955 [facility] Time Provider Department ([id number]) 04/03/19 10:20 AM ALEXANDER HERNANDEZ FAMPWS During [...] liquid as needed, Only able to tolerate [place] instant breakfast, n o other foods/supplements. Hypothyroidism, taking levothyroxine 75 mcg daily TSH Date Value Ref Range Status 03/30/2019 1.470 0.270 - 4.200 uU/mL Final PAST MEDICAL HISTORY Diagnosis Date - Cigar smoker in past - COPD (chronic obstructive pulmonary disease) (HCC) 02/22/[address] Farrell Haulpak Driver - Eczema 03/08/2010 - Hx of primary hypertension resolved, no longer on medications - Hypothyroidism 08/2015 - Oral cancer (HCC) Apr 2011 Pharyngeal; feeding tube (05/2011), Dr. Moeller Oncology, Dr. Gasca ENT, Dr. Butts Radiation - Shoulder pain, bilateral 1993 PAST SURGICAL HISTORY Procedure Laterality Date - PAST SURGICAL HISTORY OF 05/25/11 Peg tube placement, removed 02/26/2012 - [place] ANESTH,NOSE,SINUS SURGERY - RADIATION THERAPY Pharyngeal cancer [...] plan. See patient instructions. Alexander Hernandez DO [address] [place] [address] Referring Provider: SELF [200] Allergies As of [...] Order(s):FECAL OCCULT BLOOD TEST [SQIFOBT] Order #: [id number] FUTURE ECG COMPLETE [ECG01] Order #: [id number] FUTURE Prescriptions as of 04/03/2019 Sig: LEVOTHYROXINE [...] TSH Qn 1.470 0.270-4.200 uU/mL Normal 03-30-2019 [facility] ([id number]) Comment: Performed By: #### BMP, LIPB , TSH ####[facility] [address] [place] [address] [phone] lipid panel, basic on 2019-03-30 Cholesterol [Mass/Vol] 159 <200 mg/dL Normal 019 [facility] (61409) Comment: Result Comment: <200 mg/dL, Desirable 200-239 mg/dL, Borderline hi gh >239 mg/dL, High Performed By: #### BMP, LIPB , TSH ####[facility] [place] [address] [phone] Cholesterol in HDL 53 >39 mg/dL Normal 03-30-2019 [facility] [Mass/Vol] (74041) Comment: Result Comment: 40-59 mg/dL, Acceptable >59 mg/dL, High: Negative ri sk factor for coronary heart disease <40 mg/dL, Low: Positive ris k factor for coronary heart disease Performed By: #### BMP, LIPB , TSH ####[place] [address] [address] [phone] Cholesterol in LDL 93 <100 mg/dL Normal 03-30-2019 [facility] [Mass/Vol] [place] (73290) Comment: Result Comment: <100 mg/dL, Optimal 100-129 mg/dL, Near optimal/ above optimal 130-159 mg/dL, Borderline hi gh 160-189 mg/dL, High >189 mg/dL, Very high Secondary prevention optimal LDL Cholesterol levels are recommended to be < 70 mg/dL Performed By: #### BMP, LIPB , TSH ####[address] [place] [address] [phone] Fasting Time 5 hrs Normal 03-30-2019 [facility] (49374) Comment: Performed By: #### BMP, LIPB , TSH ####[address] [place] [address] [phone] LDL:HDL Ratio 1.75 <2.54 Normal 03-30-2019 [facility] [place] [facility] (82842) Comment: Result Comment: Reference: 1. National Cholesterol Educ ation Program ATP III Guideline At-A-Glance Quick Desk Reference: National Heart, Lung, and Blood [place]. National Institutes of Health. 2001: NIH Publication No. 01-3305. 2. An International Atherosc lerosis Society position paper: global recommendations for the management of dyslipidemia: executive summary, Atherosclerosis. 2014: 232(2):410-413. Performed By: #### BMP, LIPB , TSH ####[place] [address] [place] [address] [phone] Non HDL Cholesterol 106 <130 mg/dL Normal 03-30-2019 [facility] (96153) Comment: Result Comment: <130 mg/dL, Optimal 130-159 mg/dL, Near optimal/ above optimal 160-189 mg/dL, Borderline hi gh 190-219 mg/dL, High >219 mg/dL, Very high Secondary prevention optimal non HDL Cholesterol levels are recommended to be < 100 mg/dL Performed By: #### BMP, LIPB , TSH ####[place] [address] [phone] TC:HDL Ratio 3.00 <5.10 Normal 03-30-2019 [facility] (61352) Comment: Performed By: #### BMP, LIPB , TSH ####[place] [address] [phone] Triglyceride [Mass/Vol] 65 <150 mg/dL Normal 2018 [facility] (83955) Comment: Result Comment: <150 mg/dL, Normal 150-199 mg/dL, Borderline hi gh 200-499 mg/dL, High >499 mg/dL, Very high Performed By: #### BMP, LIPB , TSH ####[place] [address] [phone] VLDL Cholesterol 13 <30 mg/dL Normal 03-30-2019 [facility] (07166) Comment: Performed By: #### BMP, LIPB , TSH ####[place] [address] [phone] basic metabolic panl on 2019-03-30 Anion gap [Moles/Vol] 13 9-18 mmol/L Normal 03-30-20 19 [facility] (03915) Comment: Performed By: #### BMP, LIPB , TSH ####[place] [address] [phone] Calcium [Mass/Vol] 9.6 8.5-10.2 mg/dL Normal 03-30-2019 [facility] (29561) Comment: Performed By: #### BMP, LIPB , TSH ####[facility] [address] [address] [phone] Chloride [Moles/Vol] 87 97-105 mmol/L Low 9 [facility] (16161) Comment: Performed By: #### BMP, LIPB , TSH ####[facility] [place] [address] [phone] CO2 [Moles/Vol] 24 22-30 mmol/L Normal 03-30-2019 [facility] (43416) Comment: Performed By: #### BMP, LIPB , TSH ####[facility] [place] [address] [phone] Creatinine [Mass/Vol] 0.71 0.73-1.22 mg/dL Low 03-30-20 19 [facility] (35674) Comment: Performed By: #### BMP, LIPB , TSH ####[facility] [place] [address] [phone] eGFR- Amer. >60 Normal 03-30-2019 [facility] (02026) Comment: Performed By: #### BMP, LIPB , TSH ####[facility] [place] [address] [phone] GFR/1.73 sq M predicted >60 mL/min/{1.73_m2} Normal 03-30-2019 [facility] among non-blacks MDRD [place] (21487) (S/P/Bld) [Vol rate/Area] Comment: Result Comment: eGFR [...] GFR. Performed By: #### ABBE ROCA TSH ####[facility] [place] [address] [phone] Glucose [Mass/Vol] 70 74-99 mg/dL Low 03-30-2019 [facility] (15093) Comment: Result Comment: The [place] Diabetes Association (ADA) provides guidance for cutoff [...] for diagnosis of diabetes. Reference: Standards of [facility] Care in Diabetes 2016, [place] Diabetes Association. Diabetes Care. 2016.39(Suppl 1). Performed By: #### ABBE ROCA TSH ####[facility] [place] [address] [phone] Potassium [Moles/Vol] 4.8 3.7-5.1 mmol/L Normal 03-30-20 [facility] (65175) Comment: Performed By: #### ABBE ROCA , TSH ####[facility] [place] [address] [phone] Sodium [Moles/Vol] 124 136-144 mmol/L Low 03-30-2019 [facility] (84581) Comment: Performed By: #### ABBE ROCA , TSH ####[facility] [place] [address] [phone] Urea nitrogen [Mass/Vol] 18 9-24 mg/dL Normal 03-30 [facility] (50235) Comment: Performed By: #### BMP, LIPB , TSH ####[facility] [address] [place] [address] [phone] cnptoutreach on 201 12-31-25 CNPTOUTREACH Patient Outreach (FAMPST) Normal 1 05-17-2018 [place] [facility] BETTY RICHARD ([id number]) 1955 [facility] Date Time Provider Department ([id number]) 03/17/19 ALEXANDER HERNANDEZ FAMPST During your visit today, we recorded the following informati on about you: Allergies As of Date: 03/17/2019 (No Known Allergies) Date Reviewed: 10/29/2018 Reviewed by: Lary Murdock Ma - Fully Assessed Visit Diagnoses:Essential hypertension [I10] Mixed hyperlipidemia [E78.2] Hypothyroidism, acquired [E03.9] Order(s):BASIC METABOLIC PNL [SQBMP] Order #: [id number] FUT URE LIPID PANEL BASIC [SQLIPB] Order #: [id number] FUTURE TSH BLD [SQTSH] Order #: [id number] FUTURE Prescriptions as of 03/17/2019 Sig: LEVOTHYROXINE [...] (FAMPWS) Normal 03-05-2019 Kyle allen BETTY Vincent ([id number]) 1955 [facility] Date Time Provider Department ([id number]) 03/05/19 ALEXANDER HERNANDEZ During your visit today, [...] on 2019-01 OBSOLETE Refill (FAMPWS) Normal 02-09-2019 [facility] BETTY RICHARD ([id number]) 1955 [facility] Time Provider Department ([id number]) 02/09/19 ALEXANDER HERNANDEZ FAMPWS During your visit [...] [Z12.11] INVALID FOR* Finger laceration, initial encounter [X70.676E] INVALID FOR* Prescriptions ordered this encounter Disp [...] on 2019-01 OBSOLETE Refill (FAMPWS) Normal 02-06-2019 [facility] BETTY RICHARD ([id number]) 1955 [facility] Time Provider Department ([id number]) 02/06/19 ALEXANDER HERNANDEZ FAMPWS During your visit [...] 02/09/19 progress on 2018-11 PROGRESS HNO ID: [id number] Normal 11-21-2018 [facility] Author: Beverly Flynn ([id number]) Service: ? Author Type: Loan Officer Type: Progress Notes Filed: 11/21/2018 11:46 AM Note Text: [facility] PNEUDRAULICS REPAIRER QUICKNOTE Provider Action/FYI: Bp was 100/80 on 09-23-18. No nurse visit needed. Patient identified by name and . Beverly Flynn MA progress on 2018-10 PROGRESS HNO ID: [id number] Normal 11-14-2018 [facility] Author: Beverly Flynn Farias ([id number]) Service: ? Author Type: Loan Officer Type: Progress Notes Filed: 11/21/2018 11:46 [...] CNPTOUTREACH Patient Outreach (FAMPWS) Normal 0 11-14-2018 [place] [facility] BETTY RICHARD ([id number]) 1955 [facility] Time Provider Department (44069) 11/14/18 BEVERLY FLYNN (GURU) FAMPWS During your [...] GURU Salazar MA 11/21/2018 11:46 AM Signed [facility] AIRCRAFT PNEUDRAULICS REPAIRER QUICKNOTE Provider Action/FYI: Bp was 100/80 on [...] 11/21/18 progress on 2018-10 PROGRESS HNO ID: [id number] Normal 10-29-2018 [place] Author: Taisha Whitman [facility] Service: ? [place] Author Type: Nurse Practitioner ([id number]) Type: Progress Notes Filed: 11/04/2018 7:25 AM Note Text: VASCULAR SURGERY WOUND OSTOMY CONTINENCE CONSULTATION CHIEF COMPLAINT: Wound check and evaluation HISTORY OF PRESENT ILLNESS: right 4th finger PAST MEDICAL HISTORY Diagnosis Date - Cigar smoker in past - COPD (chronic obstructive pulmonary disease) (HCC) 02/22/20 Dr. Farrell Haulpak Driver - Eczema 03/08/2010 - Hx of primary hypertension resolved, no longer on medications - Hypothyroidism 08/2015 - Oral cancer (HCC) Apr 2011 Pharyngeal; feeding tube (05/2011), Dr. Moeller Oncology, Dr. Deidre shahid ENT, Dr. Butts Radiation - Shoulder pain, bilateral 1993 PAST SURGICAL HISTORY Procedure Laterality Date - PAST SURGICAL HISTORY OF 05/25/11 Peg tube placement, removed 02/26/2012 - [place] ANESTH,NOSE,SINUS SURGERY - RADIATION THERAPY Pharyngeal cancer [...] education/counselling/coordination of care. Taisha Whitman, PhD, WOCN, CHILD LIFE SPECIALIST cnov on 2018-10-29 CNOV Office Visit (VASSWS) Normal 10-30-19 [place] [facility] BETTY RICHARD ([id number]) 1955 M [facility] Time Provider Department ([id number]) 10/29/18 2:30 PM TAISHA WHITMAN VASSWS During your visit today, we recorded the following informati on about you: Taisha Whitman, PhD, CREDIT CARD ASSOCIATE.CHILD LIFE SPECIALIST 11/04/2018 7:25 AM Signed VASCULAR SURGERY WOUND OSTOMY CONTINENCE CONSULTATION CHIEF COMPLAINT: Wound check and evaluation HISTORY OF PRESENT ILLNESS: right 4th finger PAST MEDICAL HISTORY Diagnosis Date - Cigar smoker in past - COPD (chronic obstructive pulmonary disease) ([facility]) 02/22/[address] Farrell Haulpak Driver - Eczema 03/08/2010 - Hx of primary hypertension resolved, no longer on medications - Hypothyroidism 08/2015 - Oral cancer ([facility]) Apr 2011 Pharyngeal; feeding tube (05/2011), Dr. Moeller Oncology, Dr. Gasca ENT, Dr. Butts Radiation - Shoulder pain, bilateral 1993 PAST SURGICAL HISTORY Procedure Laterality Date - PAST SURGICAL HISTORY OF 05/25/11 Peg tube placement, removed 02/26/2012 - [place] ANESTH,NOSE,SINUS SURGERY - RADIATION THERAPY Pharyngeal cancer [...] education/counselling/coordination of care. Taisha Whitman, PhD, WOCN, CHILD LIFE SPECIALIST Referring Provider: ALEXANDER HERNANDEZ [[id number]] Allergies As of Date: 10/29/2018 (No Known Allergies) Date Reviewed: 10/29/2018 Reviewed by: Lary Murdock Ma - Fully Assessed Reason for Visit: Follow Up [171] Primary Visit Diagnosis:Avul anthony of finger tip, subsequent encounter [S62.730D] Prescriptions as of 10/29/2018 Sig: LORATADINE 10 [...] on 2018-10 OBSOLETE Refill (FAMPWS) Normal 10-24-2018 [facility] BETTY RICHARD ([id number]) 1955 [facility] Date Time Provider Department ([id number]) 10/24/18 ALEXANDER HERNANDEZ FAMPWS During your visit [...] last office visit in primary care: 09/23/18 CHILD LIFE SPECIALIST, PCP, next 04/03/19 Last 2 Encounter Wt [...] 10/24/18 progress on 2018-09 PROGRESS HNO ID: [id number] Normal 10-17-2018 [place] Author: Taisha Whitman [facility] Service: ? [place] Author Type: Nurse Practitioner ([id number]) Type: Progress Notes Filed: 10/26/2018 9:27 PM Note Text: VASCULAR SURGERY WOUND OSTOMY CONTINENCE CONSULTATION CHIEF COMPLAINT: Wound check and evaluation HISTORY OF PRESENT ILLNESS: right 4th finger wound PAST MEDICAL HISTORY Diagnosis Date - Cigar smoker in past - COPD (chronic obstructive pulmonary disease) (HCC) 02/22/20 Dr. Farrell Haulpak Driver - Eczema 03/08/2010 - Hx of primary hypertension resolved, no longer on medications - Hypothyroidism 08/2015 - Oral cancer (HCC) Apr 2011 Pharyngeal; feeding tube (05/2011), Dr. Moeller Oncology, Dr. Deidre shahid ENT, Dr. Butts Radiation - Shoulder pain, bilateral 1993 PAST SURGICAL HISTORY Procedure Laterality Date - PAST SURGICAL HISTORY OF 05/25/11 Peg tube placement, removed 02/26/2012 - [place] ANESTH,NOSE,SINUS SURGERY - RADIATION THERAPY Pharyngeal cancer [...] education/counselling/coordination of care. Taisha Whitman, PhD, WOCN, CHILD LIFE SPECIALIST cnov on 2018-10-17 CNOV Office Visit (VASSWS) Normal 10-18-19 [place] [facility] BETTY RICHARD ([id number]) 1955 M [place] Date Time Provider Department ([id number]) 10/17/18 11:30 AM TAISHA WHITMAN VASSWS During your visit today, we recorded the following informati on about you: Temperature Blood pressure 98.3 degrees 146/99 Taisha Whitman, PhD, CREDIT CARD ASSOCIATE.CHILD LIFE SPECIALIST 10/26/2018 9:27 PM Signed VASCULAR SURGERY WOUND OSTOMY CONTINENCE CONSULTATION CHIEF COMPLAINT: Wound check and evaluation HISTORY OF PRESENT ILLNESS: right 4th finger wound PAST MEDICAL HISTORY Diagnosis Date - Cigar smoker in past - COPD (chronic obstructive pulmonary disease) (HCC) 02/22/20 Dr. Farrell Haulpak Driver - Eczema 03/08/2010 - Hx of primary hypertension resolved, no longer on medications - Hypothyroidism 08/2015 - Oral cancer ([facility]) Apr 2011 Pharyngeal; feeding tube (05/2011), Dr. Moeller Oncology, Dr. Gasca ENT, Dr. Butts Radiation - Shoulder pain, bilateral 1993 PAST SURGICAL HISTORY Procedure Laterality Date - PAST SURGICAL HISTORY OF 05/25/11 Peg tube placement, removed 02/26/2012 - [place] ANESTH,NOSE,SINUS SURGERY - RADIATION THERAPY Pharyngeal cancer [...] education/counselling/coordination of care. Taisha Whitman, PhD, WOCN, CHILD LIFE SPECIALIST Referring Provider: ALEXANDER HERNANDEZ [[id number]] Allergies As of Date: 10/17/2018 (No Known Allergies) Date Reviewed: 10/17/2018 Reviewed by: Sandeep (Rn) Rosalind - Fully Assessed Reason for Visit: Established Patient [175] Cmt: follow-up right 4th finger Primary Visit Diagnosis:Avul anthony of finger tip, subsequent encounter [S64.209D] Prescriptions as of 10/17/2018 Sig: LOSARTAN 25 [...] [Z12.11] INVALID FOR* Finger laceration, initial encounter [S64.219A] INVALID FOR* Encounter Status:Closed by TAISHA WHITMAN CNP on 10/26/18 obsolete on 2018-09 OBSOLETE Refill (FAMPWS) Normal 10-15-2018 Kyle allen BETTY Vincent ([id number]) 1955 [facility] Date Time Provider Department ([id number]) 10/15/18 ALEXANDER HERNANDEZ During your visit today, [...] to pharmacy. No need to notify patient. OIN: 09/23/2018 NOV: 04/03/2019 Last Refill: 11/13/2017 88 [...] [Z12.11] INVALID FOR* Finger laceration, initial encounter [S45.344A] INVALID FOR* Prescriptions ordered this encounter Disp [...] 10/15/18 progress on 2018-09 PROGRESS HNO ID: [id number] Normal 10-10-2018 [place] Author: Taisha Whitman [facility] Service: ? [place] Author Type: Nurse Practitioner ([id number]) Type: Progress Notes Filed: 10/12/2018 5:55 PM Note Text: VASCULAR SURGERY WOUND OSTOMY CONTINENCE CONSULTATION CHIEF COMPLAINT: Wound check and evaluation HISTORY OF PRESENT ILLNESS: right 4th finger injury PAST MEDICAL HISTORY Diagnosis Date - Cigar smoker in past - COPD (chronic obstructive pulmonary disease) ([facility]) 02/22/[address] Farrell Haulpak Driver - Eczema 03/08/2010 - Hx of primary hypertension resolved, no longer on medications - Hypothyroidism 08/2015 - Oral cancer ([facility]) Apr 2011 Pharyngeal; feeding tube (05/2011), Dr. Moeller Oncology, Dr. Deidre shahid ENT, Dr. Butts Radiation - Shoulder pain, bilateral 1993 PAST SURGICAL HISTORY Procedure Laterality Date - PAST SURGICAL HISTORY OF 05/25/11 Peg tube placement, removed 02/26/2012 - [place] ANESTH,NOSE,SINUS SURGERY - RADIATION THERAPY Pharyngeal cancer [...] education/counselling/coordination of care. Taisha Whitman, PhD, WOCN, CHILD LIFE SPECIALIST cnov on 2018-10-10 CNOV Office Visit (VASSWS) Normal 10-11-19 19 [place] BETTY Vincent ([id number]) 1955 M [place] Date Time Provider Department ([id number]) 10/10/18 10:30 AM TAISHA WHITMAN During your visit today, we recorded the following informati on about you: Taisha Whitman, PhD, CREDIT CARD ASSOCIATE.CHILD LIFE SPECIALIST 10/12/2018 5:55 PM Signed VASCULAR SURGERY WOUND OSTOMY CONTINENCE CONSULTATION CHIEF COMPLAINT: Wound check and evaluation HISTORY OF PRESENT ILLNESS: right 4th finger injury PAST MEDICAL HISTORY Diagnosis Date - Cigar smoker in past - COPD (chronic obstructive pulmonary disease) (HCC) 02/22/[address] Farrell Haulpak Driver - Eczema 03/08/2010 - Hx of primary hypertension resolved, no longer on medications - Hypothyroidism 08/2015 - Oral cancer (HCC) Apr 2011 Pharyngeal; feeding tube (05/2011), Dr. Moeller Oncology, Dr. Gasca ENT, Dr. Butts Radiation - Shoulder pain, bilateral 1993 PAST SURGICAL HISTORY Procedure Laterality Date - PAST SURGICAL HISTORY OF 05/25/11 Peg tube placement, removed 02/26/2012 - [place] ANESTH,NOSE,SINUS SURGERY - RADIATION THERAPY Pharyngeal cancer [...] education/counselling/coordination of care. Taisha Whitman, PhD, WOCN, CHILD LIFE SPECIALIST Referring Provider: ALEXANDER HERNANDEZ [[id number]] Allergies As of Date: 10/10/2018 (No Known Allergies) Date Reviewed: 10/10/2018 Reviewed by: Lary Murdock Ma - Fully Assessed Reason for Visit: Wound Care [485] Primary Visit Diagnosis:Avulsion of finger tip, nikhil dan encounter [B22.028N] Prescriptions as of 10/10/2018 Sig: MIRTAZAPINE 15 [...] 10/12/18 progress on 2018-09 PROGRESS HNO ID: [id number] Normal 10-01-2018 [place] Author: Taisha Whitman [facility] Service: ? [place] Author Type: Nurse Practitioner ([id number]) Type: Progress Notes Filed: 10/05/2018 4:52 PM Note Text: VASCULAR SURGERY WOUND OSTOMY CONTINENCE CONSULTATION CHIEF COMPLAINT: Wound check and evaluation HISTORY OF PRESENT ILLNESS: right 4th finger evulsion PAST MEDICAL HISTORY Diagnosis Date - Cigar smoker in past - COPD (chronic obstructive pulmonary disease) (HCC) 02/22/20 Dr. Farrell Haulpak Driver - Eczema 03/08/2010 - Hx of primary hypertension resolved, no longer on medications - Hypothyroidism 08/2015 - Oral cancer ([facility]) Apr 2011 Pharyngeal; feeding tube (05/2011), Dr. Moeller Oncology, Dr. Deidre shahid ENT, Dr. Butts Radiation - Shoulder pain, bilateral 1993 PAST SURGICAL HISTORY Procedure Laterality Date - PAST SURGICAL HISTORY OF 05/25/11 Peg tube placement, removed 02/26/2012 - [place] ANESTH,NOSE,SINUS SURGERY - RADIATION THERAPY Pharyngeal cancer [...] none Edema: none Exudate: none Tissue color: [place] Tissue type: dry old blood washed off [...] education/counselling/coordination of care. Taisha Whitman, PhD, WOCN, CHILD LIFE SPECIALIST cnov on 2018-10-01 CNOV Office Visit (VASSWS) Normal 10-02-19 [place] [facility] AMINTAANGELICABETTY Manley ([id number]) 1955 M [place] Date Time Provider Department ([id number]) 10/01/18 3:30 PM TAISHA WHITMAN VASSWS During your visit today, we recorded the following informati on about you: Temperature Pulse Blood pressure Weight 98.6 degrees 61/minute 99/68 61.2 kg Taisha Whitman, PhD, CREDIT CARD ASSOCIATE.CHILD LIFE SPECIALIST 10/05/2018 4:52 PM Signed VASCULAR SURGERY WOUND OSTOMY CONTINENCE CONSULTATION CHIEF COMPLAINT: Wound check and evaluation HISTORY OF PRESENT ILLNESS: right 4th finger evulsion PAST MEDICAL HISTORY Diagnosis Date - Cigar smoker in past - COPD (chronic obstructive pulmonary disease) ([facility]) 02/22/20 Dr. Farrell Haulpak Driver - Eczema 03/08/2010 - Hx of primary hypertension resolved, no longer on medications - Hypothyroidism 08/2015 - Oral cancer ([facility]) Apr 2011 Pharyngeal; feeding tube (05/2011), Dr. Moeller Oncology, Dr. Gasca ENT, Dr. Butts Radiation - Shoulder pain, bilateral 1993 PAST SURGICAL HISTORY Procedure Laterality Date - PAST SURGICAL HISTORY OF 05/25/11 Peg tube placement, removed 02/26/2012 - [place] ANESTH,NOSE,SINUS SURGERY - RADIATION THERAPY Pharyngeal cancer [...] skin. No r bebe, lesions, excoriations or gonzaels. No diaphoresis. No jaundice, no ruddiness, no [...] none Edema: none Exudate: none Tissue color: [place] Tissue type: dry old blood washed off [...] education/counselling/coordination of care. Taisha Whitman, PhD, WOCN, CHILD LIFE SPECIALIST Referring Provider: TAISHA WHITMAN [[id number]] Allergies As of Date: 10/01/2018 (No Known Allergies) Date Reviewed: 10/01/2018 Reviewed by: Lary Murdock Ma - Fully Assessed Reason for Visit: Follow Up [171] Primary Visit Diagnosis:Avulsion of finger tip, initia l encounter [K41.679B] Prescriptions as of 10/01/2018 Sig: MIRTAZAPINE 15 [...] 10/05/18 progress on 2018-09 PROGRESS HNO ID: [id number] Normal 09-24-2018 [place] Author: Taisha (Phd) (Rubber [employer]) [facility] Service: ? [place] Author Type: Nurse Practitioner ([id number]) Type: Progress Notes Filed: 09/28/2018 3:50 PM [...] pulmonary disease) (HCC) 02/22/[address] Farrell Haulpak Driver - Eczema 03/08/2010 - Hx of primary hypertension resolved, no longer on medications - Hypothyroidism 08/2015 - Oral cancer (HCC) Apr 2011 Pharyngeal; feeding tube (05/2011), Dr. Moeller Oncology, Dr. Deidre shahid ENT, Dr. Butts Radiation - Shoulder pain, bilateral 1993 PAST SURGICAL HISTORY Procedure Laterality Date - PAST SURGICAL HISTORY OF 05/25/11 Peg tube placement, removed 02/26/2012 - [place] ANESTH,NOSE,SINUS SURGERY - RADIATION THERAPY Pharyngeal cancer [...] none Tissue color: Black, dark Red and [place] Tissue type: muscle and necrotic v dry old blood Tatyana wound tissue: indurated Tatayna wound tissue color: darker skin tone ASSESSMENT/PLAN/TREATMENT [...] education/counselling/coordination of care. Taisha Whitman, PhD, WOCN, CHILD LIFE SPECIALIST cnov on 2018-09-24 CNOV Office Visit (VASSWS) Normal 09-25-19 19 [place] [facility] BETTY RICHARD ([id number]) 1955 [facility] Date Time Provider Department ([id number]) 09/24/18 2:30 PM TAISHA WHITMAN (PHD) (CHILD LIFE SPECIALIST) VASSWS During your visit today, we recorded the following informati on about you: Temperature Pulse Respiration Blood pressure 99.3 degrees 95/minute 16/minute 113/81 Weight Height 61.1 kg 1.727 m Taisha Whitman, PhD, CREDIT CARD ASSOCIATE.CHILD LIFE SPECIALIST 09/28/2018 3:50 PM Signed VASCULAR SURGERY WOUND OSTOMY CONTINENCE CONSULTATION CHIEF COMPLAINT: Wound check and evaluation HISTORY OF PRESENT ILLNESS: right 4th fi nger traumatic injury by a mower blade on 09/15/2018. On PO ABX as per PCP PAST MEDICAL HISTORY Diagnosis Date - Cigar smoker in past - COPD (chronic obstructive pulmonary disease) (HCC) 02/22/20 Dr. Farrell Haulpak Driver - Eczema 03/08/2010 - Hx of primary hypertension resolved, no longer on medications - Hypothyroidism 08/2015 - Oral cancer ([facility]) Apr 2011 Pharyngeal; feeding tube (05/2011), Dr. Moeller Oncology, Dr. Gasca ENT, Dr. Butts Radiation - Shoulder pain, bilateral 1993 PAST SURGICAL HISTORY Procedure Laterality Date - PAST SURGICAL HISTORY OF 05/25/11 Peg tube placement, removed 02/26/2012 - [place] ANESTH,NOSE,SINUS SURGERY - RADIATION THERAPY Pharyngeal cancer [...] none Tissue color: Black, dark Red and [place] Tissue type: muscle and necrotic v dry [...] education/counselling/coordination of care. Taisha Whitman, PhD, WOCN, CHILD LIFE SPECIALIST Referring Provider: JESSICA MENDOZA ([facility]) [[id number]] Allergies As of Date: 09/24/2018 (No Known [...] 09/28/18 progress on 2018-09 PROGRESS HNO ID: [id number] Normal 09-23-2018 [facility] Author: Jessica Camarillo) Reji Farias ([id number]) Service: ? Author Type: Nurse Practitioner Type: [...] - COPD (chronic obstructive pulmonary disease) ([facility]) 02/22/20 Dr. Farrell Haulpak Driver - Eczema 03/08/2010 - Hx of primary hypertension resolved, no longer on medications - Hypothyroidism 08/2015 - Oral cancer ([facility]) Apr 2011 Pharyngeal; feeding tube (05/2011), Dr. Moellre Oncology, Dr. Deidre shahid ENT, Dr. Butts Radiation - Shoulder pain, bilateral 1993 PAST SURGICAL HISTORY Procedure Laterality Date - PAST SURGICAL HISTORY OF 05/25/11 Peg tube placement, removed 02/26/2012 - [place] ANESTH,NOSE,SINUS SURGERY - RADIATION THERAPY Pharyngeal cancer [...] 2018-09-23 CNOV Office Visit (FAMPWS) Normal 09-24-19 [place] [facility] BETTY RICHARD ([id number]) 1955 M [place] Date Time Provider Department ([id number]) 09/23/18 1:40 PM [facility] your visit today, we recorded [...] - COPD (chronic obstructive pulmonary disease) ([facility]) 02/22/[address] Farrell Haulpak Driver - Eczema 03/08/2010 - Hx of primary hypertension resolved, no longer on medications - Hypothyroidism 08/2015 - Oral cancer ([facility]) Apr 2011 Pharyngeal; feeding tube (05/2011), Dr. Moeller Oncology, Dr. Gasca ENT, Dr. Butts Radiation - Shoulder pain, bilateral 1993 PAST SURGICAL HISTORY Procedure Laterality Date - PAST SURGICAL HISTORY OF 05/25/11 Peg tube placement, removed 02/26/2012 - [place] ANESTH,NOSE,SINUS SURGERY - RADIATION THERAPY Pharyngeal cancer [...] encounter [S61.209D] Order(s):TDAP VACCINE AGE 7+ IM [[id number]] Order #: [id number] CONSULT TO SKIN CARE TEAM [[id number]] Order #: [id number]: 1 Prescriptions as of 09/23/2018 Sig: CEPHALEXIN [...] [Z12.11] INVALID FOR* Finger laceration, initial encounter [S62.901A] INVALID FOR* Other instructions from your clinician: 1. Please see wound care tomorrow. 2. Recheck here in 2 weeks. Encounter Status:Closed by JESSICA MENDOZA CNP on 09/23/18 progress on 2018-08 PROGRESS HNO ID: [id number] Normal 09-19-2018 [facility] Author: Jessica (Darvin) Reji Farias ([id number]) Service: ? Author Type: Nurse Practitioner Type: [...] right hand after coming into contact with student services rep blade. The area was dressed. Pt was started on keflex. He has been changing dressings daily. He reports that he hasn't needed anything for pain. Sometime s throbs, but tolerable. PAST MEDICAL HISTORY: PAST MEDICAL HISTORY Diagnosis Date - Cigar smoker in past - COPD (chronic obstructive pulmonary disease) ([facility]) 02/22/20 Dr. Farrell Haulpak Driver - Eczema 03/08/2010 - Hx of primary hypertension resolved, no longer on medications - Hypothyroidism 08/2015 - Oral cancer ([facility]) Apr 2011 Pharyngeal; feeding tube (05/2011), Dr. Moeller Oncology, Dr. Deidre shahid ENT, Dr. Butts Radiation - Shoulder pain, bilateral 1993 PAST SURGICAL HISTORY Procedure Laterality Date - PAST SURGICAL HISTORY OF 05/25/11 Peg tube placement, removed 02/26/2012 - [place] ANESTH,NOSE,SINUS SURGERY - RADIATION THERAPY Pharyngeal cancer [...] 2018-09-19 CNOV Office Visit (FAMPWS) Normal 09-20-19 [place] [facility] BETTY RICHARD ([id number]) 1955 [facility] Date Time Provider Department ([id number]) 09/19/18 10:20 AM JESS[facility] During your visit today, we recorded [...] right hand after coming into contact with student services rep blade. The area was dressed. Pt was started on keflex. He has been changing dressings daily. He reports that he hasn't needed anything for pain. Sometime s throbs, but tolerable. PAST MEDICAL HISTORY: PAST MEDICAL HISTORY Diagnosis Date - Cigar smoker in past - COPD (chronic obstructive pulmonary disease) ([facility]) 02/22/20 Dr. Farrell Haulpak Driver - Eczema 03/08/2010 - Hx of primary hypertension resolved, no longer on medications - Hypothyroidism 08/2015 - Oral cancer ([facility]) Apr 2011 Pharyngeal; feeding tube (05/2011), Dr. Moeller Oncology, Dr. Gasca ENT, Dr. Butts Radiation - Shoulder pain, bilateral 1993 PAST SURGICAL HISTORY Procedure Laterality Date - PAST SURGICAL HISTORY OF 05/25/11 Peg tube placement, removed 02/26/2012 - [place] ANESTH,NOSE,SINUS SURGERY - RADIATION THERAPY Pharyngeal cancer [...] needed for wor sening/no improvement. Jessica Mendoza APRN.CHILD LIFE SPECIALIST Referring Provider: ALEXANDER HERNANDEZ [[id number]] Allergies As of Date: 09/19/2018 (No Known [...] [Z12.11] INVALID FOR* Finger laceration, initial encounter [S63.219A] INVALID FOR* Encounter Status:Closed by JESSICA MENDOZA CNP on 09/19/18 progress on 2018-08 PROGRESS HNO ID: [id number] Normal 09-16-2018 [facility] Author: Alexander Hernandez Farias ([id number]) Service: ? Author Type: Physician Type: Progress [...] obstructive pulmonary disease) (HCC) 02/22/20 Dr. Farrell Haulpak Driver - Eczema 03/08/2010 - Hx of primary hypertension resolved, no longer on medications - Hypothyroidism 08/2015 - Oral cancer (HCC) Apr 2011 Pharyngeal; feeding tube (05/2011), Dr. Moeller Oncology, Dr. Deidre shahid ENT, Dr. Butts Radiation - Shoulder pain, bilateral 1993 PAST SURGICAL HISTORY Procedure Laterality Date - PAST SURGICAL HISTORY OF 05/25/11 Peg tube placement, removed 02/26/2012 - [place] ANESTH,NOSE,SINUS SURGERY - RADIATION THERAPY Pharyngeal cancer [...] plan. See patient instructions. Alexander Hernandez DO [address] [place] [address] cnov on 2018-09-16 CNOV Office Visit (FAMPWS) Normal 09-17-19 [place] [facility] BETTY RCIHARD ([id number]) 1955 [facility] Date Time Provider Department ([id number]) 09/16/18 2:20 PM [facility] During your visit today, we recorded the [...] obstructive pulmonary disease) (HCC) 02/22/20 Dr. Farrell Haulpak Driver - Eczema 03/08/2010 - Hx of primary hypertension resolved, no longer on medications - Hypothyroidism 08/2015 - Oral cancer ([facility]) Apr 2011 Pharyngeal; feeding tube (05/2011), Dr. Moeller Oncology, Dr. Gasca ENT, Dr. Butts Radiation - Shoulder pain, bilateral 1994 PAST SURGICAL HISTORY Procedure Laterality Date - PAST SURGICAL HISTORY OF 05/25/11 Peg tube placement, removed 02/26/2012 - [place] ANESTH,NOSE,SINUS SURGERY - RADIATION THERAPY Pharyngeal cancer [...] See patient instructions. Alexander Hernandez DO [address] [place] [address] Referring Provider: SELF [[id number]] Allergies As of Date: 09/16/2018 (No Known Allergies) Date Reviewed: 09/16/2018 Reviewed by: Sona Rios LPN - Fully Assessed Reason for Visit: Laceration [666] Cmt: right ring finger lacerat ion from student services rep yesterday Primary Visit Diagnosis:Finger laceration, initial encounter [...] Finger laceration, initial encounter [S68.219A] INVALID FOR* Prescriptions ordered this encounter Disp [...] DATE CREATED AUTHOR AUTHOR'S ORGANIZATIO N 09/15/2019 [facility]
--- OUTSIDE RECORDS SUMMARY | 2020-02-02 07:56 | XMS RPT_ITS | CCD ---
:1955 External Reference #:[id number] Author Organization [facility] Care Team Providers Name Role Phone Unavailable Unavailable Unavailable Results Result Name Value Range Unit Interpretation Flag Date Location [facility] on 2019-09-15 [facility] Tele[facility] (FAMPWS) Normal 09-15-2019 [place] [facility] BETTY RICHARD ([id number]) 1955 [facility] Time Provider Department ([id number]) 09/15/19 ALEXANDER HERNANDEZ FAMWS During your visit [...] Date 09/15/2019 Noted Resolved Elevated Blood Pressure [CZR0274] 02/21/2009 10/04/2009 Weight Loss [R63.4] 02/21/2009 06/10/2009 [...] OBSOLETE Refill (FAMPWS) Normal 08-14-2019 Kyle allen [facility] BETTY RICHARD ([id number]) 1955 [facility] Date Time Provider Department ([id number]) 08/14/19 ALEXANDER HERNANDEZ During your visit today, [...] Date 08/14/2019 Noted Resolved Elevated Blood Pressure [HFS5367] 02/21/2009 10/04/2009 Weight Loss [R63.4] 02/21/2009 06/10/2009 [...] * *Final Report* * * Normal 06-28 [facility] FRONTAL/LAT DATE OF EXAM: Jun 29 2019 2:11PM [place] WRX 5291 - XR CHEST 2V FRONTAL/LAT / ([id number]) PROCEDURE REASON: History of malignant neoplasm of [...] th e spine. IMPRESSION: Overall findings unchanged. Ice Seller: MOLLY Transcribe Date/Time: Jun 29 2019 2:19P Dictated by : ERICA AHMADI MD This examination was interpreted and the report reviewed and electronically signed by: ERICA AHMADI MD on Jun 29 2019 2:22PM EST [id number] progress on 2019-06 PROGRESS HNO ID: [id number] Normal 06-29-2019 [facility] Author: Janet Dan (Rt) Galina Borrero [place] ([id number]) Service: ? Author Type: Dealer Development Manager Type: Progress Notes Filed: 06/29/2019 2:11 PM [...] on 2019-06-29 DARVINN Telephone (PRESLEY) Normal 06-29-2019 [place] [facility] BETTY RICHARD ([id number]) 1955 [facility] Time Provider Department () 06/29/19 TANYA [...] of oropharynx [Z85.819] Order(s):XR CHEST 2V FRONTAL/LAT [[id number]] Order #: [id number] FUTURE Prescriptions as of 06/29/2019 Sig: [...] Date 06/29/2019 Noted Resolved Elevated Blood Pressure [ZAM5165] 02/21/2009 10/04/2009 Weight Loss [R63.4] 02/21/2009 06/10/2009 [...] on 06/29/19 MARLON Telephone (PRESLEY) Normal 06-29-2019 [place] [facility] BETTY RICHARD ([id number]) 1955 M [place] Date Time Provider Department ([id number]) 06/29/19 TANYA RODRÍGUEZ During your visit today, [...] Date 06/29/2019 Noted Resolved Elevated Blood Pressure [AMG4867] 02/21/2009 10/04/2009 Weight Loss [R63.4] 02/21/2009 06/10/2009 [...] on 2019-04-06 [facility] Letter Text Normal 04-06-2019 [facility] ([id number]) progress on 2019-03 PROGRESS HNO ID: [id number] Normal 04-03-2019 [facility] Author: Alexander Hernandez [place] ([id number]) Service: ? Author Type: Physician Type: Progress [...] liquid as needed, Only able to tolerate Byers instant br eakfast, no other foods/supplements. Hypothyroidism, taking levothyroxine 75 mcg daily TSH Date Value Ref Range Status 03/30/2019 1.470 0.270 - 4.200 uU/mL Final PAST MEDICAL HISTORY Diagnosis Date - Cigar smoker in past - COPD (chronic obstructive pulmonary disease) (HCC) 02/22/[address] Farrell It Application Support Analyst - Eczema 03/08/2010 - Hx of primary hypertension resolved, no longer on medications - Hypothyroidism 08/2015 - Oral cancer (HCC) Apr 2011 Pharyngeal; feeding tube (05/2011), Dr. Moeller Oncology, Dr. Deidre shahid ENT, Dr. Butts Radiation - Shoulder pain, bilateral 1993 PAST SURGICAL HISTORY Procedure Laterality Date - PAST SURGICAL HISTORY OF 05/25/11 Peg tube placement, removed 02/26/2012 - DE ANESTH,NOSE,SINUS SURGERY - RADIATION THERAPY Pharyngeal cancer [...] ICD10: F32.2 -stable, continue same medications Alexander eHrnandez DO Return if no improvement. Follow up with Alexander Hernandez DO. To ER if develops chest pain, shortness of breath Discussed risks, benefits, alternatives, and potential side effects of medications. Patient/Guardian expressed understanding and agreed with the plan. See patient instructions. Alexander Hernandez DO [address] [place] [address] fecal occult bld tst on 2019-04-03 Immuno FOB Negative Negative Normal 04-03-2019 [facility] ([id number]) Comment: Result Comment: This test wa s developed and its performance characteristics determined by [facility]'s [facility] [place] ( [facility]). It has not been cleared or a pproved by the FDA. [facility] is regulated under CLIA as qualified to perform high complexity testing. This test is used for clinic al purposes. It should not be regarded as investigational or for research. Performed By: #### IFOBT ### #[facility] [address] [place], [place] [phone] ekg1 on 2019-04-03 EKG1 NAME : CHANTELBETTY TREVINO Normal 2018 [facility] PID : [id number] Gerry ceballos ([id number]) : 1955 Gender : Male Race : [...] ms QTC Calculation(Bazett) : 418 ms P Cumming : 81 degrees R Cumming : 65 degrees T Cumming : 75 degrees Test Reason : Location : 185 : [facility] Overread By : FAMILIA BATES D.O. Edited By : FAMILIA BATES D.O. Referred By : ALEXANDER HERNANDEZ Acquired by : lorenzo DOSS on 2019-04-03 CNOV Office Visit (FAMPWS) Normal 04-03-20 19 [place] [facility] BESSBETTY Manley ([id number]) 1955 [facility] Time Provider Department ([id number]) 04/03/19 10:20 AM ALEXANDER HERNANDEZ FAMPWS During [...] liquid as needed, Only able to tolerate Byers instant breakfast, n o other foods/supplements. Hypothyroidism, taking levothyroxine 75 mcg daily TSH Date Value Ref Range Status 03/30/2019 1.470 0.270 - 4.200 uU/mL Final PAST MEDICAL HISTORY Diagnosis Date - Cigar smoker in past - COPD (chronic obstructive pulmonary disease) (HCC) 02/22/[address] Farrell It Application Support Analyst - Eczema 03/08/2010 - Hx of primary hypertension resolved, no longer on medications - Hypothyroidism 08/2015 - Oral cancer (HCC) Apr 2011 Pharyngeal; feeding tube (05/2011), Dr. Moeller Oncology, Dr. Gasca ENT, Dr. Butts Radiation - Shoulder pain, bilateral 1993 PAST SURGICAL HISTORY Procedure Laterality Date - PAST SURGICAL HISTORY OF 05/25/11 Peg tube placement, removed 02/26/2012 - DE ANESTH,NOSE,SINUS SURGERY - RADIATION THERAPY Pharyngeal cancer [...] plan. See patient instructions. Alexander Hernandez DO [address] [facility] [place] [address] Referring Provider: SELF [200] Allergies As of [...] Order(s):FECAL OCCULT BLOOD TEST [SQIFOBT] Order #: [id number] FUTURE ECG COMPLETE [ECG01] Order #: [id number] FUTURE Prescriptions as of 04/03/2019 Sig: LEVOTHYROXINE [...] TSH Qn 1.470 0.270-4.200 uU/mL Normal 03-30-2019 [facility] ([id number]) Comment: Performed By: #### BMP, LIPB , TSH ####[facility] [address] [place] [address] [phone] lipid panel, basic on 2019-03-30 Cholesterol [Mass/Vol] 159 <200 mg/dL Normal 019 [facility] (64249) Comment: Result Comment: <200 mg/dL, Desirable 200-239 mg/dL, Borderline hi gh >239 mg/dL, High Performed By: #### BMP, LIPB , TSH ####[facility] [address] [phone] Cholesterol in HDL 53 >39 mg/dL Normal 03-30-2019 [facility] [Mass/Vol] (58593) Comment: Result Comment: 40-59 mg/dL, Acceptable >59 mg/dL, High: Negative ri sk factor for coronary heart disease <40 mg/dL, Low: Positive ris k factor for coronary heart disease Performed By: #### BMP, LIPB , TSH ####[place] [address] [address] [address] [phone] Cholesterol in LDL 93 <100 mg/dL Normal 03-30-2019 [facility] [Mass/Vol] [place] ([address]65) Comment: Result Comment: <100 mg/dL, Optimal 100-129 mg/dL, Near optimal/ above optimal 130-159 mg/dL, Borderline hi gh 160-189 mg/dL, High >189 mg/dL, Very high Secondary prevention optimal LDL Cholesterol levels are recommended to be < 70 mg/dL Performed By: #### BMP, LIPB , TSH ####[address] [place] [place] [address] [phone] Fasting Time 5 hrs Normal 03-30-2019 [facility] (79886) Comment: Performed By: #### BMP, LIPB , TSH ####[address] [place] [address] [phone] LDL:HDL Ratio 1.75 <2.54 Normal 03-30-2019 [facility] (06317) Comment: Result Comment: Reference: 1. National Cholesterol Educ ation Program ATP III Guideline At-A-Glance Quick Desk Reference: National Heart, Lung, and [facility] [place]. National Institutes of Health. 2001: NIH Publication No. 01-3305. 2. An International Atherosc lerosis Society position paper: global recommendations for the management of dyslipidemia: executive summary, Atherosclerosis. 2014: 232(2):410-413. Performed By: #### BMP, LIPB , TSH ####[place] [id number] [place] [address] [phone] Non HDL Cholesterol 106 <130 mg/dL Normal 03-30-2019 [facility] (48804) Comment: Result Comment: <130 mg/dL, Optimal 130-159 mg/dL, Near optimal/ above optimal 160-189 mg/dL, Borderline hi gh 190-219 mg/dL, High >219 mg/dL, Very high Secondary prevention optimal non HDL Cholesterol levels are recommended to be < 100 mg/dL Performed By: #### BMP, LIPB , TSH ####[place] [address] [phone] TC:HDL Ratio 3.00 <5.10 Normal 03-30-2019 [facility] (11242) Comment: Performed By: #### BMP, LIPB , TSH ####[place] [address] [phone] Triglyceride [Mass/Vol] 65 <150 mg/dL Normal 2018 [facility] (38145) Comment: Result Comment: <150 mg/dL, Normal 150-199 mg/dL, Borderline hi gh 200-499 mg/dL, High >499 mg/dL, Very high Performed By: #### BMP, LIPB , TSH ####[place] [address] [phone] VLDL Cholesterol 13 <30 mg/dL Normal 03-30-2019 [facility] (09315) Comment: Performed By: #### BMP, LIPB , TSH ####[place] [address] [phone] basic metabolic panl on 2019-03-30 Anion gap [Moles/Vol] 13 9-18 mmol/L Normal 03-30-20 19 [facility] (89921) Comment: Performed By: #### BMP, LIPB , TSH ####[place] [address] [phone] Calcium [Mass/Vol] 9.6 8.5-10.2 mg/dL Normal 03-30-2019 [facility] (05120) Comment: Performed By: #### BMP, LIPB , TSH ####[facility] [address] [place] [address] [phone] Chloride [Moles/Vol] 87 97-105 mmol/L Low 9 [facility] (56880) Comment: Performed By: #### BMP, LIPB , TSH ####[facility] [place] [address] [phone] CO2 [Moles/Vol] 24 22-30 mmol/L Normal 03-30-2019 [facility] (12896) Comment: Performed By: #### BMP, LIPB , TSH ####[facility] [place] [address] [phone] Creatinine [Mass/Vol] 0.71 0.73-1.22 mg/dL Low 03-30-20 19 [facility] (07926) Comment: Performed By: #### BMP, LIPB , TSH ####[facility] [place] [address] [phone] eGFR- Amer. >60 Normal 03-30-2019 [facility] (41335) Comment: Performed By: #### BMP, LIPB , TSH ####[facility] [place] [address] [phone] GFR/1.73 sq M predicted >60 mL/min/{1.73_m2} Normal 03-30-2019 [facility] among non-blacks MDRD [place] ([address]) (S/P/Bld) [Vol rate/Area] Comment: Result Comment: eGFR [...] GFR. Performed By: #### ABBE ROCA TSH ####[facility] [place] [address] [phone] Glucose [Mass/Vol] 70 74-99 mg/dL Low 03-30-2019 [facility] (49115) Comment: Result Comment: The [place] Diabetes Association (ADA) provides guidance for cutoff [...] for diagnosis of diabetes. Reference: Standards of [facility] Care in Diabetes 2016, [place] Diabetes Association. Diabetes Care. 2016.39(Suppl 1). Performed By: #### ABBE ROCA TSH ####[facility] [place] [address] [phone] Potassium [Moles/Vol] 4.8 3.7-5.1 mmol/L Normal 03-30-20 [facility] (87145) Comment: Performed By: #### ABBE ROCA , TSH ####[facility] [place] [address] [phone] Sodium [Moles/Vol] 124 136-144 mmol/L Low 03-30-2019 [facility] (08535) Comment: Performed By: #### ABBE ROCA , TSH ####[facility] [place] [address] [phone] Urea nitrogen [Mass/Vol] 18 9-24 mg/dL Normal 03-30 [facility] (62367) Comment: Performed By: #### BMP, LIPB , TSH ####[facility] [address] [place] [address] [phone] cnptoutreach on 201 12-31-25 CNPTOUTREACH Patient Outreach (FAMPST) Normal 1 05-17-2018 [place] [facility] BETTY RICHARD ([id number]) 1955 [facility] Date Time Provider Department (39232) 03/17/19 ALEXANDER HERNANDEZ FAMPST During your visit today, we recorded the following informati on about you: Allergies As of Date: 03/17/2019 (No Known Allergies) Date Reviewed: 10/29/2018 Reviewed by: Lary Murdock Ma - Fully Assessed Visit Diagnoses:Essential hypertension [I10] Mixed hyperlipidemia [E78.2] Hypothyroidism, acquired [E03.9] Order(s):BASIC METABOLIC PNL [SQBMP] Order #: [id number] FUT URE LIPID PANEL BASIC [SQLIPB] Order #: [id number] FUTURE TSH BLD [SQTSH] Order #: [id number] FUTURE Prescriptions as of 03/17/2019 Sig: LEVOTHYROXINE [...] (FAMPWS) Normal 03-05-2019 Kyle allen BETTY Vincent ([id number]) 1955 [facility] Date Time Provider Department (69472) 03/05/19 ALEXANDER HERNANDEZ During your visit today, [...] on 2019-01 OBSOLETE Refill (FAMPWS) Normal 02-09-2019 [facility] BETTY RICHARD ([id number]) 1955 [facility] Time Provider Department (00688) 02/09/19 ALEXANDER HERNANDEZ FAMPWS During your visit [...] [Z12.11] INVALID FOR* Finger laceration, initial encounter [W25.399W] INVALID FOR* Prescriptions ordered this encounter Disp [...] on 2019-01 OBSOLETE Refill (FAMPWS) Normal 02-06-2019 [facility] BETTY RICHARD ([id number]) 1955 [facility] Time Provider Department (75125) 02/06/19 ALEXANDER HERNANDEZ FAMPWS During your visit [...] 02/09/19 progress on 2018-11 PROGRESS HNO ID: [id number] Normal 11-21-2018 [facility] Author: Beverly Flynn ([id number]) Service: ? Author Type: Casting Supervisor Type: Progress Notes Filed: 11/21/2018 11:46 AM Note Text: [facility] OB/GYN PHYSICIAN QUICKNOTE Provider Action/FYI: Bp was 100/80 on 09-23-18. No nurse visit needed. Patient identified by name and . Beverly Flynn MA progress on 2018-10 PROGRESS HNO ID: [id number] Normal 11-14-2018 [facility] Author: Beverly Flynn Farias ([id number]) Service: ? Author Type: Casting Supervisor Type: Progress Notes Filed: 11/21/2018 11:46 AM [...] CNPTOUTREACH Patient Outreach (FAMPWS) Normal 0 11-14-2018 [place] [facility] BETTY RICHARD ([id number]) 1955 [facility] Time Provider Department (65796) 11/14/18 BEVERLY FLYNN (GURU) FAMPWS During your [...] GURU Salazar MA 11/21/2018 11:46 AM Signed [facility] OB/GYN PHYSICIAN QUICKNOTE Provider Action/FYI: Bp was 100/80 on [...] 11/21/18 progress on 2018-10 PROGRESS HNO ID: [id number] Normal 10-29-2018 [place] Author: Taisha Whitman [facility] Service: ? [place] Author Type: Nurse Practitioner ([id number]) Type: Progress Notes Filed: 11/04/2018 7:25 AM Note Text: VASCULAR SURGERY WOUND OSTOMY CONTINENCE CONSULTATION CHIEF COMPLAINT: Wound check and evaluation HISTORY OF PRESENT ILLNESS: right 4th finger PAST MEDICAL HISTORY Diagnosis Date - Cigar smoker in past - COPD (chronic obstructive pulmonary disease) (HCC) 02/22/20 Dr. Farrell It Application Support Analyst - Eczema 03/08/2010 - Hx of primary hypertension resolved, no longer on medications - Hypothyroidism 08/2015 - Oral cancer (HCC) Apr 2011 Pharyngeal; feeding tube (05/2011), Dr. Moeller Oncology, Dr. Deidre shahid ENT, Dr. Butts Radiation - Shoulder pain, bilateral 1993 PAST SURGICAL HISTORY Procedure Laterality Date - PAST SURGICAL HISTORY OF 05/25/11 Peg tube placement, removed 02/26/2012 - DE ANESTH,NOSE,SINUS SURGERY - RADIATION THERAPY Pharyngeal cancer [...] education/counselling/coordination of care. Taisha Whitman, PhD, WOCN, MEDICAL AUDITOR cnov on 2018-10-29 CNOV Office Visit (VASSWS) Normal 10-30-19 [place] [facility] BETTY RICHARD ([id number]) 1955 M [facility] Time Provider Department (14459) 10/29/18 2:30 PM TAISHA WHITMAN VASSWS During your visit today, we recorded the following informati on about you: Taisha Whitman, PhD, RESPITE COORDINATOR.MEDICAL AUDITOR 11/04/2018 7:25 AM Signed VASCULAR SURGERY WOUND OSTOMY CONTINENCE CONSULTATION CHIEF COMPLAINT: Wound check and evaluation HISTORY OF PRESENT ILLNESS: right 4th finger PAST MEDICAL HISTORY Diagnosis Date - Cigar smoker in past - COPD (chronic obstructive pulmonary disease) ([facility]) 02/22/[address] Farrell It Application Support Analyst - Eczema 03/08/2010 - Hx of primary hypertension resolved, no longer on medications - Hypothyroidism 08/2015 - Oral cancer ([facility]) Apr 2011 Pharyngeal; feeding tube (05/2011), Dr. Moeller Oncology, Dr. Gasca ENT, Dr. Butts Radiation - Shoulder pain, bilateral 1993 PAST SURGICAL HISTORY Procedure Laterality Date - PAST SURGICAL HISTORY OF 05/25/11 Peg tube placement, removed 02/26/2012 - DE ANESTH,NOSE,SINUS SURGERY - RADIATION THERAPY Pharyngeal cancer [...] education/counselling/coordination of care. Taisha Whitman, PhD, WOCN, MEDICAL AUDITOR Referring Provider: ALEXANDER HERNANDEZ [[id number]] Allergies As of Date: 10/29/2018 (No Known Allergies) Date Reviewed: 10/29/2018 Reviewed by: Lary Murdock Ma - Fully Assessed Reason for Visit: Follow Up [171] Primary Visit Diagnosis:Avul anthony of finger tip, subsequent encounter [S68.145D] Prescriptions as of 10/29/2018 Sig: LORATADINE 10 [...] on 2018-10 OBSOLETE Refill (FAMPWS) Normal 10-24-2018 [facility] BETTY RICHARD ([id number]) 1955 [facility] Date Time Provider Department (23568) 10/24/18 ALEXANDER HERNANDEZ FAMPWS During your visit [...] last office visit in primary care: 09/23/18 MEDICAL AUDITOR, PCP, next 04/03/19 Last 2 Encounter Wt [...] 10/24/18 progress on 2018-09 PROGRESS HNO ID: [id number] Normal 10-17-2018 [place] Author: Taisha Whitman [facility]: ? [place] Author Type: Nurse Practitioner ([id number]) Type: Progress Notes Filed: 10/26/2018 9:27 PM Note Text: VASCULAR SURGERY WOUND OSTOMY CONTINENCE CONSULTATION CHIEF COMPLAINT: Wound check and evaluation HISTORY OF PRESENT ILLNESS: right 4th finger wound PAST MEDICAL HISTORY Diagnosis Date - Cigar smoker in past - COPD (chronic obstructive pulmonary disease) (HCC) 02/22/20 Dr. Farrell It Application Support Analyst - Eczema 03/08/2010 - Hx of primary hypertension resolved, no longer on medications - Hypothyroidism 08/2015 - Oral cancer (HCC) Apr 2011 Pharyngeal; feeding tube (05/2011), Dr. Moeller Oncology, Dr. Deidre shahid ENT, Dr. Butts Radiation - Shoulder pain, bilateral 1993 PAST SURGICAL HISTORY Procedure Laterality Date - PAST SURGICAL HISTORY OF 05/25/11 Peg tube placement, removed 02/26/2012 - DE ANESTH,NOSE,SINUS SURGERY - RADIATION THERAPY Pharyngeal cancer [...] education/counselling/coordination of care. Taisha Whitman, PhD, WOCN, MEDICAL AUDITOR cnov on 2018-10-17 CNOV Office Visit (VASSWS) Normal 10-18-19 [place] [facility] BETTY RICHARD ([id number]) 1955 M [place] Date Time Provider Department (79113) 10/17/18 11:30 AM TAISHA WHITMAN VASSWS During your visit today, we recorded the following informati on about you: Temperature Blood pressure 98.3 degrees 146/99 Taisha Whitman, PhD, RESPITE COORDINATOR.MEDICAL AUDITOR 10/26/2018 9:27 PM Signed VASCULAR SURGERY WOUND OSTOMY CONTINENCE CONSULTATION CHIEF COMPLAINT: Wound check and evaluation HISTORY OF PRESENT ILLNESS: right 4th finger wound PAST MEDICAL HISTORY Diagnosis Date - Cigar smoker in past - COPD (chronic obstructive pulmonary disease) (HCC) 02/22/20 Dr. Farrell It Application Support Analyst - Eczema 03/08/2010 - Hx of primary hypertension resolved, no longer on medications - Hypothyroidism 08/2015 - Oral cancer ([facility]) Apr 2011 Pharyngeal; feeding tube (05/2011), Dr. Moeller Oncology, Dr. Gasca ENT, Dr. Butts Radiation - Shoulder pain, bilateral 1993 PAST SURGICAL HISTORY Procedure Laterality Date - PAST SURGICAL HISTORY OF 05/25/11 Peg tube placement, removed 02/26/2012 - DE ANESTH,NOSE,SINUS SURGERY - RADIATION THERAPY Pharyngeal cancer [...] education/counselling/coordination of care. Taisha Whitman, PhD, WOCN, MEDICAL AUDITOR Referring Provider: ALEXANDER HERNANDEZ [[id number]] Allergies As of Date: 10/17/2018 (No Known Allergies) Date Reviewed: 10/17/2018 Reviewed by: Sandeep (Rn) Rosalind - Fully Assessed Reason for Visit: Established Patient [175] Cmt: follow-up right 4th finger Primary Visit Diagnosis:Avul anthony of finger tip, subsequent encounter [S60.209D] Prescriptions as of 10/17/2018 Sig: LOSARTAN 25 [...] (FAMPWS) Normal 10-15-2018 Kyle allen BETTY Vincent ([id number]) 1955 [facility] Date Time Provider Department ([id number]) 10/15/18 ALEXANDER HERNANDEZ During your visit today, [...] [Z12.11] INVALID FOR* Finger laceration, initial encounter [H04.277A] INVALID FOR* Prescriptions ordered this encounter Disp [...] 10/15/18 progress on 2018-09 PROGRESS HNO ID: [id number] Normal 10-10-2018 [place] Author: Taisha Whitman [facility]: ? [place] Author Type: Nurse Practitioner ([id number]) Type: Progress Notes Filed: 10/12/2018 5:55 PM Note Text: VASCULAR SURGERY WOUND OSTOMY CONTINENCE CONSULTATION CHIEF COMPLAINT: Wound check and evaluation HISTORY OF PRESENT ILLNESS: right 4th finger injury PAST MEDICAL HISTORY Diagnosis Date - Cigar smoker in past - COPD (chronic obstructive pulmonary disease) ([facility]) 02/22/[address] Farrell It Application Support Analyst - Eczema 03/08/2010 - Hx of primary hypertension resolved, no longer on medications - Hypothyroidism 08/2015 - Oral cancer ([facility]) Apr 2011 Pharyngeal; feeding tube (05/2011), Dr. Moeller Oncology, Dr. Deidre shahid ENT, Dr. Butts Radiation - Shoulder pain, bilateral 1993 PAST SURGICAL HISTORY Procedure Laterality Date - PAST SURGICAL HISTORY OF 05/25/11 Peg tube placement, removed 02/26/2012 - DE ANESTH,NOSE,SINUS SURGERY - RADIATION THERAPY Pharyngeal cancer [...] education/counselling/coordination of care. Taisha Whitman, PhD, WOCN, MEDICAL AUDITOR cnov on 2018-10-10 CNOV Office Visit (VASSWS) Normal 10-11-19 19 [place] BETTY Vincent ([id number]) 1955 M [place] Date Time Provider Department ([id number]) 10/10/18 10:30 AM TAISHA WHITMAN During your visit today, we recorded the following informati on about you: Taisha Whitman, PhD, RESPITE COORDINATOR.MEDICAL AUDITOR 10/12/2018 5:55 PM Signed VASCULAR SURGERY WOUND OSTOMY CONTINENCE CONSULTATION CHIEF COMPLAINT: Wound check and evaluation HISTORY OF PRESENT ILLNESS: right 4th finger injury PAST MEDICAL HISTORY Diagnosis Date - Cigar smoker in past - COPD (chronic obstructive pulmonary disease) (HCC) 02/22/[address] Farrell It Application Support Analyst - Eczema 03/08/2010 - Hx of primary hypertension resolved, no longer on medications - Hypothyroidism 08/2015 - Oral cancer (HCC) Apr 2011 Pharyngeal; feeding tube (05/2011), Dr. Moeller Oncology, Dr. Gasca ENT, Dr. Butts Radiation - Shoulder pain, bilateral 1993 PAST SURGICAL HISTORY Procedure Laterality Date - PAST SURGICAL HISTORY OF 05/25/11 Peg tube placement, removed 02/26/2012 - DE ANESTH,NOSE,SINUS SURGERY - RADIATION THERAPY Pharyngeal cancer [...] education/counselling/coordination of care. Taisha Whitman, PhD, WOCN, MEDICAL AUDITOR Referring Provider: ALEXANDER HERNANDEZ [[id number]] Allergies As of Date: 10/10/2018 (No Known Allergies) Date Reviewed: 10/10/2018 Reviewed by: Lary Murdock Ma - Fully Assessed Reason for Visit: Wound Care [485] Primary Visit Diagnosis:Avulsion of finger tip, nikhil dan encounter [R82.526E] Prescriptions as of 10/10/2018 Sig: MIRTAZAPINE 15 [...] 10/12/18 progress on 2018-09 PROGRESS HNO ID: [id number] Normal 10-01-2018 [place] Author: Taisha Whitman [facility] Service: ? [place] Author Type: Nurse Practitioner ([id number]) Type: Progress Notes Filed: 10/05/2018 4:52 PM Note Text: VASCULAR SURGERY WOUND OSTOMY CONTINENCE CONSULTATION CHIEF COMPLAINT: Wound check and evaluation HISTORY OF PRESENT ILLNESS: right 4th finger evulsion PAST MEDICAL HISTORY Diagnosis Date - Cigar smoker in past - COPD (chronic obstructive pulmonary disease) (HCC) 02/22/20 Dr. Farrell It Application Support Analyst - Eczema 03/08/2010 - Hx of primary hypertension resolved, no longer on medications - Hypothyroidism 08/2015 - Oral cancer ([facility]) Apr 2011 Pharyngeal; feeding tube (05/2011), Dr. Moeller Oncology, Dr. Deidre shahid ENT, Dr. Butts Radiation - Shoulder pain, bilateral 1993 PAST SURGICAL HISTORY Procedure Laterality Date - PAST SURGICAL HISTORY OF 05/25/11 Peg tube placement, removed 02/26/2012 - DE ANESTH,NOSE,SINUS SURGERY - RADIATION THERAPY Pharyngeal cancer [...] none Edema: none Exudate: none Tissue color: Porcupine Tissue type: dry old blood washed off [...] education/counselling/coordination of care. Taisha Whitman, PhD, WOCN, MEDICAL AUDITOR cnov on 2018-10-01 CNOV Office Visit (VASSWS) Normal 10-02-19 [place] [facility] AMINTAANGELICABETTY Manley ([id number]) 1955 M [place] Date Time Provider Department ([id number]) 10/01/18 3:30 PM TAISHA WHITMAN VASSWS During your visit today, we recorded the following informati on about you: Temperature Pulse Blood pressure Weight 98.6 degrees 61/minute 99/68 61.2 kg Taisha Whitman, PhD, RESPITE COORDINATOR.MEDICAL AUDITOR 10/05/2018 4:52 PM Signed VASCULAR SURGERY WOUND OSTOMY CONTINENCE CONSULTATION CHIEF COMPLAINT: Wound check and evaluation HISTORY OF PRESENT ILLNESS: right 4th finger evulsion PAST MEDICAL HISTORY Diagnosis Date - Cigar smoker in past - COPD (chronic obstructive pulmonary disease) ([facility]) 02/22/20 Dr. Farrell It Application Support Analyst - Eczema 03/08/2010 - Hx of primary hypertension resolved, no longer on medications - Hypothyroidism 08/2015 - Oral cancer ([facility]) Apr 2011 Pharyngeal; feeding tube (05/2011), Dr. Moeller Oncology, Dr. Gasca ENT, Dr. Butts Radiation - Shoulder pain, bilateral 1993 PAST SURGICAL HISTORY Procedure Laterality Date - PAST SURGICAL HISTORY OF 05/25/11 Peg tube placement, removed 02/26/2012 - DE ANESTH,NOSE,SINUS SURGERY - RADIATION THERAPY Pharyngeal cancer [...] none Edema: none Exudate: none Tissue color: Porcupine Tissue type: dry old blood washed off [...] education/counselling/coordination of care. Taisha Whitman, PhD, WOCN, MEDICAL AUDITOR Referring Provider: TAISHA WHITMAN [[id number]] Allergies As of Date: 10/01/2018 (No Known Allergies) Date Reviewed: 10/01/2018 Reviewed by: Lary Murdock Ma - Fully Assessed Reason for Visit: Follow Up [171] Primary Visit Diagnosis:Avulsion of finger tip, initia l encounter [Q42.071B] Prescriptions as of 10/01/2018 Sig: MIRTAZAPINE 15 [...] 10/05/18 progress on 2018-09 PROGRESS HNO ID: [id number] Normal 09-24-2018 [place] Author: Taisha (Phd) ([employer] Operator) [facility] Service: ? [place] Author Type: Nurse Practitioner ([id number]) Type: Progress Notes Filed: 09/28/2018 3:50 PM [...] pulmonary disease) (HCC) 02/22/[address] Farrell It Application Support Analyst - Eczema 03/08/2010 - Hx of primary hypertension resolved, no longer on medications - Hypothyroidism 08/2015 - Oral cancer (HCC) Apr 2011 Pharyngeal; feeding tube (05/2011), Dr. Moeller Oncology, Dr. Deidre shahid ENT, Dr. Butts Radiation - Shoulder pain, bilateral 1993 PAST SURGICAL HISTORY Procedure Laterality Date - PAST SURGICAL HISTORY OF 05/25/11 Peg tube placement, removed 02/26/2012 - DE ANESTH,NOSE,SINUS SURGERY - RADIATION THERAPY Pharyngeal cancer [...] none Tissue color: Black, dark Red and Porcupine Tissue type: muscle and necrotic v dry [...] education/counselling/coordination of care. Taisha Whitman, PhD, WOCN, MEDICAL AUDITOR cnov on 2018-09-24 CNOV Office Visit (VASSWS) Normal 09-25-19 19 [place] [facility] BETTY RICHARD ([id number]) 1955 [facility] Date Time Provider Department ([id number]) 09/24/18 2:30 PM TAISHA WHITMAN (PHD) (MEDICAL AUDITOR) VASSWS During your visit today, we recorded the following informati on about you: Temperature Pulse Respiration Blood pressure 99.3 degrees 95/minute 16/minute 113/81 Weight Height 61.1 kg 1.727 m Taisha Whitman, PhD, RESPITE COORDINATOR.MEDICAL AUDITOR 09/28/2018 3:50 PM Signed VASCULAR SURGERY WOUND OSTOMY CONTINENCE CONSULTATION CHIEF COMPLAINT: Wound check and evaluation HISTORY OF PRESENT ILLNESS: right 4th fi nger traumatic injury by a mower blade on 09/15/2018. On PO ABX as per PCP PAST MEDICAL HISTORY Diagnosis Date - Cigar smoker in past - COPD (chronic obstructive pulmonary disease) (HCC) 02/22/20 Dr. Farrell It Application Support Analyst - Eczema 03/08/2010 - Hx of primary hypertension resolved, no longer on medications - Hypothyroidism 08/2015 - Oral cancer ([facility]) Apr 2011 Pharyngeal; feeding tube (05/2011), Dr. Moeller Oncology, Dr. Gasca ENT, Dr. Butts Radiation - Shoulder pain, bilateral 1993 PAST SURGICAL HISTORY Procedure Laterality Date - PAST SURGICAL HISTORY OF 05/25/11 Peg tube placement, removed 02/26/2012 - DE ANESTH,NOSE,SINUS SURGERY - RADIATION THERAPY Pharyngeal cancer [...] none Tissue color: Black, dark Red and Porcupine Tissue type: muscle and necrotic v dry [...] education/counselling/coordination of care. Taisha Whitman, PhD, WOCN, MEDICAL AUDITOR Referring Provider: JESSICA MENDOZA ([facility]) [[id number]] Allergies As of Date: 09/24/2018 (No Known [...] 09/28/18 progress on 2018-09 PROGRESS HNO ID: [id number] Normal 09-23-2018 [facility] Author: Jessica Camarillo) Reji Farias ([id number]) Service: ? Author Type: Nurse Practitioner Type: [...] past - COPD (chronic obstructive pulmonary disease) ([facility]) 02/22/20 Dr. Farrell It Application Support Analyst - Eczema 03/08/2010 - Hx of primary hypertension resolved, no longer on medications - Hypothyroidism 08/2015 - Oral cancer ([facility]) Apr 2011 Pharyngeal; feeding tube (05/2011), Dr. Moeller Oncology, Dr. Deidre shahid ENT, Dr. Butts Radiation - Shoulder pain, bilateral 1993 PAST SURGICAL HISTORY Procedure Laterality Date - PAST SURGICAL HISTORY OF 05/25/11 Peg tube placement, removed 02/26/2012 - DE ANESTH,NOSE,SINUS SURGERY - RADIATION THERAPY Pharyngeal cancer [...] 2018-09-23 CNOV Office Visit (FAMPWS) Normal 09-24-19 [place] [facility] BETTY RICHARD ([id number]) 1955 M [place] Date Time Provider Department ([id number]) 09/23/18 1:40 PM JESSICA [facility] During your visit today, we recorded the [...] past - COPD (chronic obstructive pulmonary disease) ([facility]) 02/22/[address] Farrell It Application Support Analyst - Eczema 03/08/2010 - Hx of primary hypertension resolved, no longer on medications - Hypothyroidism 08/2015 - Oral cancer ([facility]) Apr 2011 Pharyngeal; feeding tube (05/2011), Dr. Moeller Oncology, Dr. Gasca ENT, Dr. Butts Radiation - Shoulder pain, bilateral 1993 PAST SURGICAL HISTORY Procedure Laterality Date - PAST SURGICAL HISTORY OF 05/25/11 Peg tube placement, removed 02/26/2012 - DE ANESTH,NOSE,SINUS SURGERY - RADIATION THERAPY Pharyngeal cancer [...] encounter [S61.209D] Order(s):TDAP VACCINE AGE 7+ IM [[id number]] Order #: [id number] CONSULT TO SKIN CARE TEAM [[id number]] Order #: [id number]: 1 Prescriptions as of 09/23/2018 Sig: CEPHALEXIN [...] [Z12.11] INVALID FOR* Finger laceration, initial encounter [S69.693A] INVALID FOR* Other instructions from your clinician: 1. Please see wound care tomorrow. 2. Recheck here in 2 weeks. Encounter Status:Closed by JESSICA MENDOZA CNP on 09/23/18 progress on 2018-08 PROGRESS HNO ID: [id number] Normal 09-19-2018 [facility] Author: Jessica (Darvin) Reji Farias ([id number]) Service: ? Author Type: Nurse Practitioner Type: [...] right hand after coming into contact with heavy cleaner blade. The area was dressed. Pt was started on keflex. He has been changing dressings daily. He reports that he hasn't needed anything for pain. Sometime s throbs, but tolerable. PAST MEDICAL HISTORY: PAST MEDICAL HISTORY Diagnosis Date - Cigar smoker in past - COPD (chronic obstructive pulmonary disease) ([facility]) 02/22/20 Dr. Farrell It Application Support Analyst - Eczema 03/08/2010 - Hx of primary hypertension resolved, no longer on medications - Hypothyroidism 08/2015 - Oral cancer ([facility]) Apr 2011 Pharyngeal; feeding tube (05/2011), Dr. Moeller Oncology, Dr. Deidre hsahid ENT, Dr. Butts Radiation - Shoulder pain, bilateral 1993 PAST SURGICAL HISTORY Procedure Laterality Date - PAST SURGICAL HISTORY OF 05/25/11 Peg tube placement, removed 02/26/2012 - DE ANESTH,NOSE,SINUS SURGERY - RADIATION THERAPY Pharyngeal cancer [...] 2018-09-19 [facility]OV Office Visit (FAMPWS) Normal 09-20-19 [place] [facility] BETTY RICHARD ([id number]) 1955 [facility] Date Time Provider Department ([id number]) 09/19/18 10:20 AM JESSICA MENDOZA (DARVIN) [facility] [place] During your visit today, we recorded the [...] right hand after coming into contact with heavy cleaner blade. The area was dressed. Pt was started on keflex. He has been changing dressings daily. He reports that he hasn't needed anything for pain. Sometime s throbs, but tolerable. PAST MEDICAL HISTORY: PAST MEDICAL HISTORY Diagnosis Date - Cigar smoker in past - COPD (chronic obstructive pulmonary disease) ([facility]) 02/22/20 Dr. Farrell It Application Support Analyst - Eczema 03/08/2010 - Hx of primary hypertension resolved, no longer on medications - Hypothyroidism 08/2015 - Oral cancer ([facility]) Apr 2011 Pharyngeal; feeding tube (05/2011), Dr. Moeller Oncology, Dr. Gasca ENT, Dr. Butts Radiation - Shoulder pain, bilateral 1993 PAST SURGICAL HISTORY Procedure Laterality Date - PAST SURGICAL HISTORY OF 05/25/11 Peg tube placement, removed 02/26/2012 - DE ANESTH,NOSE,SINUS SURGERY - RADIATION THERAPY Pharyngeal cancer [...] needed for wor sening/no improvement. Jessica Mendoza APRN.MEDICAL AUDITOR Referring Provider: ALEXANDER HERNANDEZ [[id number]] Allergies As of Date: 09/19/2018 (No Known [...] 09/19/18 progress on 2018-08 PROGRESS HNO ID: [id number] Normal 09-16-2018 [facility] Author: Alexander Hernandez Farias ([id number]) Service: ? Author Type: Physician Type: Progress [...] obstructive pulmonary disease) (HCC) 02/22/20 Dr. Farrell It Application Support Analyst - Eczema 03/08/2010 - Hx of primary hypertension resolved, no longer on medications - Hypothyroidism 08/2015 - Oral cancer (HCC) Apr 2011 Pharyngeal; feeding tube (05/2011), Dr. Moeller Oncology, Dr. Deidre shahid ENT, Dr. Butts Radiation - Shoulder pain, bilateral 1993 PAST SURGICAL HISTORY Procedure Laterality Date - PAST SURGICAL HISTORY OF 05/25/11 Peg tube placement, removed 02/26/2012 - DE ANESTH,NOSE,SINUS SURGERY - RADIATION THERAPY Pharyngeal cancer [...] plan. See patient instructions. Alexander Hernandez DO [address] [place] [address] cnov on 2018-09-16 CNOV Office Visit (FAMPWS) Normal 09-17-19 [place] [facility] BETTY RICHARD ([id number]) 1955 [facility] Date Time Provider Department ([id number]) 09/16/18 2:20 [facility] your visit today, we recorded [...] obstructive pulmonary disease) (HCC) 02/22/20 Dr. Farrell It Application Support Analyst - Eczema 03/08/2010 - Hx of primary hypertension resolved, no longer on medications - Hypothyroidism 08/2015 - Oral cancer ([facility]) Apr 2011 Pharyngeal; feeding tube (05/2011), Dr. Moeller Oncology, Dr. Gasca ENT, Dr. Butts Radiation - Shoulder pain, bilateral 1994 PAST SURGICAL HISTORY Procedure Laterality Date - PAST SURGICAL HISTORY OF 05/25/11 Peg tube placement, removed 02/26/2012 - DE ANESTH,NOSE,SINUS SURGERY - RADIATION THERAPY Pharyngeal cancer [...] See patient instructions. Alexander Hernandez DO [address] [place] [address] Referring Provider: SELF [[id number]] Allergies As of Date: 09/16/2018 (No Known Allergies) Date Reviewed: 09/16/2018 Reviewed by: Sona Rios LPN - Fully Assessed Reason for Visit: Laceration [131] Cmt: right ring finger lacerat ion from heavy cleaner yesterday Primary Visit Diagnosis:Finger laceration, initial encounter [...] DATE CREATED AUTHOR AUTHOR'S ORGANIZATIO N 09/15/2019 [facility]
== END 2019-09-02 14:25 | disposition skilled nursing facility (03) | DRG 64 ==
LOC: ED 21:09 → PCU 08-29 00:32
PROVIDERS: Surgery; Admitting Provider Internal Medicine; Emergency Provider Emergency Medicine; PCP Student in an Organized Health Care Education/Training Program; Visit Provider Student in an Organized Health Care Education/Training Program
PROC: 0DJ08ZZ Inspection of Upper Intestinal Tract, Via Natural or Artificial Opening Endoscopic (ICD-10-PCS; CPT 43235; principal; 2019-08-31 09:40)
DX: I63.89 Other cerebral infarction (principal); I26.99 Other pulmonary embolism without acute cor pulmonale; E43 Unspecified severe protein-calorie malnutrition; G93.41 Metabolic encephalopathy; J69.0 Pneumonitis due to inhalation of food and vomit; E87.0 Hyperosmolality and hypernatremia; Z68.1 Body mass index [BMI] 19.9 or less, adult; N17.9 Acute kidney failure, unspecified; R64 Cachexia; C34.90 Malignant neoplasm of unspecified part of unspecified bronchus or lung; C14.0 Malignant neoplasm of pharynx, unspecified; I10 Essential (primary) hypertension; E86.0 Dehydration; I51.3 Intracardiac thrombosis, not elsewhere classified; R09.02 Hypoxemia; E87.6 Hypokalemia; E83.42 Hypomagnesemia; R62.7 Adult failure to thrive; R13.11 Dysphagia, oral phase; E83.39 Other disorders of phosphorus metabolism; W18.30XA Fall on same level, unspecified, initial encounter; E03.9 Hypothyroidism, unspecified; I25.10 Atherosclerotic heart disease of native coronary artery without angina pectoris; R53.81 Other malaise; R41.89 Other symptoms and signs involving cognitive functions and awareness; D72.829 Elevated white blood cell count, unspecified; Z79.01 Long term (current) use of anticoagulants; Z79.890 Hormone replacement therapy; Z87.891 Personal history of nicotine dependence
CPT/HCPCS: 36415; 36569; 51702; 70450; 70544; 70549; 70551; 71045; 71275; 80048; 80053; 81001; 82550; 82607; 83735; 84100; 84425; 84436; 84443; 84481; 84484; 85025; 85610; 85730; 87040; 87635; 92507; 92523; 92526; 92610; 93005; 93306; 96360; 96361; 97110; 97162; 97166; 97530; 97802; 97803; 99251; 99285; A9575; G2023; J7030; J7040; J7050; J7120; Q9967; A4216; G0463; J2405; J7799; U0002

== ENCOUNTER 2019-09-02 14:38 | Inpatient (IN) | payer MEDICARE, SELFPAY ==
[2019-09-02 09:05] VITALS: BMI 14.3
[2019-09-02 14:47] VITALS: PULSE 98; RESP 18; O2SAT 96
[2019-09-02 15:39] VITALS: BP 122/71; PULSE 97; RESP 18; TEMP 36.9; O2SAT 93
[2019-09-02 15:53] VITALS: BMI 17.9
[2019-09-02] MEDS: 0.9% Saline Lock 10 ML Syringe IV (20:22)
[2019-09-02] MEDS: Jevity 1.5 1,000 ML 45 ML GT (20:23)
--- NOTE | 2019-09-02 20:30 | HP.PCM_ITS ---
Problem List (1) Weakness Status: Acute (2) Dehydration Status: Acute (3) Elevated troponin Status: Acute (4) Hypernatremia Status: Acute (5) Dysphagia Status: Acute (6) Aspiration pneumonia Status: Acute (7) Left ventricular thrombus Status: Acute (8) Stroke Status: Acute (9) COPD (chronic obstructive pulmonary disease) Status: Chronic (10) Pulmonary embolism Status: Acute (11) Self neglect Status: Chronic (12) Throat cancer Status: Chronic (13) Lung cancer Status: Chronic (14) Hypothyroidism Status: Chronic (15) Allergic rhinitis Status: Chronic (16) Hypertension Status: Chronic (17) Confusion Status: Acute (18) Debility Status: Acute History of Present Illness Date of Admission: 09/02/19 Chief Complaint: Here for rehabilitation, strengthening, prior to disposition determination. 08/28/2019 The patient is a 64 year old Male with below past medical history presented to [facility] Emergency department found down Not seen for several days, police called for welfare check. Police broke into house, patient found down in bathroom. Unable to stand independently. On floor for significant time. Chest X-ray chronic bilateral apical thickening. CT brain ? right middle cerebral artery infarct, MRI recommended. WBC 17,200, Sodium 157, K 3.4. BUN 73, Cr 1.76, Troponin 0.86, CPK 621, ALT 88, AST 95. Blood cultures sent. IV fluids given. 08/28/2019 Admit to Hospital. IV fluids for dehydration, acute kidney injury, hypernatremia. Cycle troponin for elevated troponin. PT/OT for [facility]. 08/29/2019 Echo large pedunculated mass at apex. Normal LV size. EF 45% Severely hypokinetic. 08/29/2019 CTA chest showed pulmonary embolism, emphysema. 08/29/2019 CT brain left occipital hypodensity concerning for stroke. 08/29/2019 MRI brain left occipital stroke, right cerebellar stroke. 08/29/2019 MRA head negative stenosis, occlusion, aneurysm. 08/29/2019 MRA neck negative. 08/29/[address] Telestroke. 08/30/2019 Dr. Quan recommended anticoagulation for LV mass, probable thrombus, Lovenox started. 08/31/2019 Dr. Mackay placed PEG tube. Hypernatremia resolved. Tube feeding started. Lovenox switched to Eliquis for LV thrombus, pulmonary embolism. Zosyn IV for aspiration pneumonia. Zosyn changed to Augmentin to finish course for aspiration pneumonia. Electrolyte abnormalities corrected. 09/02/2019 Admit to TCU with debility, here for rehabilitation, strengthening, prior to disposition determination. Past Medical History Past Medical History (Chronic Problems): Chronic Problems COPD (chronic obstructive pulmonary disease) (Chronic) Self neglect (Chronic) Throat cancer (Chronic) Lung cancer (Chronic) Hypothyroidism (Chronic) Allergic rhinitis (Chronic) Hypertension (Chronic) Allergies No Known Allergies Allergy (Verified 01/31/17 16:57) Home Medications: Ambulatory Orders Medication Instructions Recorded Levothyroxine Sodium 75 mcg PO DAILY 01/31/17 Loratadine 10 mg PO DAILY 01/31/17 Losartan Potassium 25 mg PO DAILY 01/31/17 Multivitamin [Multiple Vitamins] 1 each PO DAILY 01/31/17 Mirtazapine [Remeron] 15 mg PO QHS 08/30/19 Olanzapine [Zyprexa] 1 tab PO QHS 08/30/19 Amoxicillin/Potassium Clav 1 ea GT BID 09/02/19 [Augmentin 875-125 Tablet] Apixaban [Eliquis] 5 mg GT UD 09/02/19 Jevity 1.5 1 bottle GT UD 09/02/19 Na Biphos/Potassium Phosphate 1 packet GT 4X/DAY 09/02/19 [Neutra-Phos Packet] Surgical History: - - PEG tube. Psychiatric History: - - Unknown Lives: Alone Smoking Status: Former smoker Tobacco Use: Non-smoker Alcohol: None Drugs: None - *Family History Maternal History Items: No pertinent history Paternal History Items: No pertinent history Review of Systems Constitutional: Denies: Chills, Fever, Weight Change HEENT: Denies: Head Aches, Sinus Congestion, Sinus Drainage Cardiovascular: Denies: Chest Pain, Palpitations Respiratory: Denies: Cough, Shortness of breath at rest, Sputum production Gastrointestinal: Denies: Abdominal Pain, Nausea, Vomiting Genitourinary: Denies: Dysuria Musculoskeletal: Denies: Joint Pain, Joint Tenderness Skin: Denies: Rash, Wounds Neurological: Denies: Numbness, Tingling, Focal weakness Psychiatric: Denies: Anxiety, Depression, Homicidal Ideations, Suicidal Ideations Hematologic/ Lymphatic: Denies: Easy Bruising, Easy Bleeding VTE Information - Inpt Only VTE Present on Admission: No VTE Mechan Device Prophylaxis: Knee High JESSICA Hose VTE Pharm Prophylaxis ordered?: No Reason prophylaxis not ordered:: Treatment Not Indicated Patient Problems: Active and Suspected Problems Weakness (Acute) Dehydration (Acute) Elevated troponin (Acute) Hypernatremia (Acute) Dysphagia (Acute) Aspiration pneumonia (Acute) Left ventricular thrombus (Acute) Stroke (Acute) Pulmonary embolism (Acute) - Physical Exam Vitals/I&O's: Vital Signs Temp Pulse Resp BP Pulse Ox 98.5 F 97 18 122/71 H 93 09/02/19 15:39 09/02/19 15:39 09/02/19 15:39 09/02/19 15:39 09/02/19 15:39 Oxygen Delivery Method Room Air Weight: 56.274 kg Body Mass Index (BMI) 14.3 General: Alert, Oriented x3, Cooperative HEENT: Atraumatic, PERRLA, EOMI, Normocephalic Neck: Supple, No JVD, Negative Carotid Bruits Lungs: Clear to auscultation, Normal air movement Cardiovascular: Regular rate, No murmurs Abdomen: Bowel Sounds Present, Soft, Non Tender, - - PEG. Extremities: No edema, Capillary Refill Less than 3 Seconds, - - Left upper extremity PICC line. Skin: No rashes, No breakdown Musculoskeletal: No Tenderness to Palpation of Joints or Extremities Neurological: Cranial nerves II-XII grossly intact, - - Left sided neglect, Left hemiparesis. Psych/Mental Status: Normal Affect, Appropriate Microbiology Past 72 Hours 09/02/19 15:45 Mucosa - Nasopharyngeal Coronavirus COVID-19 PCR - Preliminary Laboratory Results 09/02/19 15:45: COVID-19 (SYED) Cancelled Current Medications Amoxicillin/Clavulanate Potassium (Augmentin Tablet) 875 mg GT BID [facility] Stop: 09/09/19 06:01 Apixaban (Eliquis) 5 mg PO BID JUSTIN Apixaban (Eliquis) 10 mg GT BID [facility] Stop: 09/06/19 17:00 Heparin Sodium (Beef Lung) () 50 units IV UD PRN PRN Reason: PICC Line Heparin Flush Enteral Nutritional Formula (Jevity 1.5) 1,000 mls @ 45 mls/hr GT .[id number] [facility] Last Admin: 09/02/19 20:23 Dose: 45 mls/hr Documented by: Levothyroxine Sodium (Synthroid) 75 mcg GT DAILY@0600 JUSTIN Loratadine (Claritin) 10 mg GT DAILY JUSTIN Losartan Potassium (Cozaar) 25 mg GT DAILY JUSTIN Mirtazapine (Remeron) 15 mg GT QHS [facility] Multivitamins (Multivitamin) 1 tablet GT DAILY@0800 JUSTIN Olanzapine (Zyprexa) 2.5 mg GT QHS [facility] Potassium Phos/Sodium Phos (Neutra-Phos Packet) 1 packet GT 4X/DAY JUSTIN Sodium Chloride () 10 - 40 ml IV UD PRN PRN Reason: Open End PICC Flush Last Admin: 09/02/19 20:22 Dose: 10 ml Documented by: Sodium Chloride (0.9% Nacl (Sterile) Posiflush) 10 - 40 ml IV UD PRN PRN Reason: Port access or dressing change Tuberculin PPD (Tubersol, Aplisol, Ppd) 5 tu ID X1 ONE Stop: 09/03/19 10:01 Tuberculin PPD (Tubersol, Aplisol, Ppd) 5 tu ID X1 ONE Stop: 09/10/19 10:01 Assessment/Plan All Active Problems Confusion (Acute) Debility (Acute) Weakness (Acute) Dehydration (Acute) Elevated troponin (Acute) Hypernatremia (Acute) Dysphagia (Acute) Aspiration pneumonia (Acute) Left ventricular thrombus (Acute) Stroke (Acute) Pulmonary embolism (Acute) 64 year old male with below past medical history hospitalized for stroke, complicated by confusion, pulmonary embolism, LV thrombus, dysphagia, aspiration pneumonia electrolyte abnormality, admitted to TCU with debility, here for rehabilitation, strengthening, prior to disposition determination. * Debility - PT/OT. * Dysphagia - ST. * Pain - Tylenol 650MG Q4H PRN pain (1-10). * Bowel Miralax 17GM daily, Dulcolax 10MG daily PRN. * Adult immunization - Administer Prevnar 13, Pneumovax 23, Fluzone as appropriate. * DVT prophylaxis - Not necessary, on Eliquis. * Aspiration pneumonia - Augmentin 875MG BID thru 09/09/2019. * LV thrombus/pulmonary embolism - Eliquis 10MG BID thru 09/06/2019, then 5MG BID. * Nutrition - MVI daily, Jevity 1.5 45ML/hour. * Hypothyroidism - Levothyroxine 75MCG daily. * Allergic Rhinitis - Loratadine 10MG daily. * Hypertension - Losartan 25MG daily. * Appetite loss - Mirtazapine 15MG QHS. * Hypophosphatemia - Neutra-Phos 4x/day. * Behavioral disorder - Zyprexa 2.5MG QHS, GDR when resident stable.
[2019-09-02] MEDS: Amox/Clavulanate 875 MG Tablet GT (20:31)
[2019-09-02] MEDS: Na Biphos/Potassium Phosphate PACKET 1 PACKET GT ×2 (20:31→22:46)
[2019-09-02] MEDS: APIXABAN 5 MG TABLET 10 MG GT (20:33)
[2019-09-02] MEDS: Mirtazapine 15 MG Tablet GT (22:46)
[2019-09-02] MEDS: OLANZapine 2.5 MG Tablet GT (22:46)
[2019-09-03 01:43] VITALS: BMI 18.3
[2019-09-03] MEDS: Levothyroxine 75 MCG Tablet GT (05:57)
[2019-09-03] MEDS: Loratadine 10 MG Tablet GT (05:57)
[2019-09-03] MEDS: Polyethylene Glycol 3350 17 GM PACKET GT (05:57)
[2019-09-03] MEDS: Losartan Potassium 25 MG Tablet GT (05:57)
[2019-09-03] MEDS: Na Biphos/Potassium Phosphate PACKET 1 PACKET GT ×3 (05:57→20:59)
[2019-09-03] MEDS: Amox/Clavulanate 875 MG Tablet GT (05:57)
[2019-09-03] MEDS: Senna/Docusate Sodium 1 Tablet GT (05:57)
[2019-09-03] MEDS: APIXABAN 5 MG TABLET 10 MG GT (05:58)
--- NOTE | 2019-09-03 06:04 | NURSING ---
Jevity stopped at 0445 d/t restrictions with Synthroid medication. Synthroid given around 0600. Will update dayshift that Jevity needs restarted around 0800.
[2019-09-03 06:06] LABS: Absolute Lymphocyte Count 0.39 X10^3/uL (0.83-4.51); Absolute Neutrophil Count 6.6 X10^3/uL (2.0-7.7); Basophil# 0.04 X10^3/uL; Basophil% 0.5 % (0-1); Eosinophil# 0.08 X10^3/uL; Hematocrit 41.2 % (40-54); Hemoglobin 12.7 g/dL (13.0-16.5); Lymphocyte # 0.39 X10^3/ul (4.0); Lymphocyte % 5.1 % (19-41); Mean Corp Hgb Conc 30.8 g/dL (32-36); Mean Corpuscular Hgb 28.4 pg (27.0-32.0); Mean Corpuscular Volume 92.2 fL (80-94); Mean Platelet Vol. 11.7 fl (6.2-12.0); Monocyte# 0.49 X10^3/uL; Monocyte% 6.4 % (0-10); NRBC Flagged by Analyzer 0 % (0-5); Neutrophil # 6.62 X10^3/uL (2.7-7.7); Neutrophil % 86.6 % (47-70); POSITIVE COUNT YES; POSITIVE DIFFERENTIAL YES; POSITIVE MORPHOLOGY YES; Platelet Count 130 K/mm3 (150-450); RBC Distribution Width CV 13.9 % (11.6-14.6); RBC Distribution Width SD 46.1 fl (35.1-43.9); Red Blood Count 4.47 M/mm3 (4.6-6.2); White Blood Count 7.7 K/mm3 (4.4-11.0)
[2019-09-03 06:10] LABS: Differential Indicated SCAN CRITERIA MET
[2019-09-03] MEDS: 0.9% Saline Lock 10 ML Syringe IV ×3 (06:24→21:55)
[2019-09-03 06:29] LABS: Anion Gap 5 (5-15); BUN 23 mg/dL (7-18); BUN/Creat Ratio 30.5 RATIO (10-20); Calcium,Total 8.4 mg/dL (8.5-10.1); Chloride 100 mmol/L (98-107); Creatinine, Serum 0.75 mg/dL (0.70-1.30); EST Glomerular Filtration Rate 110 mL/min (>60); Est Glom Filt Rate - Afr Amer 133 mL/min (>60); Estimated Creatinine Clearance 57.81 ml/min; Glucose 133 mg/dL (74-106); Magnesium 1.9 mg/dL (1.6-2.6); Phosphorus 3.3 mg/dL (2.5-4.9); Potassium 4.5 mmol/L (3.5-5.1); Sodium Level 135 mmol/L (136-145)
[2019-09-03 06:44] VITALS: O2SAT 92
[2019-09-03 07:07] LABS: Burr Cells RARE; Differential Comment SCANNED; Reactive Lymphocyte RARE
--- NOTE | 2019-09-03 08:20 | PCM.PN.RX ---
<Chuck Ball C - Last Filed: 09/03/19 08:20> Progress Note - Pharmacy Subjective: [] TCU Admission Objective: Allergies No Known Allergies Allergy (Verified 01/31/17 16:57) Current Medications Generic Name Dose Route Start Last Admin Trade Name Freq PRN Reason Stop Dose Admin Acetaminophen 650 mg 09/02/19 20:50 Tylenol Liquid GT Q4H PRN PRN Pain Score 1-10/10 Amoxicillin/Clavulanate Potassium 875 mg 09/02/19 18:00 09/03/19 05:57 Augmentin Tablet GT 09/09/19 06:01 875 mg BID JUSTIN Administration Apixaban 5 mg 09/07/19 18:00 Eliquis PO BID JUSTIN Apixaban 10 mg 09/02/19 18:00 09/03/19 05:58 Eliquis GT 09/06/19 17:00 10 mg BID JUSTIN Administration Bisacodyl 10 mg 09/02/19 20:51 Dulcolax RECTAL DAILY PRN Constipation Heparin Sodium (Beef Lung) 50 units 09/02/19 15:17 IV UD PRN PICC Line Heparin Flush Enteral Nutritional Formula 1,000 mls @ 45 mls/hr 09/02/19 19:15 09/02/19 20:23 Jevity 1.5 GT 45 mls/hr .[id number] JUSTIN Administration Levothyroxine Sodium 75 mcg 09/03/19 06:00 09/03/19 05:57 Synthroid GT 75 mcg DAILY@0600 JUSTIN Administration Loratadine 10 mg 09/03/19 06:00 09/03/19 05:57 Claritin GT 10 mg DAILY JUSTIN Administration Losartan Potassium 25 mg 09/03/19 06:00 09/03/19 05:57 Cozaar GT 25 mg DAILY JUSTIN Administration Mirtazapine 15 mg 09/02/19 22:00 09/02/19 22:46 Remeron GT 15 mg QHS JUSTIN Administration Multivitamins 1 tablet 09/03/19 08:00 Multivitamin GT DAILY@0800 JUSTIN Olanzapine 2.5 mg 09/02/19 22:00 09/02/19 22:46 Zyprexa GT 2.5 mg QHS JUSTIN Administration Polyethylene Glycol 17 gm 09/03/19 06:00 09/03/19 05:57 Miralax GT 17 gm DAILY JUSTIN Administration Potassium Phos/Sodium Phos 1 packet 09/02/19 17:00 09/03/19 05:57 Neutra-Phos Packet GT 1 packet 4X/DAY JUSTIN Administration Senna/Docusate Sodium 1 tablet 09/03/19 06:00 09/03/19 05:57 Senokot-S, Tatyana-Colace GT 1 tablet BID JUSTIN Administration Sodium Chloride 10 - 40 ml 09/02/19 15:17 09/03/19 06:25 IV 10 ml UD PRN Administration Open End PICC Flush Sodium Chloride 10 - 40 ml 09/02/19 15:17 0.9% Nacl (Sterile) Posiflush IV UD PRN Port access or dressing change Tuberculin PPD 5 09/03/19 10:00 Tubersol, Aplisol, Ppd ID 09/03/19 10:01 X1 ONE Tuberculin PPD 5 09/10/19 10:00 Tubersol, Aplisol, Ppd ID 09/10/19 10:01 X1 ONE Problem List Weakness (Acute) Dehydration (Acute) Elevated troponin (Acute) Hypernatremia (Acute) Dysphagia (Acute) Aspiration pneumonia (Acute) Left ventricular thrombus (Acute) Stroke (Acute) COPD (chronic obstructive pulmonary disease) (Chronic) Pulmonary embolism (Acute) Self neglect (Chronic) Throat cancer (Chronic) Lung cancer (Chronic) Hypothyroidism (Chronic) Allergic rhinitis (Chronic) Hypertension (Chronic) Vital Signs Temp Pulse Resp BP Pulse Ox 98.5 F 97 18 122/71 H 92 09/02/19 15:39 09/02/19 15:39 09/02/19 15:39 09/02/19 15:39 09/03/19 06:44 Oxygen Delivery Method Room Air Weight: 56.245 kg Body Mass Index (BMI) 18.3 Sodium 135 mmol/L (136-145) L 09/03/19 05:40 Potassium 4.5 mmol/L (3.5-5.1) 09/03/19 05:40 Chloride 100 mmol/L (98-107) 09/03/19 05:40 Carbon Dioxide 30.0 mmol/L (21.0-32.0) 09/03/19 05:40 Anion Gap 5 (5-15) 09/03/19 05:40 BUN 23 mg/dL (7-18) H 09/03/19 05:40 Creatinine 0.75 mg/dL (0.70-1.30) 09/03/19 05:40 Est GFR (MDRD) Af Amer 133 mL/min (>60) 09/03/19 05:40 Est GFR (MDRD) Non-Af 110 mL/min (>60) 09/03/19 05:40 BUN/Creatinine Ratio 30.5 RATIO (10-20) H 09/03/19 05:40 Glucose 133 mg/dL (74-106) H 09/03/19 05:40 Debility - PT/OT. LV thrombus/pulmonary embolism - Eliquis 10MG BID thru 09/06/2019, then 5MG BID. Hypophosphatemia - Neutra-Phos 4x/day. Assessment/Plan: 1) Pain: Acetaminophen 650mg per gt q4h prn for pain -01/29. Please continue to monitor prn usage and for signs/symptoms of increased/decreased pain. 2) Hypothyroidism: Levothyroxine 75mcg gt daily. TSH was elevated at 4.36 on 08/29/19. Please continue to monitor. 3) Allergic Rhinitis: Loratadine 10mg gt daily. Please continue to monitor for signs/symptoms of allergic rhinitis 4) Nutrition: Multivitamin 1 tablet gt daily, Jevity TF at 45mls/hr. Clinical Pediatric Speech Therapist is consulted 5) Appetite loss: Mirtazapine 15mg gt qhs. Clinical Pediatric Speech Therapist is consulted. *7) Pneumonia: Augmentin 875mg gt bid. Please continue to monitor for signs/symptoms of infection. Liquid Augmentin is also available if preferred for ease of administration. 8) Hypertension: Losartan 25mg gt daily. Pt's K+ is 4.5, and BUN is 23. Please continue to monitor. Pt's average BP is 122/71. Please continue to monitor 9) Pulmonary Embolism: Eliquis 5mg gt bid. Please continue to monitor for signs/symptoms of bleeding and/or signs/symptoms of increased sob. 10) Hypophosphatemia: Neutra-Phos per gt 4 times a day. Pts last phosphorus level was 3.3. Please continue to monitor *11) Pt has a listed chronic diagnosis of COPD it is not listed in the assessment/plan. Psychotropic Medications: Behavioral Disorder: Zyprexa 2.5mg po qhs. See physicians comment about GDR Unnecessary Medications: none Bowel Regimen: Biascodyl 10mg suppository daily prn constipation, Miralax 17gm per gt daily, Senna/Docusate 1 tablet gt bid. Please continue to monitor prn use, and for signs/symptoms if constipation/diarrhea. Date of Note:: 09/03/19 - Provider Comments Provider responsibility: Provider responsible to enter orders to implement recommendations <Demetrius Ferrari Chi - Last Filed: 09/03/19 12:56> Progress Note - Pharmacy Subjective: [] Objective: Allergies No Known Allergies Allergy (Verified 01/31/17 16:57) Current Medications Generic Name Dose Route Start Last Admin Trade Name Freq PRN Reason Stop Dose Admin Acetaminophen 650 mg 09/02/19 20:50 Tylenol Liquid GT Q4H PRN PRN Pain Score 1-01/29 Amoxicillin/Clavulanate Potassium 875 mg 09/02/19 18:00 09/03/19 05:57 Augmentin Tablet GT 09/09/19 06:01 875 mg BID JUSTIN Administration Apixaban 5 mg 09/07/19 18:00 Eliquis PO BID JUSTIN Apixaban 10 mg 09/02/19 18:00 09/03/19 05:58 Eliquis GT 09/06/19 17:00 10 mg BID JUSTIN Administration Bisacodyl 10 mg 09/02/19 20:51 Dulcolax RECTAL DAILY PRN Constipation Heparin Sodium (Beef Lung) 50 units 09/02/19 15:17 IV UD PRN PICC Line Heparin Flush Enteral Nutritional Formula 1,000 mls @ 45 mls/hr 09/02/19 19:15 09/02/19 20:23 Jevity 1.5 GT 45 mls/hr .[id number] JUSTIN Administration Levothyroxine Sodium 75 mcg 09/03/19 06:00 09/03/19 05:57 Synthroid GT 75 mcg DAILY@0600 JUSTIN Administration Loratadine 10 mg 09/03/19 06:00 09/03/19 05:57 Claritin GT 10 mg DAILY JUSTIN Administration Losartan Potassium 25 mg 09/03/19 06:00 09/03/19 05:57 Cozaar GT 25 mg DAILY JUSTIN Administration Mirtazapine 15 mg 09/02/19 22:00 09/02/19 22:46 Remeron GT 15 mg QHS JUSTIN Administration Multivitamins 1 tablet 09/03/19 08:00 09/03/19 09:36 Multivitamin GT 1 tablet DAILY@0800 JUSTIN Administration Olanzapine 2.5 mg 09/02/19 22:00 09/02/19 22:46 Zyprexa GT 2.5 mg QHS JUSTIN Administration Polyethylene Glycol 17 gm 09/03/19 06:00 09/03/19 05:57 Miralax GT 17 gm DAILY JUSTIN Administration Potassium Phos/Sodium Phos 1 packet 09/02/19 17:00 09/03/19 12:34 Neutra-Phos Packet GT 1 packet 4X/DAY JUSTIN Administration Senna/Docusate Sodium 1 tablet 09/03/19 06:00 09/03/19 05:57 Senokot-S, Tatyana-Colace GT 1 tablet BID JUSTIN Administration Sodium Chloride 10 - 40 ml 09/02/19 15:17 09/03/19 06:25 IV 10 ml UD PRN Administration Open End PICC Flush Sodium Chloride 10 - 40 ml 09/02/19 15:17 0.9% Nacl (Sterile) Posiflush IV UD PRN Port access or dressing change Tuberculin PPD 5 tu 09/10/19 10:00 Tubersol, Aplisol, Ppd ID 09/10/19 10:01 X1 ONE Problem List Weakness (Acute) Dehydration (Acute) Elevated troponin (Acute) Hypernatremia (Acute) Dysphagia (Acute) Aspiration pneumonia (Acute) Left ventricular thrombus (Acute) Stroke (Acute) COPD (chronic obstructive pulmonary disease) (Chronic) Pulmonary embolism (Acute) Self neglect (Chronic) Throat cancer (Chronic) Lung cancer (Chronic) Hypothyroidism (Chronic) Allergic rhinitis (Chronic) Hypertension (Chronic) Vital Signs Temp Pulse Resp BP Pulse Ox 98.5 F 97 18 122/71 H 92 09/02/19 15:39 09/02/19 15:39 09/02/19 15:39 09/02/19 15:39 09/03/19 06:44 Oxygen Delivery Method Room Air Weight: 56.245 kg Body Mass Index (BMI) 18.3 Sodium 135 mmol/L (136-145) L 09/03/19 05:40 Potassium 4.5 mmol/L (3.5-5.1) 09/03/19 05:40 Chloride 100 mmol/L (98-107) 09/03/19 05:40 Carbon Dioxide 30.0 mmol/L (21.0-32.0) 09/03/19 05:40 Anion Gap 5 (5-15) 09/03/19 05:40 BUN 23 mg/dL (7-18) H 09/03/19 05:40 Creatinine 0.75 mg/dL (0.70-1.30) 09/03/19 05:40 Est GFR (MDRD) Af Amer 133 mL/min (>60) 09/03/19 05:40 Est GFR (MDRD) Non-Af 110 mL/min (>60) 09/03/19 05:40 BUN/Creatinine Ratio 30.5 RATIO (10-20) H 09/03/19 05:40 Glucose 133 mg/dL (74-106) H 09/03/19 05:40 Assessment/Plan: Psychotropic Medications: Unnecessary Medications: Bowel Regimen: - Provider Comments Provider responsibility: Provider responsible to enter orders to implement recommendations Provider Comments to Recommendations by Pharmacy: Agree
[2019-09-03] MEDS: Tuberculin,Purif.prot.deriv. 50 TU/ML Vial 5 ML ID (09:36)
[2019-09-03] MEDS: Multivitamins,Therapeutic Tablet 1 TABLET GT (09:36)
--- NOTE | 2019-09-03 11:34 | NURSING ---
Provided daily update to family
[2019-09-03 15:11] VITALS: BP 95/58; PULSE 112; RESP 20; TEMP 37.6; O2SAT 95
--- NOTE | 2019-09-03 16:18 | PCM.NTREPORT ---
Nutrition Therapy Report - History Nutrition Services has been consulted to:: Manage enteral nutrition Current diet / nutrition support order:: Jevity 1.5 at 45mL/hour w/ 130mL H2O flush every 4 hours - Anthropometric Measurements Height:: 5 ft 9 in Weight:: 56.245 kg Body Mass Index (BMI):: 18.3 - Relevant Labs Relevant Labs:: RBC 4.47 M/mm3 (4.6-6.2) L 09/03/19 05:40 Hgb 12.7 g/dL (13.0-16.5) L 09/03/19 05:40 MCHC 30.8 g/dL (32-36) L 09/03/19 05:40 RDW Std Deviation 46.1 fl (35.1-43.9) H 09/03/19 05:40 Plt Count 130 K/mm3 (150-450) L 09/03/19 05:40 Neut % (Auto) 86.6 % (47-70) H 09/03/19 05:40 Lymph % (Auto) 5.1 % (19-41) L 09/03/19 05:40 Absolute Lymphs (auto) 0.39 X10^3/uL (0.83-4.51) L 09/03/19 05:40 Sodium 135 mmol/L (136-145) L 09/03/19 05:40 BUN 23 mg/dL (7-18) H 09/03/19 05:40 BUN/Creatinine Ratio 30.5 RATIO (10-20) H 09/03/19 05:40 Glucose 133 mg/dL (74-106) H 09/03/19 05:40 Calcium 8.4 mg/dL (8.5-10.1) L 09/03/19 05:40 - Assessment Food / Nutrition-Related History:: Res w/ recent PEG tube placement. NPO d/t dysphagia. Currently tolerating enteral nutrition at 45mL/hour. 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 NFPA indicates severe muscle wasting/fat loss as evidenced by temporal scooping/depression, clavicle bone protrusion, hollowing of orbital region. Unknown UBW. Appears to have gained wt since acute [facility] admission. Was 97.2# on 08/29/19 and CBW 124#. Wt gain desirable. 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 Will adjust goal rate and flushes accordingly. Nutrition support ordered as / adjusted to:: For continuous feeds via PEG, increase rate to 55mL/hour (for 21 hours/day as TF to be held for 3 hours for Synthroid) w/ 145mL H2O flush every 4 hours to provide 1732 calories, 73 g protein, and 1747mL total fluid/day. As bolus feeds appropriate, recommend 300mL Jevity 1.5 via PEG 4x/day to provide 1800 calories, 76 g protein. Recommend 200mL H2O flush 5x/day to provide 1912mL total fluid/day. Nutrition education provided?: No - MNT Monitoring Further MNT monitoring and evaluation required?: Yes - Will continue to monitor and adjust enteral nutrition as indicated
[2019-09-03 16:23] VITALS: BMI 18.3
--- NOTE | 2019-09-03 16:42 | CASEMGMT ---
Social Work Attempted to speak with pt several times - unsuccessful. Completed initial assessment with sister, Chastity. Catia Carballo, QUALITY AND RELIABILITY ENGINEER MORTGAGE COLLECTOR
[2019-09-03 18:52] VITALS: PULSE 112; RESP 24; O2SAT 90
--- NOTE | 2019-09-03 19:06 | NURSING ---
Addendum entered by Mariel Reid 09/03/19 19:34: Dr Ferrari aware and he gives orders to KARLA Navas. Addendum entered by Mariel Reid 09/03/19 19:10: Offered to call sister but patient refusing to allow me to do this at this time. Original Note: Upon entering residents room, he has labored breathing. Respirations 24/min. Whispers I cant breathe. Other vitals taken. Resident refusing to let me give him medications or scan his bladder at this time as well as do oral care to moisten mouth and throat. He does allow this RN to put on humified O2 at 2l/min. I discussed his code status with him and he would like to be a full code at this time. But refuses to allow this nurse to do any nursing measures to help him breathe better. Chela Parker, street light mechanic.
--- NOTE | 2019-09-03 20:00 | NURSING ---
Patient continues to be labored with breathing. Temperature taken at this time 98.9 temporal. BP 126/90 P 110 and regular. R 32 and shallow. Patient using accessory muscles. O2 90 on 2 L of O2. Patient continuing to refuse care. Dr. Ferrari aware of this. Orders for chest x ray given.
[2019-09-03 20:02] VITALS: BP 126/90; PULSE 110; RESP 32; TEMP 37.2; O2SAT 90
[2019-09-03 20:28] VITALS: RESP 32; O2SAT 90
--- NOTE | 2019-09-03 20:45 | RAD_ITS ---
STUDY: X-RAY CHEST REASON FOR EXAM: Male, 64 years old. Shortness of breath TECHNIQUE: PA and lateral views of the chest. COMPARISON: 08/31/2019 FINDINGS: Left PICC line terminates in the region of the cavoatrial junction. Cardiac silhouette unremarkable. Pulmonary vascularity unremarkable. Aorta unremarkable. Interval worsening of diffuse right lung pulmonary parenchymal disease. Clear left lung. No left pleural effusions. Likely small right pleural effusion. Severe biapical capping. Upper abdomen unremarkable. Osseous structures intact. No pneumothorax. RAD/Chest PA and Lateral IMPRESSION: Interval worsening of right pulmonary parenchymal disease process. Electronically Signed: London Loza, at 21:52 EDT Tel , Service support ,
[2019-09-03] MEDS: Mirtazapine 15 MG Tablet GT (20:59)
[2019-09-03] MEDS: OLANZapine 2.5 MG Tablet GT (20:59)
[2019-09-03] MEDS: Jevity 1.5 1,000 ML 55 ML GT (22:48)
--- NOTE | 2019-09-03 23:03 | PCM.RX.CS ---
Consult Pharmacy has been consulted to manage selected antiobiotic: Vancomycin Type of Consult: New start Suspected Infection: Pneumonia Prior Doses of Antibiotics Received/Current Regimen: Medications Vancomycin HCl () 500 mg in 100 mls @ 100 mls/hr IV Q12H JUSTIN Vancomycin HCl 1,500 mg/ (Sodium Chloride) 530 mls @ 250 mls/hr IV X1 ONE (loading dose) Stop: 09/04/19 00:07 Last Admin: 09/03/19 22:34 Dose: 250 mls/hr Labs: Sodium 135 mmol/L (136-145) L 09/03/19 05:40 Potassium 4.5 mmol/L (3.5-5.1) 09/03/19 05:40 Chloride 100 mmol/L (98-107) 09/03/19 05:40 Carbon Dioxide 30.0 mmol/L (21.0-32.0) 09/03/19 05:40 Anion Gap 5 (5-15) 09/03/19 05:40 BUN 23 mg/dL (7-18) H 09/03/19 05:40 Creatinine 0.75 mg/dL (0.70-1.30) 09/03/19 05:40 Est GFR (MDRD) Af Amer 133 mL/min (>60) 09/03/19 05:40 Est GFR (MDRD) Non-Af 110 mL/min (>60) 09/03/19 05:40 BUN/Creatinine Ratio 30.5 RATIO (10-20) H 09/03/19 05:40 Glucose 133 mg/dL (74-106) H 09/03/19 05:40 Microbiology: Microbiology 09/02/19 15:45 Mucosa - Nasopharyngeal Coronavirus COVID-19 PCR - Final Weight used for dosin.2 kg Estimated Creatinine Clearance: 57.8 Goal Trough: 15-20 mcg/mL Pharmacy Plan for Drug Dosing: Pharmacy Service will continue to monitor and adjust dosing as required. Follow-Up Labs: Trough Vancomycin Labs to be done on [date and time ordered]: 09/05/19 @1000
[2019-09-04] VITALS (9 sets, daily range): BP systolic 90–125; BP diastolic 62–90; PULSE 98–107; RESP 22–24; TEMP 36.5–37.9; O2SAT 91–98
[2019-09-04] MEDS: Na Biphos/Potassium Phosphate PACKET 1 PACKET GT ×4 (04:57→21:34)
[2019-09-04] MEDS: Losartan Potassium 25 MG Tablet GT (04:57)
[2019-09-04] MEDS: Loratadine 10 MG Tablet GT (04:57)
[2019-09-04] MEDS: Levothyroxine 75 MCG Tablet GT (04:57)
[2019-09-04] MEDS: Polyethylene Glycol 3350 17 GM PACKET GT (04:57)
[2019-09-04] MEDS: Senna/Docusate Sodium 1 Tablet GT ×2 (04:58→17:51)
[2019-09-04] MEDS: APIXABAN 5 MG TABLET 10 MG GT ×2 (04:58→17:50)
[2019-09-04] MEDS: Multivitamins,Therapeutic Tablet 1 TABLET GT (09:32)
[2019-09-04] MEDS: Vancomycin IV 500 MG/100 ML BAG 100 MG IV ×2 (09:36→21:33)
--- NOTE | 2019-09-04 11:56 | NURSING ---
Bladder scan was done, it showed 956. pt is agreeable to having a dempsey cath. Dr. Vega hayward.
[2019-09-04] MEDS: 0.9% Normal Saline 1,000 ML 999 ML IV (13:04)
[2019-09-04] MEDS: Ipratropium/Albuterol Sulfate 3 ML AMPUL.NEB INHALATION ×2 (13:32→19:30)
--- NOTE | 2019-09-04 13:40 | PN_ITS ---
Subjective: Resident refusing care yesterday, yet he requested Full Code. Later, resident more shortness of breath, labored breathing. I spoke with resident this AM, and I let him know if he wants to get better, he has to agree to care provided, that we are here to help him get better. He understood. Vitals/I&O's: Vital Signs Temp Pulse Resp BP Pulse Ox 98.8 F 98 24 H 90/65 98 09/04/19 13:23 09/04/19 13:23 09/04/19 13:23 09/04/19 13:23 09/04/19 13:23 Oxygen Flow Rate (L/min) 3 Oxygen Delivery Method Nasal Cannula Weight: 56.245 kg Body Mass Index (BMI) 18.3 Intake and Output for Last 24 Hours 09/02/19 09/03/19 09/04/19 23:59 23:59 23:59 Intake Total 60 / 60 514 / 514 2153 Output Total 500 / 500 650 / 650 Balance -440 / -440 -136 / -136 2153 Microbiology Past 72 Hours 09/02/19 15:45 Mucosa - Nasopharyngeal Coronavirus COVID-19 PCR - Final Past Medical History Past Medical History (Chronic Problems): Chronic Problems COPD (chronic obstructive pulmonary disease) (Chronic) Self neglect (Chronic) Throat cancer (Chronic) Lung cancer (Chronic) Hypothyroidism (Chronic) Allergic rhinitis (Chronic) Hypertension (Chronic) Allergies No Known Allergies Allergy (Verified 01/31/17 16:57) Home Medications: Ambulatory Orders Medication Instructions Recorded Levothyroxine Sodium 75 mcg PO DAILY 01/31/17 Loratadine 10 mg PO DAILY 01/31/17 Losartan Potassium 25 mg PO DAILY 01/31/17 Multivitamin [Multiple Vitamins] 1 each PO DAILY 01/31/17 Mirtazapine [Remeron] 15 mg PO QHS 08/30/19 Olanzapine [Zyprexa] 1 tab PO QHS 08/30/19 Amoxicillin/Potassium Clav 1 ea GT BID 09/02/19 [Augmentin 875-125 Tablet] Apixaban [Eliquis] 5 mg GT UD 09/02/19 Jevity 1.5 1 bottle GT UD 09/02/19 Na Biphos/Potassium Phosphate 1 packet GT 4X/DAY 09/02/19 [Neutra-Phos Packet] Surgical History: - - PEG tube. Psychiatric History: - - Unknown Lives: Alone Smoking Status: Former smoker Tobacco Use: Non-smoker Alcohol: None Drugs: None - *Family History Maternal History Items: No pertinent history Paternal History Items: No pertinent history Capacity - Capacity Assessment Tool Can the patient make a choice & communicate that choice?: Yes Can the patient understand benefits, risks and alternatives?: Yes Can the patient make a logical, rational choice?: Unable to Determine Is the choice the patient makes consistent w/ their values?: Yes Is there an impending, emergent risk to the patient?: Yes Does the patient have an Advance Directive?: No Is there a Surrogate Available?: Yes i.e. HCPOA: Yes i.e. close relative (spouse, child, parent, sibling)?: Yes Review of Systems Constitutional: Denies: Chills, Fever, Weight Change HEENT: Denies: Head Aches, Sinus Congestion, Sinus Drainage Cardiovascular: Denies: Chest Pain, Palpitations Respiratory: Denies: Cough, Shortness of breath at rest, Sputum production Gastrointestinal: Denies: Abdominal Pain, Nausea, Vomiting Genitourinary: Denies: Dysuria Musculoskeletal: Denies: Joint Pain, Joint Tenderness Skin: Denies: Rash, Wounds Neurological: Denies: Numbness, Tingling, Focal weakness Psychiatric: Denies: Anxiety, Depression, Homicidal Ideations, Suicidal Ideations Hematologic/ Lymphatic: Denies: Easy Bruising, Easy Bleeding Patient Problems: Active and Suspected Problems Weakness (Acute) Dehydration (Acute) Elevated troponin (Acute) Hypernatremia (Acute) Dysphagia (Acute) Aspiration pneumonia (Acute) Left ventricular thrombus (Acute) Stroke (Acute) Pulmonary embolism (Acute) - Physical Exam Vitals/I&O's: Vital Signs Temp Pulse Resp BP Pulse Ox 98.8 F 98 24 H 90/65 98 09/04/19 13:23 09/04/19 13:23 09/04/19 13:23 09/04/19 13:23 09/04/19 13:23 Oxygen Flow Rate (L/min) 3 Oxygen Delivery Method Nasal Cannula Weight: 56.245 kg Body Mass Index (BMI) 18.3 Intake and Output for Last 24 Hours 09/02/19 09/03/19 09/04/19 23:59 23:59 23:59 Intake Total 60 / 60 514 / 514 2154 / 2154 Output Total 500 / 500 650 / 650 Balance -440 / -440 -136 / -136 2153 General: Alert, Oriented x3, Cooperative HEENT: Atraumatic, PERRLA, EOMI, Normocephalic Neck: Supple, No JVD, Negative Carotid Bruits Lungs: Rales - Right., Rhonchi - Right., Short of Breath Cardiovascular: Regular rate, No murmurs Abdomen: Bowel Sounds Present, Soft, Non Tender Extremities: No edema, Capillary Refill Less than 3 Seconds Skin: No rashes, No breakdown Musculoskeletal: No Tenderness to Palpation of Joints or Extremities Neurological: Cranial nerves II-XII grossly intact Psych/Mental Status: Normal Affect, Appropriate Microbiology Past 72 Hours 09/02/19 15:45 Mucosa - Nasopharyngeal Coronavirus COVID-19 PCR - Final Current Medications Acetaminophen (Tylenol Liquid) 650 mg GT Q4H PRN PRN PRN Reason: Pain Score 1-10/10 Albuterol Sulfate (Ventolin Aerosols) 2.5 mg INHALATION Q2H PRN PRN PRN Reason: wheezing sob Albuterol/Ipratropium (Duoneb) 3 ml INHALATION Q6HWA.RT JUSTIN Apixaban (Eliquis) 5 mg PO BID JUSTIN Apixaban (Eliquis) 10 mg GT BID [facility] Stop: 09/06/19 17:00 Last Admin: 09/04/19 04:58 Dose: 10 mg Documented by: Bisacodyl (Dulcolax) 10 mg RECTAL DAILY PRN PRN Reason: Constipation Heparin Sodium (Beef Lung) () 50 units IV UD PRN PRN Reason: PICC Line Heparin Flush Enteral Nutritional Formula (Jevity 1.5) 1,000 mls @ 55 mls/hr GT .[id number] [facility], [facility] Last Admin: 09/03/19 22:48 Dose: 55 mls/hr Documented by: Meropenem 1 gm/ Sodium (Chloride) 120 mls @ 33 mls/hr IV Q8 [facility] Stop: 09/10/19 22:01 Last Infusion: 09/04/19 08:45 Dose: Infused Documented by: Vancomycin IV Pharmacy to Dose (1 ea/ Sodium Chloride) 500 mls @ 250 mls/hr IV PRN PRN; Protocol PRN Reason: Rx to Dose Sodium Chloride () 250 mls @ 15 mls/hr IV .[id number] PRN PRN Reason: Saline Flush Last Infusion: 09/03/19 21:55 Dose: 0 mls/hr Documented by: Sodium Chloride () 250 mls @ 15 mls/hr IV .[id number] PRN PRN Reason: Additional IVPB Infusion Last Infusion: 09/03/19 22:31 Dose: 0 mls/hr Documented by: Vancomycin HCl () 500 mg in 100 mls @ 100 mls/hr IV Q12H [facility] Last Infusion: 09/04/19 10:40 Dose: Infused Documented by: Sodium Chloride () 1,000 mls @ 60 mls/hr IV .[id number] JUSTIN Sodium Chloride () 1,000 mls @ 60 mls/hr IV .[id number] JUSTIN Levothyroxine Sodium (Synthroid) 75 mcg GT DAILY@0600 [facility] Last Admin: 09/04/19 04:57 Dose: 75 mcg Documented by: Loratadine (Claritin) 10 mg GT DAILY [facility] Last Admin: 09/04/19 04:57 Dose: 10 mg Documented by: Losartan Potassium (Cozaar) 25 mg GT DAILY [facility] Last Admin: 09/04/19 04:57 Dose: 25 mg Documented by: Mirtazapine (Remeron) 15 mg GT QHS [facility] Last Admin: 09/03/19 20:59 Dose: 15 mg Documented by: Multivitamins (Multivitamin) 1 tablet GT DAILY@0800 [facility] Last Admin: 09/04/19 09:32 Dose: 1 tablet Documented by: Olanzapine (Zyprexa) 2.5 mg GT QHS [facility] Last Admin: 09/03/19 20:59 Dose: 2.5 mg Documented by: Polyethylene Glycol (Miralax) 17 gm GT DAILY [facility] Last Admin: 09/04/19 04:57 Dose: 17 gm Documented by: Potassium Phos/Sodium Phos (Neutra-Phos Packet) 1 packet GT 4X/DAY [facility] Last Admin: 09/04/19 11:50 Dose: 1 packet Documented by: Senna/Docusate Sodium (Senokot-S, Tatyana-Colace) 1 tablet GT BID [facility] Last Admin: 09/04/19 04:58 Dose: 1 tablet Documented by: Sodium Chloride () 10 - 40 ml IV UD PRN PRN Reason: Open End PICC Flush Last Admin: 09/03/19 21:55 Dose: 40 ml Documented by: Sodium Chloride (0.9% Nacl (Sterile) Posiflush) 10 - 40 ml IV UD PRN PRN Reason: Port access or dressing change Tuberculin PPD (Tubersol, Aplisol, Ppd) 5 tu ID [id number] Stop: 09/10/19 10:01 Assessment/Plan All Active Problems Confusion (Acute) Debility (Acute) Weakness (Acute) Dehydration (Acute) Elevated troponin (Acute) Hypernatremia (Acute) Dysphagia (Acute) Aspiration pneumonia (Acute) Left ventricular thrombus (Acute) Stroke (Acute) Pulmonary embolism (Acute) 64 year old male with below past medical history hospitalized for stroke, complicated by confusion, pulmonary embolism, LV thrombus, dysphagia, aspiration pneumonia electrolyte abnormality, admitted to TCU with debility, here for rehabilitation, strengthening, prior to disposition determination. * Hospital acquired pneumonia - Meropenem 1GM IV Q8H, Vancomycin IV x 7 days. * Shortness of breath - Duoneb 3ML nebulized Q6H, Albuterol 2.5MG nebulized Q2H PRN, VEST therapy q shift. * Congestion - Medrol dose melanie. * Hypotension - Normal Saline 1 Liter IV bolus, then 60cc/hour. * Noncompliance - Resident agrees to care after a discussion. * Urinary retention - Rx Tamsulosin 0.4MG, indwelling dempsey catheter.
[2019-09-04] MEDS: MethylPREDNISolone DosePak 4 MG BOX PO ×2 (17:48→21:33)
[2019-09-04] MEDS: Jevity 1.5 1,000 ML 55 ML GT (21:29)
[2019-09-04] MEDS: Mirtazapine 15 MG Tablet GT (21:34)
[2019-09-04] MEDS: OLANZapine 2.5 MG Tablet GT (21:36)
[2019-09-05] VITALS (9 sets, daily range): BP systolic 92–116; BP diastolic 65–79; PULSE 90–104; RESP 18–25; TEMP 35.9–37.2; O2SAT 91–100
[2019-09-05] MEDS: 0.9% Normal Saline 1,000 ML 60 ML IV (05:07)
[2019-09-05] MEDS: Na Biphos/Potassium Phosphate PACKET 1 PACKET GT ×4 (05:08→22:23)
[2019-09-05] MEDS: Polyethylene Glycol 3350 17 GM PACKET GT (05:08)
[2019-09-05] MEDS: Losartan Potassium 25 MG Tablet GT (05:08)
[2019-09-05] MEDS: Senna/Docusate Sodium 1 Tablet GT ×2 (05:09→17:00)
[2019-09-05] MEDS: APIXABAN 5 MG TABLET 10 MG GT ×2 (05:09→17:01)
[2019-09-05] MEDS: Loratadine 10 MG Tablet GT (05:09)
[2019-09-05] MEDS: Levothyroxine 75 MCG Tablet GT (05:17)
[2019-09-05] MEDS: Ipratropium/Albuterol Sulfate 3 ML AMPUL.NEB INHALATION ×3 (07:05→19:12)
--- NOTE | 2019-09-05 08:07 | NURSING ---
tube feed restarted d/t on hold after administration of sythroid.
[2019-09-05] MEDS: Multivitamins,Therapeutic Tablet 1 TABLET GT (08:09)
[2019-09-05] MEDS: MethylPREDNISolone DosePak 4 MG BOX PO ×4 (08:09→22:23)
[2019-09-05 10:59] LABS: Vancomycin, Trough Level 8.2 ug/mL (5.0-15.0)
[2019-09-05] MEDS: Vancomycin IV 500 MG/100 ML BAG 100 MG IV (11:07)
--- NOTE | 2019-09-05 11:29 | PCM.RX.CS ---
Consult Pharmacy has been consulted to manage selected antiobiotic: Vancomycin Type of Consult: Follow-up Prior Doses of Antibiotics Received/Current Regimen: Medications Vancomycin HCl () 500 mg in 100 mls @ 100 mls/hr IV Q12H JUSTIN Last Admin: 09/05/19 11:07 Dose: 100 mls/hr Documented by: Labs: Sodium 135 mmol/L (136-145) L 09/03/19 05:40 Potassium 4.5 mmol/L (3.5-5.1) 09/03/19 05:40 Chloride 100 mmol/L (98-107) 09/03/19 05:40 Carbon Dioxide 30.0 mmol/L (21.0-32.0) 09/03/19 05:40 Anion Gap 5 (5-15) 09/03/19 05:40 BUN 23 mg/dL (7-18) H 09/03/19 05:40 Creatinine 0.75 mg/dL (0.70-1.30) 09/03/19 05:40 Est GFR (MDRD) Af Amer 133 mL/min (>60) 09/03/19 05:40 Est GFR (MDRD) Non-Af 110 mL/min (>60) 09/03/19 05:40 BUN/Creatinine Ratio 30.5 RATIO (10-20) H 09/03/19 05:40 Glucose 133 mg/dL (74-106) H 09/03/19 05:40 Vancomycin Trough 8.2 ug/mL (5.0-15.0) 09/05/19 10:00 Microbiology: Microbiology 09/02/19 15:45 Mucosa - Nasopharyngeal Coronavirus COVID-19 PCR - Final Weight used for dosin kg Goal Trough: 15-20 mcg/mL Pharmacy Plan for Drug Dosing: Trough below goal. Increase to 1000mg IV q12h and recheck trough prior to 4th dose of new regimen per policy. Pharmacy Service will continue to monitor and adjust dosing as required. Follow-Up Labs: Trough Vancomycin - 09/06 @ 0530
[2019-09-05] MEDS: Vancomycin IV 1,000 MG/200 ML BAG 200 MG IV (18:27)
[2019-09-05] MEDS: Bisacodyl 10 MG Suppository RECTAL (20:25)
[2019-09-05] MEDS: 0.9% Saline Lock 10 ML Syringe IV (22:14)
[2019-09-05] MEDS: OLANZapine 2.5 MG Tablet GT (22:23)
[2019-09-05] MEDS: Mirtazapine 15 MG Tablet GT (22:23)
[2019-09-05] MEDS: Jevity 1.5 1,000 ML 55 ML GT (22:26)
--- NOTE | 2019-09-05 23:01 | NURSING ---
All fingernails noted to be very long and dirty. Very old dressing removed from Rt 4th digit. Pt stating he had smashed that finger awhile back and the nail is messed up. Nail noted to be rough and thick. All nails trimmed without problem. Pt stating he had no idea the last time they were trimmed. Bilateral hands cleansed with soap and water. Pt requesting DSD to Rt 4th digit for protection. Pt thanked this numerous times. O2 96% 6L via NC. Resting in bed with call light in reach.
[2019-09-06] VITALS (8 sets, daily range): BP systolic 112–132; BP diastolic 62–93; PULSE 93–102; RESP 18–28; TEMP 36.5–36.7; O2SAT 91–98
[2019-09-06] MEDS: Losartan Potassium 25 MG Tablet GT (04:53)
[2019-09-06] MEDS: Levothyroxine 75 MCG Tablet GT (04:53)
[2019-09-06] MEDS: Loratadine 10 MG Tablet GT (04:54)
[2019-09-06] MEDS: APIXABAN 5 MG TABLET 10 MG GT (04:54)
[2019-09-06] MEDS: Senna/Docusate Sodium 1 Tablet GT (04:54)
[2019-09-06] MEDS: Na Biphos/Potassium Phosphate PACKET 1 PACKET GT ×4 (04:54→21:52)
[2019-09-06] MEDS: Polyethylene Glycol 3350 17 GM PACKET GT (04:54)
[2019-09-06] MEDS: Menthol/Lanolin/Calamine/Znox 113 GM Tube 1 APPLIC TOPICAL ×2 (04:59→21:56)
[2019-09-06] MEDS: Nystatin Powder 15gm Bottle 1 APPLIC TOPICAL ×2 (04:59→21:56)
[2019-09-06] MEDS: Vancomycin IV 1,000 MG/200 ML BAG 200 MG IV ×2 (05:00→18:26)
[2019-09-06] MEDS: 0.9% Saline Lock 10 ML Syringe IV ×3 (05:01→21:53)
[2019-09-06] MEDS: Ipratropium/Albuterol Sulfate 3 ML AMPUL.NEB INHALATION ×3 (07:00→20:37)
[2019-09-06] MEDS: MethylPREDNISolone DosePak 4 MG BOX PO ×4 (08:04→21:53)
[2019-09-06] MEDS: Multivitamins,Therapeutic Tablet 1 TABLET GT (08:04)
[2019-09-06] MEDS: Mirtazapine 15 MG Tablet GT (21:52)
[2019-09-06] MEDS: OLANZapine 2.5 MG Tablet GT (21:52)
[2019-09-06] MEDS: Jevity 1.5 1,000 ML 55 ML GT (21:53)
--- NOTE | 2019-09-06 23:00 | NURSING ---
This nurse into change PICC dressing. Pt was able to cough up a large amount of thick yellow sputum. PICC dressing changed per protocol. 0cm exposed. Pt tolerated well.
[2019-09-07] MEDS: Na Biphos/Potassium Phosphate PACKET 1 PACKET GT ×4 (04:58→21:58)
[2019-09-07] MEDS: Polyethylene Glycol 3350 17 GM PACKET GT (04:58)
[2019-09-07] MEDS: Losartan Potassium 25 MG Tablet GT (04:58)
[2019-09-07] MEDS: Levothyroxine 75 MCG Tablet GT (04:59)
[2019-09-07] MEDS: Loratadine 10 MG Tablet GT (04:59)
[2019-09-07] MEDS: Senna/Docusate Sodium 1 Tablet GT (04:59)
[2019-09-07] MEDS: Nystatin Powder 15gm Bottle 1 APPLIC TOPICAL ×2 (05:05→22:02)
[2019-09-07] MEDS: Menthol/Lanolin/Calamine/Znox 113 GM Tube 1 APPLIC TOPICAL ×2 (05:05→22:03)
[2019-09-07 05:06] VITALS: BP 120/74; PULSE 92; RESP 20; TEMP 36.7; O2SAT 95
[2019-09-07 06:20] VITALS: PULSE 94; RESP 20; O2SAT 91
[2019-09-07] MEDS: Ipratropium/Albuterol Sulfate 3 ML AMPUL.NEB INHALATION ×3 (06:20→21:40)
[2019-09-07 06:36] LABS: Vancomycin, Trough Level 18.6 ug/mL (5.0-15.0)
[2019-09-07] MEDS: Vancomycin IV 1,000 MG/200 ML BAG 200 MG IV ×2 (06:47→17:56)
--- NOTE | 2019-09-07 06:53 | PCM.RX.CS ---
Consult Pharmacy has been consulted to manage selected antiobiotic: Vancomycin Type of Consult: Follow-up Suspected Infection: Pneumonia Prior Doses of Antibiotics Received/Current Regimen: the patient is currently on 1000mg IV q12h Labs: Sodium 135 mmol/L (136-145) L 09/03/19 05:40 Potassium 4.5 mmol/L (3.5-5.1) 09/03/19 05:40 Chloride 100 mmol/L (98-107) 09/03/19 05:40 Carbon Dioxide 30.0 mmol/L (21.0-32.0) 09/03/19 05:40 Anion Gap 5 (5-15) 09/03/19 05:40 BUN 23 mg/dL (7-18) H 09/03/19 05:40 Creatinine 0.75 mg/dL (0.70-1.30) 09/03/19 05:40 Est GFR (MDRD) Af Amer 133 mL/min (>60) 09/03/19 05:40 Est GFR (MDRD) Non-Af 110 mL/min (>60) 09/03/19 05:40 BUN/Creatinine Ratio 30.5 RATIO (10-20) H 09/03/19 05:40 Glucose 133 mg/dL (74-106) H 09/03/19 05:40 Vancomycin Trough 18.6 ug/mL (5.0-15.0) H 09/07/19 05:44 Microbiology: Microbiology 09/02/19 15:45 Mucosa - Nasopharyngeal Coronavirus COVID-19 PCR - Final Weight used for dosin kg Goal Trough: 15-20 mcg/mL Pharmacy Plan for Drug Dosing: The vancomycin trough drawn before this morning's dose came back as 18.6 (11 1/4 hr level). Will keep the patient on the same dose of 1000mg IV q12h since it is within goal range of 15-20. However, will recheck the trough again tomorrow morning to make sure it does not rise above 20 due to the trough increasing all the way to 18.6 from 8.2 in 2 days since the last dose change. Will also check a SCr tomorrow morning. Vancomycin is to be stopped after the doses on 09/10/19 are given. Pharmacy Service will continue to monitor and adjust dosing as required. Follow-Up Labs: Trough Vancomycin Labs to be done on [date and time ordered]: 09/08/19 05:30
[2019-09-07] MEDS: MethylPREDNISolone DosePak 4 MG BOX PO ×3 (08:41→21:59)
[2019-09-07] MEDS: Multivitamins,Therapeutic Tablet 1 TABLET GT (08:42)
[2019-09-07 12:20] VITALS: BP 93/60; PULSE 89; RESP 20; TEMP 36.4; O2SAT 96
[2019-09-07 13:46] VITALS: PULSE 88; RESP 22; O2SAT 98
--- NOTE | 2019-09-07 15:17 | NURSING ---
Sister Chastity updated.
[2019-09-07 16:00] VITALS: BP 108/68; PULSE 92; RESP 14; TEMP 36.1; O2SAT 95
[2019-09-07] MEDS: 0.9% Saline Lock 10 ML Syringe IV ×2 (17:53→21:52)
[2019-09-07] MEDS: APIXABAN 5 MG TABLET PO (17:59)
[2019-09-07] MEDS: Jevity 1.5 1,000 ML 55 ML GT (21:35)
[2019-09-07 21:40] VITALS: PULSE 95; RESP 22; O2SAT 91
[2019-09-07] MEDS: Mirtazapine 15 MG Tablet GT (21:58)
[2019-09-07] MEDS: OLANZapine 2.5 MG Tablet GT (21:59)
[2019-09-08 04:02] VITALS: BP 143/95; PULSE 108; TEMP 36.9; O2SAT 71
--- NOTE | 2019-09-08 04:08 | NURSING ---
Addendum entered by Eloise Busch 09/08/19 04:45: Sister Chastity called and notified of patient being sent down to ER. Addendum entered by Eloise Busch 09/08/19 04:41: Report called to KARLA Kemp in the ER. Addendum entered by Eloise Busch 09/08/19 04:28: Dr. Ferrari notified of this, orders given to send patient to ER. Original Note: Patient noted to have copious dark brown sputum. Patient with rhonchi throughout. Patient very SOB. Patient BP 143/95 P 108 T 98.4 Temporal O2 74 on 5 L O2. Patient able to cough out sputum, patient suctioned with Yanker, patient states that he feels better. Oral care given at this time. Respiratory called at this time due to O2 levels still in the 70s. Dr. Ferrari paged.
[2019-09-08 04:25] VITALS: O2SAT 93
--- NOTE | 2019-09-08 05:04 | PCA ---
When rounding AUTOMATIC PROFILE SHAPER OPERATOR noticed that patient's dempsey was not very full. There was not enough in the dempsey to empty earlier in the shift.the amount appeared to be the same as the beginning of the shift. Rn was made aware
[2019-09-08 05:44] LABS: Vancomycin, Trough Level 21.5 ug/mL (5.0-15.0)
--- NOTE | 2019-09-08 07:12 | NURSING ---
Addendum entered by Eloise uBsch 09/08/19 07:20: Assessment done at 2030 last evening. Original Note: In to assess patient at this time. Patient's bed noted to not be at a 30 degree angle. Sat patient up in bed at a 30 degree angle and patient states no I want to go down further. This nurse educated the patient on the importance of being at a 30 degree angle with patient being on tube feeds and to help patient not to aspirate. Patient stated his understanding but went to push the buttons to put head of bed down. Patient reminded again and patient stated he understood. Patient's lung sound noted to have rhonchi which is nothing new. New tube feed bag hung at this time. Patient had no residual with peg tube. Patient's peg tube auscultated for placement. Respiratory in at this time to give breathing treatment. No other needs voiced.
--- NOTE | 2019-09-08 08:04 | DCINST_ITS ---
- Discharge Diagnoses Current Active Problems: Current Active and Chronic Problems Acute respiratory failure with hypoxia (Acute) Aspiration of gastric contents (Acute) Sinus tachycardia by electrocardiography (Acute) Hyponatremia (Chronic) Sepsis (Acute) Respiratory failure with hypoxia and hypercapnia (Acute) Pneumonia (Acute) You will use the following diet at home:: Other - NPO. Discharge Activity: Use Walker Weight Bearing Status: Weight bearing as tolerated Call your doctor if you observe: Fever of 101 or Higher, Inability to urinate, Inability to have a bowel movement, Shortness of breath, Chest pain, Uncontrolled pain Allergies/Adverse Reactions: Allergies No Known Allergies Allergy (Verified 01/31/17 16:57) Medications to take at Discharge Apixaban [Eliquis] 5 mg GT DAILY 09/08/19 Ipratropium/Albuterol Sulfate [Duoneb] 3 ml INHALATION Q4HWA.RT 09/08/19 Loratadine 10 mg GT DAILY 09/08/19 Losartan Potassium [Cozaar] 25 mg GT DAILY 09/08/19 Primary Care Physician: Alexandre Grover DO [Primary Care Provider] - Please follow up with your Primary Care Physician in: 1 week. Test Results: Test results from this visit will be discussed in further detail at your follow- up appointment, if applicable. Please Follow Up With: Ramon Quan MD When: 1-2 wks Please Follow Up With: Nicanor Mackay MD When: 1-2 wks Proposed Discharge Date: 09/08/19
--- NOTE | 2019-09-08 08:06 | DS.PCM_ITS ---
Discharge Date and Diagnosis - Problem List Patient Problems: Active and Suspected Problems Acute respiratory failure with hypoxia (Acute) Aspiration of gastric contents (Acute) Sinus tachycardia by electrocardiography (Acute) Sepsis (Acute) Respiratory failure with hypoxia and hypercapnia (Acute) Pneumonia (Acute) Date of Admission: 09/08/19 Date of Discharge: 09/08/19 - Primary Discharge Diagnosis Active and Suspected Problems Acute respiratory failure with hypoxia (Acute) Aspiration of gastric contents (Acute) Sinus tachycardia by electrocardiography (Acute) Sepsis (Acute) Respiratory failure with hypoxia and hypercapnia (Acute) Pneumonia (Acute) - Secondary Discharge Diagnosis Chronic Problems Left ventricular thrombus (Chronic) Stroke (Chronic) COPD (chronic obstructive pulmonary disease) (Chronic) Pulmonary embolism (Chronic) Self neglect (Chronic) Throat cancer (Chronic) Lung cancer (Chronic) Hypothyroidism (Chronic) Allergic rhinitis (Chronic) Hypertension (Chronic) Hyponatremia (Chronic) Hospital Course and Treatment Operations: None Procedures: None Summary of Care Provided: The patient is a 64 year old Male with below past medical history hospitalized for stroke, complicated by confusion, pulmonary embolism, LV thrombus, dysphagia, aspiration pneumonia electrolyte abnormality, admitted to TCU with debility, here for rehabilitation, strengthening, prior to disposition determination. Tube feeding via PEG. On TCU, he received Meropenem, Vancomycin for ongoing right sided aspiration pneumonia. 09/08/2019 Resident coughing up Tube feed. Resident requested Full Code. Discharge to [facility] Emergency Department for evaluation, admission to hospital. Patient Problems: Active and Suspected Problems Acute respiratory failure with hypoxia (Acute) Aspiration of gastric contents (Acute) Sinus tachycardia by electrocardiography (Acute) Sepsis (Acute) Respiratory failure with hypoxia and hypercapnia (Acute) Pneumonia (Acute) - Physical Exam Vitals/I&O's: Vital Signs Temp Pulse Resp BP Pulse Ox 98.4 F 108 H 22 H 143/95 H 93 09/08/19 04:02 09/08/19 04:02 09/07/19 21:40 09/08/19 04:02 09/08/19 04:25 Oxygen Flow Rate (L/min) 8 Oxygen Delivery Method Nasal Cannula Weight: 59.988 kg Body Mass Index (BMI) 18.3 Intake and Output for Last 24 Hours 09/06/19 09/07/19 09/08/19 23:59 23:59 23:59 Intake Total 3316.8 / 3316.8 2897.00 / 2897.00 120 / 120 Output Total 1250 / 1250 700 / 700 700 / 700 Balance 2066.8 / 2066.8 2197.00 / 2197.00 -580 / -580 Laboratory Results 09/08/19 05:10: Vancomycin Trough 21.5 H Discharge Diet: - - NPO. Discharge Activity: Use Walker Weight Bearing Status: Weight bearing as tolerated Call your doctor if you observe: Fever of 101 or Higher, Inability to urinate, Inability to have a bowel movement, Shortness of breath, Chest pain, Uncontrolled pain Home Medications: Medications to take at Discharge Apixaban [Eliquis] 5 mg GT DAILY 09/08/19 Ipratropium/Albuterol Sulfate [Duoneb] 3 ml INHALATION Q4HWA.RT 09/08/19 Loratadine 10 mg GT DAILY 09/08/19 Losartan Potassium [Cozaar] 25 mg GT DAILY 09/08/19 Primary Care Physician: Alexander Grover DO [Primary Care Provider] - Please follow up with your Primary Care Physician in: 1 week. Please Follow Up With: Ramon Quan MD When: 1-2 wks Please Follow Up With: Nicanor Mackay MD When: 1-2 wks Disposition: Acute care Hospital Minutes spent on discharge:: 30 Patient Condition:: Critical Medical Necessity - Tobacco Use Smoking Status: Former smoker Tobacco Use: Non-smoker Meaningful Use Info Meaningful Use Diagnoses (Choose all that apply): None applicable
--- NOTE | 2019-09-15 11:38 | MDS.RN ---
Information for the mds was obtained from review of the clinical record, interview of resident, staff, and direct observation of resident's care.
--- OUTSIDE RECORDS SUMMARY | 2020-02-02 10:02 | XMS RPT_ITS | CCD ---
:1955 External Reference #:[id number] Author Organization [facility] Care Team Providers Name Role Phone Unavailable Unavailable Unavailable Results Result Name Value Range Unit Interpretation Flag Date Location [facility] on 2019[facility]09-15 [facility]) Normal 09-15-2019 [facility] BETTY RICHARD ([id number]) 1955 [facility] Time Provider Department ([id number]) 09/15/19 ALEXANDER HERNANDEZ FAMWS During your visit [...] Date 09/15/2019 Noted Resolved Elevated Blood Pressure [TXO0579] 02/21/2009 10/04/2009 Weight Loss [R63.4] 02/21/2009 06/10/2009 [...] OBSOLETE Refill (FAMPWS) Normal 08-14-2019 Kyle allen [facility] BETTY RICHARD ([id number]) 1955 [facility] Date Time Provider Department ([id number]) 08/14/19 ALEXANDER HERNANDEZ During your visit today, [...] Date 08/14/2019 Noted Resolved Elevated Blood Pressure [GGL8867] 02/21/2009 10/04/2009 Weight Loss [R63.4] 02/21/2009 06/10/2009 [...] * *Final Report* * * Normal 06-28 [facility] FRONTAL/LAT DATE OF EXAM: Jun 29 2019 2:11PM [place] WRX 5291 - XR CHEST 2V FRONTAL/LAT / ([id number]) PROCEDURE REASON: History of malignant neoplasm of [...] th e spine. IMPRESSION: Overall findings unchanged. Automotive Manager: MOLLY Transcribe Date/Time: Jun 29 2019 2:19P Dictated by : ERICA AHMADI MD This examination was interpreted and the report reviewed and electronically signed by: ERICA AHMADI MD on Jun 29 2019 2:22PM EST [id number] progress on 2019-06 PROGRESS HNO ID: [id number] Normal 06-29-2019 [facility] Author: Janet Dan (Rt) Galina Borrero [place] ([id number]) Service: ? Author Type: Pole Framer Type: Progress Notes Filed: 06/29/2019 2:11 PM [...] on 2019-06-29 DARVINN Telephone (PRESLEY) Normal 06-29-2019 [place] [facility] BETTY RICHARD ([id number]) 1955 [facility] Time Provider Department () 06/29/19 TANYA RODRÍGUEZ [...] of oropharynx [Z85.819] Order(s):XR CHEST 2V FRONTAL/LAT [1750066] Order #: [id number] FUTURE Prescriptions as of 06/29/2019 Sig: [...] Date 06/29/2019 Noted Resolved Elevated Blood Pressure [NEQ8094] 02/21/2009 10/04/2009 Weight Loss [R63.4] 02/21/2009 06/10/2009 [...] on 06/29/19 MARLON Telephone (PRESLEY) Normal 06-29-2019 [place] [facility] BETTY RICHARD ([id number]) 1955 M [place] Date Time Provider Department ([id number]) 06/29/19 TANYA RODRÍGUEZ During your visit today, [...] Date 06/29/2019 Noted Resolved Elevated Blood Pressure [NBB3827] 02/21/2009 10/04/2009 Weight Loss [R63.4] 02/21/2009 06/10/2009 [...] on 2019-04-06 [facility]CO Letter Text Normal 04-06-2019 [facility] ([id number]) progress on 2019-03 PROGRESS HNO ID: [id number] Normal 04-03-2019 [facility] Author: Alexander Hernandez [place] ([id number]) Service: ? Author Type: Physician Type: Progress [...] liquid as needed, Only able to tolerate [place] instant br eakfast, no other foods/supplements. Hypothyroidism, taking levothyroxine 75 mcg daily TSH Date Value Ref Range Status 03/30/2019 1.470 0.270 - 4.200 uU/mL Final PAST MEDICAL HISTORY Diagnosis Date - Cigar smoker in past - COPD (chronic obstructive pulmonary disease) (HCC) 02/22/[address] Farrell Lead Refinery Supervisor - Eczema 03/08/2010 - Hx of primary hypertension resolved, no longer on medications - Hypothyroidism 08/2015 - Oral cancer (HCC) Apr 2011 Pharyngeal; feeding tube (05/2011), Dr. Moeller Oncology, Dr. Deidre shahid ENT, Dr. Butts Radiation - Shoulder pain, bilateral 1993 PAST SURGICAL HISTORY Procedure Laterality Date - PAST SURGICAL HISTORY OF 05/25/11 Peg tube placement, removed 02/26/2012 - [place] ANESTH,NOSE,SINUS SURGERY - RADIATION THERAPY Pharyngeal cancer [...] See patient instructions. Alexander Hernandez DO [address] [place] [address] fecal occult bld tst on 2019-04-03 Immuno FOB Negative Negative Normal 04-03-2019 Senia solis [facility] ([id number]) Comment: Result Comment: This test wa s developed and its performance characteristics determined by [facility]'s [facility] ( PLA[facility]). It has not been cleared or a pproved by the FDA. [facility] is regulated under CLIA as qualified to perform high complexity testing. This test is used for clinic al purposes. It should not be regarded as investigational or for research. Performed By: #### IFOBT ### #[facility] [address] [place], [place] [id number] [phone] ekg1 on 2019-04-03 EKG1 NAME : CHANTELBETTY TREVINO Normal 2018 [facility] PID : [id number] Gerry ceballos ([id number]) : 1955 Gender : Male Race : [...] ms QTC Calculation(Bazett) : 418 ms P Morley : 81 degrees R Morley : 65 degrees T Morley : 75 degrees Test Reason : Location : 185 : [facility] Overread By : FAMILIA BATES D.O. Edited By : FAMILIA BATES D.O. Referred By : ALEXANDER HERNANDEZ Acquired by : lorenzo DOSS on 2019-04-03 CNOV Office Visit (FAMPWS) Normal 04-03-20 19 [place] [facility] BESSBETTY Manley ([id number]) 1955 [facility] Time Provider Department ([id number]) 04/03/19 10:20 AM ALEXANDER HERNANDEZ FAMPWS During [...] liquid as needed, Only able to tolerate [place] instant breakfast, n o other foods/supplements. Hypothyroidism, taking levothyroxine 75 mcg daily TSH Date Value Ref Range Status 03/30/2019 1.470 0.270 - 4.200 uU/mL Final PAST MEDICAL HISTORY Diagnosis Date - Cigar smoker in past - COPD (chronic obstructive pulmonary disease) (HCC) 02/22/[address] Farrell Lead Refinery Supervisor - Eczema 03/08/2010 - Hx of primary hypertension resolved, no longer on medications - Hypothyroidism 08/2015 - Oral cancer (HCC) Apr 2011 Pharyngeal; feeding tube (05/2011), Dr. Moeller Oncology, Dr. Gasca ENT, Dr. Butts Radiation - Shoulder pain, bilateral 1993 PAST SURGICAL HISTORY Procedure Laterality Date - PAST SURGICAL HISTORY OF 05/25/11 Peg tube placement, removed 02/26/2012 - SD ANESTH,NOSE,SINUS SURGERY - RADIATION THERAPY Pharyngeal cancer [...] plan. See patient instructions. Alexander Hernandez DO [address] [place] [address] Referring Provider: SELF [200] Allergies As of [...] Order(s):FECAL OCCULT BLOOD TEST [SQIFOBT] Order #: [id number] FUTURE ECG COMPLETE [ECG01] Order #: [id number] FUTURE Prescriptions as of 04/03/2019 Sig: LEVOTHYROXINE [...] TSH Qn 1.470 0.270-4.200 uU/mL Normal 03-30-2019 [facility] ([id number]) Comment: Performed By: #### BMP, LIPB , TSH ####[facility] [address] [place] [address] [phone] lipid panel, basic on 2019-03-30 Cholesterol [Mass/Vol] 159 <200 mg/dL Normal 019 [facility] (41390) Comment: Result Comment: <200 mg/dL, Desirable 200-239 mg/dL, Borderline hi gh >239 mg/dL, High Performed By: #### BMP, LIPB , TSH ####[facility] [address] [phone] Cholesterol in HDL 53 >39 mg/dL Normal 03-30-2019 [facility] [Mass/Vol] (09975) Comment: Result Comment: 40-59 mg/dL, Acceptable >59 mg/dL, High: Negative ri sk factor for coronary heart disease <40 mg/dL, Low: Positive ris k factor for coronary heart disease Performed By: #### BMP, LIPB , TSH ####[place] [address] [address] [phone] Cholesterol in LDL 93 <100 mg/dL Normal 03-30-2019 [facility] [Mass/Vol] [place] ([id number]) Comment: Result Comment: <100 mg/dL, Optimal 100-129 mg/dL, Near optimal/ above optimal 130-159 mg/dL, Borderline hi gh 160-189 mg/dL, High >189 mg/dL, Very high Secondary prevention optimal LDL Cholesterol levels are recommended to be < 70 mg/dL Performed By: #### BMP, LIPB , TSH ####[address] [place] [address] [phone] Fasting Time 5 hrs Normal 03-30-2019 [facility] (57765) Comment: Performed By: #### BMP, LIPB , TSH ####[address] [place] [address] [phone] LDL:HDL Ratio 1.75 <2.54 Normal 03-30-2019 [facility] (53107) Comment: Result Comment: Reference: 1. National Cholesterol Educ ation Program ATP III Guideline At-A-Glance Quick Desk Reference: National Heart, Lung, and Blood [place]. National Institutes of Health. 2001: NIH Publication No. 01-3305. 2. An International Atherosc lerosis Society position paper: global recommendations for the management of dyslipidemia: executive summary, Atherosclerosis. 2014: 232(2):410-413. Performed By: #### BMP, LIPB , TSH ####[place] [id number] [place] [address] [phone] Non HDL Cholesterol 106 <130 mg/dL Normal 03-30-2019 [facility] (54001) Comment: Result Comment: <130 mg/dL, Optimal 130-159 mg/dL, Near optimal/ above optimal 160-189 mg/dL, Borderline hi gh 190-219 mg/dL, High >219 mg/dL, Very high Secondary prevention optimal non HDL Cholesterol levels are recommended to be < 100 mg/dL Performed By: #### BMP, LIPB , TSH ####[place] [address] [phone] TC:HDL Ratio 3.00 <5.10 Normal 03-30-2019 [facility] (31082) Comment: Performed By: #### BMP, LIPB , TSH ####[place] [address] [phone] Triglyceride [Mass/Vol] 65 <150 mg/dL Normal 2018 [facility] (57348) Comment: Result Comment: <150 mg/dL, Normal 150-199 mg/dL, Borderline hi gh 200-499 mg/dL, High >499 mg/dL, Very high Performed By: #### BMP, LIPB , TSH ####[place] [address] [phone] VLDL Cholesterol 13 <30 mg/dL Normal 03-30-2019 [facility] (45288) Comment: Performed By: #### BMP, LIPB , TSH ####[place] [address] [phone] basic metabolic panl on 2019-03-30 Anion gap [Moles/Vol] 13 9-18 mmol/L Normal 03-30-20 19 [facility] (54946) Comment: Performed By: #### BMP, LIPB , TSH ####[place] [address] [phone] Calcium [Mass/Vol] 9.6 8.5-10.2 mg/dL Normal 03-30-2019 [facility] (89843) Comment: Performed By: #### BMP, LIPB , TSH ####[facility] [address] [place] [place] [address] [phone] Chloride [Moles/Vol] 87 97-105 mmol/L Low 9 [facility] (77521) Comment: Performed By: #### BMP, LIPB , TSH ####[facility] [place] [address] [phone] CO2 [Moles/Vol] 24 22-30 mmol/L Normal 03-30-2019 [facility] (49859) Comment: Performed By: #### BMP, LIPB , TSH ####[facility] [place] [address] [phone] Creatinine [Mass/Vol] 0.71 0.73-1.22 mg/dL Low 03-30-20 19 [facility] (04954) Comment: Performed By: #### BMP, LIPB , TSH ####[facility] [place] [address] [phone] eGFR- Amer. >60 Normal 03-30-2019 [facility] (82293) Comment: Performed By: #### BMP, LIPB , TSH ####[facility] [place] [address] [phone] GFR/1.73 sq M predicted >60 mL/min/{1.73_m2} Normal 03-30-2019 [facility] among non-blacks MDRD [place] (01930) (S/P/Bld) [Vol rate/Area] Comment: Result Comment: eGFR [...] GFR. Performed By: #### ABBE ROCA TSH ####[facility] [place] [address] [phone] Glucose [Mass/Vol] 70 74-99 mg/dL Low 03-30-2019 [facility] (03361) Comment: Result Comment: The [place] Diabetes Association (ADA) provides guidance for cutoff [...] for diagnosis of diabetes. Reference: Standards of [facility] Care in Diabetes 2016, [place] Diabetes Association. Diabetes Care. 2016.39(Suppl 1). Performed By: #### ABBE ROCA TSH ####[facility] [place] [address] [phone] Potassium [Moles/Vol] 4.8 3.7-5.1 mmol/L Normal 03-30-20 [facility] (15624) Comment: Performed By: #### ABBE ROCA , TSH ####[facility] [place] [address] [phone] Sodium [Moles/Vol] 124 136-144 mmol/L Low 03-30-2019 [facility] (32532) Comment: Performed By: #### ABBE ROCA , TSH ####[facility] [place] [address] [phone] Urea nitrogen [Mass/Vol] 18 9-24 mg/dL Normal 03-30 [facility] (01518) Comment: Performed By: #### BMP, LIPB , TSH ####[facility] [address] [place] [address] [phone] cnptoutreach on 201 12-31-25 CNPTOUTREACH Patient Outreach (FAMPST) Normal 1 05-17-2018 [place] [facility] BETTY RICHARD ([id number]) 1955 [facility] Date Time Provider Department (10369) 03/17/19 ALEXANDER HERNANDEZ FAMPST During your visit today, we recorded the following informati on about you: Allergies As of Date: 03/17/2019 (No Known Allergies) Date Reviewed: 10/29/2018 Reviewed by: Lary Murdock Ma - Fully Assessed Visit Diagnoses:Essential hypertension [I10] Mixed hyperlipidemia [E78.2] Hypothyroidism, acquired [E03.9] Order(s):BASIC METABOLIC PNL [SQBMP] Order #: [id number] FUT URE LIPID PANEL BASIC [SQLIPB] Order #: [id number] FUTURE TSH BLD [SQTSH] Order #: [id number] FUTURE Prescriptions as of 03/17/2019 Sig: LEVOTHYROXINE [...] (FAMPWS) Normal 03-05-2019 Kyle allen BETTY Vincent ([id number]) 1955 [facility] Date Time Provider Department ([id number]) 03/05/19 ALEXANDER HERNANDEZ During your visit today, [...] on 2019-01 OBSOLETE Refill (FAMPWS) Normal 02-09-2019 [facility] BETTY RICHARD ([id number]) 1955 [facility] Time Provider Department ([id number]) 02/09/19 ALEXANDER HERNANDEZ FAMPWS During your visit [...] [Z12.11] INVALID FOR* Finger laceration, initial encounter [V64.116A] INVALID FOR* Prescriptions ordered this encounter Disp [...] on 2019-01 OBSOLETE Refill (FAMPWS) Normal 02-06-2019 [facility] BETTY RICHARD ([id number]) 1955 [facility] Time Provider Department ([id number]) 02/06/19 ALEXANDER HERNANDEZ FAMPWS During your visit [...] 02/09/19 progress on 2018-11 PROGRESS HNO ID: [id number] Normal 11-21-2018 [facility] Author: Beverly Flynn ([id number]) Service: ? Author Type: Terrazzo Mechanic Type: Progress Notes Filed: 11/21/2018 11:46 AM Note Text: [facility] TICKETING AGENT QUICKNOTE Provider Action/FYI: Bp was 100/80 on 09-23-18. No nurse visit needed. Patient identified by name and . Beverly Flynn MA progress on 2018-10 PROGRESS HNO ID: [id number] Normal 11-14-2018 [facility] Author: Beverly Flynn [place] ([id number]) Service: ? Author Type: Terrazzo Mechanic Type: Progress Notes Filed: 11/21/2018 11:46 AM [...] CNPTOUTREACH Patient Outreach (FAMPWS) Normal 0 11-14-2018 [place] [facility] BETTY RICHARD ([id number]) 1955 [facility] Time Provider Department ([id number]) 11/14/18 BEVERLY FLYNN (GURU) FAMPWS During your [...] Salazar MA 11/21/2018 11:46 AM Signed [facility] TICKETING AGENT QUICKNOTE Provider Action/FYI: Bp was 100/80 on [...] 11/21/18 progress on 2018-10 PROGRESS HNO ID: [id number] Normal 10-29-2018 [place] Author: Taisha Whitman [facility] Service: ? [place] Author Type: Nurse Practitioner ([id number]) Type: Progress Notes Filed: 11/04/2018 7:25 AM Note Text: VASCULAR SURGERY WOUND OSTOMY CONTINENCE CONSULTATION CHIEF COMPLAINT: Wound check and evaluation HISTORY OF PRESENT ILLNESS: right 4th finger PAST MEDICAL HISTORY Diagnosis Date - Cigar smoker in past - COPD (chronic obstructive pulmonary disease) (HCC) 02/22/20 Dr. Farrell Lead Refinery Supervisor - Eczema 03/08/2010 - Hx of primary hypertension resolved, no longer on medications - Hypothyroidism 08/2015 - Oral cancer (HCC) Apr 2011 Pharyngeal; feeding tube (05/2011), Dr. Moeller Oncology, Dr. Deidre shahid ENT, Dr. Butts Radiation - Shoulder pain, bilateral 1993 PAST SURGICAL HISTORY Procedure Laterality Date - PAST SURGICAL HISTORY OF 05/25/11 Peg tube placement, removed 02/26/2012 - [place] ANESTH,NOSE,SINUS SURGERY - RADIATION THERAPY Pharyngeal cancer [...] education/counselling/coordination of care. Taisha Whitman, PhD, WOCN, TAR ROOFER cnov on 2018-10-29 CNOV Office Visit (VASSWS) Normal 10-30-19 [place] [facility] BETTY RICHARD ([id number]) 1955 M [facility] Time Provider Department ([id number]) 10/29/18 2:30 PM TAISHA WHITMAN VASSWS During your visit today, we recorded the following informati on about you: Taisha Whitman, PhD, CARDIOPULMONARY TECHNOLOGIST.TAR ROOFER 11/04/2018 7:25 AM Signed VASCULAR SURGERY WOUND OSTOMY CONTINENCE CONSULTATION CHIEF COMPLAINT: Wound check and evaluation HISTORY OF PRESENT ILLNESS: right 4th finger PAST MEDICAL HISTORY Diagnosis Date - Cigar smoker in past - COPD (chronic obstructive pulmonary disease) ([facility]) 02/22/[address] Farrell Lead Refinery Supervisor - Eczema 03/08/2010 - Hx of primary hypertension resolved, no longer on medications - Hypothyroidism 08/2015 - Oral cancer ([facility]) Apr 2011 Pharyngeal; feeding tube (05/2011), Dr. Moeller Oncology, Dr. Gasca ENT, Dr. Butts Radiation - Shoulder pain, bilateral 1993 PAST SURGICAL HISTORY Procedure Laterality Date - PAST SURGICAL HISTORY OF 05/25/11 Peg tube placement, removed 02/26/2012 - [place] ANESTH,NOSE,SINUS SURGERY - RADIATION THERAPY Pharyngeal cancer [...] education/counselling/coordination of care. Taisha Whitman, PhD, WOCN, TAR ROOFER Referring Provider: ALEXANDER HERNANDEZ [[id number]] Allergies As of Date: 10/29/2018 (No Known Allergies) Date Reviewed: 10/29/2018 Reviewed by: Lary Murdock Ma - Fully Assessed Reason for Visit: Follow Up [171] Primary Visit Diagnosis:Avul anthony of finger tip, subsequent encounter [S62.729D] Prescriptions as of 10/29/2018 Sig: LORATADINE 10 [...] on 2018-10 OBSOLETE Refill (FAMPWS) Normal 10-24-2018 [facility] BETTY RICHARD ([id number]) 1955 [facility] Date Time Provider Department ([id number]) 10/24/18 ALEXANDER HERNANDEZ FAMPWS During your visit [...] last office visit in primary care: 09/23/18 TAR ROOFER, PCP, next 04/03/19 Last 2 Encounter Wt [...] 10/24/18 progress on 2018-09 PROGRESS HNO ID: [id number] Normal 10-17-2018 [place] Author: Taisha Whitman [facility] Service: ? [place] Author Type: Nurse Practitioner ([id number]) Type: Progress Notes Filed: 10/26/2018 9:27 PM Note Text: VASCULAR SURGERY WOUND OSTOMY CONTINENCE CONSULTATION CHIEF COMPLAINT: Wound check and evaluation HISTORY OF PRESENT ILLNESS: right 4th finger wound PAST MEDICAL HISTORY Diagnosis Date - Cigar smoker in past - COPD (chronic obstructive pulmonary disease) (HCC) 02/22/20 Dr. Farrell Lead Refinery Supervisor - Eczema 03/08/2010 - Hx of primary hypertension resolved, no longer on medications - Hypothyroidism 08/2015 - Oral cancer (HCC) Apr 2011 Pharyngeal; feeding tube (05/2011), Dr. Moeller Oncology, Dr. Deidre shahid ENT, Dr. Butts Radiation - Shoulder pain, bilateral 1993 PAST SURGICAL HISTORY Procedure Laterality Date - PAST SURGICAL HISTORY OF 05/25/11 Peg tube placement, removed 02/26/2012 - SD ANESTH,NOSE,SINUS SURGERY - RADIATION THERAPY Pharyngeal cancer [...] education/counselling/coordination of care. Taisha Whitman, PhD, WOCN, TAR ROOFER cnov on 2018-10-17 CNOV Office Visit (VASSWS) Normal 10-18-19 [place] [facility] BETTY RICHARD ([id number]) 1955 M [place] Date Time Provider Department ([id number]) 10/17/18 11:30 AM TAISHA WHITMAN VASSWS During your visit today, we recorded the following informati on about you: Temperature Blood pressure 98.3 degrees 146/99 Taisha Whitman, PhD, CARDIOPULMONARY TECHNOLOGIST.TAR ROOFER 10/26/2018 9:27 PM Signed VASCULAR SURGERY WOUND OSTOMY CONTINENCE CONSULTATION CHIEF COMPLAINT: Wound check and evaluation HISTORY OF PRESENT ILLNESS: right 4th finger wound PAST MEDICAL HISTORY Diagnosis Date - Cigar smoker in past - COPD (chronic obstructive pulmonary disease) (HCC) 02/22/20 Dr. Farrell Lead Refinery Supervisor - Eczema 03/08/2010 - Hx of primary hypertension resolved, no longer on medications - Hypothyroidism 08/2015 - Oral cancer ([facility]) Apr 2011 Pharyngeal; feeding tube (05/2011), Dr. Moeller Oncology, Dr. Gasca ENT, Dr. Butts Radiation - Shoulder pain, bilateral 1993 PAST SURGICAL HISTORY Procedure Laterality Date - PAST SURGICAL HISTORY OF 05/25/11 Peg tube placement, removed 02/26/2012 - SD ANESTH,NOSE,SINUS SURGERY - RADIATION THERAPY Pharyngeal cancer [...] education/counselling/coordination of care. Taisha Whitman, PhD, WOCN, TAR ROOFER Referring Provider: ALEXANDER HERNANDEZ [[id number]] Allergies As of Date: 10/17/2018 (No Known Allergies) Date Reviewed: 10/17/2018 Reviewed by: Sandeep (Rn) Rosalind - Fully Assessed Reason for Visit: Established Patient [175] Cmt: follow-up right 4th finger Primary Visit Diagnosis:Avul anthony of finger tip, subsequent encounter [S65.209D] Prescriptions as of 10/17/2018 Sig: LOSARTAN 25 [...] (FAMPWS) Normal 10-15-2018 Kyle allen BETTY Vincent ([id number]) 1955 [facility] Date Time Provider Department ([id number]) 10/15/18 ALEXANDER HERNANDEZ During your visit today, [...] [Z12.11] INVALID FOR* Finger laceration, initial encounter [J96.722A] INVALID FOR* Prescriptions ordered this encounter Disp [...] 10/15/18 progress on 2018-09 PROGRESS HNO ID: [id number] Normal 10-10-2018 [place] Author: Taisha Whitman [facility] Service: ? [place] Author Type: Nurse Practitioner ([id number]) Type: Progress Notes Filed: 10/12/2018 5:55 PM Note Text: VASCULAR SURGERY WOUND OSTOMY CONTINENCE CONSULTATION CHIEF COMPLAINT: Wound check and evaluation HISTORY OF PRESENT ILLNESS: right 4th finger injury PAST MEDICAL HISTORY Diagnosis Date - Cigar smoker in past - COPD (chronic obstructive pulmonary disease) ([facility]) 02/22/[address] Farrell Lead Refinery Supervisor - Eczema 03/08/2010 - Hx of primary hypertension resolved, no longer on medications - Hypothyroidism 08/2015 - Oral cancer ([facility]) Apr 2011 Pharyngeal; feeding tube (05/2011), Dr. Moeller Oncology, Dr. Deidre shahid ENT, Dr. Butts Radiation - Shoulder pain, bilateral 1993 PAST SURGICAL HISTORY Procedure Laterality Date - PAST SURGICAL HISTORY OF 05/25/11 Peg tube placement, removed 02/26/2012 - SD ANESTH,NOSE,SINUS SURGERY - RADIATION THERAPY Pharyngeal cancer [...] education/counselling/coordination of care. Taisha Whitman, PhD, WOCN, TAR ROOFER cnov on 2018-10-10 CNOV Office Visit (VASSWS) Normal 10-11-19 19 [place] BETTY Vincent ([id number]) 1955 M [place] Date Time Provider Department ([id number]) 10/10/18 10:30 AM TAISHA WHITMAN During your visit today, we recorded the following informati on about you: Taisha Whitman, PhD, CARDIOPULMONARY TECHNOLOGIST.TAR ROOFER 10/12/2018 5:55 PM Signed VASCULAR SURGERY WOUND OSTOMY CONTINENCE CONSULTATION CHIEF COMPLAINT: Wound check and evaluation HISTORY OF PRESENT ILLNESS: right 4th finger injury PAST MEDICAL HISTORY Diagnosis Date - Cigar smoker in past - COPD (chronic obstructive pulmonary disease) (HCC) 02/22/[address] Farrell Lead Refinery Supervisor - Eczema 03/08/2010 - Hx of primary hypertension resolved, no longer on medications - Hypothyroidism 08/2015 - Oral cancer (HCC) Apr 2011 Pharyngeal; feeding tube (05/2011), Dr. Moeller Oncology, Dr. Gasca ENT, Dr. Butts Radiation - Shoulder pain, bilateral 1993 PAST SURGICAL HISTORY Procedure Laterality Date - PAST SURGICAL HISTORY OF 05/25/11 Peg tube placement, removed 02/26/2012 - [place] ANESTH,NOSE,SINUS SURGERY - RADIATION THERAPY Pharyngeal cancer [...] education/counselling/coordination of care. Taisha Whitman, PhD, WOCN, TAR ROOFER Referring Provider: ALEXANDER HERNANDEZ [[id number]] Allergies As of Date: 10/10/2018 (No Known Allergies) Date Reviewed: 10/10/2018 Reviewed by: Lary Murdock Ma - Fully Assessed Reason for Visit: Wound Care [485] Primary Visit Diagnosis:Avulsion of finger tip, nikhil dan encounter [S94.776C] Prescriptions as of 10/10/2018 Sig: MIRTAZAPINE 15 [...] 10/12/18 progress on 2018-09 PROGRESS HNO ID: [id number] Normal 10-01-2018 [place] Author: Taisha Whitman [facility] Service: ? [place] Author Type: Nurse Practitioner ([id number]) Type: Progress Notes Filed: 10/05/2018 4:52 PM Note Text: VASCULAR SURGERY WOUND OSTOMY CONTINENCE CONSULTATION CHIEF COMPLAINT: Wound check and evaluation HISTORY OF PRESENT ILLNESS: right 4th finger evulsion PAST MEDICAL HISTORY Diagnosis Date - Cigar smoker in past - COPD (chronic obstructive pulmonary disease) (HCC) 02/22/20 Dr. Farrell Lead Refinery Supervisor - Eczema 03/08/2010 - Hx of primary hypertension resolved, no longer on medications - Hypothyroidism 08/2015 - Oral cancer ([facility]) Apr 2011 Pharyngeal; feeding tube (05/2011), Dr. Moeller Oncology, Dr. Deidre shahid ENT, Dr. Butts Radiation - Shoulder pain, bilateral 1993 PAST SURGICAL HISTORY Procedure Laterality Date - PAST SURGICAL HISTORY OF 05/25/11 Peg tube placement, removed 02/26/2012 - SD ANESTH,NOSE,SINUS SURGERY - RADIATION THERAPY Pharyngeal cancer [...] none Edema: none Exudate: none Tissue color: Georgiana Tissue type: dry old blood washed off [...] education/counselling/coordination of care. Taisha Whitman, PhD, WOCN, TAR ROOFER cnov on 2018-10-01 CNOV Office Visit (VASSWS) Normal 10-02-19 [place] [facility] AMINATANGELICABETTY Manley ([id number]) 1955 M [place] Date Time Provider Department ([id number]) 10/01/18 3:30 PM TAISHA WHITMAN VASSWS During your visit today, we recorded the following informati on about you: Temperature Pulse Blood pressure Weight 98.6 degrees 61/minute 99/68 61.2 kg Taisha Whitman, PhD, CARDIOPULMONARY TECHNOLOGIST.TAR ROOFER 10/05/2018 4:52 PM Signed VASCULAR SURGERY WOUND OSTOMY CONTINENCE CONSULTATION CHIEF COMPLAINT: Wound check and evaluation HISTORY OF PRESENT ILLNESS: right 4th finger evulsion PAST MEDICAL HISTORY Diagnosis Date - Cigar smoker in past - COPD (chronic obstructive pulmonary disease) ([facility]) 02/22/20 Dr. Farrell Lead Refinery Supervisor - Eczema 03/08/2010 - Hx of primary hypertension resolved, no longer on medications - Hypothyroidism 08/2015 - Oral cancer ([facility]) Apr 2011 Pharyngeal; feeding tube (05/2011), Dr. Moeller Oncology, Dr. Gasca ENT, Dr. Butts Radiation - Shoulder pain, bilateral 1993 PAST SURGICAL HISTORY Procedure Laterality Date - PAST SURGICAL HISTORY OF 05/25/11 Peg tube placement, removed 02/26/2012 - SD ANESTH,NOSE,SINUS SURGERY - RADIATION THERAPY Pharyngeal cancer [...] none Edema: none Exudate: none Tissue color: Georgiana Tissue type: dry old blood washed off [...] education/counselling/coordination of care. Taisha Whitman, PhD, WOCN, TAR ROOFER Referring Provider: TAISHA WHITMAN [[id number]] Allergies As of Date: 10/01/2018 (No Known Allergies) Date Reviewed: 10/01/2018 Reviewed by: Lary Murdock Ma - Fully Assessed Reason for Visit: Follow Up [171] Primary Visit Diagnosis:Avulsion of finger tip, initia l encounter [O05.859C] Prescriptions as of 10/01/2018 Sig: MIRTAZAPINE 15 [...] 10/05/18 progress on 2018-09 PROGRESS HNO ID: [id number] Normal 09-24-2018 [place] Author: Taisha (Phd) (Automobile Lights Assembler) [facility] Service: ? [place] Author Type: Nurse Practitioner ([id number]) Type: Progress Notes Filed: 09/28/2018 3:50 PM [...] pulmonary disease) (HCC) 02/22/[address] Farrell Lead Refinery Supervisor - Eczema 03/08/2010 - Hx of primary hypertension resolved, no longer on medications - Hypothyroidism 08/2015 - Oral cancer (HCC) Apr 2011 Pharyngeal; feeding tube (05/2011), Dr. Moeller Oncology, Dr. Deidre shahid ENT, Dr. Butts Radiation - Shoulder pain, bilateral 1993 PAST SURGICAL HISTORY Procedure Laterality Date - PAST SURGICAL HISTORY OF 05/25/11 Peg tube placement, removed 02/26/2012 - SD ANESTH,NOSE,SINUS SURGERY - RADIATION THERAPY Pharyngeal cancer [...] none Tissue color: Black, dark Red and Georgiana Tissue type: muscle and necrotic v dry [...] education/counselling/coordination of care. Taisha Whitman, PhD, WOCN, TAR ROOFER cnov on 2018-09-24 CNOV Office Visit (VASSWS) Normal 09-25-19 19 [place] [facility] BETTY RICHARD ([id number]) 1955 [facility] Date Time Provider Department ([id number]) 09/24/18 2:30 PM TAISHA WHITMAN (PHD) (TAR ROOFER) VASSWS During your visit today, we recorded the following informati on about you: Temperature Pulse Respiration Blood pressure 99.3 degrees 95/minute 16/minute 113/81 Weight Height 61.1 kg 1.727 m Taisha Whitman, PhD, CARDIOPULMONARY TECHNOLOGIST.TAR ROOFER 09/28/2018 3:50 PM Signed VASCULAR SURGERY WOUND OSTOMY CONTINENCE CONSULTATION CHIEF COMPLAINT: Wound check and evaluation HISTORY OF PRESENT ILLNESS: right 4th fi nger traumatic injury by a mower blade on 09/15/2018. On PO ABX as per PCP PAST MEDICAL HISTORY Diagnosis Date - Cigar smoker in past - COPD (chronic obstructive pulmonary disease) (HCC) 02/22/20 Dr. Farrell Lead Refinery Supervisor - Eczema 03/08/2010 - Hx of primary hypertension resolved, no longer on medications - Hypothyroidism 08/2015 - Oral cancer ([facility]) Apr 2011 Pharyngeal; feeding tube (05/2011), Dr. Moeller Oncology, Dr. Gasca ENT, Dr. Butts Radiation - Shoulder pain, bilateral 1993 PAST SURGICAL HISTORY Procedure Laterality Date - PAST SURGICAL HISTORY OF 05/25/11 Peg tube placement, removed 02/26/2012 - SD ANESTH,NOSE,SINUS SURGERY - RADIATION THERAPY Pharyngeal cancer [...] none Tissue color: Black, dark Red and Georgiana Tissue type: muscle and necrotic v dry [...] education/counselling/coordination of care. Taisha Whitman, PhD, WOCN, TAR ROOFER Referring Provider: JESSICA MENDOZA ([facility]) [[id number]] Allergies As of Date: 09/24/2018 (No Known [...] 09/28/18 progress on 2018-09 PROGRESS HNO ID: [id number] Normal 09-23-2018 [facility] Author: Jessica Camarillo) Reji Farias ([id number]) Service: ? Author Type: Nurse Practitioner Type: [...] COPD (chronic obstructive pulmonary disease) ([facility]) 02/22/20 Dr. Farrell Lead Refinery Supervisor - Eczema 03/08/2010 - Hx of primary hypertension resolved, no longer on medications - Hypothyroidism 08/2015 - Oral cancer ([facility]) Apr 2011 Pharyngeal; feeding tube (05/2011), Dr. Moeller Oncology, Dr. Deidre shhaid ENT, Dr. Butts Radiation - Shoulder pain, bilateral 1993 PAST SURGICAL HISTORY Procedure Laterality Date - PAST SURGICAL HISTORY OF 05/25/11 Peg tube placement, removed 02/26/2012 - SD ANESTH,NOSE,SINUS SURGERY - RADIATION THERAPY Pharyngeal cancer [...] 2018-09-23 CNOV Office Visit (FAMPWS) Normal 09-24-19 [place] [facility] BETTY RICHARD ([id number]) 1955 M [place] Date Time Provider Department ([id number]) 09/23/18 1:40 PM [facility] During your visit today, we recorded the [...] COPD (chronic obstructive pulmonary disease) ([facility]) 02/22/[address] Farrell Lead Refinery Supervisor - Eczema 03/08/2010 - Hx of primary hypertension resolved, no longer on medications - Hypothyroidism 08/2015 - Oral cancer ([facility]) Apr 2011 Pharyngeal; feeding tube (05/2011), Dr. Moeller Oncology, Dr. Gasca ENT, Dr. Butts Radiation - Shoulder pain, bilateral 1993 PAST SURGICAL HISTORY Procedure Laterality Date - PAST SURGICAL HISTORY OF 05/25/11 Peg tube placement, removed 02/26/2012 - SD ANESTH,NOSE,SINUS SURGERY - RADIATION THERAPY Pharyngeal cancer [...] encounter [S61.209D] Order(s):TDAP VACCINE AGE 7+ IM [[id number]] Order #: [id number] CONSULT TO SKIN CARE TEAM [[id number]] Order #: [id number]: 1 Prescriptions as of 09/23/2018 Sig: CEPHALEXIN [...] [Z12.11] INVALID FOR* Finger laceration, initial encounter [S60.320A] INVALID FOR* Other instructions from your clinician: 1. Please see wound care tomorrow. 2. Recheck here in 2 weeks. Encounter Status:Closed by JESSICA MENDOZA CNP on 09/23/18 progress on 2018-08 PROGRESS HNO ID: [id number] Normal 09-19-2018 [facility] Author: Jessica (Darvin) Reji Farias ([id number]) Service: ? Author Type: Nurse Practitioner Type: [...] right hand after coming into contact with customer solutions teammate blade. The area was dressed. Pt was started on keflex. He has been changing dressings daily. He reports that he hasn't needed anything for pain. Sometime s throbs, but tolerable. PAST MEDICAL HISTORY: PAST MEDICAL HISTORY Diagnosis Date - Cigar smoker in past - COPD (chronic obstructive pulmonary disease) ([facility]) 02/22/20 Dr. Farrell Lead Refinery Supervisor - Eczema 03/08/2010 - Hx of primary hypertension resolved, no longer on medications - Hypothyroidism 08/2015 - Oral cancer ([facility]) Apr 2011 Pharyngeal; feeding tube (05/2011), Dr. Moeller Oncology, Dr. Deidre shahid ENT, Dr. Butts Radiation - Shoulder pain, bilateral 1993 PAST SURGICAL HISTORY Procedure Laterality Date - PAST SURGICAL HISTORY OF 05/25/11 Peg tube placement, removed 02/26/2012 - SD ANESTH,NOSE,SINUS SURGERY - RADIATION THERAPY Pharyngeal cancer [...] 2018-09-19 CNOV Office Visit (FAMPWS) Normal 09-20-19 [facility] BETTY RICHARD ([id number]) 1955 [facility] Date Time Provider Department ([id number]) 09/19/18 10:20 AM JESSICA [facility]END[facility]ARVIN[facility] During your visit today, we recorded the [...] right hand after coming into contact with customer solutions teammate blade. The area was dressed. Pt was started on keflex. He has been changing dressings daily. He reports that he hasn't needed anything for pain. Sometime s throbs, but tolerable. PAST MEDICAL HISTORY: PAST MEDICAL HISTORY Diagnosis Date - Cigar smoker in past - COPD (chronic obstructive pulmonary disease) ([facility]) 02/22/20 Dr. Farrell Lead Refinery Supervisor - Eczema 03/08/2010 - Hx of primary hypertension resolved, no longer on medications - Hypothyroidism 08/2015 - Oral cancer ([facility]) Apr 2011 Pharyngeal; feeding tube (05/2011), Dr. Moeller Oncology, Dr. Gasca ENT, Dr. Butts Radiation - Shoulder pain, bilateral 1993 PAST SURGICAL HISTORY Procedure Laterality Date - PAST SURGICAL HISTORY OF 05/25/11 Peg tube placement, removed 02/26/2012 - SD ANESTH,NOSE,SINUS SURGERY - RADIATION THERAPY Pharyngeal cancer [...] needed for wor sening/no improvement. Jessica Mendoza APRN.TAR ROOFER Referring Provider: ALEXANDER HERNANDEZ [[id number]] Allergies As of Date: 09/19/2018 (No Known [...] encounter [S68.219A] INVALID FOR* Encounter Status:Closed by JESSICA MENDOZA CNP on 09/19/18 progress on 2018-08 PROGRESS HNO ID: [id number] Normal 09-16-2018 [facility] Author: Alexander Hernandez Farias ([id number]) Service: ? Author Type: Physician Type: Progress [...] obstructive pulmonary disease) (HCC) 02/22/20 Dr. Farrell Lead Refinery Supervisor - Eczema 03/08/2010 - Hx of primary hypertension resolved, no longer on medications - Hypothyroidism 08/2015 - Oral cancer (HCC) Apr 2011 Pharyngeal; feeding tube (05/2011), Dr. Moeller Oncology, Dr. Deidre shahid ENT, Dr. Butts Radiation - Shoulder pain, bilateral 1993 PAST SURGICAL HISTORY Procedure Laterality Date - PAST SURGICAL HISTORY OF 05/25/11 Peg tube placement, removed 02/26/2012 - SD ANESTH,NOSE,SINUS SURGERY - RADIATION THERAPY Pharyngeal cancer [...] plan. See patient instructions. Alexander Hernandez DO [address] [place] [address] cnov on 2018-09-16 CNOV Office Visit (FAMPWS) Normal 09-17-19 [place] [facility] BETTY RICHARD ([id number]) 1955 [facility] Date Time Provider Department ([id number]) 09/16/18 2:20 PM [facility] During your visit today, we recorded [...] obstructive pulmonary disease) (HCC) 02/22/20 Dr. Farrell Lead Refinery Supervisor - Eczema 03/08/2010 - Hx of primary hypertension resolved, no longer on medications - Hypothyroidism 08/2015 - Oral cancer ([facility]) Apr 2011 Pharyngeal; feeding tube (05/2011), Dr. Moeller Oncology, Dr. Gasca ENT, Dr. Butts Radiation - Shoulder pain, bilateral 1994 PAST SURGICAL HISTORY Procedure Laterality Date - PAST SURGICAL HISTORY OF 05/25/11 Peg tube placement, removed 02/26/2012 - SD ANESTH,NOSE,SINUS SURGERY - RADIATION THERAPY Pharyngeal cancer [...] See patient instructions. Alexander Hernandez DO [address] [place] [address] Referring Provider: SELF [[id number]] Allergies As of Date: 09/16/2018 (No Known Allergies) Date Reviewed: 09/16/2018 Reviewed by: Sona Rios LPN - Fully Assessed Reason for Visit: Laceration [354] Cmt: right ring finger lacerat ion from customer solutions teammate yesterday Primary Visit Diagnosis:Finger laceration, initial encounter [...] [Z12.11] INVALID FOR* Finger laceration, initial encounter [S6219A] INVALID FOR* Prescriptions ordered this encounter Disp [...] DATE CREATED AUTHOR AUTHOR'S ORGANIZATIO N 09/15/2019 [facility]
== END 2019-09-08 07:22 | disposition short-term general hospital (02) | DRG 56 ==
PROVIDERS: Admitting Provider Family Medicine Geriatric Medicine; PCP Student in an Organized Health Care Education/Training Program; Referring Provider Family Medicine Geriatric Medicine; Visit Provider Family Medicine Geriatric Medicine
DX: I69.391 Dysphagia following cerebral infarction (principal); J69.0 Pneumonitis due to inhalation of food and vomit; I26.99 Other pulmonary embolism without acute cor pulmonale; R13.10 Dysphagia, unspecified; F91.9 Conduct disorder, unspecified; I10 Essential (primary) hypertension; E03.9 Hypothyroidism, unspecified; E83.39 Other disorders of phosphorus metabolism; J44.9 Chronic obstructive pulmonary disease, unspecified; Z85.118 Personal history of other malignant neoplasm of bronchus and lung; Z85.819 Personal history of malignant neoplasm of unspecified site of lip, oral cavity, and pharynx; Z87.891 Personal history of nicotine dependence; Z91.19 Patient's noncompliance with other medical treatment and regimen; Z93.1 Gastrostomy status
CPT/HCPCS: 31720; 36415; 71046; 80048; 80202; 83735; 84100; 85025; 87635; 92507; 92526; 92610; 94640; 94668; 97110; 97162; 97167; 97530; 97802; G2023; J2185; J7030; J7040; J7050; A4216; U0002

== ENCOUNTER 2019-09-08 04:49 | Inpatient (IN) | payer MEDICARE, SELFPAY ==
[2019-09-08] VITALS (42 sets, daily range): BP systolic 59–159; BP diastolic 46–109; PULSE 85–107; RESP 12–28; TEMP 36.3–37.2; O2SAT 80–100; BMI 21.1; BMI 20.2
--- NOTE | 2019-09-08 04:52 | EKG12_ITS ---
Test Reason : SOB Blood Pressure : / mmHG Vent. Rate : 104 BPM Atrial Rate : 104 BPM P-R Int : 134 ms QRS Dur : 072 ms QT Int : 302 ms P-R-T Axes : 081 041 109 degrees QTc Int : 397 ms Sinus tachycardia Low voltage QRS Septal infarct , age undetermined Nonspecific T wave abnormality Abnormal ECG Confirmed by NOEMI GASPAR, LAUREN ([id number]), editorial clerk EDGARD JONES ([id number]) on 09/10/2019 4:01:02 PM Referred By: MOISE Confirmed By:LAUREN FRANKLIN MD
--- NOTE | 2019-09-08 04:52 | RAD_ITS ---
STUDY: X-RAY CHEST REASON FOR EXAM: Male, 64 years old. Aspiration, respiratory failure with hypoxia. TECHNIQUE: AP portable chest. COMPARISON: Chest x-ray September 03, 2019. CT chest August 29, 2019. FINDINGS: The heart is not enlarged. Lungs are hyperinflated. Scarring and bullous changes right lung apex. Decreasing right basilar airspace opacity. Left PICC line tip in the lower superior vena cava. There is no demonstrated abnormality of the visualized soft tissue structures of the upper abdomen. RAD/Chest 1 View (Portable) IMPRESSION: Decreasing right basilar airspace opacity suggestive of improving pneumonia. COPD. Electronically Signed: David Karimi MD at 5:14 EDT , Service support ,
--- NOTE | 2019-09-08 05:03 | ED.VIS.GEN ---
History of Present Illness Chief Complaint: Cough Informant: Patient, SNF Onset: Today Context: Sudden Onset Timing: Continuous Quality: Respiratory distress with hypoxia Location: TCU Current Severity: Severe Maximum Severity: Severe Worsened by: Aspiration of tube feed Relieved by: Nothing Associated Symptoms: Difficulty breathing Narrative: Patient elderly male with mild medical problems including COPD who was recently admitted for stroke. He was transferred to the CCU unit. He was started on antibiotics for right-sided pneumonia. He was started on meropenem and vancomycin. Patient's pulse ox is reportedly in the mid 70s. He states he does not feel well. He does admit shortness of breath. He does admit to coughing. He denies headache, visual, ocular auditory symptoms. He denies chest pain. He denies GI or symptoms. He does have an indwelling Cobb. History is limited secondary to respiratory distress. Prior similar symptoms: No Recent Illness/Hospitalization: Yes - Past Medical History (1) Hypernatremia Status: Acute (2) Dysphagia Status: Acute (3) Aspiration pneumonia Status: Acute (4) Left ventricular thrombus Status: Acute (5) Stroke Status: Acute (6) COPD (chronic obstructive pulmonary disease) Status: Chronic (7) Pulmonary embolism Status: Acute (8) Self neglect Status: Chronic (9) Throat cancer Status: Chronic (10) Lung cancer Status: Chronic (11) Hypothyroidism Status: Chronic (12) Allergic rhinitis Status: Chronic (13) Hypertension Status: Chronic Past Medical History - Allergies and Home Meds Allergies/Adverse Reactions: Allergies No Known Allergies Allergy (Verified 01/31/17 16:57) Primary Care Physician: Alexander Grover DO [Primary Care Provider] - Prior records reviewed: Yes Surgical History: - - PEG tube. Lives: Alone, - - Transitional care unit Smoking Status: Former smoker Alcohol: None Drugs: None - Family History Maternal Family History: Reports: No pertinent history Paternal Family History: Reports: No pertinent history Review of Systems General: Reports: Malaise. Denies: Chills, Fever, Subjective Eyes: Denies: Visual changes - bilaterally, Blurred Vision - bilaterally ENT: Denies: Rhinorrhea, Sore throat Cardiovascular: Reports: Palpitations. Denies: Chest pain Respiratory: Reports: Dyspnea, Cough, Sputum. Denies: Dyspnea on exertion, Orthopnea Gastrointestinal: Denies: Abdominal pain, Nausea, Vomiting, Diarrhea Genitourinary: Reports: - - Patient has an indwelling Cobb and has no urinary symptoms. Musculoskeletal: Denies: Myalgias, Arthralgias, Extremity Pain Skin: Denies: Rash Neurological: Reports: Weakness. Denies: Headache, Parasthesia Endocrine: Denies: Polyuria, Polydipsia Allergy: Denies: Uticaria, Swelling of the mouth, Swelling of the tongue Physical Exam Vital Signs/Narrative: Vital Signs Temp Pulse Resp BP Pulse Ox 09/08/19 04:56 98.9 F 102 H 26 H 159/109 H 100 09/08/19 04:54 102 H 26 H 159/109 H 100 09/08/19 04:50 98.9 F 107 H 26 H 159/109 H 100 Inital Vital Signs reviewed: Yes General: Well developed, Cachectic, Acute Distress Head: Normocephalic, Atraumatic. Negative for: Trauma, Tenderness Eyes: Perrl, EOMI, Pale conjunctiva. Negative for: Scleral icterus ENT: No rhinorrhea, TM's clear, Dry mucous membranes. Negative for: Nasal congestion, Sinus tenderness Neck: Supple, Nontender, No lymphadenopathy, No JVD Cardiovascular: Regular rhythm, No murmurs, Normal S1, Normal S2, Tachycardia Respiratory: Decreased Air Movement, Retractions, - - Coarse rhonchi on inspiration and expiration bilaterally. Abdomen: Soft, Nontender, Nondistended, Normal bowel sounds, - - Recent feeding tube placement Rectal: Deferred Back: Nontender, Normal Inspection Extremities: Nontender, No edema Skin: No rash, No Trauma, Pallor. Negative for: Normal color, Cyanosis, Diaphoresis, Jaundice Neurological: Cranial nerves II-XII grossly intact, - - Persistent motor weakness right side.. Negative for: Alert, Normal Strength, Normal Sensation, Normal DTR, Normal Gait Psychological: Depressed Diagnostic/Tx/Re-eval Chest X-Ray - ED: 1 View, Read by ED Physician, Normal, Heart, Mediastinum, Right Infiltrate, - - Infiltrate has improved since September 02. X-rays interpreted by me is 0503. 09/08/19 04:52 Chest 1 View (Portable) [RAD] Stat Impressions Chest X-Ray 09/08/19 04:52 IMPRESSION: Decreasing right basilar airspace opacity suggestive of improving pneumonia. COPD. Electronically Signed: David Karimi MD at 5:14 EDT , Service support , 09/08/19 04:52 Chest 1 View (Portable) [RAD] Stat Laboratory Results 09/08/19 09/08/19 09/08/19 04:55 04:55 04:55 WBC 10.6 RBC 3.92 L Hgb 11.4 L Hct 34.4 L MCV 87.8 MCH 29.1 MCHC 33.1 D RDW Std Deviation 43.5 RDW Coeff of Abdullahi 13.8 Plt Count 349 MPV 9.6 Immature Gran % (Auto) 0.700 Neut % (Auto) 89.9 H Lymph % (Auto) 5.6 L Orange % (Auto) 3.1 Eos % (Auto) 0.5 Baso % (Auto) 0.2 Absolute Neuts (auto) 9.6 H Absolute Lymphs (auto) 0.60 L Nucleated RBC % 0 Differential Comment COMMENT PT 15.3 H INR 1.3 APTT 29.6 Sodium 131 L Potassium 4.5 Chloride 91 L Carbon Dioxide 35.0 H Anion Gap 5 BUN 26 H Creatinine 0.54 L Estim Creat Clear Calc 66.81 Est GFR (MDRD) Af Amer 196 Est GFR (MDRD) Non-Af 162 BUN/Creatinine Ratio 48.2 H Glucose 111 H Lactic Acid Calcium 8.4 L Total Bilirubin 0.30 AST 84 H ALT 108 H Alkaline Phosphatase 70 Total Protein 5.4 L Albumin 1.7 L Globulin 3.7 Albumin/Globulin Ratio 0.5 L Urine Color Urine Clarity Urine pH Ur Specific [place] Urine Protein Urine Glucose (UA) Urine Ketones Urine Occult Blood Urine Nitrite Urine Bilirubin Urine Urobilinogen Ur Leukocyte Esterase Urine RBC Urine WBC Ur Squamous Epith Cells Urine Bacteria Urine Mucus 09/08/19 09/08/19 04:55 05:05 WBC RBC Hgb Hct MCV MCH MCHC RDW Std Deviation RDW Coeff of Abdullahi Plt Count MPV Immature Gran % (Auto) Neut % (Auto) Lymph % (Auto) Orange % (Auto) Eos % (Auto) Baso % (Auto) Absolute Neuts (auto) Absolute Lymphs (auto) Nucleated RBC % Differential Comment PT INR APTT Sodium Potassium Chloride Carbon Dioxide Anion Gap BUN Creatinine Estim Creat Clear Calc Est GFR (MDRD) Af Amer Est GFR (MDRD) Non-Af BUN/Creatinine Ratio Glucose Lactic Acid 1.2 Calcium Total Bilirubin AST ALT Alkaline Phosphatase Total Protein Albumin Globulin Albumin/Globulin Ratio Urine Color Red Urine Clarity Cloudy Urine pH 7.0 Ur Specific [place] 1.015 Urine Protein 30 H Urine Glucose (UA) Normal Urine Ketones Negative Urine Occult Blood 250 H Urine Nitrite Negative Urine Bilirubin Negative Urine Urobilinogen Normal Ur Leukocyte Esterase 25 H Urine RBC 10-25 SEEN Urine WBC 5-10 SEEN Ur Squamous Epith Cells 0 SEEN Urine Bacteria 0 SEEN Urine Mucus 0 SEEN ABG on 7 L by nasal cannula high flow is abnormal. pH is 7.45, PCO2 50.9, PaO2 118, base excess 11, bicarb 35.3, total CO2 37 with a 99% saturation. ABG reveals a primary metabolic alkalosis with compensatory respiratory acidosis. - Rhythm Strip Rhythm Strip: Sinus Tach Rate: 111 Ectopy: None - EKG Initial EKG Interpretation: Sinus Tachycardia - Sinus tachycardia with a ventricular rate of 104. NC interval is 134 ms. QRS duration 72 ms. QT duration 302 ms. [place] is normal. Voltage in the limb leads is low. Decreased anterior force. Artifact noted secondary to respiratory distress. The EKG was performed at 0507 - Medical Decision Making Records from recent admission and TCU were reviewed. Patient's infiltrate has improved; however, his respiratory has deteriorated today. Deep suctioning resulted in fluid that appears to be tube feeding. He does have history of aspiration. Suspect patient has resolving pneumonia which is probably being treated with acute aspiration of gastric fluids. EKG was obtained to evaluate for ischemia. Since he is a full code and arterial blood gas was ordered to assess pH and CO2 as well as oxygenation. CBC was obtained to assess white count and H&H. Basic metabolic panel was ordered to assess electrolytes and renal function. Since he is presently on meropenem and vancomycin no additional antibiotics were ordered. Since patient is hypoxic with respiratory distress CODE STATUS was addressed. He wishes to have CPR, life support, invasive monitoring/lines and pressors. Because patient does not have a fever and infiltrates are improving he was not given any additional antibiotics. If he were to develop a fever or white count is elevated and infiltrates or worsening antibiotics would be indicated. - Critical Care Time Critical care time (excluding procedures): 30-74 minutes, Discussing w/Patient &/or Family/Internet Cafe Manager, Discussing w/Consultants, Arranging Admission or Transfer - Care time 32 minutes which included obtaining history, review of prior records, documentation, in-depth discussion regarding CODE STATUS, discussing case with hospitalist for admission. ED Disposition - Plan for ED Patient: Disposition: Acute Care Hospital [facility] Diagnosis: Acute respiratory failure with hypoxia, Aspiration of gastric contents, Sinus tachycardia by electrocardiography, Hyponatremia Diagnosis: (Ruled Out): Lung cancer Referrals: Alexander Grover DO [Primary Care Provider] -
[2019-09-08 05:04] LABS: Absolute Neutrophil Count 9.6 X10^3/uL (2.0-7.7); Basophil# 0.02 X10^3/uL; Basophil% 0.2 % (0-1); Eosinophil# 0.05 X10^3/uL; Eosinophils% 0.5 % (0-5); Hematocrit 34.4 % (40-54); Hemoglobin 11.4 g/dL (13.0-16.5); Lymphocyte % 5.6 % (19-41); Mean Corp Hgb Conc 33.1 g/dL (32-36); Mean Corpuscular Hgb 29.1 pg (27.0-32.0); Mean Corpuscular Volume 87.8 fL (80-94); Mean Platelet Vol. 9.6 fl (6.2-12.0); Monocyte# 0.33 X10^3/uL; Monocyte% 3.1 % (0-10); NRBC Flagged by Analyzer 0 % (0-5); Neutrophil # 9.57 X10^3/uL (2.7-7.7); Neutrophil % 89.9 % (47-70); POSITIVE DIFFERENTIAL YES; Platelet Count 349 K/mm3 (150-450); RBC Distribution Width CV 13.8 % (11.6-14.6); RBC Distribution Width SD 43.5 fl (35.1-43.9); Red Blood Count 3.92 M/mm3 (4.6-6.2); White Blood Count 10.6 K/mm3 (4.4-11.0)
[2019-09-08 05:07] LABS: Differential Indicated SCAN CRITERIA MET
[2019-09-08 05:12] LABS: International Normalized Ratio 1.3; Prothrombin Time (Protime)PT. 15.3 SECONDS (11.7-14.9)
[2019-09-08 05:13] LABS: Partial Thromboplast Time 29.6 Seconds (24.1-36.2)
[2019-09-08] MEDS: 0.9% Normal Saline 1,000 ML 150 ML IV (05:14)
[2019-09-08 05:21] LABS: Bacteria 0 SEEN /hpf (None Seen); Color, Urine Red (Yellow); Glucose, Dipstick Normal (Normal); Ketone-Dipstick Negative (Negative); Leukocyte Esterase-Dipstick 25 /ul (Negative); Mucous, Urine 0 SEEN /hpf (<or=2+); Nitrite-Dipstick Negative (Negative); Occult Blood-Urine 250 /ul (Negative); Protein-Dipstick 30 mg/dl (Negative); Specific Gravity, Urine 1.015 (1.002-1.030); Squamous Epithelial Cells - UA 0 SEEN /hpf (0-5); Urine Bilirubin Dipstick Negative (Negative); Urine Clarity Cloudy (Clear); Urine Urobilinogen Normal (Normal)
[2019-09-08 05:25] LABS: ALB/GLOB Ratio 0.5 RATIO (0.9-2.4); AST(SGOT) 84 U/L (15-37); Alanine Aminotransfer ALT/SGPT 108 U/L (16-61); Albumin, Serum 1.7 g/dL (3.2-5.0); Alkaline Phosphatase 70 U/L (45-117); Anion Gap 5 (5-15); BUN 26 mg/dL (7-18); BUN/Creat Ratio 48.2 RATIO (10-20); Calcium,Total 8.4 mg/dL (8.5-10.1); Chloride 91 mmol/L (98-107); Creatinine, Serum 0.54 mg/dL (0.70-1.30); EST Glomerular Filtration Rate 162 mL/min (>60); Est Glom Filt Rate - Afr Amer 196 mL/min (>60); Estimated Creatinine Clearance 66.81 ml/min; Globulin 3.7 g/dL (2.2-4.2); Glucose 111 mg/dL (74-106); Potassium 4.5 mmol/L (3.5-5.1); Protein, Total 5.4 g/dL (6.4-8.2); Sodium Level 131 mmol/L (136-145)
[2019-09-08 05:27] LABS: Lactic Acid 1.2 mmol/L (0.4-1.9)
[2019-09-08 05:29] LABS: Red Blood Cells-Urine 10-25 SEEN /hpf (0-5); White Blood Cells 5-10 SEEN /hpf (0-5)
--- NOTE | 2019-09-08 05:45 | HP.PCM_ITS ---
Problem List (1) Sepsis Status: Acute Qualifiers: Sepsis type: sepsis due to unspecified organism Sepsis acute organ dysfunction status: unspecified Qualified Code(s): A41.9 - Sepsis, unspecified organism (2) Respiratory failure with hypoxia and hypercapnia Status: Acute Qualifiers: Chronicity: acute Qualified Code(s): J96.01 - Acute respiratory failure with hypoxia; J96.02 - Acute respiratory failure with hypercapnia (3) Pneumonia Status: Acute Qualifiers: Pneumonia type: due to unspecified organism Laterality: unspecified laterality Lung location: unspecified part of lung Qualified Code(s): J18.9 - Pneumonia, unspecified organism (4) Hyponatremia Status: Chronic (5) Left ventricular thrombus Status: Chronic (6) Pulmonary embolism Status: Chronic Qualifiers: Pulmonary embolism type: unspecified Chronicity: unspecified Acute cor pulmonale presence: unspecified Qualified Code(s): I26.99 - Other pulmonary embolism without acute cor pulmonale (7) Stroke Status: Chronic Qualifiers: CVA mechanism: unspecified Qualified Code(s): I63.9 - Cerebral infarction, unspecified (8) COPD (chronic obstructive pulmonary disease) Status: Chronic Qualifiers: COPD type: unspecified COPD Qualified Code(s): J44.9 - Chronic obstructive pulmonary disease, unspecified (9) Hypertension Status: Chronic Qualifiers: Hypertension type: essential hypertension Qualified Code(s): I10 - Essential (primary) hypertension (10) Hypothyroidism Status: Chronic Qualifiers: Hypothyroidism type: unspecified Qualified Code(s): E03.9 - Hypothyroidism, unspecified (11) Lung cancer Status: Chronic Qualifiers: Laterality: unspecified laterality Lung location: unspecified part of lung Qualified Code(s): C34.90 - Malignant neoplasm of unspecified part of unspecified bronchus or lung (12) Throat cancer Status: Chronic History of Present Illness Date of Admission: 09/08/19 Chief Complaint: Dyspnea, cough The patient is a 64 y/o M w/ PMHx: Hypothyroidism, Failure to Thrive, Severe Protein-Calorie Malnutrition, Chronic COPD, Hx Lung and Throat CA, recent CVA (L occipital stroke), Pulmonary embolism, Left Apical Thrombus with Electrolyte disturbances including hypernatremia, hypomagnesemia, hypophosphatemia who now he presents from TCU to the [facility] ED on 09/08/19 with history of ongoing coughing with sudden onset respiratory distress with hypoxia prompting ED transition noting oxygenation at that time 70% with fatigue, malaise associated with concern for aspiration of his TFs. He has been recently treated with Meropenem and Vancomycin per discussion with ED physician. Respiratory suctioned the patient and TFs were evident. Work-up in the ED included T 98.9, heart rate 107, BP 159/109, respiratory rate 26, 100% on 8 L nasal cannula, CBC with WC 10.6, hemoglobin 11.6, platelets 349 with left shift, coags with PT 15.3, INR 1.3, PTT 29.6, CMP with sodium 131, chloride 91, carbon dioxide 35, BUN/creatinine 26/0.54, glucose 111, lactic acid 1.2, AST/ALT 84/108, ABG with pH 7.45, bicarb 35.3, PCO2 50.9, PO2 118, 7 L nasal cannula urinalysis without any market evidence to suggest UTI, blood culture x2 pending per ED, urine culture pending per ED, sputum culture and Gram stain pending per ED. Past Medical History Past Medical History (Chronic Problems): Chronic Problems Left ventricular thrombus (Chronic) Stroke (Chronic) COPD (chronic obstructive pulmonary disease) (Chronic) Pulmonary embolism (Chronic) Self neglect (Chronic) Throat cancer (Chronic) Lung cancer (Chronic) Hypothyroidism (Chronic) Allergic rhinitis (Chronic) Hypertension (Chronic) Hyponatremia (Chronic) Allergies No Known Allergies Allergy (Verified 01/31/17 16:57) Surgical History: - - PEG tube. Psychiatric History: - - Unknown Lives: - - Transitional care unit Smoking Status: Former smoker Tobacco Use: Non-smoker Alcohol: None Drugs: None - *Family History Maternal History Items: - - Denies any market maternal or paternal family history including heart disease, diabetes or cancer. Paternal History Items: - - Denies any market maternal or paternal family history including heart disease, diabetes or cancer. Review of Systems Constitutional: Reports: Malaise, Weakness, Fatigue. Denies: Anorexia, Chills, Fever, Weight Change HEENT: Denies: Head Aches, Sinus Congestion, Sinus Drainage Cardiovascular: Denies: Chest Pain, Palpitations Respiratory: Reports: Cough, Shortness of Breath, Shortness of breath at rest, Shortness of breath upon exertion. Denies: Sputum production, Wheezing Gastrointestinal: Denies: Abdominal Pain, Nausea, Vomiting Genitourinary: Denies: Dysuria Musculoskeletal: Reports: Back Pain, Joint Pain. Denies: Joint Tenderness Skin: Denies: Rash, Wounds Neurological: Reports: Focal weakness. Denies: Numbness, Tingling Psychiatric: Reports: Anxiety, Depression. Denies: Homicidal Ideations, Suicidal Ideations Hematologic/ Lymphatic: Reports: Anemia, Easy Bruising, Easy Bleeding VTE Information - Inpt Only VTE Present on Admission: No VTE Mechan Device Prophylaxis: SCD's VTE Pharm Prophylaxis ordered?: No Reason prophylaxis not ordered:: Treatment Not Indicated - Maintain on eliquis. Patient Problems: Active and Suspected Problems Weakness (Acute) Dehydration (Acute) Elevated troponin (Acute) Hypernatremia (Acute) Dysphagia (Acute) Aspiration pneumonia (Acute) Acute respiratory failure with hypoxia (Acute) Aspiration of gastric contents (Acute) Sinus tachycardia by electrocardiography (Acute) Sepsis (Acute) Respiratory failure with hypoxia and hypercapnia (Acute) Pneumonia (Acute) Subjective: Seated upright in the ED bed, obvious difficulties managing secretions, increased work of breathing accessory muscle usage, cachectic appearing. Objective: Physical Examination: General: awake, alert, altered, oriented to self, place, recent events this cooperative, seated upright in the ED bed, fatigued and ill-appearing, difficulty managing secretions, increased work of breathing and accessory muscle usage evident. Skin: normal color, turgor, no icterus, cyanosis. HEENT: AT/NC, EOMI, PERRLA, dry MM, altered speech, no carotid bruits or JVD noted. Lungs: Diffusely coarse, difficulty managing secretions, diminished bases, no obvious wheezing or rales, increased work of breathing, accessory muscle usage evident. Heart: Tachycardic with regular rhythm; no gallop, rub audible. Abdomen: soft, cachectic habitus, G-tube in place, NTTP, ND, normal BS, no HSM. Extremities: no cyanosis, clubbing, or edema. Neurological: patient awake, alert, oriented as noted; cognitive function suspect near recent baseline given history of recent CVA; pupils equally reactive to light and accomodation; altered, cranial nerves grossly normal but difficult examination given fatigue, strength severely global decrease secondary to acute presentation. Psychiatric: affect appears ill appearing, fatigued, no acute evidence of depressive or anxiety feelings. - Physical Exam Vitals/I&O's: Vital Signs Temp Pulse Resp BP Pulse Ox 98.9 F 102 H 26 H 159/109 H 99 09/08/19 04:56 09/08/19 04:56 09/08/19 04:56 09/08/19 04:56 09/08/19 05:38 Oxygen Flow Rate (L/min) 7 Oxygen Delivery Method Nasal Cannula Weight: 143 lb 4.807 oz Body Mass Index (BMI) 21.1 Laboratory Results 09/08/19 04:55: WBC 10.6, RBC 3.92 L, Hgb 11.4 L, Hct 34.4 L, MCV 87.8, MCH 29.1, MCHC 33.1 D, RDW Std Deviation 43.5, RDW Coeff of Abdullahi 13.8, Plt Count 349, MPV 9.6, Immature Gran % (Auto) 0.700, Neut % (Auto) 89.9 H, Lymph % (Auto) 5.6 L, [place] % (Auto) 3.1, Eos % (Auto) 0.5, Baso % (Auto) 0.2, Absolute Neuts (auto) 9.6 H, Absolute Lymphs (auto) 0.60 L, Nucleated RBC % 0, Differential Comment COMMENT 09/08/19 04:55: PT 15.3 H, INR 1.3, APTT 29.6 09/08/19 04:55: Sodium 131 L, Potassium 4.5, Chloride 91 L, Carbon Dioxide 35.0 H, Anion Gap 5, BUN 26 H, Creatinine 0.54 L, Estim Creat Clear Calc 66.81, Est GFR (MDRD) Af Amer 196, Est GFR (MDRD) Non-Af 162, BUN/Creatinine Ratio 48.2 H, Glucose 111 H, Calcium 8.4 L, Total Bilirubin 0.30, AST 84 H, ALT 108 H, Alkaline Phosphatase 70, Total Protein 5.4 L, Albumin 1.7 L, Globulin 3.7, Albumin/Globulin Ratio 0.5 L 09/08/19 04:55: Lactic Acid 1.2 09/08/19 05:05: Urine Color Red, Urine Clarity Cloudy, Urine pH 7.0, Ur Specific [place] 1.015, Urine Protein 30 H, Urine Glucose (UA) Normal, Urine Ketones Negative, Urine Occult Blood 250 H, Urine Nitrite Negative, Urine Bilirubin Negative, Urine Urobilinogen Normal, Ur Leukocyte Esterase 25 H, Urine RBC 10-25 SEEN, Urine WBC 5-10 SEEN, Ur Squamous Epith Cells 0 SEEN, Urine Bacteria 0 SEEN, Urine Mucus 0 SEEN Current Medications Sodium Chloride () 1,000 mls @ 150 mls/hr IV .[id number] [facility] Last Admin: 09/08/19 05:14 Dose: 150 mls/hr Documented by: Assessment/Plan All Active Problems Confusion (Acute) Debility (Acute) Weakness (Acute) Dehydration (Acute) Elevated troponin (Acute) Hypernatremia (Acute) Dysphagia (Acute) Aspiration pneumonia (Acute) Acute respiratory failure with hypoxia (Acute) Aspiration of gastric contents (Acute) Sinus tachycardia by electrocardiography (Acute) Sepsis (Acute) Respiratory failure with hypoxia and hypercapnia (Acute) Pneumonia (Acute) The patient is a 64 y/o M w/ PMHx: Hypothyroidism, Failure to Thrive, Severe Protein-Calorie Malnutrition, Chronic COPD, Hx Lung and Throat CA, recent CVA (L occipital stroke), Pulmonary embolism, Left Apical Thrombus with Electrolyte disturbances including hypernatremia, hypomagnesemia, hypophosphatemia who now he presents from TCU to the [facility] ED on 09/08/19 with history of ongoing coughing with sudden onset respiratory distress with hypoxia prompting ED transition noting oxygenation at that time 70% with fatigue, malaise associated with concern for aspiration of his TFs. 1. Acute Sepsis secondary to Acute Hypoxic Respiratory Failure secondary to Worsening Aspiration, possible HCAP Pneumonia: Will admit to the ICU given worsening respiratory status and appearance in the ED with increased work of breathing, accessory muscle usage, increased hypoxia and oxygen usage, given recent prolonged hospitalization with recent transition to TCU will request COVID assessment to be cautious with precautions until results, will maintain on oxygen with wean as tolerated to room air, continue ATC duonebs, PRN albuterol, maintained on IV Zosyn and Vancomycin w/ pending MRSA screen de-escalation as able, hold tube feeds, request speech therapy evaluation, will request general surgery involvement given recent PEG tube placement history, HOB, IS parameters w/ pending sputum cultures, respiratory viral panel and urine antigens. Bld cx x 2 obtained in the ED. 2. Recent acute left occipital stroke: Recent admission for acute stroke with eventual placement of PEG tube placement 08/31/2019 no oxygenation needs at that time, maintained on Eliquis, not on any hypertensive or diabetic regimen. Will continue PT, OT, speech therapy evaluations. We will continue patient Jevity tube feeds. 3. Recent acute pulmonary embolism w/ ? L apical thrombus versus mass: Recent ECHO w/ EF 45%, severely hypokinetic LV apex, LV mass/thrombus measuring 5.1 x 3.3 pedunculated in appearance with follow-up CT chest showing a partially o bstructive PE on the right pulmonary artery. Recently transition from Lovenox during inpatient to Eliquis oral. Per cardiology's note during prior admission given patient history of lung carcinoma thrombus is metastatic cancer. 4. Hyponatremia, suspect chronic component: Patient with sodium 131, on sodium 135, similar to prior, suspect chronic component, will continue judicious hydration given n.p.o. status. Repeat CMP in a.m. 5. Chronic COPD: Will maintain on oxygen with wean as tolerated to room air, continue ATC duonebs, PRN albuterol, HOB, IS parameters. 6. Hypothyroidism: Continue home synthroid regimen. 7. Severe protein calorie malnutrition: Evidenced per physical exam with significant muscle and fat loss, nutrition consulted. 8. Elevated LFTs, unclear specific etiology: AST/ALT 84/108, elevated during prior admission with check on 08/28/2019, repeat CMP in a.m, Jarad panel and liver ultrasound requested. 9. History of lung and throat cancer: Unclear specific type, unclear specific interventions, from report in remission but unclear. 10. DVT prophylaxis: SCDs, continue home Eliquis. 11. CODE status: Patient currently Full Code in TCU, re-discussed CODE status at length including difference between FULL code, DNR-CCA and DNR-CC status. Following discussions about the differences in these status, requested continuation Full Code despite co-morbidities, recent CVA. Advanced Care Planning Face to Face Time: 16 minutes. Inpatient E&M: 08187 Init Hosp L3 Procedures: 90430 Advncd Care Plan 30 Min
[2019-09-08 05:50] LABS: Base Excess 11 mmol/L (-2 to +2); Bicarbonate 35.3 mmol/L (22-26); PO2 118 mmHG (75-100); SO2 99 % (95-99); Total Carbon Dioxide 37 mmol/L; pCO2 50.9 mmHg (35-45); pH 7.45 (7.35-7.45)
[2019-09-08 06:03] LABS: Blood Gas Specimen Type ART
[2019-09-08 06:04] LABS: Allen Test POS; O2 Delivery Device Nasal Can; SITE R RADIAL; Time Given 528
--- NOTE | 2019-09-08 06:47 | ED.RN ---
LAB WAS UNABLE TO DRAW SECOND SET OF BLOOD CULTURES. AWARE.
--- NOTE | 2019-09-08 06:50 | ED.RN ---
PTS PULSE OX IS NOW LOW. PLACED ON NRB. RT TO BEDSIDE. ATTEMPTED TO CALL REPORT TO ICU, KONRAD WANTED TO CALL BACK D/T WORK FLOW. DR. PHIPPS AWARE, ORDERED BIPAP.
--- NOTE | 2019-09-08 06:52 | NURSING ---
ICU EMERITA FAILURE WITH HYPOXIA, ASPIRATION OF GASTRIC CONTENTS, HYPONATREMIA WHITE
--- NOTE | 2019-09-08 06:52 | NURSING ---
ICU 4
--- NOTE | 2019-09-08 07:11 | ED.RN ---
BROUGHT DR. PHIPPS TO BEDSIDE TO EVALUATE PTS OXYGEN STATUS. HE IS OKAY WITH ANY 02 ABOVE 84% PT IS NOT WORKING HARD, NO ACCESSORY MUSCLE USE, NO DIAPHORESIS ETC.
--- NOTE | 2019-09-08 07:17 | ED.RN ---
REPORT CALLED TO [facility] ICU.
--- NOTE | 2019-09-08 07:31 | PCM.PN.BLA ---
Progress Note Patient is a 64-year-old gentleman who is currently being managed at the transitional care unit following recent admission for acute stroke was found to have LV thrombus and newly diagnosed pulmonary embolism, patient presented with cough shortness of breath as well as hypoxemia 1. Acute hypoxic respiratory failure ?Suspected to be secondary to aspiration pneumonia. Patient was started on broad-spectrum antibiotic therapy. Patient was placed on supplemental oxygen in view of worsening respiratory status patient was placed on BiPAP with consultation placed to pulmonary an assay was also sent for COVID 19 2. Sepsis secondary to suspected aspiration pneumonia ?Management as discussed above 3. Recent admission for acute CVA ?Imaging studies obtained during patient admission demonstrated left occipital stroke. Patient was also found to have left apical thrombus versus mass. Patient acute CVA was complicated by dysphagia resulting in patient undergoing PEG tube placement 4. Pulmonary embolism (diagnosed during patient's hospital stay) Patient is on systemic anticoagulation did continue 5. Hyponatremia Do suspect component of SIADH monitoring daily BMPs 6. Hypothyroidism ~patient is on levothyroxine home dose continued 7. Severe protein calorie malnutrition ?As evidenced by decreased energy level muscle wasting and hypoalbuminemia consult placed to airport maintenance chief 8. History of head and neck CA ?Patient apparently remission 9. History of lung CA -Apparently remission 10. Acute transaminitis ?Monitoring daily LFTs STROKE Vital Signs/Narrative: Vital Signs Temp Pulse Resp BP Pulse Ox 09/08/19 07:10 97.6 F L 102 H 19 H 111/84 H 89 09/08/19 06:53 99 17 102/74 82 09/08/19 06:47 84 09/08/19 06:05 98.1 F 102 H 22 H 125/96 H 100 09/08/19 05:38 99 09/08/19 04:56 98.9 F 102 H 26 H 159/109 H 100 09/08/19 04:54 102 H 26 H 159/109 H 100 09/08/19 04:50 98.9 F 107 H 26 H 159/109 H 100
--- NOTE | 2019-09-08 07:41 | CON.PCM_ITS ---
Reason for Consult Date of Consultation: 09/08/19 Reason for Consultation: Acute hypoxemic respiratory failure History of Present Illness: The patient is a 64-year-old male, with a history as outlined below, who presented to the emergency department from the TCU with cough, shortness of breath and hypoxemia. The patient was recently admitted to the hospital August 27- with a stroke, LV thrombus and newly diagnosed pulmonary embolism. Due to the presence of dysphasia, the patient had a PEG tube placed on August 30. Echocardiogram obtained during that hospital admission revealed a hypokinetic LV with an ejection fraction of 45%. Per documentation from the TCU, the patient had been refusing care. On presentation to the emergency department, the patient was noted to be afebrile and hemodynamically stable. He was, nevertheless tachypneic and hypoxemic. Laboratory evaluation revealed no evidence of a leukocytosis. Chemistry profile was notable for a sodium of 131, chloride of 91, bicarbonate of 35 and creatinine of 0.54. Lactate was within normal limits. AST and ALT were mildly increased. Albumin was low at 1.7. Arterial blood gas obtained on 7 L/min via nasal cannula revealed a pH of 7.45 with a corresponding PCO2 of 51 and PO2 of 118. Urine analysis was largely unremarkable. Chest x-ray revealed a resolving right basilar infiltrate. It does appear from documentation that the patient was receiving continuous tube feeds during his TCU admission. Of note, the patient was noted to be more short of breath on September 03. The patient was ordered to receive meropenem and vancomycin. Cultures, however, were never obtained. Deep suctioning performed in the emergency department resulted in fluid that appeared to be tube feeding. Past Medical History Past Medical History (Chronic Problems): Chronic Problems Left ventricular thrombus (Chronic) Stroke (Chronic) COPD (chronic obstructive pulmonary disease) (Chronic) Pulmonary embolism (Chronic) Self neglect (Chronic) Throat cancer (Chronic) Lung cancer (Chronic) Hypothyroidism (Chronic) Allergic rhinitis (Chronic) Hypertension (Chronic) Hyponatremia (Chronic) Allergies No Known Allergies Allergy (Verified 01/31/17 16:57) Home Medications: Ambulatory Orders Medication Instructions Recorded Apixaban [Eliquis] 5 mg GT DAILY 09/08/19 Ipratropium/Albuterol Sulfate 3 ml INHALATION Q4HWA.RT 09/08/19 [Duoneb] Loratadine 10 mg GT DAILY 09/08/19 Losartan Potassium [Cozaar] 25 mg GT DAILY 09/08/19 Surgical History: - - PEG tube. Psychiatric History: - - Unknown Lives: - - Transitional care unit Smoking Status: Former smoker Tobacco Use: Non-smoker Alcohol: None Drugs: None - *Family History Maternal History Items: - - Denies any market maternal or paternal family history including heart disease, diabetes or cancer. Paternal History Items: - - Denies any market maternal or paternal family history including heart disease, diabetes or cancer. Review of Systems Constitutional: Reports: Weakness, Fatigue Eyes: Denies: Blurred vision, Double vision HEENT: Denies: Head Aches, Sinus Congestion, Sinus Drainage Cardiovascular: Denies: Chest Pain, Palpitations Respiratory: Reports: Cough, Shortness of Breath Gastrointestinal: Denies: Abdominal Pain, Nausea, Vomiting Genitourinary: Denies: Dysuria Musculoskeletal: Denies: Joint Pain, Joint Tenderness Skin: Denies: Rash, Wounds Neurological: Denies: Numbness, Tingling, Focal weakness Psychiatric: Reports: Anxiety, Depression Hematologic/ Lymphatic: Reports: Anemia, Hx of blood clot Patient Problems: Active and Suspected Problems Acute respiratory failure with hypoxia (Acute) Aspiration of gastric contents (Acute) Sinus tachycardia by electrocardiography (Acute) Sepsis (Acute) Respiratory failure with hypoxia and hypercapnia (Acute) Pneumonia (Acute) Objective: The patient's most recent lab work, culture data and imaging studies have all been personally reviewed. - Physical Exam Vitals/I&O's: Vital Signs Temp Pulse Resp BP Pulse Ox 97.6 F L 102 H 19 H 111/84 H 89 09/08/19 07:10 09/08/19 07:10 09/08/19 07:10 09/08/19 07:10 09/08/19 07:10 Oxygen Flow Rate (L/min) 15 Oxygen Delivery Method Non-Rebreather Weight: 143 lb 4.807 oz Body Mass Index (BMI) 21.1 General: Alert, No apparent distress, - - Frail and ill in appearance HEENT: Atraumatic, Normocephalic Oral: Dry Mucosa Neck: Supple, No Nodes, Trachea Midline Lungs: Diminished, Tachypneic Cardiovascular: Normal S1, Normal S2, No murmurs, Tachycardic Abdomen: Bowel Sounds Present, Soft, Non Tender, - - +PEG Extremities: No clubbing, No cyanosis Skin: No breakdown Musculoskeletal: No Tenderness to Palpation of Joints or Extremities Lymphatic: No Cervical, Supraclavicular, or Inguinal Adenopathy Neurological: Cranial nerves II-XII grossly intact Psych/Mental Status: Flat Affect Labs (Last 48 Hours) 09/08/19 09/08/19 09/08/19 04:55 04:55 04:55 WBC 10.6 RBC 3.92 L Hgb 11.4 L Hct 34.4 L MCV 87.8 MCH 29.1 MCHC 33.1 D RDW Std Deviation 43.5 RDW Coeff of Abdullahi 13.8 Plt Count 349 MPV 9.6 Immature Gran % (Auto) 0.700 Neut % (Auto) 89.9 H Lymph % (Auto) 5.6 L [place] % (Auto) 3.1 Eos % (Auto) 0.5 Baso % (Auto) 0.2 Absolute Neuts (auto) 9.6 H Absolute Lymphs (auto) 0.60 L Nucleated RBC % 0 Differential Comment COMMENT PT 15.3 H INR 1.3 APTT 29.6 Specimen Type Sample Site pH Bicarbonate Actual POC Total CO2 Base Excess O2 Saturation ABG pCO2 ABG pO2 Aldo Test O2 Delivery Device Liter Flow Blood Gas Notified Time Sodium 131 L Potassium 4.5 Chloride 91 L Carbon Dioxide 35.0 H Anion Gap 5 BUN 26 H Creatinine 0.54 L Estim Creat Clear Calc 66.81 Est GFR (MDRD) Af Amer 196 Est GFR (MDRD) Non-Af 162 BUN/Creatinine Ratio 48.2 H Glucose 111 H Lactic Acid Calcium 8.4 L Total Bilirubin 0.30 AST 84 H ALT 108 H Alkaline Phosphatase 70 Total Protein 5.4 L Albumin 1.7 L Globulin 3.7 Albumin/Globulin Ratio 0.5 L Urine Color Urine Clarity Urine pH Ur Specific [place] Urine Protein Urine Glucose (UA) Urine Ketones Urine Occult Blood Urine Nitrite Urine Bilirubin Urine Urobilinogen Ur Leukocyte Esterase Urine RBC Urine WBC Ur Squamous Epith Cells Urine Bacteria Urine Mucus 09/08/19 09/08/19 09/08/19 04:55 05:05 05:28 WBC RBC Hgb Hct MCV MCH MCHC RDW Std Deviation RDW Coeff of Abdullahi Plt Count MPV Immature Gran % (Auto) Neut % (Auto) Lymph % (Auto) [place] % (Auto) Eos % (Auto) Baso % (Auto) Absolute Neuts (auto) Absolute Lymphs (auto) Nucleated RBC % Differential Comment PT INR APTT Specimen Type ART Sample Site R RADIAL pH 7.45 Bicarbonate Actual 35.3 H POC Total CO2 37 Base Excess 11 H O2 Saturation 99 ABG pCO2 50.9 H ABG pO2 118 H Aldo Test POS O2 Delivery Device Nasal Can Liter Flow 7.0 Blood Gas Notified Time 528 Sodium Potassium Chloride Carbon Dioxide Anion Gap BUN Creatinine Estim Creat Clear Calc Est GFR (MDRD) Af Amer Est GFR (MDRD) Non-Af BUN/Creatinine Ratio Glucose Lactic Acid 1.2 Calcium Total Bilirubin AST ALT Alkaline Phosphatase Total Protein Albumin Globulin Albumin/Globulin Ratio Urine Color Red Urine Clarity Cloudy Urine pH 7.0 Ur Specific [place] 1.015 Urine Protein 30 H Urine Glucose (UA) Normal Urine Ketones Negative Urine Occult Blood 250 H Urine Nitrite Negative Urine Bilirubin Negative Urine Urobilinogen Normal Ur Leukocyte Esterase 25 H Urine RBC 10-25 SEEN Urine WBC 5-10 SEEN Ur Squamous Epith Cells 0 SEEN Urine Bacteria 0 SEEN Urine Mucus 0 SEEN Clinical Impression(s) from Imaging Studies Chest X-Ray 09/08/19 04:52 IMPRESSION: Decreasing right basilar airspace opacity suggestive of improving pneumonia. COPD. Electronically Signed: David Karimi MD at 5:14 EDT , Service support , Current Medications Sodium Chloride () 1,000 mls @ 150 mls/hr IV .Q6H40M [facility] Last Admin: 09/08/19 05:14 Dose: 150 mls/hr Documented by: Assessment/Plan Active and Suspected Problems Acute respiratory failure with hypoxia (Acute) Aspiration of gastric contents (Acute) Sinus tachycardia by electrocardiography (Acute) Sepsis (Acute) Respiratory failure with hypoxia and hypercapnia (Acute) Pneumonia (Acute) RECOMMENDATIONS: 1. Place on BiPAP therapy and wean FiO2 to maintain oxygen saturations at or above 90%. 2. Initiate aspiration precautions. 3. Continue empiric antimicrobials. 4. Continue Eliquis twice daily. 5. Nutrition consultation to assist with tube feed management. 6. Repeat COVID testing is pending. IMPRESSIONS: 1. Acute hypoxemic respiratory failure Highly suspect recurrent aspiration event as etiology for decompensation. The patient was apparently receiving continuous tube feeds in the TCU. However, I do suspect that his position in bed may have allowed for reflux of gastric contents at his goal tube feed rate. For now, the patient will be continued on empiric antimicrobials. BiPAP will be utilized as tolerated. Plan to wean FiO2 to maintain oxygen saturations at or above 90%. Nutrition consultation will be obtained to assist with tube feed management. Recommend upright positioning in bed with slow, cautious escalation in tube feed rate. Prokinetic agents can be utilized as needed. Repeat COVID testing is also currently pending. Continue bronchodilator therapy and start IV steroids, given the patient's reported history of COPD. 2. Recent pulmonary embolism and left apical thrombus The patient will be started on twice daily Eliquis. 3. Recent CVA with dysphasia Continue aspiration precautions and tube feed recommendations per nutrition. Physical therapy evaluation is warranted, once the patient is medically stabilized. 4. Hypothyroidism/malnutrition/history of lung CA/COPD/hypertension Complicates care, management, recovery and prognosis. Continue home medications as indicated. TIME: 37 minutes of critical care time, independent of procedures, was spent addressing the patient's acute hypoxemic respiratory failure, concern for recurrent aspiration event, recent pulmonary embolism, recent CVA with dysphasia, review of all data and collaboration with the care team. [phone]) [phone] [id number] Critical care first hour
--- NOTE | 2019-09-08 07:46 | CON.PCM_ITS ---
Reason for Consult Date of Consultation: 09/08/19 Reason for Consultation: Aspiration History of Present Illness: The patient is a 64 year old M who was transferred from the TCU with respiratory distress. The patient had suctioning performed and the contents were described as tube feeds. The patient had a PEG tube placed a little over a week ago. Past Medical History Past Medical History (Chronic Problems): Chronic Problems Left ventricular thrombus (Chronic) Stroke (Chronic) COPD (chronic obstructive pulmonary disease) (Chronic) Pulmonary embolism (Chronic) Self neglect (Chronic) Throat cancer (Chronic) Lung cancer (Chronic) Hypothyroidism (Chronic) Allergic rhinitis (Chronic) Hypertension (Chronic) Hyponatremia (Chronic) Allergies No Known Allergies Allergy (Verified 01/31/17 16:57) Home Medications: Ambulatory Orders Medication Instructions Recorded Apixaban [Eliquis] 5 mg GT DAILY 09/08/19 Ipratropium/Albuterol Sulfate 3 ml INHALATION Q4HWA.RT 09/08/19 [Duoneb] Loratadine 10 mg GT DAILY 09/08/19 Losartan Potassium [Cozaar] 25 mg GT DAILY 09/08/19 Surgical History: - - PEG tube. Psychiatric History: - - Unknown Lives: - - Transitional care unit Smoking Status: Former smoker Tobacco Use: Non-smoker Alcohol: None Drugs: None - *Family History Maternal History Items: - - Denies any market maternal or paternal family history including heart disease, diabetes or cancer. Paternal History Items: - - Denies any market maternal or paternal family history including heart disease, diabetes or cancer. Review of Systems HEENT: Reports: Difficulty Swallowing Respiratory: Reports: Cough, Shortness of Breath Gastrointestinal: Denies: Abdominal Pain, Nausea Neurological: Reports: Balance problems Patient Problems: Active and Suspected Problems Acute respiratory failure with hypoxia (Acute) Aspiration of gastric contents (Acute) Sinus tachycardia by electrocardiography (Acute) Sepsis (Acute) Respiratory failure with hypoxia and hypercapnia (Acute) Pneumonia (Acute) - Physical Exam Vitals/I&O's: Vital Signs Temp Pulse Resp BP Pulse Ox 97.6 F L 102 H 19 H 111/84 H 89 09/08/19 07:10 09/08/19 07:10 09/08/19 07:10 09/08/19 07:10 09/08/19 07:10 Oxygen Flow Rate (L/min) 15 Oxygen Delivery Method Non-Rebreather Weight: 143 lb 4.807 oz Body Mass Index (BMI) 21.1 General: Cooperative Neck: No JVD Cardiovascular: Regular Rhythm, Tachycardic Abdomen: Soft, Non-Distended Laboratory Results 09/08/19 04:55: WBC 10.6, RBC 3.92 L, Hgb 11.4 L, Hct 34.4 L, MCV 87.8, MCH 29.1, MCHC 33.1 D, RDW Std Deviation 43.5, RDW Coeff of Abdullahi 13.8, Plt Count 349, MPV 9.6, Immature Gran % (Auto) 0.700, Neut % (Auto) 89.9 H, Lymph % (Auto) 5.6 L, Long % (Auto) 3.1, Eos % (Auto) 0.5, Baso % (Auto) 0.2, Absolute Neuts (auto) 9.6 H, Absolute Lymphs (auto) 0.60 L, Nucleated RBC % 0, Differential Comment COMMENT 09/08/19 04:55: PT 15.3 H, INR 1.3, APTT 29.6 09/08/19 04:55: Sodium 131 L, Potassium 4.5, Chloride 91 L, Carbon Dioxide 35.0 H, Anion Gap 5, BUN 26 H, Creatinine 0.54 L, Estim Creat Clear Calc 66.81, Est GFR (MDRD) Af Amer 196, Est GFR (MDRD) Non-Af 162, BUN/Creatinine Ratio 48.2 H, Glucose 111 H, Calcium 8.4 L, Total Bilirubin 0.30, AST 84 H, ALT 108 H, Alkaline Phosphatase 70, Total Protein 5.4 L, Albumin 1.7 L, Globulin 3.7, Albumin/Globulin Ratio 0.5 L 09/08/19 04:55: Lactic Acid 1.2 09/08/19 05:05: Urine Color Red, Urine Clarity Cloudy, Urine pH 7.0, Ur Specific [place] 1.015, Urine Protein 30 H, Urine Glucose (UA) Normal, Urine Ketones Negative, Urine Occult Blood 250 H, Urine Nitrite Negative, Urine Bilirubin Negative, Urine Urobilinogen Normal, Ur Leukocyte Esterase 25 H, Urine RBC 10-25 SEEN, Urine WBC 5-10 SEEN, Ur Squamous Epith Cells 0 SEEN, Urine Bacteria 0 SEEN, Urine Mucus 0 SEEN 09/08/19 05:28: Specimen Type ART, Sample Site R RADIAL, pH 7.45, Bicarbonate Actual 35.3 H, POC Total CO2 37, Base Excess 11 H, O2 Saturation 99, ABG pCO2 50.9 H, ABG pO2 118 H, Aldo Test POS, O2 Delivery Device Nasal Can, Liter Flow 7.0, Blood Gas Notified Time 528 Current Medications Sodium Chloride () 1,000 mls @ 150 mls/hr IV .Q6H40M [facility] Last Admin: 09/08/19 05:14 Dose: 150 mls/hr Documented by: Assessment/Plan All Active Problems Confusion (Acute) Debility (Acute) Weakness (Acute) Dehydration (Acute) Elevated troponin (Acute) Hypernatremia (Acute) Dysphagia (Acute) Aspiration pneumonia (Acute) Acute respiratory failure with hypoxia (Acute) Aspiration of gastric contents (Acute) Sinus tachycardia by electrocardiography (Acute) Sepsis (Acute) Respiratory failure with hypoxia and hypercapnia (Acute) Pneumonia (Acute) 64-year-old male with aspiration 1. I am unsure if the patient was receiving bolus or continuous tube feeds in the unit but the patient may be overfed. I would recommend elevation of the head of the bed and continue his low rate tube feeds. I do not believe the patient has gastric outlet obstruction or the patient will be more distended with vomiting. The patient may benefit from additional Reglan to provide rapid clearing of the stomach. PEG tube appears to be in good position and functional. Diego Norman MD Pager: [facility] [address] [place] [address], [address] [place] [address] Office:
--- NOTE | 2019-09-08 07:52 | US_ITS ---
STUDY: ABDOMINAL ULTRASOUND - RIGHT UPPER QUADRANT REASON FOR VISIT: Male, 64 years old ELEVATED LIVER ENZYMES PEG TUBE PENDING COVID TECHNIQUE: Ultrasound evaluation of the right upper quadrant was performed with real-time and static beal-scale imaging. TECHNICAL QUALITY: Adequate. COMPARISON: None. FINDINGS: Liver: The liver measures 14 cm. There is normal echogenicity of the liver. The bile ducts are within normal limits. There is hepatic color flow. The direction of portal flow is hepatopetal. There is no demonstrated mass lesion. Gallbladder: Normal distended gallbladder. The gallbladder wall measures 3.4 mm. There is a negative sonographic Epps''s sign. There is no pericholecystic fluid. There are gallbladder polyps. Common Bile Duct (C.B.D.): The common bile duct measures 2 mm. Pancreas: Normal size of the head, body and tail of the pancreas. There is normal echogenicity of the pancreas. There is no demonstrated pancreatic mass or cyst. Right Kidney: Normal size of the right kidney. The right kidney measures 10.5 x 4.2 x 4.5 cm. Normal renal cortex. The right cortex measures 1.2 cm. There is no demonstrated renal mass or cyst. There is no right hydronephrosis. There is a small right pleural effusion. US/Liver IMPRESSION: There are gallbladder polyps. There is a small right pleural effusion. Electronically Signed: Lorena Carpio, at 11:09 EDT Tel , Service support ,
[2019-09-08 08:38] LABS: Magnesium 2.1 mg/dL (1.6-2.6); Phosphorus 3.7 mg/dL (2.5-4.9)
[2019-09-08] MEDS: 0.9% Normal Saline 1,000 ML 100 ML IV ×2 (09:53→17:35)
--- NOTE | 2019-09-08 10:20 | PCM.RX.CS ---
Consult Pharmacy has been consulted to manage selected antiobiotic: Vancomycin Type of Consult: Follow-up Labs: Sodium 131 mmol/L (136-145) L 09/08/19 04:55 Potassium 4.5 mmol/L (3.5-5.1) 09/08/19 04:55 Chloride 91 mmol/L (98-107) L 09/08/19 04:55 Carbon Dioxide 35.0 mmol/L (21.0-32.0) H 09/08/19 04:55 Anion Gap 5 (5-15) 09/08/19 04:55 BUN 26 mg/dL (7-18) H 09/08/19 04:55 Creatinine 0.54 mg/dL (0.70-1.30) L 09/08/19 04:55 Est GFR (MDRD) Af Amer 196 mL/min (>60) 09/08/19 04:55 Est GFR (MDRD) Non-Af 162 mL/min (>60) 09/08/19 04:55 BUN/Creatinine Ratio 48.2 RATIO (10-20) H 09/08/19 04:55 Glucose 111 mg/dL (74-106) H 09/08/19 04:55 Microbiology: Microbiology 09/08/19 08:05 Urine Catheter - Cobb Streptococcus pneumoniae Antigen (M - Final 09/08/19 08:05 Urine Catheter - [place] Legionella Antigen - Final Goal Trough: 15-20 mcg/mL Pharmacy Plan for Drug Dosing: NOTE: New start vancomycin orders received at time of admission to ICU from TCU. Patient was currently getting vancomycin in TCU, and had level drawn prior to departure from TCU and admission to ICU. See below for dosing plans. Current Vancomycin Dose:1000MG IV Q12H Last dose administered in TCU: 09/07/19 @1756 Vancomycin Level: 21.5 Hours Since Last Dose: 11.5hrs Renal Function: 0.54 Renal Function Trend: stable Lab/Micro: PENDING new cultures from ICU admission Vancomycin Plan/Comments: Trough was drawn which resulted in a value of 21.5 (11.5hrs from last dose). This was an acceptable trough draw. Patient trough goal is 15-20. Got admitted to ICU this morning for suspected pneumonia. Initially, vancomycin was scheduled in TCU through 09/10/19. Discussed in ICU rounds, and there will not be a stop date at this time, will plan to continue until further notice. Will get a random level tomorrow morning to assess dosing at that time. ICU care team updated on pharmacy dosing plan. Pending Level: 09/09/19 @ 0600 (Random level with AM labs) PLAN/RECOMMENDATIONS 1. HOLD vancomycin until random level drawn 2. Random level ordered 09/09/19 with AM labs to assess dosing at that time. 3. Pharmacy to continue to monitor and make adjustments as necessary.
--- NOTE | 2019-09-08 10:35 | NT.THERAPY_ITS ---
Nutrition Therapy Report - History Nutrition Services has been consulted to:: Manage enteral nutrition Current diet / nutrition support order:: NPO - Anthropometric Measurements Height:: 5 ft 8.9 in Weight:: 62.1 kg Body Mass Index (BMI):: 20.2 - Relevant Labs Relevant Labs:: RBC 3.92 M/mm3 (4.6-6.2) L 09/08/19 04:55 Hgb 11.4 g/dL (13.0-16.5) L 09/08/19 04:55 Hct 34.4 % (40-54) L 09/08/19 04:55 Neut % (Auto) 89.9 % (47-70) H 09/08/19 04:55 Lymph % (Auto) 5.6 % (19-41) L 09/08/19 04:55 Absolute Neuts (auto) 9.6 X10^3/uL (2.0-7.7) H 09/08/19 04:55 Absolute Lymphs (auto) 0.60 X10^3/uL (0.83-4.51) L 09/08/19 04:55 PT 15.3 SECONDS (11.7-14.9) H 09/08/19 04:55 Sodium 131 mmol/L (136-145) L 09/08/19 04:55 Chloride 91 mmol/L (98-107) L 09/08/19 04:55 Carbon Dioxide 35.0 mmol/L (21.0-32.0) H 09/08/19 04:55 BUN 26 mg/dL (7-18) H 09/08/19 04:55 Creatinine 0.54 mg/dL (0.70-1.30) L 09/08/19 04:55 BUN/Creatinine Ratio 48.2 RATIO (10-20) H 09/08/19 04:55 Glucose 111 mg/dL (74-106) H 09/08/19 04:55 Calcium 8.4 mg/dL (8.5-10.1) L 09/08/19 04:55 AST 84 U/L (15-37) H 09/08/19 04:55 ALT 108 U/L (16-61) H 09/08/19 04:55 Total Protein 5.4 g/dL (6.4-8.2) L 09/08/19 04:55 Albumin 1.7 g/dL (3.2-5.0) L 09/08/19 04:55 Albumin/Globulin Ratio 0.5 RATIO (0.9-2.4) L 09/08/19 04:55 - Assessment Food / Nutrition-Related History:: Pt familiar to this RDN. [employer], was on [facility] TCU s/p recent PEG tube placement. NPO d/t dysphagia. Chronically poor PO intake [employer]. Unknown usual body wt prior to admission, but NFPA indicates severe muscle wasting/fat loss as evidenced by temporal scooping/depression, clavicle bone protrusion, hollowing of orbital region. While on TCU, tube feeds ordered were Jevity 1.5 at 55mL/hour for 21 hours (d/t synthroid) w/ 145mL H2O flush every 4 hours to provide 1732 calories, 73 g protein, and 1747mL total fluid/day. - Nutrition Diagnosis Problem / Etiology / Signs & Symptoms (PES):: Severe malnutrition r/t dysphagia as evidenced by severe muscle wasting/fat loss as evidenced by temporal scooping/depression, clavicle bone protrusion, hollowing of orbital region; PO intake meeting <75% of estimated nutritional needs >3 months [employer] Evidence of Malnutrition Exists:: Yes Severe PCM:: Chronic Illness - Nutrition Intervention Nutrition Prescription:: [id number] calories/day, 60-80 g protein/day - Food / Nutrient Delivery Interventions Summary of nutrition intervention:: Per discussion in ICU rounds- aspirated contents were tube feeds. Question asked if pt was overfed on TCU. Per review of TCU records, pt was on continuous feeds. Bolus recommendations were provided by this RDN on 09/02 but it does not appear that they were ordered. Suspect aspiration related to pt's positioning, as nursing staff reports it has been challenging to maintain pt in appropriate position for tube feeds. Nutrition support ordered as / adjusted to:: Jevity 1.5 via PEG at goal rate of 55mL/hour for 21 hours (held 1 hour prior and 2 hours after synthroid) w/ 145mL H2O flush every 4 hours to provide 1732 calories, 73 g protein, and 1747mL total fluid/day. Recommend start at 25mL/hour and increase by 10mL every 8 hours as pt tolerates until goal rate achieved. If issues w/ tube feed tolerance persist, recommend reglan. Nutrition education provided?: No - MNT Monitoring Further MNT monitoring and evaluation required?: Yes MNT Follow-up in:: 1-2 days
--- NOTE | 2019-09-08 10:41 | CASEMGMT ---
Patient is from [facility] TCU. SW will follow for d/c back to TCU. Patient will need insurance authorization to return. Breana RODRÍGUEZ
[2019-09-08] MEDS: Ipratropium/Albuterol Sulfate 3 ML AMPUL.NEB INHALATION ×3 (11:25→19:28)
[2019-09-08 12:25] LABS: M R Staph aureus DNA By PCR Negative (Negative); Probe Check PASS; Specimen Processing Control PASS
[2019-09-08] MEDS: Levothyroxine 75 MCG Tablet PO (12:31)
[2019-09-08] MEDS: Multivitamins,Therapeutic Tablet 1 TABLET PO (12:31)
[2019-09-08] MEDS: Loratadine 10 MG Tablet PO (12:31)
[2019-09-08] MEDS: APIXABAN 5 MG TABLET GT ×2 (12:31→23:34)
[2019-09-08] MEDS: Losartan Potassium 25 MG Tablet PO (12:32)
--- NOTE | 2019-09-08 14:53 | NURSING ---
Patients sister (Chastity Reynoso) called in for update. This RN spoke with her at length and answered several questions. Information given about morning ICU rounds, Chastity stated that she might call in tomorrow morning. Chastity also stated that she obtained HPOA papers that name her as Konrad's HPOA. Chastity was instructed to bring in a copy so we can place it in his record.
[2019-09-08] MEDS: Jevity 1.5 1,000 ML 55 ML GT (18:46)
[2019-09-08] MEDS: Mirtazapine 15 MG Tablet PO (23:34)
[2019-09-08] MEDS: OLANZapine 2.5 MG Tablet PO (23:34)
[2019-09-09] VITALS (47 sets, daily range): BP systolic 70–125; BP diastolic 51–94; PULSE 83–100; RESP 11–28; TEMP 36.2–36.4; O2SAT 92–100; BMI 20.7
[2019-09-09] MEDS: 0.9% Saline Lock 10 ML Syringe IV (04:35)
[2019-09-09 04:44] LABS: Absolute Lymphocyte Count 0.28 X10^3/uL (0.83-4.51); Absolute Neutrophil Count 13.4 X10^3/uL (2.0-7.7); Basophil# 0.02 X10^3/uL; Basophil% 0.1 % (0-1); Hematocrit 30.8 % (40-54); Lymphocyte # 0.28 X10^3/ul (4.0); Mean Corp Hgb Conc 32.5 g/dL (32-36); Mean Corpuscular Hgb 28.9 pg (27.0-32.0); Mean Platelet Vol. 9.2 fl (6.2-12.0); Monocyte% 0.7 % (0-10); NRBC Flagged by Analyzer 0 % (0-5); Neutrophil % 96.6 % (47-70); POSITIVE DIFFERENTIAL YES; Platelet Count 356 K/mm3 (150-450); RBC Distribution Width SD 44.5 fl (35.1-43.9); Red Blood Count 3.46 M/mm3 (4.6-6.2); White Blood Count 13.9 K/mm3 (4.4-11.0)
[2019-09-09 04:46] LABS: Differential Indicated SCAN CRITERIA MET
--- NOTE | 2019-09-09 04:50 | RAD_ITS ---
STUDY: X-RAY CHEST REASON FOR EXAM: Male, 64 years old. DYSPNEA, COUGH, ACUTE RESPIRATORY FAILURE TECHNIQUE: Single AP portable view of the chest. COMPARISON: September 08, 2019. FINDINGS: Left-sided PICC line in position. Cardiac silhouette unremarkable. Pulmonary vascularity unremarkable. Aorta calcified. Decreasing right-sided airspace disease. Stable COPD/emphysema with asymmetric right apical capping/scarring. No significant pleural effusions. Upper abdomen unremarkable. Osseous structures demineralized with degenerative features. No pneumothorax. RAD/Chest 1 View (Portable) IMPRESSION: Decreasing right basilar airspace disease Stable COPD/emphysema with asymmetric right apical capping/scarring Left-sided PICC line Electronically Signed: Jarert Toscano DO at 8:43 EDT Tel , Service support ,
[2019-09-09 04:57] LABS: ALB/GLOB Ratio 0.4 RATIO (0.9-2.4); AST(SGOT) 38 U/L (15-37); Alanine Aminotransfer ALT/SGPT 68 U/L (16-61); Albumin, Serum 1.6 g/dL (3.2-5.0); Alkaline Phosphatase 68 U/L (45-117); Anion Gap 5 (5-15); BUN 28 mg/dL (7-18); BUN/Creat Ratio 49.5 RATIO (10-20); Chloride 96 mmol/L (98-107); Creatinine, Serum 0.57 mg/dL (0.70-1.30); EST Glomerular Filtration Rate 153 mL/min (>60); Est Glom Filt Rate - Afr Amer 185 mL/min (>60); Estimated Creatinine Clearance 65.26 ml/min; Globulin 3.6 g/dL (2.2-4.2); Glucose 139 mg/dL (74-106); Magnesium 2.1 mg/dL (1.6-2.6); Potassium 4.2 mmol/L (3.5-5.1); Protein, Total 5.2 g/dL (6.4-8.2); Sodium Level 135 mmol/L (136-145)
[2019-09-09 05:09] LABS: Vancomycin, Random Level 11.3 ug/mL (0.0-15.0)
[2019-09-09 05:25] LABS: Differential Comment SCANNED
[2019-09-09 05:29] LABS: Schistocytes RARE
[2019-09-09 05:30] LABS: Hypochromasia 1+
[2019-09-09 05:32] LABS: Ovalocyte RARE
--- NOTE | 2019-09-09 06:19 | PCM.PN.INT ---
Subjective: The patient was seen and examined at the bedside this morning. Events from the last 24 hours have been reviewed. The patient is currently afebrile. He did have to be started on Levophed yesterday due to hemodynamic instability. Levophed is currently infusing at 5 mcg/min. The patient has remained on BiPAP therapy all night with an FiO2 requirement of 45%. He is currently documented to be overall net +1.7 L for the hospital admission. Objective: The patient's most recent lab work, culture data and imaging studies have all been personally reviewed. Coronavirus PCR was negative. Respiratory viral panel was negative. Strep and urine Legionella antigens were negative. Blood, urine and sputum cultures are pending. General: Alert, Cooperative HEENT: Atraumatic, Normocephalic Oral: No Gingival or Mucosal Lesions/ Ulcerations Neck: Supple, No Nodes, Trachea Midline Lungs: Diminished Cardiovascular: Regular rate, Regular Rhythm, Normal S1, Normal S2 Abdomen: Bowel Sounds Present, Soft, Non Tender, - - +PEG Extremities: No clubbing, No cyanosis, No edema Skin: No breakdown Musculoskeletal: No Tenderness to Palpation of Joints or Extremities Lymphatic: No Cervical, Supraclavicular, or Inguinal Adenopathy Neurological: Cranial nerves II-XII grossly intact Psych/Mental Status: Flat Affect Vital Signs Temp Pulse Resp BP Pulse Ox 97.5 F L 89 13 108/85 H 100 09/09/19 00:00 09/09/19 06:00 09/09/19 06:00 09/09/19 06:00 09/09/19 06:00 Oxygen Flow Rate (L/min) 10 Oxygen Delivery Method Bi-pap Weight: 139 lb 15.896 oz Body Mass Index (BMI) 20.2 Intake and Output for Last 24 Hours 09/07/19 09/08/19 09/09/19 23:59 23:59 23:59 Intake Total 1978.32 / 1987.72 448.05 / 448.05 Output Total 750 / 1000 250 / 250 Balance 1228.32 / 987.72 198.05 / 198.05 Labs (Last 48 Hours) 09/08/19 09/08/19 09/08/19 04:55 04:55 04:55 WBC 10.6 RBC 3.92 L Hgb 11.4 L Hct 34.4 L MCV 87.8 MCH 29.1 MCHC 33.1 D RDW Std Deviation 43.5 RDW Coeff of Abdullahi 13.8 Plt Count 349 MPV 9.6 Immature Gran % (Auto) 0.700 Neut % (Auto) 89.9 H Lymph % (Auto) 5.6 L [place] % (Auto) 3.1 Eos % (Auto) 0.5 Baso % (Auto) 0.2 Absolute Neuts (auto) 9.6 H Absolute Lymphs (auto) 0.60 L Nucleated RBC % 0 Differential Comment COMMENT Hypochromasia Ovalocytes Schistocytes PT 15.3 H INR 1.3 APTT 29.6 Specimen Type Sample Site pH Bicarbonate Actual POC Total CO2 Base Excess O2 Saturation ABG pCO2 ABG pO2 Aldo Test O2 Delivery Device Liter Flow Blood Gas Notified Time Sodium 131 L Potassium 4.5 Chloride 91 L Carbon Dioxide 35.0 H Anion Gap 5 BUN 26 H Creatinine 0.54 L Estim Creat Clear Calc 66.81 Est GFR (MDRD) Af Amer 196 Est GFR (MDRD) Non-Af 162 BUN/Creatinine Ratio 48.2 H Glucose 111 H Lactic Acid Calcium 8.4 L Phosphorus Magnesium Total Bilirubin 0.30 AST 84 H ALT 108 H Alkaline Phosphatase 70 Total Protein 5.4 L Albumin 1.7 L Globulin 3.7 Albumin/Globulin Ratio 0.5 L Urine Color Urine Clarity Urine pH Ur Specific [place] Urine Protein Urine Glucose (UA) Urine Ketones Urine Occult Blood Urine Nitrite Urine Bilirubin Urine Urobilinogen Ur Leukocyte Esterase Urine RBC Urine WBC Ur Squamous Epith Cells Urine Bacteria Urine Mucus Random Vancomycin COVID-19 (SYED) Hepatitis A IgM Ab Hepatitis A Ab Total Hep Bs Antigen Hep B Core Total Ab Hep B Core IgM Ab MRSA (PCR) 09/08/19 09/08/19 09/08/19 04:55 04:55 05:05 WBC RBC Hgb Hct MCV MCH MCHC RDW Std Deviation RDW Coeff of Abdullahi Plt Count MPV Immature Gran % (Auto) Neut % (Auto) Lymph % (Auto) [place] % (Auto) Eos % (Auto) Baso % (Auto) Absolute Neuts (auto) Absolute Lymphs (auto) Nucleated RBC % Differential Comment Hypochromasia Ovalocytes Schistocytes PT INR APTT Specimen Type Sample Site pH Bicarbonate Actual POC Total CO2 Base Excess O2 Saturation ABG pCO2 ABG pO2 Aldo Test O2 Delivery Device Liter Flow Blood Gas Notified Time Sodium Potassium Chloride Carbon Dioxide Anion Gap BUN Creatinine Estim Creat Clear Calc Est GFR (MDRD) Af Amer Est GFR (MDRD) Non-Af BUN/Creatinine Ratio Glucose Lactic Acid 1.2 Calcium Phosphorus 3.7 Magnesium 2.1 Total Bilirubin AST ALT Alkaline Phosphatase Total Protein Albumin Globulin Albumin/Globulin Ratio Urine Color Red Urine Clarity Cloudy Urine pH 7.0 Ur Specific [place] 1.015 Urine Protein 30 H Urine Glucose (UA) Normal Urine Ketones Negative Urine Occult Blood 250 H Urine Nitrite Negative Urine Bilirubin Negative Urine Urobilinogen Normal Ur Leukocyte Esterase 25 H Urine RBC 10-25 SEEN Urine WBC 5-10 SEEN Ur Squamous Epith Cells 0 SEEN Urine Bacteria 0 SEEN Urine Mucus 0 SEEN Random Vancomycin COVID-19 (SYED) Hepatitis A IgM Ab Hepatitis A Ab Total Hep Bs Antigen Hep B Core Total Ab Hep B Core IgM Ab MRSA (PCR) 09/08/19 09/08/19 09/08/19 05:28 08:05 08:05 WBC RBC Hgb Hct MCV MCH MCHC RDW Std Deviation RDW Coeff of Abdullahi Plt Count MPV Immature Gran % (Auto) Neut % (Auto) Lymph % (Auto) [place] % (Auto) Eos % (Auto) Baso % (Auto) Absolute Neuts (auto) Absolute Lymphs (auto) Nucleated RBC % Differential Comment Hypochromasia Ovalocytes Schistocytes PT INR APTT Specimen Type ART Sample Site R RADIAL pH 7.45 Bicarbonate Actual 35.3 H POC Total CO2 37 Base Excess 11 H O2 Saturation 99 ABG pCO2 50.9 H ABG pO2 118 H Aldo Test POS O2 Delivery Device Nasal Can Liter Flow 7.0 Blood Gas Notified Time 528 Sodium Potassium Chloride Carbon Dioxide Anion Gap BUN Creatinine Estim Creat Clear Calc Est GFR (MDRD) Af Amer Est GFR (MDRD) Non-Af BUN/Creatinine Ratio Glucose Lactic Acid Calcium Phosphorus Magnesium Total Bilirubin AST ALT Alkaline Phosphatase Total Protein Albumin Globulin Albumin/Globulin Ratio Urine Color Urine Clarity Urine pH Ur Specific [place] Urine Protein Urine Glucose (UA) Urine Ketones Urine Occult Blood Urine Nitrite Urine Bilirubin Urine Urobilinogen Ur Leukocyte Esterase Urine RBC Urine WBC Ur Squamous Epith Cells Urine Bacteria Urine Mucus Random Vancomycin COVID-19 (SYED) Cancelled Hepatitis A IgM Ab Pending Hepatitis A Ab Total Pending Hep Bs Antigen Pending Hep B Core Total Ab Pending Hep B Core IgM Ab Pending MRSA (PCR) Negative 09/09/19 09/09/1920 04:25 04:25 04:25 WBC 13.9 H RBC 3.46 L Hgb 10.0 L Hct 30.8 L MCV 89.0 MCH 28.9 MCHC 32.5 RDW Std Deviation 44.5 H RDW Coeff of Abdullahi 14.0 Plt Count 356 MPV 9.2 Immature Gran % (Auto) 0.600 Neut % (Auto) 96.6 H Lymph % (Auto) 2.0 L [place] % (Auto) 0.7 Eos % (Auto) 0.0 Baso % (Auto) 0.1 Absolute Neuts (auto) 13.4 H Absolute Lymphs (auto) 0.28 L Nucleated RBC % 0 Differential Comment SCANNED Hypochromasia 1+ Ovalocytes RARE Schistocytes RARE PT INR APTT Specimen Type Sample Site pH Bicarbonate Actual POC Total CO2 Base Excess O2 Saturation ABG pCO2 ABG pO2 Aldo Test O2 Delivery Device Liter Flow Blood Gas Notified Time Sodium 135 L Potassium 4.2 Chloride 96 L Carbon Dioxide 34.0 H Anion Gap 5 BUN 28 H Creatinine 0.57 L Estim Creat Clear Calc 65.26 Est GFR (MDRD) Af Amer 185 Est GFR (MDRD) Non-Af 153 BUN/Creatinine Ratio 49.5 H Glucose 139 H Lactic Acid Calcium 8.0 L Phosphorus Magnesium 2.1 Total Bilirubin 0.50 AST 38 H ALT 68 H Alkaline Phosphatase 68 Total Protein 5.2 L Albumin 1.6 L Globulin 3.6 Albumin/Globulin Ratio 0.4 L Urine Color Urine Clarity Urine pH Ur Specific [place] Urine Protein Urine Glucose (UA) Urine Ketones Urine Occult Blood Urine Nitrite Urine Bilirubin Urine Urobilinogen Ur Leukocyte Esterase Urine RBC Urine WBC Ur Squamous Epith Cells Urine Bacteria Urine Mucus Random Vancomycin 11.3 COVID-19 (SYED) Hepatitis A IgM Ab Hepatitis A Ab Total Hep Bs Antigen Hep B Core Total Ab Hep B Core IgM Ab MRSA (PCR) Microbiology 09/08/19 05:00 Sputum, Expectorated/Coughed Gram Stain - Final 09/08/19 08:05 Mucosa - Nasopharyngeal Respiratory Panel (PCR) - Final 09/08/19 08:05 Mucosa - Nasopharyngeal Coronavirus COVID-19 PCR - Final 09/08/19 08:05 Urine Catheter - Cobb Streptococcus pneumoniae Antigen (M - Final 09/08/19 08:05 Urine Catheter - Cobb Legionella Antigen - Final Clinical Impression(s) from Imaging Studies Chest X-Ray 09/08/19 04:52 IMPRESSION: Decreasing right basilar airspace opacity suggestive of improving pneumonia. COPD. Electronically Signed: David Karimi MD at 5:14 EDT , Service support , Liver Ultrasound 09/08/19 07:52 IMPRESSION: There are gallbladder polyps. There is a small right pleural effusion. Electronically Signed: Lorena Carpio, at 11:09 EDT Tel , Service support , Medical Necessity - Tobacco Use Smoking Status: Former smoker Tobacco Use: Non-smoker Assessment/Plan All Active Problems Confusion (Acute) Debility (Acute) Weakness (Acute) Dehydration (Acute) Elevated troponin (Acute) Hypernatremia (Acute) Dysphagia (Acute) Aspiration pneumonia (Acute) Acute respiratory failure with hypoxia (Acute) Aspiration of gastric contents (Acute) Sinus tachycardia by electrocardiography (Acute) Sepsis (Acute) Respiratory failure with hypoxia and hypercapnia (Acute) Pneumonia (Acute) RECOMMENDATIONS: 1. Continue tube feeds per nutrition recommendations. Recommend decreasing water flushes. 2. Continue aspiration precautions and upright positioning in bed. 3. Continue antimicrobials. 4. Transition from BiPAP to nasal cannula supplemental oxygen and wean as tolerated. 5. Continue Eliquis. 6. Wean Levophed as tolerated to maintain a mean arterial pressure at or above 65 mmHg. Hold antihypertensives accordingly. IMPRESSIONS: 1. Acute hypoxemic respiratory failure Highly suspect recurrent aspiration event as etiology for decompensation. The patient was apparently receiving continuous tube feeds in the TCU. However, I do suspect that his position in bed may have allowed for reflux of gastric contents at his goal tube feed rate. For now, the patient will be continued on empiric antimicrobials. Plan to wean the patient from BiPAP therapy as tolerated. Tube feeds will be continued per nutrition recommendations. Recommend upright positioning in bed with slow, cautious escalation in tube feed rate. Prokinetic agents can be utilized as needed. Continue bronchodilator therapy and start IV steroids, given the patient's reported history of COPD. 2. Septic shock Concern for recurrent aspiration pneumonia. Infectious work-up is currently underway. We will continue empiric antimicrobials. Stop continuous supplemental IV fluids. Continue Levophed and wean to maintain the mean arterial pressure at or above 65 mmHg. 3. Recent pulmonary embolism and left apical thrombus The patient will be continued on twice daily Eliquis. 4. Recent CVA with dysphasia Continue aspiration precautions and tube feed recommendations per nutrition. Physical therapy evaluation is warranted, once the patient is medically stabilized. 5. Hypothyroidism/malnutrition/history of lung CA/COPD/hypertension Complicates care, management, recovery and prognosis. Continue home medications as indicated. TIME: 37 minutes of critical care time, independent of procedures, was spent addressing the patient's acute hypoxemic respiratory failure, concern for recurrent aspiration event, septic shock, recent pulmonary embolism, recent CVA with dysphasia, review of all data and collaboration with the care team. ([id number]) [id number] Critical care first hour
[2019-09-09] MEDS: Alteplase 2 MG/2 ML Vial IV (06:43)
[2019-09-09] MEDS: Levothyroxine 75 MCG Tablet PO (06:47)
[2019-09-09] MEDS: Ipratropium/Albuterol Sulfate 3 ML AMPUL.NEB INHALATION ×4 (07:13→18:45)
--- NOTE | 2019-09-09 07:15 | NURSING ---
Addendum entered by Lucas Wolf 09/09/19 17:16: Clarification: Red Lumen was treated with cath flow. Original Note: Cathflow aspirated from PICC. Lumen has blood return and flushes easily at this time.
--- NOTE | 2019-09-09 07:29 | PN_ITS ---
Patient Problems: Active and Suspected Problems Acute respiratory failure with hypoxia (Acute) Aspiration of gastric contents (Acute) Sinus tachycardia by electrocardiography (Acute) Sepsis (Acute) Respiratory failure with hypoxia and hypercapnia (Acute) Pneumonia (Acute) Reason for Visit: shortness of breath Subjective: Patient is a 64-year-old gentleman who is currently being managed at the transitional care unit following recent admission for acute stroke was found to have LV thrombus and newly diagnosed pulmonary embolism, patient presented with cough shortness of breath as well as hypoxemia ?09/09/2019: Patient seen still remains on BiPAP. Repeat complete testing came back negative subsequently taken out of droplet precautions Objective: GENERAL: Patient on BiPAP HEENT: Atraumatic; EYES; Anicteric, Normal Conjunctiva NECK; supple, normal thyroid, RESPIRATORY: Diminished to auscultation CARDIOVASCULAR: Regular S1 S2, GI: soft, normoactive bowel sounds, : No Renal angle tenderness; EXTREMITIES: No edema, no clubbing, MUSCULOSKELETAL: no muscle waisting NEURO: Awake; no lateralizing signs. SKIN: No Rash PSYCH; Flat affect Vitals/I&O's: Vital Signs Temp Pulse Resp BP Pulse Ox 97.5 F L 89 13 102/83 H 100 09/09/19 00:00 09/09/19 06:00 09/09/19 06:00 09/09/19 07:00 09/09/19 06:00 Oxygen Flow Rate (L/min) 10 Oxygen Delivery Method Bi-pap Weight: 63.5 kg Body Mass Index (BMI) 20.2 Intake and Output for Last 24 Hours 09/07/19 09/08/19 09/09/19 23:59 23:59 23:59 Intake Total 1978.32 / 2287.72 1016.45 / 1016.45 Output Total 750 / 1000 525 / 525 Balance 1228.32 / 1287.72 491.45 / 491.45 Microbiology Past 72 Hours 09/08/19 05:00 Sputum, Expectorated/Coughed Gram Stain - Final 09/08/19 08:05 Mucosa - Nasopharyngeal Respiratory Panel (PCR) - Final 09/08/19 08:05 Mucosa - Nasopharyngeal Coronavirus COVID-19 PCR - Final 09/08/19 08:05 Urine Catheter - Cobb Streptococcus pneumoniae Antigen (M - Final 09/08/19 08:05 Urine Catheter - Cobb Legionella Antigen - Final Laboratory Results 09/08/19 04:55: Phosphorus 3.7, Magnesium 2.1 09/08/19 08:05: COVID-19 (SYED) Cancelled, Hepatitis A IgM Ab Pending, Hepatitis A Ab Total Pending, Hep Bs Antigen Pending, Hep B Core Total Ab Pending, Hep B Core IgM Ab Pending 09/08/19 08:05: MRSA (PCR) Negative 09/09/19 04:25: Sodium 135 L, Potassium 4.2, Chloride 96 L, Carbon Dioxide 34.0 H, Anion Gap 5, BUN 28 H, Creatinine 0.57 L, Estim Creat Clear Calc 65.26, Est GFR (MDRD) Af Amer 185, Est GFR (MDRD) Non-Af 153, BUN/Creatinine Ratio 49.5 H, Glucose 139 H, Calcium 8.0 L, Magnesium 2.1, Total Bilirubin 0.50, AST 38 H, ALT 68 H, Alkaline Phosphatase 68, Total Protein 5.2 L, Albumin 1.6 L, Globulin 3.6, Albumin/Globulin Ratio 0.4 L 09/09/19 04:25: WBC 13.9 H, RBC 3.46 L, Hgb 10.0 L, Hct 30.8 L, MCV 89.0, MCH 28.9, MCHC 32.5, RDW Std Deviation 44.5 H, RDW Coeff of Abdullahi 14.0, Plt Count 356, MPV 9.2, Immature Gran % (Auto) 0.600, Neut % (Auto) 96.6 H, Lymph % (Auto) 2.0 L, [place] % (Auto) 0.7, Eos % (Auto) 0.0, Baso % (Auto) 0.1, Absolute Neuts (auto) 13.4 H, Absolute Lymphs (auto) 0.28 L, Nucleated RBC % 0, Differential Comment SCANNED, Hypochromasia 1+, Ovalocytes RARE, Schistocytes RARE 09/09/19 04:25: Random Vancomycin 11.3 Current Medications Acetaminophen (Tylenol) 650 mg RECTAL Q4H PRN PRN PRN Reason: Pain Score 1-10/Temp > 100.7 F Albuterol Sulfate (Ventolin Aerosols) 2.5 mg INHALATION Q2H PRN PRN PRN Reason: Dyspnea, wheezing Albuterol/Ipratropium (Duoneb) 3 ml INHALATION Q4HWA.RT [facility] Last Admin: 09/09/19 07:13 Dose: 3 ml Documented by: Apixaban (Eliquis) 5 mg GT BID [facility] [place] Last Admin: 09/08/19 23:34 Dose: 5 mg Documented by: Dextrose (D50w Syringe) 0 gm IV X1 PRN; Protocol PRN Reason: Hypoglycemia Glucagon () 1 mg IM .X1 PRN PRN Reason: Hypoglycemia Heparin Sodium (Beef Lung) () 50 units IV UD PRN PRN Reason: PICC Line Heparin Flush Hydralazine HCl (Apresoline Iv) 10 mg IV Q4H PRN PRN PRN Reason: SBP > 160 Vancomycin IV Pharmacy to Dose (1 ea/ Sodium Chloride) 500 mls @ 250 mls/hr IV PRN PRN; Protocol PRN Reason: Rx to Dose Piperacillin Sod/Tazobactam (Sod 3.375 gm/ Sodium Chloride) 50 mls @ 12.5 mls/hr IV Q8 [facility] [place] Last Admin: 09/09/19 06:45 Dose: 12.5 mls/hr Documented by: Norepinephrine Bitartrate 8 mg (/ Sodium Chloride) 250 mls @ 9.375 mls/hr CONT INF .[id number] [facility] [place]; Protocol Last Titration: 09/09/19 07:00 Dose: 4 mcg/min, 7.5 mls/hr Documented by: Enteral Nutritional Formula (Jevity 1.5) 1,000 mls @ 55 mls/hr GT .[id number] [facility] [place] Last Admin: 09/08/19 18:46 Dose: 55 mls/hr Documented by: Levothyroxine Sodium (Synthroid) 75 mcg PO DAILY@0600 [facility] [place] Last Admin: 09/09/19 06:47 Dose: 75 mcg Documented by: Loratadine (Claritin) 10 mg PO DAILY [facility] [place] Last Admin: 09/08/19 12:31 Dose: 10 mg Documented by: Losartan Potassium (Cozaar) 25 mg PO DAILY [facility] [place] Last Admin: 09/08/19 12:32 Dose: 25 mg Documented by: Methylprednisolone (Solu-Medrol) 40 mg IV Q6 [facility] [place] Last Admin: 09/09/19 06:46 Dose: 40 mg Documented by: Mirtazapine (Remeron) 15 mg PO QHS [facility] [place] Last Admin: 09/08/19 23:34 Dose: 15 mg Documented by: Multivitamins (Multivitamin) 1 tablet PO DAILY@0800 [facility] [place] Last Admin: 09/08/19 12:31 Dose: 1 tablet Documented by: Nitroglycerin (Nitrostat) 0.4 mg SUBLINGUAL Q5M PRN PRN Reason: CARDIAC/CHEST PAIN Olanzapine (Zyprexa) 2.5 mg PO QHS [facility] [place] Last Admin: 09/08/19 23:34 Dose: 2.5 mg Documented by: Ondansetron HCl (Zofran) 4 mg IV Q8H PRN PRN PRN Reason: NAUSEA/VOMITING Prochlorperazine Edisylate (Compazine Iv) 5 mg IV Q4H PRN PRN PRN Reason: Breakthrough Nausea/Vomiting Sodium Chloride () 10 - 40 ml IV UD PRN PRN Reason: Open End PICC Flush Last Admin: 09/09/19 04:35 Dose: 40 ml Documented by: Sodium Chloride (0.9% Nacl (Sterile) Posiflush) 10 - 40 ml IV UD PRN PRN Reason: Port access or dressing change STROKE Vital Signs/Narrative: Vital Signs Pulse Resp BP Pulse Ox 09/09/19 07:00 102/83 H 09/09/19 06:45 118/91 H 09/09/19 06:30 125/92 H 09/09/19 06:15 113/89 H 09/09/19 06:00 89 13 108/85 H 100 09/09/19 05:45 96/73 09/09/19 05:30 72/54 L 09/09/19 05:15 70/53 L 09/09/19 05:00 72/51 L 09/09/19 04:45 96 98/75 09/09/19 04:30 95/72 09/09/19 04:14 96 16 105/77 93 09/09/19 04:00 96 22 H 100 Medical Necessity - Tobacco Use Smoking Status: Former smoker Tobacco Use: Non-smoker Assessment/Plan All Active Problems Confusion (Acute) Debility (Acute) Weakness (Acute) Dehydration (Acute) Elevated troponin (Acute) Hypernatremia (Acute) Dysphagia (Acute) Aspiration pneumonia (Acute) Acute respiratory failure with hypoxia (Acute) Aspiration of gastric contents (Acute) Sinus tachycardia by electrocardiography (Acute) Sepsis (Acute) Respiratory failure with hypoxia and hypercapnia (Acute) Pneumonia (Acute) Patient is a 64-year-old gentleman who is currently being managed at the transitional care unit following recent admission for acute stroke was found to have LV thrombus and newly diagnosed pulmonary embolism, patient presented with cough shortness of breath as well as hypoxemia 1. Acute hypoxic respiratory failure ?Suspected to be secondary to aspiration pneumonia. Patient was started on broad-spectrum antibiotic therapy. Patient was placed on supplemental oxygen in view of worsening respiratory status patient was placed on BiPAP with consultation placed to pulmonary an assay was also sent for COVID 19 ?09/09/2019:Repeat complete testing came back negative subsequently taken out of droplet precautions; patient however remains significantly hypoxic and is still on BiPAP 2. Sepsis secondary to suspected aspiration pneumonia ?Management as discussed above 3. Recent admission for acute CVA ?Imaging studies obtained during patient admission demonstrated left occipital stroke. Patient was also found to have left apical thrombus versus mass. Patient acute CVA was complicated by dysphagia resulting in patient undergoing PEG tube placement 4. Pulmonary embolism (diagnosed during patient's hospital stay) Patient is on systemic anticoagulation did continue 5. Hyponatremia Do suspect component of SIADH monitoring daily BMPs 6. Hypothyroidism ~patient is on levothyroxine home dose continued 7. Severe protein calorie malnutrition ?As evidenced by decreased energy level muscle wasting and hypoalbuminemia consult placed to human resource intern 8. History of head and neck CA ?Patient apparently remission 9. History of lung CA -Apparently remission 10. Acute transaminitis ?Monitoring daily LFTs Inpatient E&M: 98820 [facility] L3
--- NOTE | 2019-09-09 08:24 | PCM.RX.CS ---
Consult Pharmacy has been consulted to manage selected antiobiotic: Vancomycin Type of Consult: Follow-up Labs: Sodium 135 mmol/L (136-145) L 09/09/19 04:25 Potassium 4.2 mmol/L (3.5-5.1) 09/09/19 04:25 Chloride 96 mmol/L (98-107) L 09/09/19 04:25 Carbon Dioxide 34.0 mmol/L (21.0-32.0) H 09/09/19 04:25 Anion Gap 5 (5-15) 09/09/19 04:25 BUN 28 mg/dL (7-18) H 09/09/19 04:25 Creatinine 0.57 mg/dL (0.70-1.30) L 09/09/19 04:25 Est GFR (MDRD) Af Amer 185 mL/min (>60) 09/09/19 04:25 Est GFR (MDRD) Non-Af 153 mL/min (>60) 09/09/19 04:25 BUN/Creatinine Ratio 49.5 RATIO (10-20) H 09/09/19 04:25 Glucose 139 mg/dL (74-106) H 09/09/19 04:25 Random Vancomycin 11.3 ug/mL (0.0-15.0) 09/09/19 04:25 Microbiology: Microbiology 09/08/19 05:00 Sputum, Expectorated/Coughed Gram Stain - Final 09/08/19 08:05 Mucosa - Nasopharyngeal Respiratory Panel (PCR) - Final 09/08/19 08:05 Mucosa - Nasopharyngeal Coronavirus COVID-19 PCR - Final 09/08/19 08:05 Urine Catheter - [place] Streptococcus pneumoniae Antigen (M - Final 09/08/19 08:05 Urine Catheter - [place] Legionella Antigen - Final Goal Trough: 15-20 mcg/mL Pharmacy Plan for Drug Dosing: VANCOMYCIN LEVEL RECEIVED Current Vancomycin Dose: ON HOLD Number of Doses Received: last dose 1000mg IV 09/07/19 @1756 Vancomycin Level: 11.3 Hours Since Last Dose: ~34 Renal Function: 0.57 Renal Function Trend: stable Lab/Micro: pending Vancomycin Plan/Comments: Random vancomycin level came back at 11.3 after holding vancomycin ~34hrs. Trough goal = 15-20. Will resume Q12hr dosing and decrease the dose to 750mg IV Q12hrs to start this morning. Trough prior to the 4th dose of new regimen per protocol. Pending Level: 09/10/19 @2029 PLAN/RECOMMENDATIONS 1. Vancomycin 750mg IV Q12hr to start 09/09/19 @0900 2. Trough scheduled 09/10/19 @2029, prior to 4th dose of new regimen. 3. Pharmacy Service will continue to monitor and adjust dosing as required.
[2019-09-09] MEDS: Loratadine 10 MG Tablet PO (09:16)
[2019-09-09] MEDS: APIXABAN 5 MG TABLET GT ×2 (09:16→21:48)
[2019-09-09] MEDS: Multivitamins,Therapeutic Tablet 1 TABLET PO (09:17)
--- NOTE | 2019-09-09 10:09 | NT.THERAPY_ITS ---
Nutrition Therapy Report - History Nutrition Services has been consulted to:: Manage enteral nutrition Current diet / nutrition support order:: Jevity 1.5 at goal rate of 55mL/hour for 21 hours to provide 1732 calories, 73 g protein; currently running at 30mL/hour. 145mL H2O flush every 4 hours to provide 1747mL total fluid/day. - Anthropometric Measurements Height:: 5 ft 8.9 in Weight:: 63.5 kg Body Mass Index (BMI):: 20.7 - Relevant Labs Relevant Labs:: WBC 13.9 K/mm3 (4.4-11.0) H 09/09/19 04:25 RBC 3.46 M/mm3 (4.6-6.2) L 09/09/19 04:25 Hgb 10.0 g/dL (13.0-16.5) L 09/09/19 04:25 Hct 30.8 % (40-54) L 09/09/19 04:25 RDW Std Deviation 44.5 fl (35.1-43.9) H 09/09/19 04:25 Neut % (Auto) 96.6 % (47-70) H 09/09/19 04:25 Lymph % (Auto) 2.0 % (19-41) L 09/09/19 04:25 Absolute Neuts (auto) 13.4 X10^3/uL (2.0-7.7) H 09/09/19 04:25 Absolute Lymphs (auto) 0.28 X10^3/uL (0.83-4.51) L 09/09/19 04:25 PT 15.3 SECONDS (11.7-14.9) H 09/08/19 04:55 Sodium 135 mmol/L (136-145) L 09/09/19 04:25 Chloride 96 mmol/L (98-107) L 09/09/19 04:25 Carbon Dioxide 34.0 mmol/L (21.0-32.0) H 09/09/19 04:25 BUN 28 mg/dL (7-18) H 09/09/19 04:25 Creatinine 0.57 mg/dL (0.70-1.30) L 09/09/19 04:25 BUN/Creatinine Ratio 49.5 RATIO (10-20) H 09/09/19 04:25 Glucose 139 mg/dL (74-106) H 09/09/19 04:25 Calcium 8.0 mg/dL (8.5-10.1) L 09/09/19 04:25 AST 38 U/L (15-37) H 09/09/19 04:25 ALT 68 U/L (16-61) H 09/09/19 04:25 Total Protein 5.2 g/dL (6.4-8.2) L 09/09/19 04:25 Albumin 1.6 g/dL (3.2-5.0) L 09/09/19 04:25 Albumin/Globulin Ratio 0.4 RATIO (0.9-2.4) L 09/09/19 04:25 - Assessment Food / Nutrition-Related History:: Discussed in ICU rounds. Has required bipap support. Medication started for low blood pressure. Wt increase of 1.4 kg since last review w/ bilat hand and BLE non-pitting edema noted by nursing staff. Tube feeds started, running at 30mL/hour w/ goal rate of 55mL/hour. Discussed fluid status in rounds- Dr. Ho requesting flushes be cut in half. - Nutrition Diagnosis Problem / Etiology / Signs & Symptoms (PES):: Severe malnutrition r/t dysphagia as evidenced by severe muscle wasting/fat loss as evidenced by temporal scooping/depression, clavicle bone protrusion, hollowing of orbital region; PO intake meeting <75% of estimated nutritional needs >3 months ADMINISTRATIVE LIAISON Evidence of Malnutrition Exists:: Yes Severe PCM:: Chronic Illness - Nutrition Intervention Nutrition Prescription:: [id number] calories/day, 60-80 g protein/day - Food / Nutrient Delivery Interventions Summary of nutrition intervention:: Will decrease flushes to 75mL q 4 hours. Nutrition support ordered as / adjusted to:: 75mL H2O flush every 4 hours; advance Jevity 1.5 via PEG as tolerated to goal rate of 55mL/hour for 21 hours ( held 1 hour prior and 2 hours after synthroid) to provide 1732 calories, 73 g protein, and 1327mL total fluid/day. Increase by 10mL every 8-10 hours as pt tolerates until goal rate achieved. Nutrition education provided?: No - MNT Monitoring Further MNT monitoring and evaluation required?: Yes MNT Follow-up in:: 1-2 days
--- NOTE | 2019-09-09 14:16 | CASEMGMT ---
LIUDMILA faxed clinicals to [facility] requesting permission to submit for pre-cert to return to TCU. LIDUMILA did indicate on the fax face sheet that patient may not be ready until Saturday or the weekend. Breana RODRÍGUEZ
[2019-09-09] MEDS: Jevity 1.5 1,000 ML 55 ML GT (21:45)
[2019-09-09] MEDS: OLANZapine 2.5 MG Tablet PO (21:47)
[2019-09-09] MEDS: Mirtazapine 15 MG Tablet PO (21:48)
[2019-09-10] VITALS (25 sets, daily range): BP systolic 85–114; BP diastolic 59–85; PULSE 79–96; RESP 12–25; TEMP 36.1–37.1; O2SAT 90–98
[2019-09-10] MEDS: Levothyroxine 75 MCG Tablet PO (05:24)
[2019-09-10] MEDS: 0.9% Saline Lock 10 ML Syringe IV (05:47)
[2019-09-10 05:53] LABS: Absolute Lymphocyte Count 0.52 X10^3/uL (0.83-4.51); Absolute Neutrophil Count 8.7 X10^3/uL (2.0-7.7); Basophil# 0.01 X10^3/uL; Basophil% 0.1 % (0-1); Hematocrit 30.3 % (40-54); Hemoglobin 9.6 g/dL (13.0-16.5); Lymphocyte # 0.52 X10^3/ul (4.0); Lymphocyte % 5.3 % (19-41); Mean Corp Hgb Conc 31.7 g/dL (32-36); Mean Corpuscular Hgb 28.3 pg (27.0-32.0); Mean Corpuscular Volume 89.4 fL (80-94); Mean Platelet Vol. 9.4 fl (6.2-12.0); Monocyte# 0.48 X10^3/uL; Monocyte% 4.9 % (0-10); NRBC Flagged by Analyzer 0 % (0-5); Neutrophil # 8.65 X10^3/uL (2.7-7.7); Neutrophil % 88.8 % (47-70); POSITIVE DIFFERENTIAL YES; Platelet Count 376 K/mm3 (150-450); RBC Distribution Width CV 14.2 % (11.6-14.6); Red Blood Count 3.39 M/mm3 (4.6-6.2); White Blood Count 9.8 K/mm3 (4.4-11.0)
[2019-09-10 05:54] LABS: Differential Indicated SCAN CRITERIA MET
[2019-09-10 06:09] LABS: ALB/GLOB Ratio 0.5 RATIO (0.9-2.4); AST(SGOT) 27 U/L (15-37); Alanine Aminotransfer ALT/SGPT 55 U/L (16-61); Albumin, Serum 1.6 g/dL (3.2-5.0); Alkaline Phosphatase 64 U/L (45-117); Anion Gap 5 (5-15); BUN 34 mg/dL (7-18); BUN/Creat Ratio 52.7 RATIO (10-20); Calcium,Total 8.3 mg/dL (8.5-10.1); Chloride 98 mmol/L (98-107); Creatinine, Serum 0.64 mg/dL (0.70-1.30); EST Glomerular Filtration Rate 132 mL/min (>60); Est Glom Filt Rate - Afr Amer 159 mL/min (>60); Estimated Creatinine Clearance 64.54 ml/min; Globulin 3.5 g/dL (2.2-4.2); Glucose 153 mg/dL (74-106); Protein, Total 5.1 g/dL (6.4-8.2); Sodium Level 137 mmol/L (136-145)
--- NOTE | 2019-09-10 06:15 | PN_ITS ---
Subjective: The patient was seen and examined at the bedside this morning. Events from the last 24 hours have been reviewed. The patient is currently afebrile, hemodynamically stable and maintaining appropriate oxygen saturations on 3 L/min via nasal cannula. The patient was able to be weaned completely off of Levophed yesterday afternoon. Tube feeds are currently being tolerated at a rate of 45 mL/h with a goal rate of 55. The patient is currently documented to be overall net +2.5 L for the hospital admission. Objective: The patient's most recent lab work, culture data and imaging studies have all been personally reviewed. Coronavirus PCR was negative. Respiratory viral panel was negative. Strep and urine Legionella antigens were negative. Blood, urine and sputum cultures have shown no growth to date. General: Alert, Cooperative, No apparent distress HEENT: Atraumatic, Normocephalic Oral: Moist Mucosa Neck: Supple, No Nodes, Trachea Midline Lungs: No rhonchi, No wheeze, No rales, Diminished Cardiovascular: Regular rate, Regular Rhythm, Normal S1, Normal S2 Abdomen: Bowel Sounds Present, Soft, Non Tender, - - +PEG Extremities: No clubbing, No cyanosis, No edema Skin: - - No significant change from previous Musculoskeletal: Cachexia Lymphatic: No Cervical, Supraclavicular, or Inguinal Adenopathy Neurological: Neuro grossly intact Psych/Mental Status: Normal Affect, Appropriate Vital Signs Temp Pulse Resp BP Pulse Ox 97 F L 89 21 H 114/85 H 93 09/10/19 04:00 09/10/19 06:00 09/10/19 06:00 09/10/19 06:00 09/10/19 06:00 Oxygen Flow Rate (L/min) 3 Oxygen Delivery Method Nasal Cannula Weight: 138 lb 7.205 oz Body Mass Index (BMI) 20.7 Intake and Output for Last 24 Hours 09/08/19 09/09/19 09/10/19 23:59 23:59 23:59 Intake Total 1978.32 / 2287.72 2434.28 / 2609.28 543 / 543 Output Total 750 / 1000 1350 / 1500 350 / 350 Balance 1228.32 / 1287.72 1084.28 / 1109.28 193 / 193 Labs (Last 48 Hours) 09/08/19 09/08/19 09/08/19 04:55 08:05 08:05 WBC RBC Hgb Hct MCV MCH MCHC RDW Std Deviation RDW Coeff of Abdullahi Plt Count MPV Immature Gran % (Auto) Neut % (Auto) Lymph % (Auto) [place] % (Auto) Eos % (Auto) Baso % (Auto) Absolute Neuts (auto) Absolute Lymphs (auto) Nucleated RBC % Differential Comment Hypochromasia Ovalocytes Schistocytes Sodium Potassium Chloride Carbon Dioxide Anion Gap BUN Creatinine Estim Creat Clear Calc Est GFR (MDRD) Af Amer Est GFR (MDRD) Non-Af BUN/Creatinine Ratio Glucose Calcium Phosphorus 3.7 Magnesium 2.1 Total Bilirubin AST ALT Alkaline Phosphatase Total Protein Albumin Globulin Albumin/Globulin Ratio Random Vancomycin COVID-19 (SYED) Cancelled Hepatitis A IgM Ab Pending Hepatitis A Ab Total Pending Hep Bs Antigen Pending Hep B Core Total Ab Pending Hep B Core IgM Ab Pending MRSA (PCR) Negative 09/09/19 09/09/19 09/09/19 04:25 04:25 04:25 WBC 13.9 H RBC 3.46 L Hgb 10.0 L Hct 30.8 L MCV 89.0 MCH 28.9 MCHC 32.5 RDW Std Deviation 44.5 H RDW Coeff of Abdullahi 14.0 Plt Count 356 MPV 9.2 Immature Gran % (Auto) 0.600 Neut % (Auto) 96.6 H Lymph % (Auto) 2.0 L [place] % (Auto) 0.7 Eos % (Auto) 0.0 Baso % (Auto) 0.1 Absolute Neuts (auto) 13.4 H Absolute Lymphs (auto) 0.28 L Nucleated RBC % 0 Differential Comment SCANNED Hypochromasia 1+ Ovalocytes RARE Schistocytes RARE Sodium 135 L Potassium 4.2 Chloride 96 L Carbon Dioxide 34.0 H Anion Gap 5 BUN 28 H Creatinine 0.57 L Estim Creat Clear Calc 65.26 Est GFR (MDRD) Af Amer 185 Est GFR (MDRD) Non-Af 153 BUN/Creatinine Ratio 49.5 H Glucose 139 H Calcium 8.0 L Phosphorus Magnesium 2.1 Total Bilirubin 0.50 AST 38 H ALT 68 H Alkaline Phosphatase 68 Total Protein 5.2 L Albumin 1.6 L Globulin 3.6 Albumin/Globulin Ratio 0.4 L Random Vancomycin 11.3 COVID-19 (SYED) Hepatitis A IgM Ab Hepatitis A Ab Total Hep Bs Antigen Hep B Core Total Ab Hep B Core IgM Ab MRSA (PCR) 09/10/19 09/10/19 05:35 05:35 WBC 9.8 RBC 3.39 L Hgb 9.6 L Hct 30.3 L MCV 89.4 MCH 28.3 MCHC 31.7 L RDW Std Deviation 45.0 H RDW Coeff of Abdullahi 14.2 Plt Count 376 MPV 9.4 Immature Gran % (Auto) 0.900 Neut % (Auto) 88.8 H Lymph % (Auto) 5.3 L [place] % (Auto) 4.9 Eos % (Auto) 0.0 Baso % (Auto) 0.1 Absolute Neuts (auto) 8.7 H Absolute Lymphs (auto) 0.52 L Nucleated RBC % 0 Differential Comment Hypochromasia Ovalocytes Schistocytes Sodium 137 Potassium 4.0 Chloride 98 Carbon Dioxide 34.0 H Anion Gap 5 BUN 34 H Creatinine 0.64 L Estim Creat Clear Calc 64.54 Est GFR (MDRD) Af Amer 159 Est GFR (MDRD) Non-Af 132 BUN/Creatinine Ratio 52.7 H Glucose 153 H Calcium 8.3 L Phosphorus Magnesium Total Bilirubin 0.20 AST 27 ALT 55 Alkaline Phosphatase 64 Total Protein 5.1 L Albumin 1.6 L Globulin 3.5 Albumin/Globulin Ratio 0.5 L Random Vancomycin COVID-19 (SYED) Hepatitis A IgM Ab Hepatitis A Ab Total Hep Bs Antigen Hep B Core Total Ab Hep B Core IgM Ab MRSA (PCR) Microbiology 09/08/19 05:00 Sputum, Expectorated/Coughed Gram Stain - Final 09/08/19 05:00 Sputum, Expectorated/Coughed Respiratory Culture - Preliminary Presumptive C albicans 09/08/19 08:05 Mucosa - Nasopharyngeal Respiratory Panel (PCR) - Final 09/08/19 08:05 Mucosa - Nasopharyngeal Coronavirus COVID-19 PCR - Final 09/08/19 08:05 Urine Catheter - [place] Streptococcus pneumoniae Antigen (M - Final 09/08/19 08:05 Urine Catheter - [place] Legionella Antigen - Final Clinical Impression(s) from Imaging Studies Chest X-Ray 09/08/19 04:52 IMPRESSION: Decreasing right basilar airspace opacity suggestive of improving pneumonia. COPD. Electronically Signed: David Karimi MD at 5:14 EDT , Service support , Liver Ultrasound 09/08/19 07:52 IMPRESSION: There are gallbladder polyps. There is a small right pleural effusion. 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 Left-sided PICC line Electronically Signed: Jarret Toscano, DO at 8:43 EDT Tel , Service support , Medical Necessity - Tobacco Use Smoking Status: Former smoker Tobacco Use: Non-smoker Assessment/Plan All Active Problems Confusion (Acute) Debility (Acute) Weakness (Acute) Dehydration (Acute) Elevated troponin (Acute) Hypernatremia (Acute) Dysphagia (Acute) Aspiration pneumonia (Acute) Acute respiratory failure with hypoxia (Acute) Aspiration of gastric contents (Acute) Sinus tachycardia by electrocardiography (Acute) Sepsis (Acute) Respiratory failure with hypoxia and hypercapnia (Acute) Pneumonia (Acute) RECOMMENDATIONS: 1. Wean supplemental oxygen to maintain saturations at or above 90%. 2. Administer IV Lasix x1. 3. Continue tube feeds per nutrition recommendations. 4. Continue antimicrobials as previously ordered to complete treatment course. 5. Continue Eliquis. 6. Encourage incentive spirometer use and mobilize patient as tolerated. 7. Continue bronchodilator therapy and steroids. Will transition to prednisone 40 mg daily for 5 days. IMPRESSIONS: 1. Acute hypoxemic respiratory failure Improved. Highly suspect recurrent aspiration event as etiology for decompensation. The patient was apparently receiving continuous tube feeds in the TCU. However, I do suspect that his position in bed may have allowed for reflux of gastric contents at his goal tube feed rate. For now, the patient will be continued on empiric antimicrobials. Tube feeds will be continued per nutrition recommendations. Recommend upright positioning in bed with slow, cautious escalation in tube feed rate. Prokinetic agents can be utilized as needed. Continue bronchodilator therapy and steroids, given the patient's reported history of COPD. 2. Septic shock Resolved. Concern for recurrent aspiration pneumonia. Infectious work-up has been unrevealing, nonetheless. We will continue empiric antimicrobials. The patient has been weaned from vasopressor support and remains hemodynamically stable. 3. Recent pulmonary embolism and left apical thrombus The patient will be continued on twice daily Eliquis. 4. Recent CVA with dysphasia Continue aspiration precautions and tube feed recommendations per nutrition. Physical therapy to work with the patient. 5. Hypothyroidism/malnutrition/history of lung CA/COPD/hypertension Complicates care, management, recovery and prognosis. Continue home medications as indicated. This note was generated with [employer] dictation software. It may contain incorrect words, spelling, and punctuation that were not noted in checking the note before signing. Inpatient E&M: 62558 [facility] L3
[2019-09-10 06:36] LABS: Differential Comment SCANNED
[2019-09-10 06:37] LABS: Polychromasia RARE
--- NOTE | 2019-09-10 07:20 | PN_ITS ---
Patient Problems: Active and Suspected Problems Acute respiratory failure with hypoxia (Acute) Aspiration of gastric contents (Acute) Sinus tachycardia by electrocardiography (Acute) Sepsis (Acute) Respiratory failure with hypoxia and hypercapnia (Acute) Pneumonia (Acute) Reason for Visit: Acute respiratory failure Subjective: Patient was weaned off BiPAP. Currently on nasal cannula. Plan is for patient to be transferred to the progressive care unit Objective: GENERAL: Frail looking HEENT: Atraumatic; EYES; Anicteric, Normal Conjunctiva NECK; supple, normal thyroid, RESPIRATORY: Diminished to auscultation CARDIOVASCULAR: Regular S1 S2, GI: soft, normoactive bowel sounds, : No Renal angle tenderness; EXTREMITIES: No edema, no clubbing, MUSCULOSKELETAL: no muscle waisting NEURO: Awake; no lateralizing signs. SKIN: No Rash PSYCH; Flat affect Vitals/I&O's: Vital Signs Temp Pulse Resp BP Pulse Ox 97 F L 89 21 H 114/85 H 93 09/10/19 04:00 09/10/19 06:00 09/10/19 06:00 09/10/19 06:00 09/10/19 06:00 Oxygen Flow Rate (L/min) 3 Oxygen Delivery Method Nasal Cannula Weight: 62.8 kg Body Mass Index (BMI) 20.7 Intake and Output for Last 24 Hours 09/08/19 09/09/19 09/10/19 23:59 23:59 23:59 Intake Total 1978.32 / 2287.72 2434.28 / 2609.28 543 / 543 Output Total 750 / 1000 1350 / 1500 350 / 350 Balance 1228.32 / 1287.72 1084.28 / 1109.28 193 / 193 Microbiology Past 72 Hours 09/08/19 05:00 Sputum, Expectorated/Coughed Gram Stain - Final 09/08/19 05:00 Sputum, Expectorated/Coughed Respiratory Culture - Preliminary Presumptive C albicans 09/08/19 08:05 Mucosa - Nasopharyngeal Respiratory Panel (PCR) - Final 09/08/19 08:05 Mucosa - Nasopharyngeal Coronavirus COVID-19 PCR - Final 09/08/19 08:05 Urine Catheter - Cobb Streptococcus pneumoniae Antigen (M - Final 09/08/19 08:05 Urine Catheter - [facility] Legionella Antigen - Final Laboratory Results 09/10/19 05:35: WBC 9.8, RBC 3.39 L, Hgb 9.6 L, Hct 30.3 L, MCV 89.4, MCH 28.3, MCHC 31.7 L, RDW Std Deviation 45.0 H, RDW Coeff of Abdullahi 14.2, Plt Count 376, MPV 9.4, Immature Gran % (Auto) 0.900, Neut % (Auto) 88.8 H, Lymph % (Auto) 5.3 L, [place] % (Auto) 4.9, Eos % (Auto) 0.0, Baso % (Auto) 0.1, Absolute Neuts (auto) 8.7 H, Absolute Lymphs (auto) 0.52 L, Nucleated RBC % 0, Differential Comment SCANNED, Polychromasia RARE 09/10/19 05:35: Sodium 137, Potassium 4.0, Chloride 98, Carbon Dioxide 34.0 H, Anion Gap 5, BUN 34 H, Creatinine 0.64 L, Estim Creat Clear Calc 64.54, Est GFR (MDRD) Af Amer 159, Est GFR (MDRD) Non-Af 132, BUN/Creatinine Ratio 52.7 H, Glucose 153 H, Calcium 8.3 L, Total Bilirubin 0.20, AST 27, ALT 55, Alkaline Phosphatase 64, Total Protein 5.1 L, Albumin 1.6 L, Globulin 3.5, Albumin/Globulin Ratio 0.5 L Current Medications Acetaminophen (Tylenol) 650 mg RECTAL Q4H PRN PRN PRN Reason: Pain Score 1-10/Temp > 100.7 F Albuterol Sulfate (Ventolin Aerosols) 2.5 mg INHALATION Q2H PRN PRN PRN Reason: Dyspnea, wheezing Albuterol/Ipratropium (Duoneb) 3 ml INHALATION Q4HWA.RT [facility] Last Admin: 09/09/19 18:45 Dose: 3 ml Documented by: Apixaban (Eliquis) 5 mg GT BID [facility] Last Admin: 09/09/19 21:48 Dose: 5 mg Documented by: Dextrose (D50w Syringe) 0 gm IV X1 PRN; Protocol PRN Reason: Hypoglycemia Glucagon () 1 mg IM .X1 PRN PRN Reason: Hypoglycemia Heparin Sodium (Beef Lung) () 50 units IV UD PRN PRN Reason: PICC Line Heparin Flush Hydralazine HCl (Apresoline Iv) 10 mg IV Q4H PRN PRN PRN Reason: SBP > 160 Vancomycin IV Pharmacy to Dose (1 ea/ Sodium Chloride) 500 mls @ 250 mls/hr IV PRN PRN; Protocol PRN Reason: Rx to Dose Piperacillin Sod/Tazobactam (Sod 3.375 gm/ Sodium Chloride) 50 mls @ 12.5 mls/hr IV Q8 [facility] Last Admin: 09/10/19 05:22 Dose: 12.5 mls/hr Documented by: Norepinephrine Bitartrate 8 mg (/ Sodium Chloride) 250 mls @ 9.375 mls/hr CONT INF .[id number] [facility]; Protocol Last Titration: 09/10/19 04:00 Dose: 0 mcg/min, 0 mls/hr Documented by: Enteral Nutritional Formula (Jevity 1.5) 1,000 mls @ 55 mls/hr GT .[id number] [facility] Last Admin: 09/09/19 21:45 Dose: 55 mls/hr Documented by: Vancomycin HCl 750 mg/ Sodium (Chloride) 265 mls @ 250 mls/hr IV Q12H [facility] Last Infusion: 09/09/19 21:23 Dose: Infused Documented by: Levothyroxine Sodium (Synthroid) 75 mcg PO DAILY@0600 [facility] Last Admin: 09/10/19 05:24 Dose: 75 mcg Documented by: Loratadine (Claritin) 10 mg PO DAILY [facility] Last Admin: 09/09/19 09:16 Dose: 10 mg Documented by: Losartan Potassium (Cozaar) 25 mg PO DAILY [facility] Last Admin: 09/09/19 09:17 Dose: Not Given Documented by: Mirtazapine (Remeron) 15 mg PO QHS [facility] Last Admin: 09/09/19 21:48 Dose: 15 mg Documented by: Multivitamins (Multivitamin) 1 tablet PO DAILY@0800 [facility] Last Admin: 09/09/19 09:17 Dose: 1 tablet Documented by: Nitroglycerin (Nitrostat) 0.4 mg SUBLINGUAL Q5M PRN PRN Reason: CARDIAC/CHEST PAIN Olanzapine (Zyprexa) 2.5 mg PO QHS [facility] Last Admin: 09/09/19 21:47 Dose: 2.5 mg Documented by: Ondansetron HCl (Zofran) 4 mg IV Q8H PRN PRN PRN Reason: NAUSEA/VOMITING Prednisone () 40 mg PO DAILY@0800 [facility] Stop: 09/15/19 08:01 Prochlorperazine Edisylate (Compazine Iv) 5 mg IV Q4H PRN PRN PRN Reason: Breakthrough Nausea/Vomiting Sodium Chloride () 10 - 40 ml IV UD PRN PRN Reason: Open End PICC Flush Last Admin: 09/10/19 05:47 Dose: 30 ml Documented by: Sodium Chloride (0.9% Nacl (Sterile) Posiflush) 10 - 40 ml IV UD PRN PRN Reason: Port access or dressing change STROKE Vital Signs/Narrative: Vital Signs Temp Pulse Resp BP BP Pulse Ox 09/10/19 06:00 89 21 H 114/85 H 93 09/10/19 05:00 90 23 H 114/80 98 09/10/19 04:00 97 F L 83 14 86/65 L 94 09/10/19 03:45 82 16 94 Medical Necessity - Tobacco Use Smoking Status: Former smoker Tobacco Use: Non-smoker Assessment/Plan All Active Problems Confusion (Acute) Debility (Acute) Weakness (Acute) Dehydration (Acute) Elevated troponin (Acute) Hypernatremia (Acute) Dysphagia (Acute) Aspiration pneumonia (Acute) Acute respiratory failure with hypoxia (Acute) Aspiration of gastric contents (Acute) Sinus tachycardia by electrocardiography (Acute) Sepsis (Acute) Respiratory failure with hypoxia and hypercapnia (Acute) Pneumonia (Acute) Patient is a 64-year-old gentleman who is currently being managed at the transitional care unit following recent admission for acute stroke was found to have LV thrombus and newly diagnosed pulmonary embolism, patient presented with cough shortness of breath as well as hypoxemia 1. Acute hypoxic respiratory failure ?Suspected to be secondary to aspiration pneumonia. Patient was started on broad-spectrum antibiotic therapy. Patient was placed on supplemental oxygen in view of worsening respiratory status patient was placed on BiPAP with consultation placed to pulmonary an assay was also sent for COVID 19 ?09/09/2019:Repeat complete testing came back negative subsequently taken out of droplet precautions; patient however remains significantly hypoxic and is still on BiPAP -09/10/2019 patient was weaned off BiPAP. Currently on nasal cannula. Plan is for patient to be transferred to the progressive care unit 2. Sepsis secondary to suspected aspiration pneumonia ?Management as discussed above 3. Recent admission for acute CVA ?Imaging studies obtained during patient admission demonstrated left occipital stroke. Patient was also found to have left apical thrombus versus mass. Patient acute CVA was complicated by dysphagia resulting in patient undergoing PEG tube placement 4. Pulmonary embolism (diagnosed during patient's hospital stay) Patient is on systemic anticoagulation did continue 5. Hyponatremia Do suspect component of SIADH monitoring daily BMPs 6. Hypothyroidism ~patient is on levothyroxine home dose continued 7. 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 History of head and neck CA ?Patient apparently remission 9. History of lung CA -Apparently remission 10. Acute transaminitis ?Monitoring daily LFTs Inpatient E&M: 03289 Subs Hosp L2
[2019-09-10] MEDS: Ipratropium/Albuterol Sulfate 3 ML AMPUL.NEB INHALATION ×4 (07:35→19:26)
[2019-09-10] MEDS: Furosemide 40 MG/4 ML Vial IV (09:07)
[2019-09-10] MEDS: Multivitamins,Therapeutic Tablet 1 TABLET PO (09:08)
[2019-09-10] MEDS: Loratadine 10 MG Tablet PO (09:08)
[2019-09-10] MEDS: APIXABAN 5 MG TABLET GT ×2 (09:08→23:12)
[2019-09-10] MEDS: predniSONE 20 MG Tablet 40 MG PO (09:15)
--- NOTE | 2019-09-10 10:49 | CASEMGMT ---
LIUDMILA received a phone call from Chastity with [employer]. She is in agreement with [facility] proceeding with submitting for pre-cert for TCU. She said this agreement is good until next Saturday. LIUDMILA would need to send updated notes if patient is still in the hospital Saturday. LIUDMILA spoke with [facility] in TCU and she usually gets authorization the same day she asks for it. She will start pre-cert tomorrow and the approval would be good through the weekend in the event patient is not ready tomorrow. Plan: [facility] TCU pending patient being ready and insurance approval. Breana JOHNSON MSW
[2019-09-10 21:10] LABS: Vancomycin, Trough Level 19.4 ug/mL (5.0-15.0)
[2019-09-10] MEDS: OLANZapine 2.5 MG Tablet PO (23:10)
[2019-09-10] MEDS: Mirtazapine 15 MG Tablet PO (23:11)
[2019-09-11] VITALS (10 sets, daily range): BP systolic 98–134; BP diastolic 62–88; PULSE 86–98; RESP 16–18; TEMP 36.6–36.7; O2SAT 93–98
--- NOTE | 2019-09-11 01:09 | PCM.RX.CS ---
Consult Pharmacy has been consulted to manage selected antiobiotic: Vancomycin Type of Consult: Follow-up Labs: Sodium 137 mmol/L (136-145) 09/10/19 05:35 Potassium 4.0 mmol/L (3.5-5.1) 09/10/19 05:35 Chloride 98 mmol/L (98-107) 09/10/19 05:35 Carbon Dioxide 34.0 mmol/L (21.0-32.0) H 09/10/19 05:35 Anion Gap 5 (5-15) 09/10/19 05:35 BUN 34 mg/dL (7-18) H 09/10/19 05:35 Creatinine 0.64 mg/dL (0.70-1.30) L 09/10/19 05:35 Est GFR (MDRD) Af Amer 159 mL/min (>60) 09/10/19 05:35 Est GFR (MDRD) Non-Af 132 mL/min (>60) 09/10/19 05:35 BUN/Creatinine Ratio 52.7 RATIO (10-20) H 09/10/19 05:35 Glucose 153 mg/dL (74-106) H 09/10/19 05:35 Vancomycin Trough 19.4 ug/mL (5.0-15.0) H 09/10/19 20:30 Random Vancomycin 11.3 ug/mL (0.0-15.0) 09/09/19 04:25 Microbiology: Microbiology 09/08/19 05:00 Sputum, Expectorated/Coughed Gram Stain - Final 09/08/19 05:00 Sputum, Expectorated/Coughed Respiratory Culture - Final Presumptive C albicans 09/08/19 05:05 Urine Catheter - [facility] Urine Culture - Final Culture exhibits no growth. 09/08/19 05:10 Blood Culture (Wb) - Anticubital Left Blood Culture - Preliminary No growth in 48 hours. 09/08/19 08:05 Mucosa - Nasopharyngeal Respiratory Panel (PCR) - Final 09/08/19 08:05 Mucosa - Nasopharyngeal Coronavirus COVID-19 PCR - Final 09/08/19 08:05 Urine Catheter - [facility] Streptococcus pneumoniae Antigen (M - Final 09/08/19 08:05 Urine Catheter - [facility] Legionella Antigen - Final Goal Trough: 15-20 mcg/mL Pharmacy Plan for Drug Dosing: Pharmacy Service will continue to monitor and adjust dosing as required. TROUGH 19.4 NO CHANGES Follow-Up Labs: Trough Vancomycin Labs to be done on [date and time ordered]: 09/13 @ 2030
[2019-09-11] MEDS: Jevity 1.5 1,000 ML 55 ML GT (02:28)
[2019-09-11] MEDS: 0.9% Saline Lock 10 ML Syringe IV ×2 (04:32→14:15)
[2019-09-11 06:05] LABS: Absolute Lymphocyte Count 0.49 X10^3/uL (0.83-4.51); Absolute Neutrophil Count 6.3 X10^3/uL (2.0-7.7); Basophil# 0.01 X10^3/uL; Basophil% 0.1 % (0-1); Eosinophil# 0.08 X10^3/uL; Eosinophils% 1.1 % (0-5); Hematocrit 28.6 % (40-54); Lymphocyte # 0.49 X10^3/ul (4.0); Lymphocyte % 6.7 % (19-41); Mean Corp Hgb Conc 31.5 g/dL (32-36); Mean Corpuscular Hgb 28.5 pg (27.0-32.0); Mean Corpuscular Volume 90.5 fL (80-94); Monocyte% 5.4 % (0-10); NRBC Flagged by Analyzer 0 % (0-5); Neutrophil # 6.32 X10^3/uL (2.7-7.7); Neutrophil % 85.9 % (47-70); POSITIVE DIFFERENTIAL YES; Platelet Count 356 K/mm3 (150-450); RBC Distribution Width CV 14.7 % (11.6-14.6); RBC Distribution Width SD 47.8 fl (35.1-43.9); Red Blood Count 3.16 M/mm3 (4.6-6.2); White Blood Count 7.4 K/mm3 (4.4-11.0)
[2019-09-11 06:06] LABS: Differential Indicated SCAN CRITERIA MET
[2019-09-11] MEDS: Levothyroxine 75 MCG Tablet PO (06:17)
[2019-09-11 06:31] LABS: Differential Comment SCANNED; Reactive Lymphocyte RARE
[2019-09-11] MEDS: Ipratropium/Albuterol Sulfate 3 ML AMPUL.NEB INHALATION ×3 (07:11→15:08)
[2019-09-11 08:25] LABS: ALB/GLOB Ratio 0.5 RATIO (0.9-2.4); AST(SGOT) 29 U/L (15-37); Alanine Aminotransfer ALT/SGPT 51 U/L (16-61); Albumin, Serum 1.7 g/dL (3.2-5.0); Alkaline Phosphatase 60 U/L (45-117); Anion Gap 1 (5-15); BUN 35 mg/dL (7-18); BUN/Creat Ratio 52.6 RATIO (10-20); Calcium,Total 8.3 mg/dL (8.5-10.1); Chloride 100 mmol/L (98-107); Creatinine, Serum 0.66 mg/dL (0.70-1.30); EST Glomerular Filtration Rate 127 mL/min (>60); Est Glom Filt Rate - Afr Amer 154 mL/min (>60); Estimated Creatinine Clearance 64.65 ml/min; Globulin 3.1 g/dL (2.2-4.2); Glucose 135 mg/dL (74-106); Potassium 3.5 mmol/L (3.5-5.1); Protein, Total 4.8 g/dL (6.4-8.2); Sodium Level 138 mmol/L (136-145)
[2019-09-11] MEDS: Loratadine 10 MG Tablet GT (10:01)
[2019-09-11] MEDS: predniSONE 20 MG Tablet 40 MG GT (10:01)
[2019-09-11] MEDS: APIXABAN 5 MG TABLET GT (10:01)
[2019-09-11] MEDS: Multivitamins,Therapeutic Tablet 1 TABLET GT (10:01)
--- NOTE | 2019-09-11 10:11 | PCM.PN.PUL ---
Subjective: The patient was seen and examined at the bedside this morning. Events from the last 24 hours have been reviewed. The patient is currently afebrile, hemodynamically stable and maintaining appropriate oxygen saturations on 3 L/min via nasal cannula. The patient is currently documented to be overall net +2 L for the hospital admission. Objective: The patient's most recent lab work, culture data and imaging studies have all been personally reviewed. Coronavirus PCR was negative. Respiratory viral panel was negative. Strep and urine Legionella antigens were negative. Blood, urine and sputum cultures have shown no growth to date. - Physical Exam Vitals/I&O's: Vital Signs Temp Pulse Resp BP Pulse Ox 98.0 F 92 16 108/76 93 09/11/19 08:18 09/11/19 08:18 09/11/19 08:18 09/11/19 08:18 09/11/19 08:18 Oxygen Flow Rate (L/min) 3 Oxygen Delivery Method Nasal Cannula Weight: 138 lb 10.732 oz Body Mass Index (BMI) 20.7 Intake and Output for Last 24 Hours 09/09/19 09/10/19 09/11/19 23:59 23:59 23:59 Intake Total 2434.28 / 2609.28 2358 / 2358 613 / 613 Output Total 1350 / 1500 2975 / 2975 300 / 300 Balance 1084.28 / 1109.28 -617 / -617 313 / 313 General: Alert, No apparent distress HEENT: Atraumatic, Normocephalic Oral: No Gingival or Mucosal Lesions/ Ulcerations Neck: Supple, No Nodes, Trachea Midline Lungs: No rhonchi, No wheeze, No rales, Diminished Cardiovascular: Regular rate, Regular Rhythm, Normal S1, Normal S2 Abdomen: Bowel Sounds Present, Soft, Non Tender, - - +PEG Extremities: No clubbing, No cyanosis, No edema Skin: - - No significant change from previous Musculoskeletal: Cachexia Lymphatic: No Cervical, Supraclavicular, or Inguinal Adenopathy Neurological: Neuro grossly intact Psych/Mental Status: Normal Affect Labs (Last 48 Hours) 09/10/19 09/10/19 09/10/19 05:35 05:35 20:30 WBC 9.8 RBC 3.39 L Hgb 9.6 L Hct 30.3 L MCV 89.4 MCH 28.3 MCHC 31.7 L RDW Std Deviation 45.0 H RDW Coeff of Abdullahi 14.2 Plt Count 376 MPV 9.4 Immature Gran % (Auto) 0.900 Neut % (Auto) 88.8 H Lymph % (Auto) 5.3 L [place] % (Auto) 4.9 Eos % (Auto) 0.0 Baso % (Auto) 0.1 Absolute Neuts (auto) 8.7 H Absolute Lymphs (auto) 0.52 L Nucleated RBC % 0 Differential Comment SCANNED Reactive Lymphocytes Polychromasia RARE Sodium 137 Potassium 4.0 Chloride 98 Carbon Dioxide 34.0 H Anion Gap 5 BUN 34 H Creatinine 0.64 L Estim Creat Clear Calc 64.54 Est GFR (MDRD) Af Amer 159 Est GFR (MDRD) Non-Af 132 BUN/Creatinine Ratio 52.7 H Glucose 153 H Calcium 8.3 L Total Bilirubin 0.20 AST 27 ALT 55 Alkaline Phosphatase 64 Total Protein 5.1 L Albumin 1.6 L Globulin 3.5 Albumin/Globulin Ratio 0.5 L Vancomycin Trough 19.4 H 09/11/19 09/11/19 05:58 05:58 WBC 7.4 RBC 3.16 L Hgb 9.0 L Hct 28.6 L MCV 90.5 MCH 28.5 MCHC 31.5 L RDW Std Deviation 47.8 H RDW Coeff of Abdullahi 14.7 H Plt Count 356 MPV 9.0 Immature Gran % (Auto) 0.800 Neut % (Auto) 85.9 H Lymph % (Auto) 6.7 L [place] % (Auto) 5.4 Eos % (Auto) 1.1 Baso % (Auto) 0.1 Absolute Neuts (auto) 6.3 Absolute Lymphs (auto) 0.49 L Nucleated RBC % 0 Differential Comment SCANNED Reactive Lymphocytes RARE Polychromasia Sodium 138 Potassium 3.5 Chloride 100 Carbon Dioxide 37.0 H Anion Gap 1 L BUN 35 H Creatinine 0.66 L Estim Creat Clear Calc 64.65 Est GFR (MDRD) Af Amer 154 Est GFR (MDRD) Non-Af 127 BUN/Creatinine Ratio 52.6 H Glucose 135 H Calcium 8.3 L Total Bilirubin 0.30 AST 29 ALT 51 Alkaline Phosphatase 60 Total Protein 4.8 L Albumin 1.7 L Globulin 3.1 Albumin/Globulin Ratio 0.5 L Vancomycin Trough Microbiology 09/09/19 09:10 Blood Culture (Wb) - Arm Left Blood Culture - Preliminary No growth in 48 hours. 09/08/19 05:00 Sputum, Expectorated/Coughed Gram Stain - Final 09/08/19 05:00 Sputum, Expectorated/Coughed Respiratory Culture - Final Presumptive C albicans 09/08/19 05:05 Urine Catheter - [place] Urine Culture - Final Culture exhibits no growth. 09/08/19 05:10 Blood Culture (Wb) - Anticubital Left Blood Culture - Preliminary No growth in 48 hours. Clinical Impression(s) from Imaging Studies Chest X-Ray 09/08/19 04:52 IMPRESSION: Decreasing right basilar airspace opacity suggestive of improving pneumonia. COPD. Electronically Signed: David Karimi MD at 5:14 EDT , Service support , Liver Ultrasound 09/08/19 07:52 IMPRESSION: There are gallbladder polyps. There is a small right pleural effusion. Electronically Signed: Lorena Carpio at 11:09 EDT Tel , Service support , Chest X-Ray 09/09/19 04:50 IMPRESSION: Decreasing right basilar airspace disease Stable COPD/emphysema with asymmetric right apical capping/scarring Left-sided PICC line Electronically Signed: Jarret Toscano DO at 8:43 EDT Tel , Service support , Current Medications Acetaminophen (Tylenol) 650 mg RECTAL Q4H PRN PRN PRN Reason: Pain Score 1-10/Temp > 100.7 F Albuterol Sulfate (Ventolin Aerosols) 2.5 mg INHALATION Q2H PRN PRN PRN Reason: Dyspnea, wheezing Albuterol/Ipratropium (Duoneb) 3 ml INHALATION Q4HWA.RT [facility] Last Admin: 09/11/19 07:11 Dose: 3 ml Documented by: Apixaban (Eliquis) 5 mg GT BID [facility] Last Admin: 09/11/19 10:01 Dose: 5 mg Documented by: Dextrose (D50w Syringe) 0 gm IV X1 PRN; Protocol PRN Reason: Hypoglycemia Glucagon () 1 mg IM .X1 PRN PRN Reason: Hypoglycemia Heparin Sodium (Beef Lung) () 50 units IV UD PRN PRN Reason: PICC Line Heparin Flush Hydralazine HCl (Apresoline Iv) 10 mg IV Q4H PRN PRN PRN Reason: SBP > 160 Vancomycin IV Pharmacy to Dose (1 ea/ Sodium Chloride) 500 mls @ 250 mls/hr IV PRN PRN; Protocol PRN Reason: Rx to Dose Piperacillin Sod/Tazobactam (Sod 3.375 gm/ Sodium Chloride) 50 mls @ 12.5 mls/hr IV Q8 [facility] Last Infusion: 09/11/19 09:07 Dose: Infused Documented by: Enteral Nutritional Formula (Jevity 1.5) 1,000 mls @ 55 mls/hr GT .[id number] [facility] Last Admin: 09/11/19 02:28 Dose: 55 mls/hr Documented by: Levothyroxine Sodium (Synthroid) 75 mcg GT DAILY@0600 [facility] Loratadine (Claritin) 10 mg GT DAILY [facility] Last Admin: 09/11/19 10:01 Dose: 10 mg Documented by: Losartan Potassium (Cozaar) 25 mg GT DAILY [facility] Last Admin: 09/11/19 10:08 Dose: Not Given Documented by: Mirtazapine (Remeron) 15 mg GT QHS [facility] Multivitamins (Multivitamin) 1 tablet GT DAILY@0800 [facility] Last Admin: 09/11/19 10:01 Dose: 1 tablet Documented by: Nitroglycerin (Nitrostat) 0.4 mg SUBLINGUAL Q5M PRN PRN Reason: CARDIAC/CHEST PAIN Olanzapine (Zyprexa) 2.5 mg GT QHS [facility] Ondansetron HCl (Zofran) 4 mg IV Q8H PRN PRN PRN Reason: NAUSEA/VOMITING Prednisone () 40 mg GT DAILY@0800 [facility] Stop: 09/15/19 08:01 Last Admin: 09/11/19 10:01 Dose: 40 mg Documented by: Prochlorperazine Edisylate (Compazine Iv) 5 mg IV Q4H PRN PRN PRN Reason: Breakthrough Nausea/Vomiting Sodium Chloride () 10 - 40 ml IV UD PRN PRN Reason: Open End PICC Flush Last Admin: 09/11/19 04:32 Dose: 20 ml Documented by: Sodium Chloride (0.9% Nacl (Sterile) Posiflush) 10 - 40 ml IV UD PRN PRN Reason: Port access or dressing change Medical Necessity - Tobacco Use Smoking Status: Former smoker Tobacco Use: Non-smoker Assessment/Plan All Active Problems Confusion (Acute) Debility (Acute) Weakness (Acute) Dehydration (Acute) Elevated troponin (Acute) Hypernatremia (Acute) Aspiration pneumonia (Acute) Acute respiratory failure with hypoxia (Acute) Aspiration of gastric contents (Acute) Sinus tachycardia by electrocardiography (Acute) Sepsis (Acute) Respiratory failure with hypoxia and hypercapnia (Acute) Pneumonia (Acute) RECOMMENDATIONS: 1. Wean supplemental oxygen to maintain saturations at or above 90%. 2. Continue tube feeds per nutrition recommendations. 3. Continue antimicrobials as previously ordered to complete treatment course. 4. Continue Eliquis. 5. Encourage incentive spirometer use and mobilize patient as tolerated. 6. Continue bronchodilator therapy and prednisone 40 mg daily for 5 days. IMPRESSIONS: 1. Acute hypoxemic respiratory failure Improved. Highly suspect recurrent aspiration event as etiology for decompensation. The patient was apparently receiving continuous tube feeds in the TCU. However, I do suspect that his position in bed may have allowed for reflux of gastric contents at his goal tube feed rate. For now, the patient will be continued on empiric antimicrobials. Tube feeds will be continued per nutrition recommendations. Recommend upright positioning in bed with slow, cautious escalation in tube feed rate. Prokinetic agents can be utilized as needed. Continue bronchodilator therapy and steroids, given the patient's reported history of COPD. 2. Septic shock Resolved. Concern for recurrent aspiration pneumonia. Infectious work-up has been unrevealing, nonetheless. We will continue empiric antimicrobials. The patient has been weaned from vasopressor support and remains hemodynamically stable. 3. Recent pulmonary embolism and left apical thrombus The patient will be continued on twice daily Eliquis. 4. Recent CVA with dysphasia Continue aspiration precautions and tube feed recommendations per nutrition. Physical therapy to work with the patient. 5. Hypothyroidism/malnutrition/history of lung CA/COPD/hypertension Complicates care, management, recovery and prognosis. Continue home medications as indicated. This note was generated with [employer] software. It may contain incorrect words, spelling, and punctuation that were not noted in checking the note before signing. Inpatient E&M: 32167 Subs Hosp L2
--- NOTE | 2019-09-11 11:50 | TREXTCA.CO_ITS ---
- Diet 09/08/19 07:52 Diet: Nothing Per Oral - Routine Orders/Code Status Enema Type: Fleetz Enema Frequency: Daily PRN Suppository Type: Dulcolax 10mg Suppository Frequency: Daily PRN O2 Liters per Minute: 3 O2 Frequency: Continuous Keep PO Greater than or Equal to (%): 90 Routine Lab Work: CBC, BMP, - - Q Week Code Status: Full Code - Suggestions for Active Care Change Position every (hours): 2 Times a day to sit in chair: 3 - Therapies Physical Therapy: Eval and Treat Occupational Therapy: Eval and Treat Speech Therapy: Eval and Treat - Problem/Diagnosis (1) Dysphagia Status: Chronic Current Visit: Yes (2) Aspiration pneumonia Status: Acute Current Visit: Yes (3) Stroke Status: Chronic Current Visit: No (4) COPD (chronic obstructive pulmonary disease) Status: Chronic Current Visit: No (5) Pulmonary embolism Status: Chronic Current Visit: No (6) Hypothyroidism Status: Chronic Current Visit: No (7) Hypertension Status: Chronic Current Visit: No (8) Acute respiratory failure with hypoxia Status: Acute Current Visit: Yes (9) Sepsis Status: Acute Current Visit: Yes - Allergies/Procedures Done in Hospital Allergies/Adverse Reactions: Allergies No Known Allergies Allergy (Verified 01/31/17 16:57) Procedures: None - Type of Care/Length of Stay Estimated LOS: Convalescent Care Less Than 30 days Type of Care Needed: Skilled Rehab Potential: Fair Prognosis: Fair - Additional Orders/Day of Discharge Additional Orders: Continue to advance Jevity 1.5 via PEG to goal rate of 55mL /hour for 21 hours (held 1 hour prior and 2 hours after synthroid) w/ 75mL H2O flush every 4 hours to provide 1732 calories, 73 g protein, and 1327mL total fluid/day. Recommend start at 25mL/hour and increase by 10mL every 8-10 hours as pt tolerates until goal rate achieved. ++Aspiration Precautions++. If issues w/ tube feed tolerance persist, recommend reglan. H&P will serve as current which was dated: 09/08/19 Day of Discharge: 09/11/19 - Dietary and Speech Recommendations Dietitian Recommendations/Changes: Continue to advance Jevity 1.5 via PEG to goal rate of 55mL/hour for 21 hours (held 1 hour prior and 2 hours after synthroid) w/ 75mL H2O flush every 4 hours to provide 1732 calories, 73 g prote in, and 1327mL total fluid/day. Recommend start at 25mL/hour and increase by 10mL every 8-10 hours as pt tolerates until goal rate achieved. If issues w/ tube feed tolerance persist, recommend reglan. - Follow Up Care Primary Care Physician: Alexander Grover DO [Primary Care Provider] - Please follow up with your Primary Care Physician in: 1 Week Please Follow Up With: Ramon Quan MD When: 1-2 Weeks Please Follow Up With: Nicanor Mackay MD When: 1-2 Weeks
[2019-09-11 11:55] LABS: Bedside Glucose 82 mg/dL (70-110)
--- NOTE | 2019-09-11 12:01 | PCM.DC.SUM ---
<Farrah Platt - Last Filed: 09/11/19 12:19> Discharge Date and Diagnosis Date of Admission: 09/08/19 Date of Discharge: 09/11/19 - Primary Discharge Diagnosis Acute Problems: Active Problems 1. Acute hypoxic respiratory failure secondary to aspiration pneumonia 2. Sepsis secondary to aspiration pneumonia 3. Recent CVA with residual dysphagia status post PEG tube placement 4. Chronic COPD 5. Hypothyroidism 6. Severe protein calorie nutrition 7. History of head and neck CA/lung CA 8. Acute transaminitis-resolved 9. Recent diagnosis PE 08/29/2019 on Eliquis - Secondary Discharge Diagnosis Chronic Problems: Chronic Problems Dysphagia (Chronic) Left ventricular thrombus (Chronic) Stroke (Chronic) COPD (chronic obstructive pulmonary disease) (Chronic) Pulmonary embolism (Chronic) Self neglect (Chronic) Throat cancer (Chronic) Lung cancer (Chronic) Hypothyroidism (Chronic) Allergic rhinitis (Chronic) Hypertension (Chronic) Hyponatremia (Chronic) Hospital Course and Treatment Imaging Results: Diagnostic Data Liver Ultrasound 09/08/19 07:52 IMPRESSION: There are gallbladder polyps. There is a small right pleural effusion. Electronically Signed: Lorena Carpio, at 11:09 EDT Tel , Service support , Chest X-Ray 09/09/19 04:50 IMPRESSION: Decreasing right basilar airspace disease Stable COPD/emphysema with asymmetric right apical capping/scarring Left-sided PICC line Electronically Signed: Jarret Toscano DO at 8:43 EDT Tel , Service support , Dr. Ho- Pulmonary Medicine Dr. Norman- General surgery Operations: None Procedures: None Summary of Care Provided: The patient is a 64 year old M admitted 09/08/2019 due to dyspnea and cough. 1. Acute hypoxic respiratory failure secondary to aspiration pneumonia-pulmonary medicine following during admission. Suspect aspiration related to reflux of tube feed. Patient treated empirically with IV vancomycin and IV Zosyn. Transition to Augmentin via PEG tube to complete course of antibiotics. Continue supplement oxygen to maintain O2 at or above 90%. Continue bronchodilators and 5-day course of prednisone. Aspiration precautions. Return to TCU at discharge for further therapy. 2. Sepsis secondary to aspiration pneumonia-resolved. Treatment per above. 3. Recent CVA with residual dysphagia status post PEG tube placement-PT/OT/ST at discharge. Continue tube feeds per dietitian recommendations. On Eliquis. 4. Chronic COPD-as needed albuterol aerosol. Scheduled duonebs. 5. Hypothyroidism-continue Synthroid. 6. Severe protein calorie nutrition-dietitian following. 7. History of head and neck CA/lung CA-in remission. 8. Acute transaminitis-resolved. Liver ultrasound unremarkable. 9. Recent diagnosis PE 08/29/2019 on Eliquis 10. Left ventricular mass-outpatient follow-up with Dr. Quan. Patient seen and examined prior to discharge. Physical assessment as noted below. Patient is stable for discharge with follow up recommendations as noted above. This patient was seen by WILLIAM Reynoso under the supervision of Dr. Shahid. - Physical Exam Vitals/I&O's: Vital Signs Temp Pulse Resp BP Pulse Ox 98.0 F 90 16 108/76 93 09/11/19 08:18 09/11/19 10:54 09/11/19 10:54 09/11/19 08:18 09/11/19 08:18 Oxygen Flow Rate (L/min) 3 Oxygen Delivery Method Nasal Cannula Weight: 138 lb 10.732 oz Body Mass Index (BMI) 20.7 Intake and Output for Last 24 Hours 09/09/19 09/10/19 09/11/19 23:59 23:59 23:59 Intake Total 2434.28 / 2609.28 2358 / 2358 613 / 613 Output Total 1350 / 1500 2975 / 2975 300 / 300 Balance 1084.28 / 1109.28 -617 / -617 313 / 313 General: Alert, Oriented x3, Cooperative HEENT: Atraumatic, PERRLA, EOMI, Normocephalic Oral: Dry Mucosa Neck: Supple, No JVD, Negative Carotid Bruits Lungs: Diminished, Rhonchi Cardiovascular: Regular rate, Regular Rhythm, Normal S1, Normal S2, No murmurs Abdomen: Bowel Sounds Present, Soft, Non Tender, Non-Distended, - - PEG tube intact Extremities: No clubbing, No cyanosis, No edema, Capillary Refill Less than 3 Seconds Skin: No rashes, No breakdown Musculoskeletal: No Tenderness to Palpation of Joints or Extremities, Cachexia, Muscle Wasting Neurological: Cranial nerves II-XII grossly intact, Neuro grossly intact Psych/Mental Status: Flat Affect Microbiology Past 72 Hours 09/09/19 09:10 Blood Culture (Wb) - Arm Left Blood Culture - Preliminary No growth in 48 hours. 09/08/19 05:00 Sputum, Expectorated/Coughed Gram Stain - Final 09/08/19 05:00 Sputum, Expectorated/Coughed Respiratory Culture - Final Presumptive C albicans 09/08/19 05:05 Urine Catheter - Cobb Urine Culture - Final Culture exhibits no growth. 09/08/19 05:10 Blood Culture (Wb) - Anticubital Left Blood Culture - Preliminary No growth in 48 hours. 09/08/19 08:05 Mucosa - Nasopharyngeal Respiratory Panel (PCR) - Final 09/08/19 08:05 Mucosa - Nasopharyngeal Coronavirus COVID-19 PCR - Final 09/08/19 08:05 Urine Catheter - [facility] Streptococcus pneumoniae Antigen (M - Final 09/08/19 08:05 Urine Catheter - [facility] Legionella Antigen - Final Laboratory Results 09/10/19 20:30: Vancomycin Trough 19.4 H 09/11/19 05:58: WBC 7.4, RBC 3.16 L, Hgb 9.0 L, Hct 28.6 L, MCV 90.5, MCH 28.5, MCHC 31.5 L, RDW Std Deviation 47.8 H, RDW Coeff of Abdullahi 14.7 H, Plt Count 356, MPV 9.0, Immature Gran % (Auto) 0.800, Neut % (Auto) 85.9 H, Lymph % (Auto) 6.7 L, [place] % (Auto) 5.4, Eos % (Auto) 1.1, Baso % (Auto) 0.1, Absolute Neuts (auto) 6.3, Absolute Lymphs (auto) 0.49 L, Nucleated RBC % 0, Differential Comment SCANNED, Reactive Lymphocytes RARE 09/11/19 05:58: Sodium 138, Potassium 3.5, Chloride 100, Carbon Dioxide 37.0 H, Anion Gap 1 L, BUN 35 H, Creatinine 0.66 L, Estim Creat Clear Calc 64.65, Est GFR (MDRD) Af Amer 154, Est GFR (MDRD) Non-Af 127, BUN/Creatinine Ratio 52.6 H, Glucose 135 H, Calcium 8.3 L, Total Bilirubin 0.30, AST 29, ALT 51, Alkaline Phosphatase 60, Total Protein 4.8 L, Albumin 1.7 L, Globulin 3.1, Albumin/Globulin Ratio 0.5 L 09/11/19 11:28: POC Glucose 82 Current Medications Acetaminophen (Tylenol) 650 mg RECTAL Q4H PRN PRN PRN Reason: Pain Score 1-10/Temp > 100.7 F Albuterol Sulfate (Ventolin Aerosols) 2.5 mg INHALATION Q2H PRN PRN PRN Reason: Dyspnea, wheezing Albuterol/Ipratropium (Duoneb) 3 ml INHALATION Q4HWA.RT [facility] Last Admin: 09/11/19 10:54 Dose: 3 ml Documented by: Amoxicillin/Clavulanate Potassium (Augmentin Suspension 250mg/5 Ml) 500 mg GT BIDCM [facility] Apixaban (Eliquis) 5 mg GT BID [facility] Last Admin: 09/11/19 10:01 Dose: 5 mg Documented by: Dextrose (D50w Syringe) 0 gm IV X1 PRN; Protocol PRN Reason: Hypoglycemia Glucagon () 1 mg IM .X1 PRN PRN Reason: Hypoglycemia Heparin Sodium (Beef Lung) () 50 units IV UD PRN PRN Reason: PICC Line Heparin Flush Hydralazine HCl (Apresoline Iv) 10 mg IV Q4H PRN PRN PRN Reason: SBP > 160 Enteral Nutritional Formula (Jevity 1.5) 1,000 mls @ 55 mls/hr GT .[id number] [facility] Last Admin: 09/11/19 02:28 Dose: 55 mls/hr Documented by: Levothyroxine Sodium (Synthroid) 75 mcg GT DAILY@0600 [facility] Loratadine (Claritin) 10 mg GT DAILY [facility] Last Admin: 09/11/19 10:01 Dose: 10 mg Documented by: Losartan Potassium (Cozaar) 25 mg GT DAILY [facility] Last Admin: 09/11/19 10:08 Dose: Not Given Documented by: Mirtazapine (Remeron) 15 mg GT QHS [facility] Multivitamins (Multivitamin) 1 tablet GT DAILY@0800 [facility] Last Admin: 09/11/19 10:01 Dose: 1 tablet Documented by: Nitroglycerin (Nitrostat) 0.4 mg SUBLINGUAL Q5M PRN PRN Reason: CARDIAC/CHEST PAIN Olanzapine (Zyprexa) 2.5 mg GT QHS JUSTIN Ondansetron HCl (Zofran) 4 mg IV Q8H PRN PRN PRN Reason: NAUSEA/VOMITING Prednisone () 40 mg GT DAILY@0800 [facility] Stop: 09/15/19 08:01 Last Admin: 09/11/19 10:01 Dose: 40 mg Documented by: Prochlorperazine Edisylate (Compazine Iv) 5 mg IV Q4H PRN PRN PRN Reason: Breakthrough Nausea/Vomiting Sodium Chloride () 10 - 40 ml IV UD PRN PRN Reason: Open End PICC Flush Last Admin: 09/11/19 04:32 Dose: 20 ml Documented by: Sodium Chloride (0.9% Nacl (Sterile) Posiflush) 10 - 40 ml IV UD PRN PRN Reason: Port access or dressing change Discharge Diet: - - NPO Home Medications: Medications to take at Discharge Apixaban [Eliquis] 5 mg GT DAILY 09/08/19 Ipratropium/Albuterol Sulfate [Duoneb] 3 ml INHALATION Q4HWA.RT 09/08/19 Loratadine 10 mg GT DAILY 09/08/19 Losartan Potassium [Cozaar] 25 mg GT DAILY 09/08/19 Albuterol Aerosols [Ventolin Aerosols] 2.5 mg INHALATION Q2H PRN PRN vial.neb. 09/11/19 Amox/Clav 250mg/5ml Suspension [Augmentin Suspension 250mg/5 ml] 500 mg GT BIDCM 6 Days po.syringe 09/11/19 Levothyroxine [Synthroid] 75 mcg GT DAILY@0600 tab 09/11/19 Mirtazapine [Remeron] 15 mg GT QHS tab 09/11/19 Multivitamins,Therapeutic [Multivitamin] 1 tab GT DAILY@0800 tab 09/11/19 Olanzapine [Zyprexa] 2.5 mg GT QHS tab 09/11/19 predniSONE tablet 40 mg GT DAILY@0800 tab 09/11/19 Primary Care Physician: Alexander Grover DO [Primary Care Provider] - Please follow up with your Primary Care Physician in: 1 Week Please Follow Up With: Ramon Quan MD When: 1-2 Weeks Please Follow Up With: Nicanor Mackay MD When: 1-2 Weeks Disposition: Care Home facility Minutes spent on discharge:: 35 Patient Condition:: Stable Medical Necessity - Tobacco Use Smoking Status: Former smoker Tobacco Use: Non-smoker Meaningful Use Info Meaningful Use Diagnoses (Choose all that apply): None applicable <Jose Manuel Shahid - Last Filed: 09/11/19 12:39> Discharge Date and Diagnosis - Secondary Discharge Diagnosis Chronic Problems: Chronic Problems Dysphagia (Chronic) Left ventricular thrombus (Chronic) Stroke (Chronic) COPD (chronic obstructive pulmonary disease) (Chronic) Pulmonary embolism (Chronic) Self neglect (Chronic) Throat cancer (Chronic) Lung cancer (Chronic) Hypothyroidism (Chronic) Allergic rhinitis (Chronic) Hypertension (Chronic) Hyponatremia (Chronic) Hospital Course and Treatment Summary of Care Provided: This patient was seen in conjunction with WILLIAM Reynoso . I have independently interviewed and examined the patient and reviewed pertinent historical, laboratory, and other data. Please refer to WILLIAM Reynoso note for details of this patient's presentation, findings, and recommendations. I have reviewed WILLIAM Reynoso note and concur with documented findings. Patient is a 64-year-old gentleman who is currently being managed at the transitional care unit following recent admission for acute stroke was found to have LV thrombus and newly diagnosed pulmonary embolism, patient presented with cough shortness of breath as well as hypoxemia Hospital course: As documented above - Physical Exam Vitals/I&O's: Vital Signs Temp Pulse Resp BP Pulse Ox 98.0 F 90 16 108/76 93 09/11/19 08:18 09/11/19 10:54 09/11/19 10:54 09/11/19 08:18 09/11/19 08:18 Oxygen Flow Rate (L/min) 3 Oxygen Delivery Method Nasal Cannula Weight: 62.9 kg Body Mass Index (BMI) 20.7 Intake and Output for Last 24 Hours 09/09/19 09/10/19 09/11/19 23:59 23:59 23:59 Intake Total 2434.28 / 2609.28 2358 / 2358 613 / 613 Output Total 1350 / 1500 2975 / 2975 300 / 300 Balance 1084.28 / 1109.28 -617 / -617 313 / 313 Microbiology Past 72 Hours 09/09/19 09:10 Blood Culture (Wb) - Arm Left Blood Culture - Preliminary No growth in 48 hours. 09/08/19 05:00 Sputum, Expectorated/Coughed Gram Stain - Final 09/08/19 05:00 Sputum, Expectorated/Coughed Respiratory Culture - Final Presumptive C albicans 09/08/19 05:05 Urine Catheter - [facility] Urine Culture - Final Culture exhibits no growth. 09/08/19 05:10 Blood Culture (Wb) - Anticubital Left Blood Culture - Preliminary No growth in 48 hours. 09/08/19 08:05 Mucosa - Nasopharyngeal Respiratory Panel (PCR) - Final 09/08/19 08:05 Mucosa - Nasopharyngeal Coronavirus COVID-19 PCR - Final 09/08/19 08:05 Urine Catheter - [facility] Streptococcus pneumoniae Antigen (M - Final 09/08/19 08:05 Urine Catheter - [facility] Legionella Antigen - Final Laboratory Results 09/10/19 20:30: Vancomycin Trough 19.4 H 09/11/19 05:58: WBC 7.4, RBC 3.16 L, Hgb 9.0 L, Hct 28.6 L, MCV 90.5, MCH 28.5, MCHC 31.5 L, RDW Std Deviation 47.8 H, RDW Coeff of Abdullahi 14.7 H, Plt Count 356, MPV 9.0, Immature Gran % (Auto) 0.800, Neut % (Auto) 85.9 H, Lymph % (Auto) 6.7 L, [place] % (Auto) 5.4, Eos % (Auto) 1.1, Baso % (Auto) 0.1, Absolute Neuts (auto) 6.3, Absolute Lymphs (auto) 0.49 L, Nucleated RBC % 0, Differential Comment SCANNED, Reactive Lymphocytes RARE 09/11/19 05:58: Sodium 138, Potassium 3.5, Chloride 100, Carbon Dioxide 37.0 H, Anion Gap 1 L, BUN 35 H, Creatinine 0.66 L, Estim Creat Clear Calc 64.65, Est GFR (MDRD) Af Amer 154, Est GFR (MDRD) Non-Af 127, BUN/Creatinine Ratio 52.6 H, Glucose 135 H, Calcium 8.3 L, Total Bilirubin 0.30, AST 29, ALT 51, Alkaline Phosphatase 60, Total Protein 4.8 L, Albumin 1.7 L, Globulin 3.1, Albumin/Globulin Ratio 0.5 L 09/11/19 11:28: POC Glucose 82 Current Medications Acetaminophen (Tylenol) 650 mg RECTAL Q4H PRN PRN PRN Reason: Pain Score 1-10/Temp > 100.7 F Albuterol Sulfate (Ventolin Aerosols) 2.5 mg INHALATION Q2H PRN PRN PRN Reason: Dyspnea, wheezing Albuterol/Ipratropium (Duoneb) 3 ml INHALATION Q4HWA.RT [facility] Last Admin: 09/11/19 10:54 Dose: 3 ml Documented by: Amoxicillin/Clavulanate Potassium (Augmentin Suspension 250mg/5 Ml) 500 mg GT BIDCM [facility] Apixaban (Eliquis) 5 mg GT BID [facility] Last Admin: 09/11/19 10:01 Dose: 5 mg Documented by: Dextrose (D50w Syringe) 0 gm IV X1 PRN; Protocol PRN Reason: Hypoglycemia Glucagon () 1 mg IM .X1 PRN PRN Reason: Hypoglycemia Heparin Sodium (Beef Lung) () 50 units IV UD PRN PRN Reason: PICC Line Heparin Flush Hydralazine HCl (Apresoline Iv) 10 mg IV Q4H PRN PRN PRN Reason: SBP > 160 Enteral Nutritional Formula (Jevity 1.5) 1,000 mls @ 55 mls/hr GT .[id number] [facility] Last Admin: 09/11/19 02:28 Dose: 55 mls/hr Documented by: Levothyroxine Sodium (Synthroid) 75 mcg GT DAILY@0600 [facility] Loratadine (Claritin) 10 mg GT DAILY [facility] Last Admin: 09/11/19 10:01 Dose: 10 mg Documented by: Losartan Potassium (Cozaar) 25 mg GT DAILY [facility] Last Admin: 09/11/19 10:08 Dose: Not Given Documented by: Mirtazapine (Remeron) 15 mg GT QHS [facility] Multivitamins (Multivitamin) 1 tablet GT DAILY@0800 [facility] Last Admin: 09/11/19 10:01 Dose: 1 tablet Documented by: Nitroglycerin (Nitrostat) 0.4 mg SUBLINGUAL Q5M PRN PRN Reason: CARDIAC/CHEST PAIN Olanzapine (Zyprexa) 2.5 mg GT QHS [facility] Ondansetron HCl (Zofran) 4 mg IV Q8H PRN PRN PRN Reason: NAUSEA/VOMITING Prednisone () 40 mg GT DAILY@0800 [facility] Stop: 09/15/19 08:01 Last Admin: 09/11/19 10:01 Dose: 40 mg Documented by: Prochlorperazine Edisylate (Compazine Iv) 5 mg IV Q4H PRN PRN PRN Reason: Breakthrough Nausea/Vomiting Sodium Chloride () 10 - 40 ml IV UD PRN PRN Reason: Open End PICC Flush Last Admin: 09/11/19 04:32 Dose: 20 ml Documented by: Sodium Chloride (0.9% Nacl (Sterile) Posiflush) 10 - 40 ml IV UD PRN PRN Reason: Port access or dressing change Inpatient E&M: [id number] Disch Hosp
--- NOTE | 2019-09-11 12:32 | CASEMGMT ---
Social Work Pt ready for discharge today. LIUDMILA spoke with [facility] in TCU and they did get precert and pt can return to TCU on this date. LIUDMILA met with pt and informed of d/c plan. Phone call to pt sister Chastity and she is agreeable with return to TCU today. Orders faxed. Nursing made aware. ESTHER Tellez
--- NOTE | 2019-09-11 15:12 | NURSING ---
Prior to sending pt. to TCU was attempting to flush PICC line and found that red lumen was unable to be flushed. Cap was changed, and pt position was changed- however, still unable to be flushed. Notified IKER Yan and she ordered for PICC line to be d/c'ed. Ordered tube feed to be held for 30 minutes prior to removal of PICC and to then lay flat for 1 hour. Same to be completed. Report called to KARLA mcdonald on TCU- notified of d/c after 1630 at the earliest. Antibiotic to be given x6 days per order- this RN called TCU and relayed a message to Kristan through [facility] that atb will be given for 6 days.
[2019-09-11] MEDS: Amox/Clav 250mg/5ml Suspension 500 MG GT (17:34)
== END 2019-09-11 17:53 | disposition skilled nursing facility (03) | DRG 871 ==
LOC: ED 05:31 → ICU 06:16 → PCU 09-11 11:27
PROVIDERS: Internal Medicine Critical Care Medicine; Admitting Provider Family Medicine; Emergency Provider Emergency Medicine; PCP Student in an Organized Health Care Education/Training Program; Visit Provider Internal Medicine
DX: A41.9 Sepsis, unspecified organism (principal); J69.0 Pneumonitis due to inhalation of food and vomit; J96.01 Acute respiratory failure with hypoxia; E43 Unspecified severe protein-calorie malnutrition; J96.02 Acute respiratory failure with hypercapnia; E87.1 Hypo-osmolality and hyponatremia; J44.9 Chronic obstructive pulmonary disease, unspecified; E86.0 Dehydration; I69.391 Dysphagia following cerebral infarction; J30.9 Allergic rhinitis, unspecified; I10 Essential (primary) hypertension; I51.3 Intracardiac thrombosis, not elsewhere classified; E03.9 Hypothyroidism, unspecified; R13.10 Dysphagia, unspecified; R74.0 Nonspecific elevation of levels of transaminase and lactic acid dehydrogenase [LDH]; R62.7 Adult failure to thrive; Z93.1 Gastrostomy status; Z68.20 Body mass index [BMI] 20.0-20.9, adult; Z86.711 Personal history of pulmonary embolism; Z79.01 Long term (current) use of anticoagulants; Z85.118 Personal history of other malignant neoplasm of bronchus and lung; Z85.819 Personal history of malignant neoplasm of unspecified site of lip, oral cavity, and pharynx; Z87.891 Personal history of nicotine dependence; Z79.899 Other long term (current) drug therapy
CPT/HCPCS: 36415; 36592; 36600; 71045; 76705; 80053; 80202; 81001; 82803; 82962; 83605; 83735; 84100; 85025; 85610; 85730; 86704; 86705; 86706; 86708; 86709; 86803; 87040; 87070; 87086; 87205; 87340; 87449; 87633; 87635; 87641; 92526; 92610; 93005; 94002; 94003; 94640; 97110; 97162; 97166; 97530; 97802; 97803; 99284; G2023; J2997; J7030; J7050; A4216; J1940; U0002

== ENCOUNTER 2019-09-11 17:59 | Inpatient (IN) | payer MEDICARE, SELFPAY ==
[2019-09-09 10:13] VITALS: BMI 20.7
[2019-09-11 18:08] VITALS: BP 132/93; PULSE 95; RESP 18; TEMP 36.7; O2SAT 94; BMI 20.5
[2019-09-11 19:27] VITALS: PULSE 102; RESP 24
[2019-09-11] MEDS: Ipratropium/Albuterol Sulfate 3 ML AMPUL.NEB INHALATION (19:27)
--- NOTE | 2019-09-11 19:38 | NURSING ---
PT to be on eliquis 5mg BID per Farrah, OFFICE MANAGER. Came with home med list stating eliquis 5mg daily. order changed & pharmacy aware.
--- NOTE | 2019-09-11 20:16 | PCM.HP.STD ---
Problem List (1) Acute respiratory failure Status: Acute (2) Debility Status: Acute (3) Dysphagia Status: Chronic (4) Aspiration pneumonia Status: Acute (5) Left ventricular thrombus Status: Chronic (6) Stroke Status: Chronic Qualifiers: (7) COPD (chronic obstructive pulmonary disease) Status: Chronic Qualifiers: (8) Pulmonary embolism Status: Chronic Qualifiers: (9) Throat cancer Status: Chronic (10) Lung cancer Status: Chronic Qualifiers: (11) Hypothyroidism Status: Chronic Qualifiers: (12) Allergic rhinitis Status: Chronic (13) Hypertension Status: Chronic Qualifiers: History of Present Illness Date of Admission: 09/11/19 Chief Complaint: Here for rehabilitation, strengthening, prior to discharge home alone. 09/08/2019 The patient is a 64 year old Male with below past medical history presented to [facility] Emergency Department from TCU with cough. 09/08/2019 EKG sinus tachycardia, low voltage QRS, septal infarct, age undetermined, nonspecific T wave abnormality. Acute respiratory failure secondary to aspiration of tube feed. Already on Meropenem, Vancomycin for aspiration pneumonia. Pulsox mid 70's. ABG showed primary metabolic alkalosis with compensatory acidosis. Deep suctioning revealed tube feed. 09/08/2019 Admit to Hospital. Ray cultured. Zosyn, Vancomycin IV for sepsis, healthcare associated pneumonia. Eliquis for pulmonary embolism, left ventricular thrombus. 09/08/2019 Dr. Ho recommended BiPAP as needed. Wean oxygen. Continue bronchodilators, IV steroids. 09/08/2019 Dr. Norman recommends elevation Head Of Bed while tube feed running. Patient lowered Head Of Bed while tube feed running on TCU. Consider Reglan. 09/08/2019 Liver ultrasound showed gallbladder polyps, small right pleural effusion. 09/09/2019 Chest X-ray Decreasing right basilar airspace disease, stable COPD. Left PICC line. 09/09/2019 Transition from BiPAP to oxygen per nasal cannula. Wean Levophed to mean arterial pressure 65mm HG. 09/11/2019 Prednisone 40MG daily x 5 days. Vancomycin, Zosyn IV transitioned to Augmentin via PEG tube. 09/11/2019 Admit to TCU with debility, here for rehabilitation, strengthening, prior to discharge home alone. Past Medical History Past Medical History (Chronic Problems): Chronic Problems Dysphagia (Chronic) Left ventricular thrombus (Chronic) Stroke (Chronic) COPD (chronic obstructive pulmonary disease) (Chronic) Pulmonary embolism (Chronic) Self neglect (Chronic) Throat cancer (Chronic) Lung cancer (Chronic) Hypothyroidism (Chronic) Allergic rhinitis (Chronic) Hypertension (Chronic) Hyponatremia (Chronic) Allergies No Known Allergies Allergy (Verified 01/31/17 16:57) Home Medications: Ambulatory Orders Medication Instructions Recorded Apixaban [Eliquis] 5 mg GT BID 09/08/19 Ipratropium/Albuterol Sulfate 3 ml INHALATION Q4HWA.RT 09/08/19 [Duoneb] Loratadine 10 mg GT DAILY 09/08/19 Losartan Potassium [Cozaar] 25 mg GT DAILY 09/08/19 Albuterol Aerosols [Ventolin 2.5 mg INHALATION Q2H PRN PRN 09/11/19 Aerosols] vial.neb. Amox/Clav 250mg/5ml Suspension 500 mg GT BIDCM 09/11/19 [Augmentin Suspension 250mg/5 ml] Levothyroxine [Synthroid] 75 mcg GT DAILY@0600 09/11/19 Mirtazapine [Remeron] 15 mg GT QHS 09/11/19 Multivitamins,Therapeutic 1 tab GT DAILY@0800 09/11/19 [Multivitamin] Olanzapine [Zyprexa] 2.5 mg GT QHS 09/11/19 predniSONE tablet 40 mg GT DAILY@0809/11/19 Surgical History: - - PEG tube. Psychiatric History: - - Unknown Lives: Alone Smoking Status: Former smoker Tobacco Use: Non-smoker Alcohol: None Drugs: None - *Family History Maternal History Items: - - Denies any market maternal or paternal family history including heart disease, diabetes or cancer. Paternal History Items: - - Denies any market maternal or paternal family history including heart disease, diabetes or cancer. Review of Systems Constitutional: Denies: Chills, Fever, Weight Change HEENT: Denies: Head Aches, Sinus Congestion, Sinus Drainage Cardiovascular: Denies: Chest Pain, Palpitations Respiratory: Denies: Cough, Shortness of breath at rest, Sputum production Gastrointestinal: Denies: Abdominal Pain, Nausea, Vomiting Genitourinary: Denies: Dysuria Musculoskeletal: Denies: Joint Pain, Joint Tenderness Skin: Denies: Rash, Wounds Neurological: Denies: Numbness, Tingling, Focal weakness Psychiatric: Denies: Anxiety, Depression, Homicidal Ideations, Suicidal Ideations Hematologic/ Lymphatic: Denies: Easy Bruising, Easy Bleeding VTE Information - Inpt Only VTE Present on Admission: Yes VTE Mechan Device Prophylaxis: Knee High JESSICA Hose VTE Pharm Prophylaxis ordered?: No Reason prophylaxis not ordered:: Treatment Not Indicated Patient Problems: Active and Suspected Problems Acute respiratory failure (Acute) - Physical Exam Vitals/I&O's: Vital Signs Temp Pulse Resp BP Pulse Ox 98.1 F 95 18 132/93 H 94 09/11/19 18:08 09/11/19 18:08 09/11/19 18:08 09/11/19 18:08 09/11/19 18:08 Oxygen Flow Rate (L/min) 4 Oxygen Delivery Method Nasal Cannula Weight: 61.377 kg Body Mass Index (BMI) 20.5 General: Alert, Oriented x3, Cooperative HEENT: Atraumatic, PERRLA, EOMI, Normocephalic Neck: Supple, No JVD, Negative Carotid Bruits Lungs: Clear to auscultation, Normal air movement Cardiovascular: Regular rate, No murmurs Abdomen: Bowel Sounds Present, Soft, Non Tender, - - PEG tube present. Extremities: No edema, Capillary Refill Less than 3 Seconds Skin: No rashes, No breakdown Musculoskeletal: No Tenderness to Palpation of Joints or Extremities Neurological: Cranial nerves II-XII grossly intact Psych/Mental Status: Normal Affect, Appropriate Current Medications Albuterol Sulfate (Ventolin Aerosols) 2.5 mg INHALATION Q2H PRN PRN PRN Reason: Dyspnea, wheezing Albuterol/Ipratropium (Duoneb) 3 ml INHALATION Q4HWA.RT JUSTIN Amoxicillin/Clavulanate Potassium (Augmentin Suspension 250mg/5 Ml) 500 mg GT BIDCM REPLACED BY [facility] Stop: 09/18/19 08:01 Apixaban (Eliquis) 5 mg GT BID JUSTIN Bisacodyl (Dulcolax) 10 mg RECTAL DAILY PRN PRN Reason: Constipation Calamine/Phenol (Calmoseptine Ointment) 1 applic TOPICAL 0600,2200 REPLACED BY [facility]; Protocol Enteral Nutritional Formula (Jevity 1.5) 1,000 mls @ 55 mls/hr GT .[id number] REPLACED BY [facility] Levothyroxine Sodium (Synthroid) 75 mcg GT DAILY@0600 REPLACED BY [facility] Loratadine (Claritin) 10 mg GT DAILY REPLACED BY [facility] Losartan Potassium (Cozaar) 25 mg GT DAILY REPLACED BY [facility] Mirtazapine (Remeron) 15 mg GT QHS REPLACED BY [facility] Olanzapine (Zyprexa) 2.5 mg GT QHS REPLACED BY [facility] Prednisone () 40 mg GT DAILY@0800 REPLACED BY [facility] Tuberculin PPD (Tubersol, Aplisol, Ppd) 5 tu ID [id number] ONE Stop: 09/12/19 10:01 Assessment/Plan All Active Problems Acute respiratory failure (Acute) Confusion (Acute) Debility (Acute) Weakness (Acute) Dehydration (Acute) Elevated troponin (Acute) Hypernatremia (Acute) Aspiration pneumonia (Acute) Acute respiratory failure with hypoxia (Acute) Aspiration of gastric contents (Acute) Sinus tachycardia by electrocardiography (Acute) Sepsis (Acute) Respiratory failure with hypoxia and hypercapnia (Acute) Pneumonia (Acute) 64 year old male with below past medical history hospitalized for acute respiratory failure secondary to aspiration pneumonia from tube feeding, admitted to TCU with debility, here for rehabilitation, strengthening, prior to discharge home alone. Debility - PT/OT. Dysphagia - ST. Pain - Tylenol 650MG Q4H PRN pain (1-10). Bowel - Dulcolax 10MG UT daily PRN. Adult immunization - Administer Prevnar 13, Pneumovax 32, Fluzone as appropriate. DVT prophylaxis - Not necessary, already on Eliquis. COPD - Duoneb 3ML [id number], Albuterol 2.5MG Q2H PRN, Prednisone 40MG daily thru 09/16/2019. Aspiration pneumonia - Augmentin 500MG BID thru 09/18/2019. Pulmonary Embolism/LV Thrombus - Eliquis 5MG BID. Nutrition - Jevity 1.5 55ML/hour, head of bed elevated, bed locked out, resident is unable to manipulate bed. Hypothyroidism - Levothyroxine 75MCG daily. Allergic Rhinitis - Loratadine 10MG daily. Hypertension - Losartan 25MG daily. Skin irritation - Calmoseptine BID. Appetite loss/depression/insomnia - Mirtazapine 15MG QHS. Agitation - Zyprexa 2.5MG QHS x 7 days, then stop for GDR.
[2019-09-11] MEDS: Mirtazapine 15 MG Tablet GT (23:59)
[2019-09-11] MEDS: OLANZapine 2.5 MG Tablet GT (23:59)
[2019-09-12] MEDS: APIXABAN 5 MG TABLET GT
[2019-09-12] MEDS: Menthol/Lanolin/Calamine/Znox 113 GM Tube 1 APPLIC TOPICAL ×2 (00:11→04:50)
--- NOTE | 2019-09-12 03:50 | NURSING ---
Pt has hematuria, sediment, and luis alberto color to urine in [place]. Rn made doctor aware n.n.o. continue to monitor.
[2019-09-12 04:47] VITALS: BP 126/79; PULSE 97; RESP 18; TEMP 36.8; O2SAT 97
[2019-09-12] MEDS: Loratadine 10 MG Tablet GT (04:50)
[2019-09-12] MEDS: Losartan Potassium 25 MG Tablet GT (04:57)
[2019-09-12] MEDS: Levothyroxine 75 MCG Tablet GT (06:27)
[2019-09-12 07:12] LABS: Absolute Lymphocyte Count 0.62 X10^3/uL (0.83-4.51); Absolute Neutrophil Count 5.6 X10^3/uL (2.0-7.7); Basophil# 0.01 X10^3/uL; Basophil% 0.1 % (0-1); Eosinophil# 0.07 X10^3/uL; Hemoglobin 8.7 g/dL (13.0-16.5); Lymphocyte # 0.62 X10^3/ul (4.0); Lymphocyte % 9.2 % (19-41); Mean Corp Hgb Conc 32.2 g/dL (32-36); Mean Corpuscular Hgb 28.7 pg (27.0-32.0); Mean Corpuscular Volume 89.1 fL (80-94); Mean Platelet Vol. 9.3 fl (6.2-12.0); Monocyte# 0.43 X10^3/uL; Monocyte% 6.4 % (0-10); NRBC Flagged by Analyzer 0 % (0-5); Neutrophil # 5.57 X10^3/uL (2.7-7.7); Neutrophil % 82.7 % (47-70); Platelet Count 391 K/mm3 (150-450); RBC Distribution Width CV 14.6 % (11.6-14.6); RBC Distribution Width SD 46.5 fl (35.1-43.9); Red Blood Count 3.03 M/mm3 (4.6-6.2); White Blood Count 6.7 K/mm3 (4.4-11.0)
[2019-09-12 07:14] VITALS: PULSE 77; RESP 16; O2SAT 93
[2019-09-12] MEDS: Ipratropium/Albuterol Sulfate 3 ML AMPUL.NEB INHALATION (07:14)
[2019-09-12 07:33] LABS: Anion Gap 3 (5-15); BUN 30 mg/dL (7-18); BUN/Creat Ratio 55.4 RATIO (10-20); Calcium,Total 7.9 mg/dL (8.5-10.1); Chloride 99 mmol/L (98-107); Creatinine, Serum 0.54 mg/dL (0.70-1.30); EST Glomerular Filtration Rate 161 mL/min (>60); Est Glom Filt Rate - Afr Amer 195 mL/min (>60); Estimated Creatinine Clearance 63.08 ml/min; Glucose 114 mg/dL (74-106); Potassium 3.5 mmol/L (3.5-5.1); Sodium Level 137 mmol/L (136-145)
[2019-09-12] MEDS: predniSONE 20 MG Tablet 40 MG GT (08:57)
[2019-09-12] MEDS: Amox/Clav 250mg/5ml Suspension 500 MG GT (08:59)
[2019-09-12 10:00] VITALS: PULSE 88; RESP 18; O2SAT 96
--- NOTE | 2019-09-12 10:59 | NURSING ---
Patient refusing all care, therapy, and peg tube feeding. This nurse and Aria JENKINS attempted to speak with pt and encourage him to reconsider allowing nursing to provide needed care and explained the importance of receiving peg tube feeding. pt adamant he wants to leave and return home. Notified Dr. Ferrari, who stated if pt would like to go home with hospice he could. This nurse spoke with pt and he agreed to this. Waiting for return call from hospice
--- NOTE | 2019-09-12 11:05 | NURSING ---
Therapy came and got this nurse requesting help with pts peg tube. Peg tube was disconnected per order for synthroid administration by HS shift but some leaked on the floor. This nurse turned off pump and cleaned up tube feed. When asked if therapy needed any more assistance they stated no they did not. Therapy was observed trying to wake pt for his program upon leaving the room. This nurse returned to pts room to administer medications and carbon electrodes supervisor tube feed. Pt was calm and cooperative. ST came into room and asked pt if she could clean his mouth and do a swallow assessment. Pt began yelling at therapy telling her to get out of his room and leave him alone, he is sick of everyone. Approx 1030 this nurse went into room to change bottle of jevity and pt began screaming at staff saying I said leave me alone, get the hell out of my room, get me out of this hospital, I want to go home call my sister. Pt would not tell staff why he was upset. Pt agreed to go home with hospice, phone call was placed but no return call from hospice at this time. Chastity (sister) was notified and expressed that she would like him to stay at the hospital but was willing to take him home if she had the equipment to do so. Chastity wishes to wait to hear from hospice to discuss their options before picking him up.
--- NOTE | 2019-09-12 13:53 | PCA ---
asked if i could take bp pulse temp. he told me no and to get out. this was reported to charge nurse
--- NOTE | 2019-09-12 14:38 | DCINST_ITS ---
- Discharge Diagnoses Current Active Problems: Current Active and Chronic Problems Acute respiratory failure (Acute) You will use the following diet at home:: Other - NPO. Discharge Activity: Return to Normal Activity Weight Bearing Status: Weight bearing as tolerated Call your doctor if you observe: Fever of 101 or Higher, Inability to urinate, Inability to have a bowel movement, Shortness of breath, Chest pain, Uncontrolled pain Allergies/Adverse Reactions: Allergies No Known Allergies Allergy (Verified 01/31/17 16:57) Medications to take at Discharge Ipratropium/Albuterol Sulfate [Duoneb] 3 ml INHALATION Q4HWA.RT 09/08/19 Loratadine 10 mg GT DAILY 09/08/19 Losartan Potassium [Cozaar] 25 mg GT DAILY 09/08/19 Levothyroxine [Synthroid] 75 mcg GT DAILY@0600 09/11/19 Mirtazapine [Remeron] 15 mg GT QHS 09/11/19 Multivitamins,Therapeutic [Multivitamin] 1 tab GT DAILY@0809/11/19 Olanzapine [Zyprexa] 2.5 mg GT QHS 09/11/19 predniSONE tablet 40 mg GT DAILY@0800 09/11/19 Primary Care Physician: Alexander Grover DO [Primary Care Provider] - Please follow up with your Primary Care Physician in: As needed. Test Results: Test results from this visit will be discussed in further detail at your follow- up appointment, if applicable. Please Follow Up With: Ramon Quan MD When: Not applicable. Please Follow Up With: Nicanor Mackay MD When: Not applicable. Proposed Discharge Date: 09/12/19
--- NOTE | 2019-09-12 14:39 | PCM.DC.SUM ---
Discharge Date and Diagnosis - Problem List Patient Problems: Active and Suspected Problems Acute respiratory failure (Acute) Date of Admission: 09/11/19 Date of Discharge: 09/12/19 - Primary Discharge Diagnosis Acute Problems: Active Problems Acute respiratory failure (Acute) - Secondary Discharge Diagnosis Chronic Problems: Chronic Problems Dysphagia (Chronic) Left ventricular thrombus (Chronic) Stroke (Chronic) COPD (chronic obstructive pulmonary disease) (Chronic) Pulmonary embolism (Chronic) Self neglect (Chronic) Throat cancer (Chronic) Lung cancer (Chronic) Hypothyroidism (Chronic) Allergic rhinitis (Chronic) Hypertension (Chronic) Hyponatremia (Chronic) Hospital Course and Treatment Imaging Results: 09/11/19 18:26 NPO [Diet: Nothing Per Oral] Is pt able to select menu?: No Labs (Last 48 Hours) 09/12/19 09/12/19 06:39 06:39 WBC 6.7 RBC 3.03 L Hgb 8.7 L Hct 27.0 L MCV 89.1 MCH 28.7 MCHC 32.2 RDW Std Deviation 46.5 H RDW Coeff of Abdullahi 14.6 Plt Count 391 MPV 9.3 Immature Gran % (Auto) 0.600 Neut % (Auto) 82.7 H Lymph % (Auto) 9.2 L [place] % (Auto) 6.4 Eos % (Auto) 1.0 Baso % (Auto) 0.1 Absolute Neuts (auto) 5.6 Absolute Lymphs (auto) 0.62 L Nucleated RBC % 0 Sodium 137 Potassium 3.5 Chloride 99 Carbon Dioxide 35.0 H Anion Gap 3 L BUN 30 H Creatinine 0.54 L Estim Creat Clear Calc 63.08 Est GFR (MDRD) Af Amer 195 Est GFR (MDRD) Non-Af 161 BUN/Creatinine Ratio 55.4 H Glucose 114 H Calcium 7.9 L Operations: None Procedures: None Summary of Care Provided: The patient is a 64 year old Male with below past medical history hospitalized for acute respiratory failure secondary to aspiration pneumonia from tube feeding, admitted to TCU with debility, here for rehabilitation, strengthening, prior to discharge home alone. Discharge home with sister, [facility]. Patient Problems: Active and Suspected Problems Acute respiratory failure (Acute) - Physical Exam Vitals/I&O's: Vital Signs Temp Pulse Resp BP Pulse Ox 98.3 F 88 18 126/79 H 96 09/12/19 04:47 09/12/19 10:00 09/12/19 10:00 09/12/19 04:47 09/12/19 10:00 Oxygen Flow Rate (L/min) 5 Oxygen Delivery Method Nasal Cannula Weight: 61.377 kg Body Mass Index (BMI) 20.5 Intake and Output for Last 24 Hours 09/10/19 09/11/19 09/12/19 23:59 23:59 23:59 Intake Total 360 / 360 Output Total 780 / 780 Balance -420 / -420 Laboratory Results 09/12/19 06:39: WBC 6.7, RBC 3.03 L, Hgb 8.7 L, Hct 27.0 L, MCV 89.1, MCH 28.7, MCHC 32.2, RDW Std Deviation 46.5 H, RDW Coeff of Abdullahi 14.6, Plt Count 391, MPV 9.3, Immature Gran % (Auto) 0.600, Neut % (Auto) 82.7 H, Lymph % (Auto) 9.2 L, [place] % (Auto) 6.4, Eos % (Auto) 1.0, Baso % (Auto) 0.1, Absolute Neuts (auto) 5.6, Absolute Lymphs (auto) 0.62 L, Nucleated RBC % 0 09/12/19 06:39: Sodium 137, Potassium 3.5, Chloride 99, Carbon Dioxide 35.0 H, Anion Gap 3 L, BUN 30 H, Creatinine 0.54 L, Estim Creat Clear Calc 63.08, Est GFR (MDRD) Af Amer 195, Est GFR (MDRD) Non-Af 161, BUN/Creatinine Ratio 55.4 H, Glucose 114 H, Calcium 7.9 L Current Medications Acetaminophen (Tylenol Liquid) 650 mg GT Q4H PRN PRN PRN Reason: Pain Score 1-10/10 Albuterol Sulfate (Ventolin Aerosols) 2.5 mg INHALATION Q2H PRN PRN PRN Reason: Dyspnea, wheezing Albuterol/Ipratropium (Duoneb) 3 ml INHALATION Q4HWA.RT [facility] Last Admin: 09/12/19 11:17 Dose: Not Given Documented by: Amoxicillin/Clavulanate Potassium (Augmentin Suspension 250mg/5 Ml) [facility] Stop: 09/18/19 08:01 Last Admin: 09/12/19 08:59 Dose: 500 mg Documented by: Apixaban (Eliquis) 5 mg GT BID [facility] Last Admin: 09/12/19 06:31 Dose: Not Given Documented by: Bisacodyl (Dulcolax) 10 mg RECTAL DAILY PRN PRN Reason: Constipation Calamine/Phenol (Calmoseptine Ointment) 1 applic TOPICAL 0600,2200 [facility]; Protocol Last Admin: 09/12/19 04:50 Dose: 1 applicatio Documented by: Enteral Nutritional Formula (Jevity 1.5) 1,000 mls @ 55 mls/hr GT .[id number] [facility] Last Admin: 09/12/19 00:31 Dose: Not Given Documented by: Levothyroxine Sodium (Synthroid) 75 mcg GT DAILY@0600 [facility] Last Admin: 09/12/19 06:27 Dose: 75 mcg Documented by: Loratadine (Claritin) 10 mg GT DAILY [facility] Last Admin: 09/12/19 04:50 Dose: 10 mg Documented by: Losartan Potassium (Cozaar) 25 mg GT DAILY [facility] Last Admin: 09/12/19 04:57 Dose: 25 mg Documented by: Mirtazapine (Remeron) 15 mg GT QHS [facility] Last Admin: 09/11/19 23:59 Dose: 15 mg Documented by: Olanzapine (Zyprexa) 2.5 mg GT QHS [facility] Stop: 09/18/19 22:01 Last Admin: 09/11/19 23:59 Dose: 2.5 mg Documented by: Prednisone () 40 mg GT DAILY@0800 [facility] Stop: 09/16/19 23:59 Last Admin: 09/12/19 08:57 Dose: 40 mg Documented by: Discharge Activity: Return to Normal Activity Weight Bearing Status: Weight bearing as tolerated Call your doctor if you observe: Fever of 101 or Higher, Inability to urinate, Inability to have a bowel movement, Shortness of breath, Chest pain, Uncontrolled pain Home Medications: Medications to take at Discharge Ipratropium/Albuterol Sulfate [Duoneb] 3 ml INHALATION Q4HWA.RT 09/08/19 Loratadine 10 mg GT DAILY 09/08/19 Losartan Potassium [Cozaar] 25 mg GT DAILY 09/08/19 Levothyroxine [Synthroid] 75 mcg GT DAILY@0600 09/11/19 Mirtazapine [Remeron] 15 mg GT QHS 09/11/19 Multivitamins,Therapeutic [Multivitamin] 1 tab GT DAILY@79909/11/19 Olanzapine [Zyprexa] 2.5 mg GT QHS 09/11/19 predniSONE tablet 40 mg GT DAILY@79909/11/19 Primary Care Physician: Alexander Grover DO [Primary Care Provider] - Please follow up with your Primary Care Physician in: As needed. Please Follow Up With: Ramon Quan MD When: Not applicable. Please Follow Up With: Nicanor Mackay MD When: Not applicable. Disposition: Home with Hospice Minutes spent on discharge:: 30 Patient Condition:: Poor Medical Necessity - Tobacco Use Smoking Status: Former smoker Tobacco Use: Non-smoker Meaningful Use Info Meaningful Use Diagnoses (Choose all that apply): None applicable
[2019-09-12 18:15] VITALS: BP 113/92; PULSE 96; RESP 18; TEMP 36.4; O2SAT 99
--- NOTE | 2019-09-18 14:27 | MDS.RN ---
Information for the mds was obtained from review of the clinical record, interview of resident, staff, and direct observation of resident's care.
--- OUTSIDE RECORDS SUMMARY | 2020-02-02 16:18 | XMS RPT_ITS | CCD ---
:1955 External Reference #:[id number] Author Organization [facility] Care Team Providers Name Role Phone Unavailable Unavailable Unavailable Results Result Name Value Range Unit Interpretation Flag Date Location [facility]) Normal 09-15-2019 [facility] BETTY RICHARD ([id number]) 1955 [facility] Time Provider Department ([id number]) 09/15/19 ALEXANDER HERNANDEZ FAMWS During your visit [...] Date 09/15/2019 Noted Resolved Elevated Blood Pressure [VPH0750] 02/21/2009 10/04/2009 Weight Loss [R63.4] 02/21/2009 06/10/2009 [...] OBSOLETE Refill (FAMPWS) Normal 08-14-2019 Kyle allen [facility] BETTY RICHARD ([id number]) 1955 [facility] Date Time Provider Department ([id number]) 08/14/19 ALEXANDER HERNANDEZ During your visit today, [...] Date 08/14/2019 Noted Resolved Elevated Blood Pressure [OEE5892] 02/21/2009 10/04/2009 Weight Loss [R63.4] 02/21/2009 06/10/2009 [...] * *Final Report* * * Normal 06-28 [facility] FRONTAL/LAT DATE OF EXAM: Jun 29 2019 2:11PM [place] [facility] WRX 5291 - XR CHEST 2V FRONTAL/LAT / ([id number]) PROCEDURE REASON: History of malignant neoplasm of [...] th e spine. IMPRESSION: Overall findings unchanged. Histotechnologist: MOLLY Transcribe Date/Time: Jun 29 2019 2:19P Dictated by : ERICA AHMADI MD This examination was interpreted and the report reviewed and electronically signed by: ERICA AHMADI MD on Jun 29 2019 2:22PM EST [id number] progress on 2019-06 PROGRESS HNO ID: [id number] Normal 06-29-2019 [facility] Author: Janet Dan (Rt) Galina Borrero [facility] ([id number]) Service: ? Author Type: Revival Clerk Type: Progress Notes Filed: 06/29/2019 2:11 PM [...] on 2019-06-29 DARVINN Telephone (PRESLEY) Normal 06-29-2019 [facility] BETTY RICHARD ([id number]) 1955 [facility] Time Provider Department () 06/29/19 [...] of oropharynx [Z85.819] Order(s):XR CHEST 2V FRONTAL/LAT [[id number]] Order #: [id number] FUTURE Prescriptions as of 06/29/2019 Sig: [...] Date 06/29/2019 Noted Resolved Elevated Blood Pressure [FUO5067] 02/21/2009 10/04/2009 Weight Loss [R63.4] 02/21/2009 06/10/2009 [...] on 06/29/19 MARLON Telephone (PRESLEY) Normal 06-29-2019 [facility] BETTY RICHARD ([id number]) 1955 M [facility] Date Time Provider Department ([id number]) 06/29/19 TANYA RDORÍGUEZ During your visit today, we recorded the [...] Date 06/29/2019 Noted Resolved Elevated Blood Pressure [KWC4937] 02/21/2009 10/04/2009 Weight Loss [R63.4] 02/21/2009 06/10/2009 [...] on 2019-04-06 CNCO Letter Text Normal 04-06-[address] [facility] ([id number]) progress on 2019-03 PROGRESS HNO ID: [id number] Normal 04-03-2019 [facility] Author: Alexander Hernandez [facility] ([id number]) Service: ? Author Type: Physician Type: Progress [...] liquid as needed, Only able to tolerate [place] instant br eakfast, no other foods/supplements. Hypothyroidism, taking levothyroxine 75 mcg daily TSH Date Value Ref Range Status 03/30/2019 1.470 0.270 - 4.200 uU/mL Final PAST MEDICAL HISTORY Diagnosis Date - Cigar smoker in past - COPD (chronic obstructive pulmonary disease) (HCC) 02/22/[address] Farrell Mathematics Academic Chair - Eczema 03/08/2010 - Hx of primary [...] See patient instructions. Alexander Hernandez DO [address] [place] [address] fecal occult bld tst on 2019-04-03 Immuno FOB Negative Negative Normal 04-03-2019 [facility] ([id number]) Comment: Result Comment: This test wa s developed and its performance characteristics determined by [facility]'s [facility] [place] ( [employer]). It has not been cleared or a pproved by the FDA. [facility] is regulated under CLIA as qualified to perform high complexity testing. This test is used for clinic al purposes. It should not be regarded as investigational or for research. Performed By: #### IFOBT ### #[facility] [address] [place], [place] [phone] ekg1 on 2019-04-03 EKG1 NAME : CHANTELBETTY TREVINO Normal 2018 [facility] PID : [id number] Gerry ceballos ([id number]) : 1955 Gender : Male Race : [...] ms QTC Calculation(Bazett) : 418 ms P [place] : 81 degrees R [place] : 65 degrees T [place] : 75 degrees Test Reason : Location : 185 : [facility] Overread By : FAMILIA BATES D.O. Edited By : FAMILIA BATES D.O. Referred By : ALEXANDER HERNANDEZ Acquired by : lorenzo DOSS on 2019-04-03 CNOV Office Visit (FAMPWS) Normal 04-03-20 19 [facility] BESSBETTY Manley ([id number]) 1955 [facility] Time Provider Department ([id number]) 04/03/19 10:20 AM ALEXANDER HERNANDEZ FAMPWS During [...] liquid as needed, Only able to tolerate [place] instant breakfast, n o other foods/supplements. Hypothyroidism, taking levothyroxine 75 mcg daily TSH Date Value Ref Range Status 03/30/2019 1.470 0.270 - 4.200 uU/mL Final PAST MEDICAL HISTORY Diagnosis Date - Cigar smoker in past - COPD (chronic obstructive pulmonary disease) (HCC) 02/22/[address] Farrell Mathematics Academic Chair - Eczema 03/08/2010 - Hx of primary [...] plan. See patient instructions. Alexander Hernandez DO [address] [place] [address] Referring Provider: SELF [200] Allergies As of [...] Order(s):FECAL OCCULT BLOOD TEST [SQIFOBT] Order #: [id number] FUTURE ECG COMPLETE [ECG01] Order #: [id number] FUTURE Prescriptions as of 04/03/2019 Sig: LEVOTHYROXINE [...] TSH Qn 1.470 0.270-4.200 uU/mL Normal 03-30-[address] [facility] ([id number]) Comment: Performed By: #### BMP, LIPB , TSH ####[facility] [address] [place] [address] [phone] lipid panel, basic on 2019-03-30 Cholesterol [Mass/Vol] 159 <200 mg/dL Normal 019 [facility] (62239) Comment: Result Comment: <200 mg/dL, Desirable 200-239 mg/dL, Borderline hi gh >239 mg/dL, High Performed By: #### BMP, LIPB , TSH ####[facility] [address] [phone] Cholesterol in HDL 53 >39 mg/dL Normal 03-30-2019 [facility] [Mass/Vol] (86663) Comment: Result Comment: 40-59 mg/dL, Acceptable >59 mg/dL, High: Negative ri sk factor for coronary heart disease <40 mg/dL, Low: Positive ris k factor for coronary heart disease Performed By: #### BMP, LIPB , TSH ####[place] [address] [address] [phone] Cholesterol in LDL 93 <100 mg/dL Normal 03-30-2019 [facility] [Mass/Vol] [place] [facility] (51398) Comment: Result Comment: <100 mg/dL, Optimal 100-129 mg/dL, Near optimal/ above optimal 130-159 mg/dL, Borderline hi gh 160-189 mg/dL, High >189 mg/dL, Very high Secondary prevention optimal LDL Cholesterol levels are recommended to be < 70 mg/dL Performed By: #### BMP, LIPB , TSH ####[address] [place] [address] [phone] Fasting Time 5 hrs Normal 03-30-2019 [facility] (99317) Comment: Performed By: #### BMP, LIPB , TSH ####[address] [place] [address] [phone] LDL:HDL Ratio 1.75 <2.54 Normal 03-30-2019 [facility] (79774) Comment: Result Comment: Reference: 1. National Cholesterol Educ ation Program ATP III Guideline At-A-Glance Quick Desk Reference: National Heart, Lung, and Blood [place]. National Institutes of Health. 2001: NIH Publication No. 01-3305. 2. An International Atherosc lerosis Society position paper: global recommendations for the management of dyslipidemia: executive summary, Atherosclerosis. 2014: 232(2):410-413. Performed By: #### BMP, LIPB , TSH ####[place] [id number] [place] [address] [phone] Non HDL Cholesterol 106 <130 mg/dL Normal 03-30-2019 [facility] (14187) Comment: Result Comment: <130 mg/dL, Optimal 130-159 mg/dL, Near optimal/ above optimal 160-189 mg/dL, Borderline hi gh 190-219 mg/dL, High >219 mg/dL, Very high Secondary prevention optimal non HDL Cholesterol levels are recommended to be < 100 mg/dL Performed By: #### BMP, LIPB , TSH ####[place] [address] [phone] TC:HDL Ratio 3.00 <5.10 Normal 03-30-2019 [facility] (89277) Comment: Performed By: #### BMP, LIPB , TSH ####[place] [address] [phone] Triglyceride [Mass/Vol] 65 <150 mg/dL Normal 2018 [facility] (28314) Comment: Result Comment: <150 mg/dL, Normal 150-199 mg/dL, Borderline hi gh 200-499 mg/dL, High >499 mg/dL, Very high Performed By: #### BMP, LIPB , TSH ####[place] [address] [phone] VLDL Cholesterol 13 <30 mg/dL Normal 03-30-2019 [facility] (97728) Comment: Performed By: #### BMP, LIPB , TSH ####[place] [address] [phone] basic metabolic panl on 2019-03-30 Anion gap [Moles/Vol] 13 9-18 mmol/L Normal 03-30-20 19 [facility] (75979) Comment: Performed By: #### BMP, LIPB , TSH ####[place] [address] [phone] Calcium [Mass/Vol] 9.6 8.5-10.2 mg/dL Normal 03-30-2019 [facility] (63080) Comment: Performed By: #### BMP, LIPB , TSH ####[facility] [address] [place] [address] [phone] Chloride [Moles/Vol] 87 97-105 mmol/L Low 9 [facility] (73830) Comment: Performed By: #### BMP, LIPB , TSH ####[facility] [place] [address] [phone] CO2 [Moles/Vol] 24 22-30 mmol/L Normal 03-30-2019 [facility] (67021) Comment: Performed By: #### BMP, LIPB , TSH ####[facility] [place] [address] [phone] Creatinine [Mass/Vol] 0.71 0.73-1.22 mg/dL Low 03-30-20 19 [facility] (31406) Comment: Performed By: #### BMP, LIPB , TSH ####[facility] [place] [address] [phone] eGFR- Amer. >60 Normal 03-30-2019 [facility] (10525) Comment: Performed By: #### BMP, LIPB , TSH ####[facility] [place] [address] [phone] GFR/1.73 sq M predicted >60 mL/min/{1.73_m2} Normal 03-30-2019 [facility] among non-blacks MDRD [place] (09563) (S/P/Bld) [Vol rate/Area] Comment: Result Comment: eGFR [...] By: #### ABBE ROCA TSH ####[facility] [place] [address] [phone] Glucose [Mass/Vol] 70 74-99 mg/dL Low 03-30-2019 [facility] (47231) Comment: Result Comment: The [place] Diabetes Association (ADA) provides guidance for cutoff [...] for diagnosis of diabetes. Reference: Standards of [facility] Care in Diabetes 2016, [place] Diabetes Association. Diabetes Care. 2016.39(Suppl 1). Performed By: #### ABBE ROCA TSH ####[facility] [place] [address] [phone] Potassium [Moles/Vol] 4.8 3.7-5.1 mmol/L Normal 03-30-20 [facility] (17869) Comment: Performed By: #### ABBE ROCA , TSH ####[facility] [place] [address] [phone] Sodium [Moles/Vol] 124 136-144 mmol/L Low 03-30-2019 [facility] (03160) Comment: Performed By: #### ABBE ROCA , TSH ####[facility] [place] [address] [phone] Urea nitrogen [Mass/Vol] 18 9-24 mg/dL Normal 03-30 [facility] (67541) Comment: Performed By: #### BMP, LIPB , TSH ####[facility] [address] [place] [address] [phone] cnptoutreach on 201 12-31-25 CNPTOUTREACH Patient Outreach (FAMPST) Normal 1 05-17-2018 [facility] BETTY RICHARD ([id number]) 1955 [facility] Date Time Provider Department (92641) 03/17/19 ALEXANDER HERNADNEZ FAMPST During your visit today, we recorded the following informati on about you: Allergies As of Date: 03/17/2019 (No Known Allergies) Date Reviewed: 10/29/2018 Reviewed by: Lary Murdock Ma - Fully Assessed Visit Diagnoses:Essential hypertension [I10] Mixed hyperlipidemia [E78.2] Hypothyroidism, acquired [E03.9] Order(s):BASIC METABOLIC PNL [SQBMP] Order #: [id number] FUT URE LIPID PANEL BASIC [SQLIPB] Order #: [id number] FUTURE TSH BLD [SQTSH] Order #: [id number] FUTURE Prescriptions as of 03/17/2019 Sig: LEVOTHYROXINE [...] (FAMPWS) Normal 03-05-2019 Kyle allen BETTY Vincent ([id number]) 1955 [facility] Date Time Provider Department (39326) 03/05/19 ALEXANDER HERNANDEZ During your visit today, [...] on 2019-01 OBSOLETE Refill (FAMPWS) Normal 02-09-[address] [facility] BETTY RICHARD ([id number]) 1955 [facility] Time Provider Department (29128) 02/09/19 ALEXANDER HERNANDEZ FAMPWS During your visit [...] [Z12.11] INVALID FOR* Finger laceration, initial encounter [J93.310X] INVALID FOR* Prescriptions ordered this encounter Disp [...] on 2019-01 OBSOLETE Refill (FAMPWS) Normal 02-06-[address] [facility] BETTY RICHARD ([id number]) 1955 [facility] Time Provider Department (86369) 02/06/19 ALEXANDER HERNANDEZ FAMPWS During your visit [...] 02/09/19 progress on 2018-11 PROGRESS HNO ID: [id number] Normal 11-21-2018 [facility] Author: Beverly Flynn ([id number]) Service: ? Author Type: Software Solutions Architect Type: Progress Notes Filed: 11/21/2018 11:46 AM Note Text: [facility] POST TENSIONING IRONWORKER QUICKNOTE Provider Action/FYI: Bp was 100/80 on 09-23-18. No nurse visit needed. Patient identified by name and . Beverly Flynn MA progress on 2018-10 PROGRESS HNO ID: [id number] Normal 11-14-2018 [facility] Author: Beverly Flynn Farias ([id number]) Service: ? Author Type: Software Solutions Architect Type: Progress Notes Filed: 11/21/2018 11:46 AM [...] CNPTOUTREACH Patient Outreach (FAMPWS) Normal 0 11-14-2018 [facility] BETTY RICHARD ([id number]) 1955 [facility] Time Provider Department (27067) 11/14/18 BEVERLY FLYNN (GURU) FAMPWS During your [...] GURU Salazar MA 11/21/2018 11:46 AM Signed [facility] POST TENSIONING IRONWORKER QUICKNOTE Provider Action/FYI: Bp was 100/80 on [...] 11/21/18 progress on 2018-10 PROGRESS HNO ID: [id number] Normal 10-29-2018 [facility] Author: Taisha Whitman [facility] Service: ? [facility] Author Type: Nurse Practitioner ([id number]) Type: Progress Notes Filed: 11/04/2018 7:25 AM Note Text: VASCULAR SURGERY WOUND OSTOMY CONTINENCE CONSULTATION CHIEF COMPLAINT: Wound check and evaluation HISTORY OF PRESENT ILLNESS: right 4th finger PAST MEDICAL HISTORY Diagnosis Date - Cigar smoker in past - COPD (chronic obstructive pulmonary disease) (HCC) 02/22/20 Dr. Farrell Mathematics Academic Chair - Eczema 03/08/2010 - Hx of primary [...] education/counselling/coordination of care. Taisha Whitman, PhD, WOCN, INORGANIC CHEMISTRY TEACHER cnov on 2018-10-29 CNOV Office Visit (VASSWS) Normal 10-30-19 [facility] BETTY RICHARD ([id number]) 1955 M [facility] Time Provider Department (50267) 10/29/18 2:30 PM TAISHA WHITMAN VASSWS During your visit today, we recorded the following informati on about you: Taisha Whitman, PhD, SEAFOOD PREPARER.INORGANIC CHEMISTRY TEACHER 11/04/2018 7:25 AM Signed VASCULAR SURGERY WOUND OSTOMY CONTINENCE CONSULTATION CHIEF COMPLAINT: Wound check and evaluation HISTORY OF PRESENT ILLNESS: right 4th finger PAST MEDICAL HISTORY Diagnosis Date - Cigar smoker in past - COPD (chronic obstructive pulmonary disease) ([facility]) 02/22/[address] Farrell Mathematics Academic Chair - Eczema 03/08/2010 - Hx of primary hypertension resolved, no longer on medications - Hypothyroidism 08/2015 - Oral cancer ([facility]) Apr 2011 Pharyngeal; feeding tube [...] education/counselling/coordination of care. Taisha Whitman, PhD, WOCN, INORGANIC CHEMISTRY TEACHER Referring Provider: ALEXANDER HERNANDEZ [[id number]] Allergies As of Date: 10/29/2018 (No Known Allergies) Date Reviewed: 10/29/2018 Reviewed by: Lary Murdock Ma - Fully Assessed Reason for Visit: Follow Up [171] Primary Visit Diagnosis:Avul anthony of finger tip, subsequent encounter [S64.367D] Prescriptions as of 10/29/2018 Sig: LORATADINE 10 [...] on 2018-10 OBSOLETE Refill (FAMPWS) Normal 10-24-[address] [facility] BETTY RICHARD ([id number]) 1955 [facility] Date Time Provider Department (70322) 10/24/18 ALEXANDER HERNANDEZ FAMPWS During your visit [...] last office visit in primary care: 09/23/18 INORGANIC CHEMISTRY TEACHER, PCP, next 04/03/19 Last 2 Encounter Wt [...] 10/24/18 progress on 2018-09 PROGRESS HNO ID: [id number] Normal 10-17-2018 [place] Author: Taisha Whitman [facility] Service: ? [place] Author Type: Nurse Practitioner ([id number]) Type: Progress Notes Filed: 10/26/2018 9:27 PM Note Text: VASCULAR SURGERY WOUND OSTOMY CONTINENCE CONSULTATION CHIEF COMPLAINT: Wound check and evaluation HISTORY OF PRESENT ILLNESS: right 4th finger wound PAST MEDICAL HISTORY Diagnosis Date - Cigar smoker in past - COPD (chronic obstructive pulmonary disease) (HCC) 02/22/20 Dr. aFrrell Mathematics Academic Chair - Eczema 03/08/2010 - Hx of primary [...] education/counselling/coordination of care. Taisha Whitman, PhD, WOCN, INORGANIC CHEMISTRY TEACHER cnov on 2018-10-17 CNOV Office Visit (VASSWS) Normal 10-18-19 [facility] BETTY RICHARD ([id number]) 1955 M [facility] Date Time Provider Department (64924) 10/17/18 11:30 AM TAISHA WHITMAN VASSWS During your visit today, we recorded the following informati on about you: Temperature Blood pressure 98.3 degrees 146/99 Taisha Whitman, PhD, SEAFOOD PREPARER.INORGANIC CHEMISTRY TEACHER 10/26/2018 9:27 PM Signed VASCULAR SURGERY WOUND OSTOMY CONTINENCE CONSULTATION CHIEF COMPLAINT: Wound check and evaluation HISTORY OF PRESENT ILLNESS: right 4th finger wound PAST MEDICAL HISTORY Diagnosis Date - Cigar smoker in past - COPD (chronic obstructive pulmonary disease) (HCC) 02/22/20 Dr. Farrell Mathematics Academic Chair - Eczema 03/08/2010 - Hx of primary hypertension resolved, no longer on medications - Hypothyroidism 08/2015 - Oral cancer ([facility]) Apr 2011 Pharyngeal; feeding tube [...] patient inclu ded education/counselling/coordination of care. Taisha Whitmna, PhD, WOCN, INORGANIC CHEMISTRY TEACHER Referring Provider: ALEXANDER HERNANDEZ [[id number]] Allergies As of Date: 10/17/2018 (No Known [...] [Z12.11] INVALID FOR* Finger laceration, initial encounter [S66.219A] INVALID FOR* Encounter Status:Closed by TAISHA WHITMAN CNP on 10/26/18 obsolete on 2018-09 OBSOLETE Refill (FAMPWS) Normal 10-15-2018 Kyle allen BETTY Vincent ([id number]) 1955 [facility] Date Time Provider Department (35255) 10/15/18 ALEXANDER HERNANDEZ During your visit today, [...] INVALID FOR* Contact dermatitis due to poison filiebrto [L23.7] INVALID FOR* HBP (High Blood Pressure) [...] [Z12.11] INVALID FOR* Finger laceration, initial encounter [O33.390A] INVALID FOR* Prescriptions ordered this encounter Disp [...] 10/15/18 progress on 2018-09 PROGRESS HNO ID: [id number] Normal 10-10-2018 [facility] Author: Taisha Whitman [facility] Service: ? [place] Author Type: Nurse Practitioner ([id number]) Type: Progress Notes Filed: 10/12/2018 5:55 PM Note Text: VASCULAR SURGERY WOUND OSTOMY CONTINENCE CONSULTATION CHIEF COMPLAINT: Wound check and evaluation HISTORY OF PRESENT ILLNESS: right 4th finger injury PAST MEDICAL HISTORY Diagnosis Date - Cigar smoker in past - COPD (chronic obstructive pulmonary disease) ([facility]) 02/22/[address] Farrell Mathematics Academic Chair - Eczema 03/08/2010 - Hx of primary hypertension resolved, no longer on medications - Hypothyroidism 08/2015 - Oral cancer ([facility]) Apr 2011 Pharyngeal; feeding tube [...] education/counselling/coordination of care. Taisha Whitman, PhD, WOCN, INORGANIC CHEMISTRY TEACHER cnov on 2018-10-10 CNOV Office Visit (VASSWS) Normal 10-11-19 19 [facility] BETTY Vincent ([id number]) 1955 M [facility] Date Time Provider Department (04484) 10/10/18 10:30 AM TAISHA WHITMAN During your visit today, we recorded the following informati on about you: Taisha Whitman, PhD, SEAFOOD PREPARER.INORGANIC CHEMISTRY TEACHER 10/12/2018 5:55 PM Signed VASCULAR SURGERY WOUND OSTOMY CONTINENCE CONSULTATION CHIEF COMPLAINT: Wound check and evaluation HISTORY OF PRESENT ILLNESS: right 4th finger injury PAST MEDICAL HISTORY Diagnosis Date - Cigar smoker in past - COPD (chronic obstructive pulmonary disease) (HCC) 02/22/[address] Farrell Mathematics Academic Chair - Eczema 03/08/2010 - Hx of primary [...] education/counselling/coordination of care. Taisha Whitman, PhD, WOCN, INORGANIC CHEMISTRY TEACHER Referring Provider: ALEXANDER HERNANDEZ [[id number]] Allergies As of Date: 10/10/2018 (No Known Allergies) Date Reviewed: 10/10/2018 Reviewed by: Lary Murdock Ma - Fully Assessed Reason for Visit: Wound Care [485] Primary Visit Diagnosis:Avulsion of finger tip, nikhil dan encounter [I83.156S] Prescriptions as of 10/10/2018 Sig: MIRTAZAPINE 15 [...] 10/12/18 progress on 2018-09 PROGRESS HNO ID: [id number] Normal 10-01-2018 [facility] Author: Taisha Whitman [facility] Service: ? [place] Author Type: Nurse Practitioner ([id number]) Type: Progress Notes Filed: 10/05/2018 4:52 PM Note Text: VASCULAR SURGERY WOUND OSTOMY CONTINENCE CONSULTATION CHIEF COMPLAINT: Wound check and evaluation HISTORY OF PRESENT ILLNESS: right 4th finger evulsion PAST MEDICAL HISTORY Diagnosis Date - Cigar smoker in past - COPD (chronic obstructive pulmonary disease) (HCC) 02/22/20 Dr. Farrell Mathematics Academic Chair - Eczema 03/08/2010 - Hx of primary hypertension resolved, no longer on medications - Hypothyroidism 08/2015 - Oral cancer ([facility]) Apr 2011 Pharyngeal; feeding tube [...] none Edema: none Exudate: none Tissue color: [place] Tissue type: dry old blood washed off [...] education/counselling/coordination of care. Taisha Whitman, PhD, WOCN, INORGANIC CHEMISTRY TEACHER cnov on 2018-10-01 CNOV Office Visit (VASSWS) Normal 10-02-19 [facility] AMINTAANGELICABETTY Manley ([id number]) 1955 M [facility] Date Time Provider Department (77497) 10/01/18 3:30 PM TAISHA WHITMAN VASSWS During your visit today, we recorded the following informati on about you: Temperature Pulse Blood pressure Weight 98.6 degrees 61/minute 99/68 61.2 kg Taisha Whitman, PhD, SEAFOOD PREPARER.INORGANIC CHEMISTRY TEACHER 10/05/2018 4:52 PM Signed VASCULAR SURGERY WOUND OSTOMY CONTINENCE CONSULTATION CHIEF COMPLAINT: Wound check and evaluation HISTORY OF PRESENT ILLNESS: right 4th finger evulsion PAST MEDICAL HISTORY Diagnosis Date - Cigar smoker in past - COPD (chronic obstructive pulmonary disease) ([facility]) 02/22/20 Dr. Farrell Mathematics Academic Chair - Eczema 03/08/2010 - Hx of primary hypertension resolved, no longer on medications - Hypothyroidism 08/2015 - Oral cancer ([facility]) Apr 2011 Pharyngeal; feeding tube [...] none Edema: none Exudate: none Tissue color: [place] Tissue type: dry old blood washed off [...] education/counselling/coordination of care. Taisha Whitman, PhD, WOCN, INORGANIC CHEMISTRY TEACHER Referring Provider: TAISHA WHITMAN [[id number]] Allergies As of Date: 10/01/2018 (No Known Allergies) Date Reviewed: 10/01/2018 Reviewed by: Lary Murdock Ma - Fully Assessed Reason for Visit: Follow Up [171] Primary Visit Diagnosis:Avulsion of finger tip, initia l encounter [P52.898B] Prescriptions as of 10/01/2018 Sig: MIRTAZAPINE 15 [...] 10/05/18 progress on 2018-09 PROGRESS HNO ID: [id number] Normal 09-24-2018 [facility] Author: Taisha (Phd) (Hadoop Developer) [facility] Service: ? [place] Author Type: Nurse Practitioner ([id number]) Type: Progress Notes Filed: 09/28/2018 3:50 PM [...] pulmonary disease) (HCC) 02/22/[address] Farrell Mathematics Academic Chair - Eczema 03/08/2010 - Hx of primary [...] none Tissue color: Black, dark Red and [place] Tissue type: muscle and necrotic v dry [...] education/counselling/coordination of care. Taisha Whitman, PhD, WOCN, INORGANIC CHEMISTRY TEACHER cnov on 2018-09-24 CNOV Office Visit (VASSWS) Normal 09-25-19 19 [facility] BETTY RICHARD ([id number]) 1955 [facility] Date Time Provider Department ([id number]) 09/24/18 2:30 PM TAISHA WHITMAN (PHD) (INORGANIC CHEMISTRY TEACHER) VASSWS During your visit today, we recorded the following informati on about you: Temperature Pulse Respiration Blood pressure 99.3 degrees 95/minute 16/minute 113/81 Weight Height 61.1 kg 1.727 m Taisha Whitman, PhD, SEAFOOD PREPARER.INORGANIC CHEMISTRY TEACHER 09/28/2018 3:50 PM Signed VASCULAR SURGERY WOUND OSTOMY CONTINENCE CONSULTATION CHIEF COMPLAINT: Wound check and evaluation HISTORY OF PRESENT ILLNESS: right 4th fi nger traumatic injury by a mower blade on 09/15/2018. On PO ABX as per PCP PAST MEDICAL HISTORY Diagnosis Date - Cigar smoker in past - COPD (chronic obstructive pulmonary disease) (HCC) 02/22/20 Dr. Farrell Mathematics Academic Chair - Eczema 03/08/2010 - Hx of primary hypertension resolved, no longer on medications - Hypothyroidism 08/2015 - Oral cancer ([facility]) Apr 2011 Pharyngeal; feeding tube [...] none Tissue color: Black, dark Red and [place] Tissue type: muscle and necrotic v dry [...] education/counselling/coordination of care. Taisha Whitman, PhD, WOCN, INORGANIC CHEMISTRY TEACHER Referring Provider: JESSICA MENDOZA ([facility]) [[id number]] Allergies As of Date: 09/24/2018 (No Known [...] 09/28/18 progress on 2018-09 PROGRESS HNO ID: [id number] Normal 09-23-2018 [facility] Author: Jessica Camarillo) Reji Farias ([id number]) Service: ? Author Type: Nurse Practitioner Type: [...] - COPD (chronic obstructive pulmonary disease) ([facility]) 02/22/20 Dr. Farrell Mathematics Academic Chair - Eczema 03/08/2010 - Hx of primary hypertension resolved, no longer on medications - Hypothyroidism 08/2015 - Oral cancer ([facility]) Apr 2011 Pharyngeal; feeding tube [...] 2018-09-23 CNOV Office Visit (FAMPWS) Normal 09-24-19 [facility] BETTY RICHARD ([id number]) 1955 [facility] Date Time Provider Department ([id number]) 09/23/18 1:40 PM [facility] During your visit today, we recorded [...] - COPD (chronic obstructive pulmonary disease) ([facility]) 02/22/[address] Farrell Mathematics Academic Chair - Eczema 03/08/2010 - Hx of primary hypertension resolved, no longer on medications - Hypothyroidism 08/2015 - Oral cancer ([facility]) Apr 2011 Pharyngeal; feeding tube [...] encounter [S61.209D] Order(s):TDAP VACCINE AGE 7+ IM [[id number]] Order #: [id number] CONSULT TO SKIN CARE TEAM [[id number]] Order #: [id number]: 1 Prescriptions as of 09/23/2018 Sig: CEPHALEXIN [...] [Z12.11] INVALID FOR* Finger laceration, initial encounter [S67.948A] INVALID FOR* Other instructions from your clinician: 1. Please see wound care tomorrow. 2. Recheck here in 2 weeks. Encounter Status:Closed by JESSICA MENDOZA CNP on 09/23/18 progress on 2018-08 PROGRESS HNO ID: [id number] Normal 09-19-2018 [facility] Author: Jessica (Darvin) Reji Farias ([id number]) Service: ? Author Type: Nurse Practitioner Type: Progress Notes Filed: 09/19/2018 2:01 PM Note Text: This is a 63 year old male who presents today with: Patient presents with: Recheck: follow up finger laceration HISTORY OF PRESENT ILLNESS: Betyt Richard is a 63 year old male. Patient presents w ith: Recheck: follow up finger laceration Pt presents today for recheck of finger laceration/avulsion. Pt was in on 09/16 for initial evaluation. He had an avulsion/laceration affecting the tip of the 4th f abi of the right hand after coming into contact with channeling machine runner blade. The area was dressed. Pt was started on keflex. He has been changing dressings daily. He reports that he hasn't needed anything for pain. Sometime s throbs, but tolerable. PAST MEDICAL HISTORY: PAST MEDICAL HISTORY Diagnosis Date - Cigar smoker in past - COPD (chronic obstructive pulmonary disease) ([facility]) 02/22/20 Dr. Farrell Mathematics Academic Chair - Eczema 03/08/2010 - Hx of primary hypertension resolved, no longer on medications - Hypothyroidism 08/2015 - Oral cancer ([facility]) Apr 2011 Pharyngeal; feeding tube [...] 2018-09-19 CNOV Office Visit (FAMPWS) Normal 09-20-19 [facility] BETTY RICHARD ([id number]) 1955 [facility] Date Time Provider Department ([id number]) 09/19/18 10:20 AM [facility] During your visit today, we recorded [...] right hand after coming into contact with channeling machine runner blade. The area was dressed. Pt was started on keflex. He has been changing dressings daily. He reports that he hasn't needed anything for pain. Sometime s throbs, but tolerable. PAST MEDICAL HISTORY: PAST MEDICAL HISTORY Diagnosis Date - Cigar smoker in past - COPD (chronic obstructive pulmonary disease) ([facility]) 02/22/20 Dr. Farrell Mathematics Academic Chair - Eczema 03/08/2010 - Hx of primary hypertension resolved, no longer on medications - Hypothyroidism 08/2015 - Oral cancer ([facility]) Apr 2011 Pharyngeal; feeding tube [...] needed for wor sening/no improvement. Jessica Mendoza APRN.INORGANIC CHEMISTRY TEACHER Referring Provider: ALEXANDER HERNANDEZ [[id number]] Allergies As of Date: 09/19/2018 (No Known [...] 09/19/18 progress on 2018-08 PROGRESS HNO ID: [id number] Normal 09-16-2018 [facility] Author: Alexander Hernandez Farias ([id number]) Service: ? Author Type: Physician Type: Progress [...] obstructive pulmonary disease) (HCC) 02/22/20 Dr. Farrell Mathematics Academic Chair - Eczema 03/08/2010 - Hx of primary [...] plan. See patient instructions. Alexander Hernandez DO [address] [place] [address] cnov on 2018-09-16 CNOV Office Visit (FAMPWS) Normal 09-17-19 [facility] BETTY RICHARD ([id number]) 1955 [facility] Date Time Provider Department ([id number]) 09/16/18 2:20 PM [facility] During your visit today, we recorded the [...] obstructive pulmonary disease) (HCC) 02/22/20 Dr. Farrell Mathematics Academic Chair - Eczema 03/08/2010 - Hx of primary hypertension resolved, no longer on medications - Hypothyroidism 08/2015 - Oral cancer ([facility]) Apr 2011 Pharyngeal; feeding tube [...] See patient instructions. Alexander Hernandez DO [address] [place] [address] Referring Provider: SELF [[id number]] Allergies As of Date: 09/16/2018 (No Known Allergies) Date Reviewed: 09/16/2018 Reviewed by: Sona Rios LPN - Fully Assessed Reason for Visit: Laceration [850] Cmt: right ring finger lacerat ion from channeling machine runner yesterday Primary Visit Diagnosis:Finger laceration, initial encounter [...] Finger laceration, initial encounter [S69.219A] INVALID FOR* Prescriptions ordered this encounter Disp [...] DATE CREATED AUTHOR AUTHOR'S ORGANIZATIO N 09/15/2019 [facility]
== END 2019-09-12 18:17 | disposition hospice, home (50) | DRG 177 ==
PROVIDERS: Admitting Provider Family Medicine Geriatric Medicine; PCP Student in an Organized Health Care Education/Training Program; Referring Provider Family Medicine Geriatric Medicine; Visit Provider Family Medicine Geriatric Medicine
DX: J69.0 Pneumonitis due to inhalation of food and vomit (principal); J96.01 Acute respiratory failure with hypoxia; I26.99 Other pulmonary embolism without acute cor pulmonale; J44.9 Chronic obstructive pulmonary disease, unspecified; I10 Essential (primary) hypertension; E03.9 Hypothyroidism, unspecified; Z93.1 Gastrostomy status; Z85.118 Personal history of other malignant neoplasm of bronchus and lung; Z85.89 Personal history of malignant neoplasm of other organs and systems; Z87.891 Personal history of nicotine dependence
CPT/HCPCS: 36415; 80048; 85025; 92610; 94640; 97162; 97165; 97802